=== PATIENT | female | born 1955 | race Caucasian/White ===

== ENCOUNTER 2016-09-05 11:33 | Inpatient (IN) | payer OTHER ==
[~2016-09-05] VITALS: Ht 162.6 cm; Wt 72.1 kg
[2016-09-05 11:35] VITALS: BP 140/98; PULSE 95; RESP 20; TEMP 98.2; O2SAT 97
--- NOTE | 2016-09-05 12:50 | PD ---
HPI Chief Complaint: Anxiety Time Seen by Provider: 12:40 Travel History International Travel<30 days: No Contact w/Intl Traveler<30days: No Traveled to known affect area: No History of Present Illness HPI 60-year-old female presents for evaluation. 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 She reports over the past few weeks she has noticed that the chemicals smell worse and she believes that coworkers were mixing Clorox with bleach. She reports that the chemicals would burn her nostrils and her throat when she breathed it in. She confronted her employer about it and she reports that last week she was let go from the company. Since then she has felt some anxiety and tremulousness and she was concerned that she may have chemicals or toxins in her body. She has also noticed for about a week that she occasionally has some dribbling of food and fluid from the left side of her mouth. She has noticed that the left side of her mouth seems droopy when she smiles. She denies any decreased sensation or decreased sense of taste. She denies any difficulty opening or closing her eyes. She denies any weakness in the extremities or slurred speech. She has no other complaints at this time. [facility] Past Medical History Cancer: Yes Hypertension: Yes Tetanus Vaccination: < 5 Years Influenza Vaccination: No ?: Not Past Surgical History Mastectomy: Yes (RIGHT) Social History Alcohol Use: Yes ("A COUPLE OF BEERS DAILY") Tobacco Use: No Substance Use: No Allergies-Medications (Allergen,Severity, Reaction): Coded Allergies: Adhesives (Verified Allergy, Severe, RASH, 09/05/16) Latex (Verified Allergy, Severe, RASH, 09/05/16) Reported Meds & Prescriptions Reported Meds & Active Scripts Active No Active Prescriptions or Reported Medications Review of Systems Except as stated in HPI: all other systems reviewed are Neg Physical Exam Narrative GENERAL: Well-developed well-nourished female who appears anxious on initial examination. SKIN: Warm and dry. HEAD: Atraumatic. Normocephalic. EYES: Pupils equal and round. No scleral icterus. No injection or drainage. ENT: No nasal bleeding or discharge. Mucous membranes pink and moist. NECK: Trachea midline. No JVD. CARDIOVASCULAR: Regular rate and rhythm. No murmur appreciated. RESPIRATORY: No accessory muscle use. Clear to auscultation. Breath sounds equal bilaterally. GASTROINTESTINAL: Abdomen soft, non-tender, nondistended. Hepatic and splenic margins not palpable. MUSCULOSKELETAL: No obvious deformities. No clubbing. No cyanosis. No edema. NEUROLOGICAL: Awake and alert. There is some flattening of the left nasal labial folds. Full range of motion in the upper and lower extremities with full muscle strength. Motor grossly within normal limits. Normal speech. PSYCHIATRIC: Anxious, tearful during initial examination. Data Data Last Documented VS Vital Signs Date Time Temp Pulse Resp B/P Pulse Ox O2 Delivery O2 Flow Rate FiO2 09/05/16 14:30 87 16 137/94 98 Room Air 09/05/16 11:35 98.2 Orders Electrocardiogram (09/05/16 12:54) Complete Blood Count With Diff (09/05/16 12:54) Basic Metabolic Panel (Bmp) (09/05/16 12:54) Iv Access Insert/Monitor (09/05/16 12:54) Lorazepam Inj (Ativan Inj) (09/05/16 14:15) Mri Brain W&W/O Contrast (09/05/16 ) Gadodiamide Pf Inj (Omniscan Pf Inj) (09/05/16 15:08) Dexamethasone Inj (Decadron Inj) (09/05/16 17:00) Admit Order (Ed Use Only) (09/05/16 17:16) Labs Laboratory Tests Test 09/05/16 13:20 White Blood Count 10.3 TH/MM3 Red Blood Count 4.93 MIL/MM3 Hemoglobin 15.2 GM/DL Hematocrit 44.8 % Mean Corpuscular Volume 90.8 FL Mean Corpuscular Hemoglobin 30.9 PG Mean Corpuscular Hemoglobin 34.0 % Concent Red Cell Distribution Width 12.4 % Platelet Count 246 TH/MM3 Mean Platelet Volume 8.4 FL Neutrophils (%) (Auto) 69.9 % Lymphocytes (%) (Auto) 23.4 % Monocytes (%) (Auto) 5.5 % Eosinophils (%) (Auto) 0.4 % Basophils (%) (Auto) 0.8 % Neutrophils # (Auto) 7.2 TH/MM3 Lymphocytes # (Auto) 2.4 TH/MM3 Monocytes # (Auto) 0.6 TH/MM3 Eosinophils # (Auto) 0.0 TH/MM3 Basophils # (Auto) 0.1 TH/MM3 CBC Comment DIFF FINAL Differential Comment Sodium Level 141 MEQ/L Potassium Level 3.9 MEQ/L Chloride Level 105 MEQ/L Carbon Dioxide Level 30.7 MEQ/L Anion Gap 5 MEQ/L Blood Urea Nitrogen 6 MG/DL Creatinine 0.77 MG/DL Estimat Glomerular Filtration 77 ML/MIN Rate Random Glucose 97 MG/DL Hemoglobin A1c 5.3 % Calcium Level 9.5 MG/DL Triglycerides Level 127 MG/DL Cholesterol Level 255 MG/DL LDL Cholesterol 134 MG/DL HDL Cholesterol 95.9 MG/DL Cholesterol/HDL Ratio 2.65 RATIO Free Thyroxine 0.75 NG/DL Thyroid Stimulating Hormone 11.500 uIU/ML 3rd Gen [facility] Medical Decision Making Medical Screen Exam Complete: Yes Emergency Medical Condition: Yes Medical Record Reviewed: Yes Differential Diagnosis Chemical inhalation irritation, anxiety, CVA, Worthington's palsy, electrolyte abnormality, organophosphate poisoning Narrative Course This is a 60-year-old female has been experiencing some irritation in her throat nostrils from breathing and cleaning chemicals, recently let go from her job and now feeling anxious and tremulous. During examination she also notes that she has been experiencing for about a week some dribbling of fluid and food from the left side of her mouth when she is eating and drinking. She does not know if this was related to the chemical inhalation. On examination she does appear to have some left-sided facial droop with some flattening of the nasolabial folds when she smiles. No other focal neurologic deficits are noted. Plan is for lab work and EKG and MRI of the brain to assess for CVA versus peripheral nerve palsy. MRI of the brain reveals multiple intracranial mass lesions with different signal characteristics considering the history of breast carcinoma likely reflect metastatic disease. The patient reports a remote history of breast cancer, treated at [facility] in 2006, lost to follow-up in 2013 secondary to lack of insurance. She does not currently have a primary care physician secondary to lack of insurance. Discussed with on-call neurosurgeon who recommends primary metastatic workup, likely no neurosurgery intervention is indicated at this time. We will admit the patient to the on-call hospitalist group. Procedures EKG Prior to Arrival: Yes Diagnosis Primary Impression: Intracranial mass Admitting Information Admitting Physician Requests: Admit Scripts No Active Prescriptions or Reported Meds Jose Guadalupe Lozoya Sep 05, 2016 12:50
[2016-09-05 13:38] LABS: AUTOMATED NEUTROPHIL # 7.2 TH/MM3 (1.8-7.7); BASOPHIL # 0.1 TH/MM3 (0-0.2); BASOPHIL % 0.8 % (0.0-2.0); EOSINOPHIL % 0.4 % (0.0-4.0); HEMATOCRIT 44.8 % (35.0-46.0); HEMO FLAGS DIFF FINAL; LYMPH % 23.4 % (9.0-44.0); LYMPHOCYTE # 2.4 TH/MM3 (1.0-4.8); MEAN CELL VOLUME 90.8 FL (80.0-100.0); MEAN CORPUSCULAR HEMOGLOBIN 30.9 PG (27.0-34.0); MONO % 5.5 % (0.0-8.0); NEUT % 69.9 % (16.0-70.0); PLATELET COUNT 246 TH/MM3 (150-450); RED BLOOD COUNT 4.93 MIL/MM3 (4.00-5.30); RED CELL DISTRIBUTION WIDTH 12.4 % (11.6-17.2); WHITE BLOOD COUNT 10.3 TH/MM3 (4.0-11.0)
[2016-09-05 13:56] LABS: BICARBONATE 30.7 MEQ/L (21.0-32.0); POTASSIUM 3.9 MEQ/L (3.5-5.1)
[2016-09-05] MEDS ORDERED: LORazepam 2 MG/ML VIAL IV PUSH ONE (14:15)
[2016-09-05 14:30] VITALS: BP 137/94; PULSE 87; RESP 16; O2SAT 98
[2016-09-05] MEDS ORDERED: GADODIAMIDE PF 287 MG/ML 5 ML VIAL (for RAD MRI) IV ONE (15:08)
--- NOTE | 2016-09-05 16:51 | RADRPT ---
EXAM DATE/TIME: 09/05/2016 14:35 [place] COMPARISON: No previous studies available for comparison. INDICATIONS : Altered mental status. Hx of breast ca. CONTRAST: 14 cc Omniscan (gadodiamide) IV MEDICAL HISTORY : Carcinoma, breast. SURGICAL HISTORY : Mastectomy, right. Appendectomy. ENCOUNTER: Initial ACUITY: 2 day PAIN SCORE: 0/10 LOCATION: head TECHNIQUE: Multiplanar, multisequence MRI of the brain was performed both prior to and following the administrat ion of paramagnetic contrast. FINDINGS: There is a 3.8 x 2.6 cm peripherally enhancing mass in the as well as blood products and fluid within the mass. There is cytotoxic edema present with mass effect on the body the right lateral ventricle but no significant midline shift. There is edema involving the left thalamus without a similar enhanc ement pattern. A third small lesion is present measuring 10 mm in diameter in the deep white matter a djacent to the atrium of the left lateral ventricle. No extra-axial fluid collections are identified. Posterior fossa structures are unremarkable. CONCLUSION: 1. Multiple intracranial mass lesions with different signal characteristics no considering the histor y of breast carcinoma likely all reflect metastatic disease. 2. The largest lesion in the right temporal lobe demonstrates central necrosis with 2 other nonenhanc ing lesions in the left thalamus as well as contreras radiata on the left Ronni Louie MD on September 05, 2016 at 16:35 Board Certified Radiologist. This report was verified electronically.
[2016-09-05] MEDS ORDERED: DEXAMETHASONE SOD PHOS 20 MG/5 ML VIAL IV PUSH ONE (17:00)
--- NOTE | 2016-09-05 17:14 | PD ---
Data Data Last Documented VS Vital Signs Date Time Temp Pulse Resp B/P Pulse Ox O2 Delivery O2 Flow Rate FiO2 09/05/16 14:30 87 16 137/94 98 Room Air 09/05/16 11:35 98.2 Orders Electrocardiogram (09/05/16 12:54) Complete Blood Count With Diff (09/05/16 12:54) Basic Metabolic Panel (Bmp) (09/05/16 12:54) Iv Access Insert/Monitor (09/05/16 12:54) Lorazepam Inj (Ativan Inj) (09/05/16 14:15) Mri Brain W&W/O Contrast (09/05/16 ) Gadodiamide Pf Inj (Omniscan Pf Inj) (09/05/16 15:08) Dexamethasone Inj (Decadron Inj) (09/05/16 17:00) Labs Laboratory Tests Test 09/05/16 13:20 White Blood Count 10.3 TH/MM3 Red Blood Count 4.93 MIL/MM3 Hemoglobin 15.2 GM/DL Hematocrit 44.8 % Mean Corpuscular Volume 90.8 FL Mean Corpuscular Hemoglobin 30.9 PG Mean Corpuscular Hemoglobin 34.0 % Concent Red Cell Distribution Width 12.4 % Platelet Count 246 TH/MM3 Mean Platelet Volume 8.4 FL Neutrophils (%) (Auto) 69.9 % Lymphocytes (%) (Auto) 23.4 % Monocytes (%) (Auto) 5.5 % Eosinophils (%) (Auto) 0.4 % Basophils (%) (Auto) 0.8 % Neutrophils # (Auto) 7.2 TH/MM3 Lymphocytes # (Auto) 2.4 TH/MM3 Monocytes # (Auto) 0.6 TH/MM3 Eosinophils # (Auto) 0.0 TH/MM3 Basophils # (Auto) 0.1 TH/MM3 CBC Comment DIFF FINAL Differential Comment Sodium Level 141 MEQ/L Potassium Level 3.9 MEQ/L Chloride Level 105 MEQ/L Carbon Dioxide Level 30.7 MEQ/L Anion Gap 5 MEQ/L Blood Urea Nitrogen 6 MG/DL Creatinine 0.77 MG/DL Estimat Glomerular Filtration 77 ML/MIN Rate Random Glucose 97 MG/DL Calcium Level 9.5 MG/DL MDM Supervised Visit with KATELYN: Yes Narrative Course I, Dr. Sweeney, have reviewed the advance practice practioner's documentation and am in agreement, met with the patient face to face, made the diagnosis, and the medical decision making was done by me. *My assessment and Findings: 60-year-old female here with complaint of anxiety since she inhaled Clorox and bleach mixed together while at work. Patient is anxious that she may have breathed N and then felt nervous and tingly as though she may have chemicals or toxins in her body. On review of systems she notes that she's been drooling food from the left side of the mouth for the last month. On exam she has slight nasal labial fold flattening on the left side. A remote history of breast cancer but hasn't lost to follow-up. Patient is otherwise neuro intact. Differential includes CVA, TIA, intracranial mass lesion, Worthington's palsy, anxiety. R workup unremarkable but unfortunately MRI of the brain shows multiple mass lesions characteristic of metastatic disease. Patient will be admitted to medicine for further management. We did speak with neurosurgery, , who did not feel that he needed to be involved, pending oncology workup. Diagnosis Primary Impression: Intracranial mass Scripts No Active Prescriptions or Reported Meds Toya Sweeney MD Sep 05, 2016 17:14
[2016-09-05] MEDS ORDERED: NALOXONE HCL 0.4 MG/ML AMP IV PRN (17:15)
[2016-09-05] MEDS ORDERED: METOCLOPRAMIDE HCL 10 MG/2 ML VIAL IV PUSH PRN (17:15)
[2016-09-05] MEDS ORDERED: BISACODYL 10 MG SUPP PR PRN (17:15)
[2016-09-05] MEDS ORDERED: SODIUM CHLORIDE 0.9% FLUSH 10 ML FLUSH IV FLUSH PRN (17:15)
[2016-09-05] MEDS ORDERED: ONDANSETRON HCL 4 MG/2 ML VIAL IVP PRN (17:15)
[2016-09-05] MEDS ORDERED: oxyCODONE/ACETAMINOPHEN 5 MG/325 MG TAB PO PRN (17:30)
--- NOTE | 2016-09-05 17:47 | HHI.HP ---
HPI Service [facility] Primary Care Physician No Primary Care Physician Admission Diagnosis multiple intracranial masses Diagnoses: Chief Complaint: Tremors Travel History International Travel<30 Days: No Contact w/Intl Traveler <30 Da: No Traveled to Known Affected Are: No History of Present Illness 60-year-old female with a past medical history of HTN, hypothyroidism, and treated breast cancer who presented with anxiety and tremors. The patient states that for the past few weeks to maybe 2 months ago she's been having tremors, numbness, and tingling in her right hand. For the past week she's been having difficulty with food falling out of the left side of her mouth when she tries to eat. She denies any weakness, gait unsteadiness, vision changes. She states occasionally she gets a headache behind her right eye, but states that isn't happening for years. 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 She states a few weeks ago the chemicals were causing her to have a sore and irritated throat, but that has improved. She has a history of right breast cancer with mastectomy, chemotherapy, and radiation back in 2006. She states that previously she was on medicine for high blood pressure and hypothyroidism whenever she had insurance. She states she previously weighed 220 pounds, and lost weight intentionally. Review of Systems Except as stated in HPI: all other systems reviewed are Neg Past Family Social History Past Medical History History of breast cancer status post chemotherapy and radiation History of hypertension History of hypothyroidism Past Surgical History Right breast mastectomy Appendectomy Teeth removed Reported Medications None Allergies: Coded Allergies: Adhesives (Verified Allergy, Severe, RASH, 09/05/16) Latex (Verified Allergy, Severe, RASH, 09/05/16) Active Ordered Medications Current Medications Medications (Trade) Dose Ordered Sig/Jason Route Start Time Stop Time Status Last Admin (NS 1000 ml Inj) 1,000 ml @ 100 mls/hr Q10H IV 09/05/16 17:14 (NS Flush) 2 ml UNSCH PRN IV FLUSH 09/05/16 17:15 UNV (NS Flush) 2 ml BID IV FLUSH 09/05/16 21:00 UNV (Tylenol) 650 mg Q4H PRN PO 09/05/16 17:15 (Zofran Inj) 4 mg Q6H PRN IVP 09/05/16 17:15 UNV (Reglan Inj) 5 mg Q6H PRN IV PUSH 09/05/16 17:15 UNV (Dulcolax Supp) 10 mg DAILY PRN WI 09/05/16 17:15 UNV (Heparin Inj) 5,000 units Q8H SQ 09/05/16 17:15 UNV (Narcan Inj) 0.4 mg UNSCH PRN IV 09/05/16 17:15 UNV (Percocet 5-325 Mg) 1 tab Q4H PRN PO 09/05/16 17:30 UNV Family History Father had some kind of cancer, unknown Social History The patient does drink 2-3 beers on most days, denies daily use The patient quit smoking more than 20 years ago Occasional marijuana use Physical Exam Vital Signs Vital Signs Date Time Temp Pulse Resp B/P Pulse Ox O2 Delivery O2 Flow Rate FiO2 09/05/16 14:30 87 16 137/94 98 Room Air 09/05/16 11:35 98.2 95 20 140/98 97 Physical Exam GENERAL: Well-developed well-nourished. In no acute distress. Tearful. SKIN: Warm and dry. No lesions noted. HEENT: Normocephalic. Pupils equal and round and reactive to light. Mucous membranes pink and moist. CARDIOVASCULAR: Regular rate and rhythm. No murmur appreciated. RESPIRATORY: No accessory muscle use. Clear to auscultation. Breath sounds equal bilaterally. GASTROINTESTINAL: Abdomen soft, non-tender, nondistended. Bowel sounds x4. MUSCULOSKELETAL: No obvious deformities. No clubbing or cyanosis. No edema. NEUROLOGICAL: Awake and alert. Left lower face drooping. No tongue deviation. Strength 5/5 in upper and lower extremities. Moves upper and lower extremities spontaneously. Slightly slurred speech. Right hand tremor. PSYCHIATRIC: Anxious mood and affect; insight and judgment normal. Laboratory Laboratory Tests Test 09/05/16 13:20 White Blood Count 10.3 Red Blood Count 4.93 Hemoglobin 15.2 Hematocrit 44.8 Mean Corpuscular Volume 90.8 Mean Corpuscular Hemoglobin 30.9 Mean Corpuscular Hemoglobin 34.0 Concent Red Cell Distribution Width 12.4 Platelet Count 246 Mean Platelet Volume 8.4 Neutrophils (%) (Auto) 69.9 Lymphocytes (%) (Auto) 23.4 Monocytes (%) (Auto) 5.5 Eosinophils (%) (Auto) 0.4 Basophils (%) (Auto) 0.8 Neutrophils # (Auto) 7.2 Lymphocytes # (Auto) 2.4 Monocytes # (Auto) 0.6 Eosinophils # (Auto) 0.0 Basophils # (Auto) 0.1 CBC Comment DIFF FINAL Differential Comment Sodium Level 141 Potassium Level 3.9 Chloride Level 105 Carbon Dioxide Level 30.7 Anion Gap 5 Blood Urea Nitrogen 6 Creatinine 0.77 Estimat Glomerular Filtration 77 Rate Random Glucose 97 Calcium Level 9.5 Result Diagram: 09/05/16 1320 09/05/16 1320 Imaging Last Impressions Brain MRI 09/05/16 0000 Signed Impressions: Service Date/Time: Monday, September 05, 2016 14:35 - CONCLUSION: 1. Multiple intracranial mass lesions with different signal characteristics no considering the history of breast carcinoma likely all reflect metastatic disease. 2. The largest lesion in the right temporal lobe demonstrates central necrosis with 2 other nonenhancing lesions in the left thalamus as well as contreras radiata on the left Ronni Louie MD Assessment and Plan Assessment and Plan 60-year-old female with a past medical history of HTN, hypothyroidism, and treated breast cancer who presented with anxiety and tremors Intracranial mass lesions with left facial droop and right upper extremity tremors and paresthesias: Brain MRI shows multiple intracranial mass lesions with different signal characteristics, suspicious for metastatic disease; the largest lesion in the right temporal area demonstrates central necrosis with 2 other nonenhancing lesions in the left thalamus as well as meghan ruled out on the left. -Neurosurgery contacted from the ED, recommended oncology workup -Neuro checks -Consult medical oncology. -Case management consult for assistance with follow-up care Hypothyroidism: By history, patient off medications. With anxiety and tremulousness, will check TSH and T4. History of hypertension: BP is reasonably controlled. Heart healthy diet. Clonidine as needed. DVT prophylaxis: Heparin Discussed Condition With Patient, ED RN, Dr. Ag Attending Statement Seen in her bedroom agree with management discussed with Sid Cooper Sep 05, 2016 17:47 Krish Llamas MD Sep 05, 2016 19:05
[2016-09-05 18:50] LABS: FREE T4 0.75 NG/DL (0.76-1.46); HDL CHOLESTEROL 95.9 MG/DL (40.0-60.0); LDL CHOLESTEROL 134 MG/DL (0-99)
--- NOTE | 2016-09-05 20:41 | MB ---
cc: YOLA [facility]U DATE OF CONSULTATION 09/05/2016 DATE OF 1955 REASON FOR CONSULTATION The patient with metastatic brain disease with a history of breast cancer. CHIEF COMPLAINT Numbness, tingling, chest discomfort, left facial weakness. HISTORY OF PRESENT ILLNESS Ms. Carmen is a 60-year-old female who has a past medical history of breast cancer. She presented to the emergency room with a 1-2 month history of feeling unwell. She has been experiencing some tingling and numbness in her hands. She also has weakness in her left face. She also endorses increased sense of smell over the past one month. 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 She had irritation in her chest, she thinks that she developed the chest irritation due to the fumes and was having a hard time breathing. In the emergency department she had an MRI of the brain and unfortunately this revealed a 3.8 x 2.6 cm peripherally enhancing mass with some vasogenic edema and hemorrhaging in the area. There is mass effect on the body in the right lateral ventricle but no significant midline shift. The edema involves the left thalamus without any enhancement pattern. A third small lesion is present measuring 10 mm in diameter in deep white matter adjacent to the atrium of the left lateral ventricle. This is highly suspicious for metastatic disease. Ms. Carmen was diagnosed with breast cancer in 2006. She was treated at [facility] in [place]. She states that this was a right-sided breast cancer. She has never had mammograms and she felt a palpable mass which prompted further workup. She had lymph node positive disease. She underwent right breast mastectomy, subsequently she had adjuvant radiation treatment and received chemotherapy. She tells me that she was not placed on hormonal blockade therapy. There is a likelihood that this was a triple negative breast cancer which is ER negative, [place] negative and HER2 negative. Generally patients who are estrogen receptor positive are placed on hormonal blockade. Additionally if there is HER2 positive disease, they are treated with one year of Herceptin anti HER2 treatment. she did not receive either of these treatments. These type of cancers are generally very aggressive. The patient states that she saw Dr. Cruz at [place]. She continued to follow with Dr. Cruz until 2013 when she lost her insurance. She has not had primary care followup either. She does not get yearly mammograms. She used to have a primary care physician in [place]. She had right breast reconstruction and she also had left breast reduction in 2008. PAST MEDICAL HISTORY She has no other past medical history. SOCIAL HISTORY She is an ex-smoker. She quit approximately 20 years ago. She endorses at least 20 years of smoking cigarettes in the past. She denies any illicit drug use. She occasionally drinks alcohol. She lives in [place]. Her sister was present during this conversation. She has good social support. She works for a [employer] company. REVIEW OF SYSTEMS A comprehensive 14-point review of systems was completed which is negative except as described in the HPI. PAST MEDICAL HISTORY 1. History of breast cancer in 2006. 2. Hypertension. PAST SURGICAL HISTORY Breast biopsy, lymph node biopsy, breast reconstruction surgery. MEDICATIONS She was not any medications now. Inpatient medications include: 1. Clonidine 0.1 mg p.o. q.6 h p.r.n. 2. Percocet 5/325 one tablet p.o. q.4 h p.r.n. 3. Tylenol 650 one tablet p.o. q.4 h p.r.n. 4. Zofran 4 mg IV q.6 h p.r.n. 5. Reglan 5 mg IV q.6 h p.r.n. 6. Dulcolax 10 mg one tablet p.o. p.r.n. daily. 7. She is currently on IV fluids. ALLERGIES SHE IS ALLERGIC TO ADHESIVES AND LATEX. PHYSICAL EXAMINATION VITAL SIGNS: Blood pressure is 137/98, pulse is in the 80s, temperature is 98.2, respiratory rate is 14, O2 sat 98% on room air. GENERAL: Well-developed, well-nourished female who is quite anxious. HEENT: Pupils are equal, round, reactive to light. EOMI. No oral thrush. No oral lesions. NECK: Supple. No JVD, no bruits. No lymphadenopathy. CHEST: Clear to auscultation bilaterally. CARDIOVASCULAR: S1-S2 regular rate rhythm. ABDOMEN: Soft, nontender, nondistended. Bowel sounds are present. EXTREMITIES: Without any edema, erythema or cyanosis. SKIN: Without any petechiae, lesion or bruises. NEUROLOGIC: There is slight left facial droop. No speech impediment. No other focal abnormalities. Strength is intact 5/5 in all extremities. PSYCHIATRIC: Mood and affect is appropriate. LABORATORY DATA WBC is 10.3, hemoglobin 15.2, platelet count 246. Serum chemistries show sodium of 141, potassium 3.9, chloride 105, CO2 30.7, BUN 6, creatinine 0.77, GFR 77. IMAGING STUDIES Brain MRI was reviewed in the EMR and discussed in the HPI. ASSESSMENT/PLAN This is 60-year-old female with a past medical history of breast cancer which was diagnosed in 2006. She underwent right-sided mastectomy followed by chemotherapy and radiation. She did not have adjuvant hormone blockade therapy. She presents to the hospital with numbness and tingling in her extremities as well as left facial weakness and dyspnea. 1. Multiple lesions in the brain. I have reviewed her MRI. This appears to be metastatic disease. She has had breast cancer in the past. Based on the history, I suspect that this was a triple negative breast cancer which are generally high-risk breast cancers. She was treated at [facility]. After her mastectomy, she had chemotherapy and radiation. She was not treated with hormone blockade therapy. She did not have any medical followup after 2013. At this point I will obtain a CT of the chest, abdomen and pelvis to see if there are other sites of disease, it will be much easier to biopsy one of the other sites if there is metastatic disease seen in the chest, abdomen and pelvis. We may also need a mammogram to identify any primary lesion. If she does not have any lesions seen on the imaging, then she will need a brain biopsy to establish a diagnosis. I discussed this with the patient. Neurosurgery has been consulted. I have ordered some tumor markers including CEA, CA-125 and CA 15-3. We will need to obtain records from [facility] regarding her previous diagnosis of breast cancer. Thank you for allowing me to participate in the care of this patient. I will continue to follow this patient along. MD DAVID Hester/TOYA /7:06 PM /8:10 PM BELEN
[2016-09-05] MEDS ORDERED: IOHEXOL 350 MG/ML 10 ML VIAL (for RAD DIAG) IV ONE (20:54)
[2016-09-05] MEDS: SODIUM CHLOR 0.9% 1000 ML INJ 1,000 ML IV SCH (21:02)
[2016-09-05] MEDS: HEPARIN SODIUM - SQ 10,000 UNITS/ML VIAL SQ SCH (21:03)
[2016-09-05] MEDS: SODIUM CHLORIDE 0.9% FLUSH 10 ML FLUSH IV FLUSH SCH (21:03)
--- NOTE | 2016-09-05 21:15 | RADRPT ---
EXAM DATE/TIME: 09/05/2016 20:30 [facility] COMPARISON: No previous studies available for comparison. INDICATIONS : Metastatic disease to the brain with history of breast cancer. IV CONTRAST: 96 cc Omnipaque 350 (iohexol) IV ; Cumulative dose for multiple exams. RADIATION DOSE: 5.22 CTDIvol (mGy) ; Combined studies - Thorax/Abdomen/Pelvis MEDICAL HISTORY : Hypertension. Carcinoma, breast. SURGICAL HISTORY : Mastectomy. ENCOUNTER: Initial ACUITY: 1 day PAIN SCALE: 0/10 LOCATION: chest TECHNIQUE: Volumetric scanning of the chest was performed. Using automated exposure control and adjustment of t he mA and/or kV according to patient size, radiation dose was kept as low as reasonably achievable to obtain optimal diagnostic quality images. FINDINGS: LUNGS: There is no consolidation or pneumothorax. No concerning pulmonary nodule is visualized. PLEURA: There is no pleural thickening or pleural effusion. MEDIASTINUM: The heart and great vessels demonstrate no acute abnormality. There is no mediastinal or hilar lymph adenopathy. AXILLAE: Within normal limits. No lymphadenopathy. SKELETAL: Within normal limits for patient age. MISCELLANEOUS: The visualized upper abdominal organs demonstrate no acute abnormality. CONCLUSION: No acute disease. Memo Houston MD on September 05, 2016 at 21:11 Board Certified Radiologist. This report was verified electronically.
--- NOTE | 2016-09-05 21:18 | RADRPT ---
EXAM DATE/TIME: 09/05/2016 20:30 [facility] COMPARISON: No previous studies available for comparison. INDICATIONS : Metastatic disease to the brain with history of breast cancer. IV CONTRAST: 96 cc Omnipaque 350 (iohexol) IV ; Cumulative dose for multiple exams. ORAL CONTRAST: Prescribed oral contrast ingested. RADIATION DOSE: 5.22 CTDIvol (mGy) ; Combined studies - Thorax/Abdomen/Pelvis MEDICAL HISTORY : Hypertension. Carcinoma, breast. SURGICAL HISTORY : Mastectomy ENCOUNTER: Initial ACUITY: 1 day PAIN SCALE: 0/10 LOCATION: Abdomen/pelvis TECHNIQUE: Volumetric scanning of the abdomen and pelvis was performed. Using automated exposure control and ad justment of the mA and/or kV according to patient size, radiation dose was kept as low as reasonably achievable to obtain optimal diagnostic quality images. FINDINGS: LOWER LUNGS: The visualized lower lungs are clear. LIVER: There is a tiny 6 mm low density lesion within the right lobe of the liver posteriorly which is too s mall for accurate density measurement. There is no dilation of the biliary tree. No calcified gallst ones. SPLEEN: Normal size without lesion. PANCREAS: Within normal limits. KIDNEYS: Normal in size and shape. There is no mass or hydronephrosis. There is a tiny 5 mm calcified nonobst ructing upper pole left renal calculus. ADRENAL GLANDS: Within normal limits. VASCULAR: There is no aortic aneurysm. BOWEL/MESENTERY: The stomach, small bowel, and colon demonstrate no acute abnormality. There is no free intraperitone al air or fluid. ABDOMINAL WALL: Within normal limits. RETROPERITONEUM: There is no lymphadenopathy. BLADDER: No wall thickening or mass. REPRODUCTIVE: Within normal limits. INGUINAL: There is no lymphadenopathy or hernia. MUSCULOSKELETAL: Within normal limits for patient age. CONCLUSION: Tiny 5 mm calcified nonobstructing upper pole left renal calculus. Tiny 6 mm low dens ity lesion within the right lobe of the liver posteriorly which is too small for accurate density theodore surement. Memo Houston MD on September 05, 2016 at 21:13 Board Certified Radiologist. This report was verified electronically.
[2016-09-05 22:10] VITALS: BP 126/72; TEMP 98.5
[2016-09-05 22:30] LABS: HEMOGLOBIN A1a 0.8 %; HEMOGLOBIN A1b 1.7 %; HEMOGLOBIN Ao 86.4 %; HEMOGLOBIN LA1C 1.9 %; HEMOGLOBIN P3 3.5 %
--- NOTE | 2016-09-05 22:34 | EKG ---
Date Performed: 09/05/2016 Time Performed: 13:36:13 PTAGE: 60 years EKG: Sinus rhythm WITH SINUS ARRHYTHMIA NORMAL ECG NO PREVIOUS TRACING DOCTOR: Uli Grigsby Interpretating Date/Time 09/05/2016 22:32:49
[2016-09-05 23:17] VITALS: BP 155/98; PULSE 85; RESP 16; TEMP 96.5; O2SAT 94
[2016-09-05 23:57] VITALS: BP 140/84; PULSE 64
[2016-09-06] MEDS ORDERED: DEXAMETHASONE SOD PHOS 4 MG/ML VIAL IV PUSH SCH (01:00)
[2016-09-06] MEDS: HEPARIN SODIUM - SQ 10,000 UNITS/ML VIAL SQ SCH ×3 (01:15→16:30)
[2016-09-06] MEDS: SODIUM CHLOR 0.9% 1000 ML INJ 1,000 ML IV SCH ×2 (01:20→13:14)
[2016-09-06 04:00] VITALS: BP 134/80; PULSE 70; RESP 16; TEMP 96.4; O2SAT 93
[2016-09-06 06:51] LABS: BICARBONATE 25.2 MEQ/L (21.0-32.0); POTASSIUM 3.7 MEQ/L (3.5-5.1)
[2016-09-06 06:52] LABS: PROTHROMBIN TIME - PATIENT 10.5 SEC (9.8-11.6)
[2016-09-06 06:53] LABS: INDIRECT BILIRUBIN 0.4 MG/DL (0.0-0.8); TOTAL BILIRUBIN ADULT 0.5 MG/DL (0.2-1.0)
[2016-09-06 07:03] LABS: AUTOMATED NEUTROPHIL # 8.5 TH/MM3 (1.8-7.7); BASOPHIL % 0.1 % (0.0-2.0); HEMATOCRIT 42.6 % (35.0-46.0); HEMO FLAGS DIFF FINAL; LYMPH % 11.3 % (9.0-44.0); LYMPHOCYTE # 1.1 TH/MM3 (1.0-4.8); MEAN CELL VOLUME 90.1 FL (80.0-100.0); MEAN CORPUSCULAR HEMOGLOBIN 31.7 PG (27.0-34.0); MEAN CORPUSCULAR HGB CONC 35.2 % (32.0-36.0); MONO % 1.1 % (0.0-8.0); NEUT % 87.5 % (16.0-70.0); PLATELET COUNT 252 TH/MM3 (150-450); RED BLOOD COUNT 4.73 MIL/MM3 (4.00-5.30); RED CELL DISTRIBUTION WIDTH 12.5 % (11.6-17.2); WHITE BLOOD COUNT 9.7 TH/MM3 (4.0-11.0)
[2016-09-06 08:00] VITALS: BP 167/91; PULSE 83; RESP 16; TEMP 97.1; O2SAT 98
--- NOTE | 2016-09-06 08:31 | HHI.PR ---
Subjective Remarks 60-year-old female with a past medical history of HTN, hypothyroidism, and treated breast cancer who presented with anxiety and tremors. The patient states that for the past few weeks to maybe 2 months ago she's been having tremors, numbness, and tingling in her right hand. For the past week she's been having difficulty with food falling out of the left side of her mouth when she tries to eat. She denies any weakness, gait unsteadiness, vision changes. She states occasionally she gets a headache behind her right eye, but states that isn't happening for years. 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 She states a few weeks ago the chemicals were causing her to have a sore and irritated throat, but that has improved. She has a history of right breast cancer with mastectomy, chemotherapy, and radiation back in 2006. She states that previously she was on medicine for high blood pressure and hypothyroidism whenever she had insurance. She states she previously weighed 220 pounds, and lost weight intentionally. seen in her bedroom in the presence of her Son, discussed about Hematology and Oncology recommendations, seen Imaging studies for Chest and abdomen performed and negative for Neoplasia. recommended Neurosurgical consult. Objective Vital Signs Date Time Temp Pulse Resp B/P Pulse Ox O2 Delivery O2 Flow Rate FiO2 09/06/16 04:00 96.4 70 16 134/80 93 09/05/16 23:57 64 140/84 09/05/16 23:17 96.5 85 16 155/98 94 09/05/16 22:10 98.5 80 16 126/72 99 09/05/16 14:30 87 16 137/94 98 Room Air 09/05/16 11:35 98.2 95 20 140/98 97 I/O 09/05/16 09/05/16 09/05/16 09/06/16 09/06/16 09/06/16 07:00 15:00 23:00 07:00 15:00 23:00 Intake Total 1155 ml Output Total 700 ml Balance 455 ml Intake Oral 240 ml IV Total 915 ml Output Urine Total 700 ml # Bowel Movements 0 Result Diagram: 09/06/16 0550 09/06/16 0550 Imaging Last Impressions Chest CT 09/05/16 0000 Signed Impressions: Service Date/Time: Monday, September 05, 2016 20:30 - CONCLUSION: No acute disease. Memo Houston MD Brain MRI 09/05/16 0000 Signed Impressions: Service Date/Time: Monday, September 05, 2016 14:35 - CONCLUSION: 1. Multiple intracranial mass lesions with different signal characteristics no considering the history of breast carcinoma likely all reflect metastatic disease. 2. The largest lesion in the right temporal lobe demonstrates central necrosis with 2 other nonenhancing lesions in the left thalamus as well as contreras radiata on the left Ronni Louie MD Abdomen/Pelvis CT 09/05/16 0000 Signed Impressions: Service Date/Time: Monday, September 05, 2016 20:30 - CONCLUSION: Tiny 5 mm calcified nonobstructing upper pole left renal calculus. Tiny 6 mm low density lesion within the right lobe of the liver posteriorly which is too small for accurate density measurement. Memo Houston MD Procedures No procedures performed to the patient Other Results Laboratory Tests Test 09/05/16 09/06/16 13:20 05:50 Hemoglobin A1c 5.3 % Triglycerides Level 127 MG/DL Cholesterol Level 255 MG/DL LDL Cholesterol 134 MG/DL HDL Cholesterol 95.9 MG/DL Cholesterol/HDL Ratio 2.65 RATIO Free Thyroxine 0.75 NG/DL Thyroid Stimulating Hormone 11.500 uIU/ML 3rd Gen White Blood Count 9.7 TH/MM3 Red Blood Count 4.73 MIL/MM3 Hemoglobin 15.0 GM/DL Hematocrit 42.6 % Mean Corpuscular Volume 90.1 FL Mean Corpuscular Hemoglobin 31.7 PG Mean Corpuscular Hemoglobin 35.2 % Concent Red Cell Distribution Width 12.5 % Platelet Count 252 TH/MM3 Mean Platelet Volume 8.6 FL Neutrophils (%) (Auto) 87.5 % Lymphocytes (%) (Auto) 11.3 % Monocytes (%) (Auto) 1.1 % Eosinophils (%) (Auto) 0.0 % Basophils (%) (Auto) 0.1 % Neutrophils # (Auto) 8.5 TH/MM3 Lymphocytes # (Auto) 1.1 TH/MM3 Monocytes # (Auto) 0.1 TH/MM3 Eosinophils # (Auto) 0.0 TH/MM3 Basophils # (Auto) 0.0 TH/MM3 CBC Comment DIFF FINAL Differential Comment Prothrombin Time 10.5 SEC Prothromb Time International 1.0 RATIO Ratio Sodium Level 139 MEQ/L Potassium Level 3.7 MEQ/L Chloride Level 106 MEQ/L Carbon Dioxide Level 25.2 MEQ/L Anion Gap 8 MEQ/L Blood Urea Nitrogen 9 MG/DL Creatinine 0.63 MG/DL Estimat Glomerular Filtration 97 ML/MIN Rate Random Glucose 131 MG/DL Calcium Level 9.7 MG/DL Total Bilirubin 0.5 MG/DL Direct Bilirubin 0.1 MG/DL Indirect Bilirubin 0.4 MG/DL Aspartate Amino Transf 12 U/L (AST/SGOT) Alanine Aminotransferase 19 U/L (ALT/SGPT) Alkaline Phosphatase 54 U/L Total Protein 6.8 GM/DL Albumin 3.7 GM/DL Lipase 125 U/L Objective Remarks GENERAL: Well-developed well-nourished. No acute distress. SKIN: Warm and dry. No lesions noted. HEENT: Normocephalic. Pupils equal and round and reactive to light. Mucous membranes pink and moist. CARDIOVASCULAR: Regular rate and rhythm. No murmur appreciated. RESPIRATORY: No accessory muscle use. Clear to auscultation. Breath sounds equal bilaterally. GASTROINTESTINAL: Abdomen soft, non-tender, nondistended. Bowel sounds x4. MUSCULOSKELETAL: No obvious deformities. No clubbing or cyanosis. No edema. NEUROLOGICAL: Awake and alert. Left lower face drooping. No tongue deviation. Strength 5/5 in upper and lower extremities. Moves upper and lower extremities spontaneously. Slightly slurred speech. Right hand tremor. PSYCHIATRIC: Anxious mood and affect; insight and judgment normal. Medications and IVs Current Medications Medications (Trade) Dose Ordered Sig/Jason Route Start Time Stop Time Status Last Admin (NS 1000 ml Inj) 1,000 ml @ 100 mls/hr Q10H IV 09/05/16 17:14 09/06/16 01:20 (NS Flush) 2 ml UNSCH PRN IV FLUSH 09/05/16 17:15 (NS Flush) 2 ml BID IV FLUSH 09/05/16 21:00 09/05/16 21:03 (Tylenol) 650 mg Q4H PRN PO 09/05/16 17:15 (Zofran Inj) 4 mg Q6H PRN IVP 09/05/16 17:15 (Reglan Inj) 5 mg Q6H PRN IV PUSH 09/05/16 17:15 (Dulcolax Supp) 10 mg DAILY PRN [place] 09/05/16 17:15 (Heparin Inj) 5,000 units Q8H SQ 09/05/16 18:00 09/06/16 01:15 (Narcan Inj) 0.4 mg UNSCH PRN IV 09/05/16 17:15 (Percocet 5-325 Mg) 1 tab Q4H PRN PO 09/05/16 17:30 (Catapres) 0.1 mg Q6H PRN PO 09/05/16 17:45 (Decadron Inj) 4 mg Q8H IV PUSH 09/06/16 09:00 A/P Assessment and Plan 1. Intracranial Mass lesions with left facial paresis and tingling sensation on extremities, seen by digital asset specialist looks Metastatic Disease, secondary to Breast Cancer diagnosed in 2006, has triple negative breast Cancer, treated at [facility] status post left mastectomy, not treated with Hormone blockade Therapy, not followed since 2013, she was treated with Radiation therapy and Chemotherapy, CT chest ordered and CT abdomen and pelvis negative for Neoplasia. may also need mammogram to evaluate primary lesion. Neurosurgery specialist consulted by Oncology. Brain MRI shows multiple intracranial mass lesions with different signal characteristics, suspicious for metastatic disease; the largest lesion in the right temporal area demonstrates central necrosis with 2 other nonenhancing lesions in the left thalamus as well as meghan ruled out on the left asked for CEA, CA-125 and CA 15-3 2. Hypothyroidism: By history, patient off medications. reviewed TSH and Free T4 needs Levothyroxine started at 25 mcg daily 3. Hypertension by history uncontrolled will start low dose of Amlodipine DVT prophylaxis: Heparin Discussed Condition With Patient and her Son in the room. Discharge Planning as per digital asset specialist recommendation Krish Llamas MD Sep 06, 2016 08:31
[2016-09-06] MEDS: DEXAMETHASONE SOD PHOS 4 MG/ML VIAL IV PUSH SCH ×2 (08:42→16:30)
[2016-09-06] MEDS: SODIUM CHLORIDE 0.9% FLUSH 10 ML FLUSH IV FLUSH SCH ×2 (08:42→20:45)
[2016-09-06] MEDS: ACETAMINOPHEN 325 MG TAB PO PRN (08:49)
--- NOTE | 2016-09-06 10:18 | PD.ONC.PN ---
Subjective Subjective Remarks Afebrile overnight. Pt resting in bed watching TV on approach. She states she continues to have a headache. The numbness and tingling in her hand is improved. No other complaints. Objective Data Date Time Temp Pulse Resp B/P Pulse Ox O2 Delivery O2 Flow Rate FiO2 09/06/16 04:00 96.4 70 16 134/80 93 09/05/16 23:57 64 140/84 09/05/16 23:17 96.5 85 16 155/98 94 09/05/16 22:10 98.5 80 16 126/72 99 09/05/16 14:30 87 16 137/94 98 Room Air 09/05/16 11:35 98.2 95 20 140/98 97 Result Diagram: 09/06/16 0550 09/06/16 0550 Laboratory Results Laboratory Tests Test 09/05/16 09/06/16 13:20 05:50 White Blood Count 10.3 TH/MM3 9.7 TH/MM3 Red Blood Count 4.93 MIL/MM3 4.73 MIL/MM3 Hemoglobin 15.2 GM/DL 15.0 GM/DL Hematocrit 44.8 % 42.6 % Mean Corpuscular Volume 90.8 FL 90.1 FL Mean Corpuscular Hemoglobin 30.9 PG 31.7 PG Mean Corpuscular Hemoglobin 34.0 % 35.2 % Concent Red Cell Distribution Width 12.4 % 12.5 % Platelet Count 246 TH/MM3 252 TH/MM3 Mean Platelet Volume 8.4 FL 8.6 FL Neutrophils (%) (Auto) 69.9 % 87.5 % Lymphocytes (%) (Auto) 23.4 % 11.3 % Monocytes (%) (Auto) 5.5 % 1.1 % Eosinophils (%) (Auto) 0.4 % 0.0 % Basophils (%) (Auto) 0.8 % 0.1 % Neutrophils # (Auto) 7.2 TH/MM3 8.5 TH/MM3 Lymphocytes # (Auto) 2.4 TH/MM3 1.1 TH/MM3 Monocytes # (Auto) 0.6 TH/MM3 0.1 TH/MM3 Eosinophils # (Auto) 0.0 TH/MM3 0.0 TH/MM3 Basophils # (Auto) 0.1 TH/MM3 0.0 TH/MM3 CBC Comment DIFF FINAL DIFF FINAL Differential Comment Sodium Level 141 MEQ/L 139 MEQ/L Potassium Level 3.9 MEQ/L 3.7 MEQ/L Chloride Level 105 MEQ/L 106 MEQ/L Carbon Dioxide Level 30.7 MEQ/L 25.2 MEQ/L Anion Gap 5 MEQ/L 8 MEQ/L Blood Urea Nitrogen 6 MG/DL 9 MG/DL Creatinine 0.77 MG/DL 0.63 MG/DL Estimat Glomerular Filtration 77 ML/MIN 97 ML/MIN Rate Random Glucose 97 MG/DL 131 MG/DL Hemoglobin A1c 5.3 % Calcium Level 9.5 MG/DL 9.7 MG/DL Triglycerides Level 127 MG/DL Cholesterol Level 255 MG/DL LDL Cholesterol 134 MG/DL HDL Cholesterol 95.9 MG/DL Cholesterol/HDL Ratio 2.65 RATIO Free Thyroxine 0.75 NG/DL Thyroid Stimulating Hormone 11.500 uIU/ML 3rd Gen Prothrombin Time 10.5 SEC Prothromb Time International 1.0 RATIO Ratio Total Bilirubin 0.5 MG/DL Direct Bilirubin 0.1 MG/DL Indirect Bilirubin 0.4 MG/DL Aspartate Amino Transf 12 U/L (AST/SGOT) Alanine Aminotransferase 19 U/L (ALT/SGPT) Alkaline Phosphatase 54 U/L Total Protein 6.8 GM/DL Albumin 3.7 GM/DL Lipase 125 U/L Imaging Studies Last Impressions Chest CT 09/05/16 0000 Signed Impressions: Service Date/Time: Monday, September 05, 2016 20:30 - CONCLUSION: No acute disease. Memo Houston MD Brain MRI 09/05/16 0000 Signed Impressions: Service Date/Time: Monday, September 05, 2016 14:35 - CONCLUSION: 1. Multiple intracranial mass lesions with different signal characteristics no considering the history of breast carcinoma likely all reflect metastatic disease. 2. The largest lesion in the right temporal lobe demonstrates central necrosis with 2 other nonenhancing lesions in the left thalamus as well as contreras radiata on the left Ronni Louie MD Abdomen/Pelvis CT 09/05/16 0000 Signed Impressions: Service Date/Time: Monday, September 05, 2016 20:30 - CONCLUSION: Tiny 5 mm calcified nonobstructing upper pole left renal calculus. Tiny 6 mm low density lesion within the right lobe of the liver posteriorly which is too small for accurate density measurement. Memo Houston MD Administered Medications Medications (Trade) Dose Ordered Sig/Jason Route PRN Reason Start Time Stop Time Status Last Admin Dose Admin Sodium Chloride (NS 1000 ml Inj) 1,000 ml @ 100 mls/hr Q10H IV 09/05/16 17:14 09/06/16 01:20 Sodium Chloride (NS Flush) 2 ml BID IV FLUSH 09/05/16 21:00 09/05/16 21:03 Acetaminophen (Tylenol) 650 mg Q4H PRN PO PAIN SCALE 1 TO 5 09/05/16 17:15 09/06/16 08:49 Heparin Sodium (Porcine) (Heparin Inj) 5,000 units Q8H SQ 09/05/16 18:00 09/06/16 08:42 Dexamethasone Sodium Phosphate (Decadron Inj) 4 mg Q8H IV PUSH 09/06/16 09:00 09/06/16 08:42 Objective Remarks GENERAL: Older female sitting up in bed watching TV in NAD. SKIN: Warm and dry. HEAD: Normocephalic. EYES: No scleral icterus. No injection or drainage. NECK: Supple, trachea midline. CARDIOVASCULAR: +S1/S2. No murmur appreciated. RESPIRATORY: Breath sounds equal bilaterally. No accessory muscle use. GASTROINTESTINAL: Abdomen soft, non-tender, nondistended. EXTREMITIES: No cyanosis, or edema. NEUROLOGICAL: A&Ox3. 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 Normal speech. Moving all extremities. Assessment/Plan Problem List: (1) Intracranial mass Status: Acute Plan: -- Likely mets from prior breast cancer -- Tumor markers CEA, CA 15-3, and CA125 all WNL. -- CT thorax negative for mets. -- CT abdomen/pelvis shows a small 6mm hypodense lesion. -- On Decadron IV -- Await Neurosurgery input. Hx/Workup: Pt was diagnosed and treated in 2006 at the [facility] for breast cancer. She was treated with chemotherapy and radiation for what was probably triple negative disease. She denies being on a hormonal agent or being treated with Herceptin for one year. She was followed up until 2013 when she lost her insurance. Assessment 60 y/o female admitted for intracranial masses with a history of breast cancer. Plan 1. Continue Decadron 4mg Q8h. 2. Await neurosurgery input 3. Diagnostic imaging of thorax, abdomen and pelvis negative for definitive mets. 4. Small 6mm hypodense lesion in the liver. 5. Supportive care. Jessica Plaza Sep 06, 2016 10:18
[2016-09-06 12:00] VITALS: BP 153/94; PULSE 84; RESP 16; TEMP 96.5; O2SAT 97
[2016-09-06] MEDS ORDERED: LEVOTHYROXINE SODIUM 25 MCG TAB PO ONE (15:15)
[2016-09-06 16:00] VITALS: BP 165/96; PULSE 77; RESP 16; TEMP 97; O2SAT 98
[2016-09-06] MEDS: amLODIPine BESYLATE 5 MG TAB PO SCH (16:31)
[2016-09-06 21:15] VITALS: BP 148/92; PULSE 72; RESP 18; TEMP 97.3; O2SAT 96
[2016-09-07] VITALS: BP 140/75; PULSE 68; RESP 16; TEMP 97.8; O2SAT 97
[2016-09-07] MEDS: DEXAMETHASONE SOD PHOS 4 MG/ML VIAL IV PUSH SCH ×3 (01:15→18:02)
[2016-09-07] MEDS: HEPARIN SODIUM - SQ 10,000 UNITS/ML VIAL SQ SCH ×3 (01:15→18:02)
[2016-09-07] MEDS: SODIUM CHLOR 0.9% 1000 ML INJ 1,000 ML IV SCH ×2 (01:21→08:57)
[2016-09-07 05:00] VITALS: BP 142/84; PULSE 66; RESP 16; TEMP 96.8; O2SAT 96
[2016-09-07] MEDS: LEVOTHYROXINE SODIUM 25 MCG TAB PO SCH (05:24)
[2016-09-07 08:00] VITALS: BP 151/76; PULSE 66; RESP 18; TEMP 97.3; O2SAT 97
--- NOTE | 2016-09-07 08:48 | PD.CONS ---
(Marlo Osorio MD) HPI Consult Requested By Primary Care Physician No Primary Care Physician (Marlo Osorio MD) Service Neurosurgery Consult Requested By Oncology Reason for Consult intracranial lesions; history of breast cancer. History of Present Illness Ms. Carmen is a 60-year-old female with a history of breast cancer in 2006 and previously treated at the [facility] in [place]. Ms. Carmen underwent right mastectomy with chemoradiation treatment. She presented to [place] with complaints 1-2 months of of left facial weakness and hand paresthesias. She also reports of mild headaches. She denies vision changes, seizure like activities, vomiting, gait instability, fevers or chills. She underwent an MRI brain which shows multiple intracranial mass lesions suspicious for metastasis. A neurosurgical evaluation was requested. (Iona Norton) Review of Systems Constitutional: DENIES: Fever, Chills Eyes: DENIES: Diplopia, Vision loss Ears, nose, mouth, throat: DENIES: Hearing loss Respiratory: DENIES: Apneas, Hemoptysis, Shortness of breath Cardiovascular: DENIES: Chest pain, Palpitations Gastrointestinal: DENIES: Abdominal pain, Bloody stools Genitourinary: DENIES: Urinary incontinence Musculoskeletal: DENIES: Muscle aches, Back pain, Neck pain Neurologic: COMPLAINS OF: Headache, Localized weakness, Paresthesias, DENIES: Abnormal gait, Seizures, Poor Balance Psychiatric: DENIES: Hallucinations (Iona Norton) Past Family Social History Allergies: Coded Allergies: Adhesives (Verified Allergy, Severe, RASH, 09/05/16) Latex (Verified Allergy, Severe, RASH, 09/05/16) Past Medical History Breast CA dx in 2006 with previous chemoradiation Past Surgical History Right mastectomy Reported Medications reviewed in EMR Active Ordered Medications Current Medications Medications (Trade) Dose Ordered Sig/Jason Route PRN Reason Start Time Stop Time Status Last Admin Dose Admin Sodium Chloride (NS Flush) 2 ml UNSCH PRN IV FLUSH FLUSH AFTER USING IV ACCESS 09/05/16 17:15 Sodium Chloride (NS Flush) 2 ml BID IV FLUSH 09/05/16 21:00 09/07/16 08:57 Acetaminophen (Tylenol) 650 mg Q4H PRN PO PAIN SCALE 1 TO 2 09/05/16 17:15 09/06/16 08:49 Ondansetron HCl (Zofran Inj) 4 mg Q6H PRN IVP NAUSEA OR VOMITING 09/05/16 17:15 Metoclopramide HCl (Reglan Inj) 5 mg Q6H PRN IV PUSH NAUSEA OR VOMITING 09/05/16 17:15 Bisacodyl (Dulcolax Supp) 10 mg DAILY PRN [place] CONSTIPATION 09/05/16 17:15 Heparin Sodium (Porcine) (Heparin Inj) 5,000 units Q8H SQ 09/05/16 18:00 09/07/16 08:54 Naloxone HCl (Narcan Inj) 0.4 mg UNSCH PRN IV SEE LABEL COMMENTS 09/05/16 17:15 Oxycodone/ Acetaminophen (Percocet 5-325 Mg) 1 tab Q4H PRN PO PAIN SCALE 3 TO 6 09/05/16 17:30 Clonidine (Catapres) 0.1 mg Q6H PRN PO SBP>160, DBP>90 09/05/16 17:45 Dexamethasone Sodium Phosphate (Decadron Inj) 4 mg Q8H IV PUSH 09/06/16 09:00 09/07/16 08:54 Levothyroxine Sodium (Synthroid) 25 mcg DAILY@0600 PO 09/07/16 06:00 09/07/16 05:24 Amlodipine Besylate (Norvasc) 2.5 mg DAILY PO 09/06/16 16:00 09/07/16 08:56 Alprazolam (Xanax) 0.5 mg Q8H PRN PO ANXIETY 09/07/16 11:15 09/07/16 12:31 Family History father has history of cancer Social History previous history of tobacco use, none currently. occasional etoh and marijuana use (Iona Norton) Physical Exam Vital Signs Vital Signs Date Time Temp Pulse Resp B/P Pulse Ox O2 Delivery O2 Flow Rate FiO2 09/07/16 08:00 97.3 66 18 151/76 97 09/07/16 05:00 96.8 66 16 142/84 96 09/07/16 00:00 97.8 68 16 140/75 97 09/06/16 21:15 97.3 72 18 148/92 96 09/06/16 16:00 97.0 77 16 165/96 98 09/06/16 12:00 96.5 84 16 153/94 97 Laboratory Laboratory Tests Test 09/06/16 09:18 Carcinoembryonic Antigen 0.7 CA 15-3 Antigen 13.1 CA 125 Antigen 8.8 (Marlo Osorio MD) Physical Exam (Iona Norton) Result Diagram: 09/06/16 0550 09/06/16 0550 Imaging Last Impressions Chest CT 09/05/16 0000 Signed Impressions: Service Date/Time: Monday, September 05, 2016 20:30 - CONCLUSION: No acute disease. Memo Houston MD Brain MRI 09/05/16 0000 Signed Impressions: Service Date/Time: Monday, September 05, 2016 14:35 - CONCLUSION: 1. Multiple intracranial mass lesions with different signal characteristics no considering the history of breast carcinoma likely all reflect metastatic disease. 2. The largest lesion in the right temporal lobe demonstrates central necrosis with 2 other nonenhancing lesions in the left thalamus as well as contreras radiata on the left Ronni Louie MD Abdomen/Pelvis CT 09/05/16 0000 Signed Impressions: Service Date/Time: Monday, September 05, 2016 20:30 - CONCLUSION: Tiny 5 mm calcified nonobstructing upper pole left renal calculus. Tiny 6 mm low density lesion within the right lobe of the liver posteriorly which is too small for accurate density measurement. Meom Houston MD (Iona Norton) Attending Statement I have reviewed her clinical and further studies. neuro checks in a serial fashion. I suspect metastatic breast cancer. Consult oncology. Recommend CT of the chest abdomen and pelvis for staging. I we'll consult radiation oncology. If tissue diagnosis is necessary I would be happy to obtain a biopsy Respiratory. pulmonary toilette, nasotracheal suction, and breathing treatments with nebulizers. PT and OT eval Nutrition. Oral diet Renal. monitor closely urine output, BUN and creatinine Endocrine. Monitor serial Acu checks and SSI for tight control ID monitor for signs of infection Protonix for stress ulcer prophylaxis Thiago hose and SCD's for DVT prophylaxis The exam, history, and the medical decision-making described in the above note were completed with the assistance of the mid-level provider. I reviewed and agree with the findings presented. I attest that I had a [id number] encounter with the patient on the same day, and personally performed and documented my assessment and findings in the medical record. (Marlo Osorio MD) Marlo Osorio MD Sep 07, 2016 08:48 Iona Norton Sep 07, 2016 16:04
[2016-09-07] MEDS: amLODIPine BESYLATE 5 MG TAB PO SCH (08:56)
[2016-09-07] MEDS: SODIUM CHLORIDE 0.9% FLUSH 10 ML FLUSH IV FLUSH SCH ×2 (08:57→22:01)
--- NOTE | 2016-09-07 10:28 | HHI.PR ---
Subjective Remarks 60-year-old female with a past medical history of HTN, hypothyroidism, and treated breast cancer who presented with anxiety and tremors. The patient states that for the past few weeks to maybe 2 months ago she's been having tremors, numbness, and tingling in her right hand. For the past week she's been having difficulty with food falling out of the left side of her mouth when she tries to eat. She denies any weakness, gait unsteadiness, vision changes. She states occasionally she gets a headache behind her right eye, but states that isn't happening for years. 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 She states a few weeks ago the chemicals were causing her to have a sore and irritated throat, but that has improved. She has a history of right breast cancer with mastectomy, chemotherapy, and radiation back in 2006. She states that previously she was on medicine for high blood pressure and hypothyroidism whenever she had insurance. She states she previously weighed 220 pounds, and lost weight intentionally. seen in her bedroom in the presence of her Son, discussed about Hematology and Oncology recommendations, seen Imaging studies for Chest and abdomen performed and negative for Neoplasia. recommended Neurosurgical consult. 09/07 Discussed early in the morning with Doctor Iván Lugo and his CORRESPONDENCE SPECIALIST Miss Jessica Plaza he wants the patient discharged from the Hospital to perform a PET scan and Mammogram and readmit the patient was discussed with Our Detective [place] Doctor Marie he did not authorized this management and will discuss with database management specialist, and let us know next step awaiting also for Neurosurgery specialist consult. Again discussed in the afternoon with Doctor Mcpherson and with Doctor Iván Lugo recommended to keep the patient in House, until database management specialist and Neurosurgery touch base again about the case with Doctor Lugo asked me to keep the patient Hospitalized until tomorrow, there is a difficulty with the discharge to re admit and is that she is self pay and may need strict follow up with chief specialist leed. No nausea, vomit or diarrhea. Objective Vital Signs Date Time Temp Pulse Resp B/P Pulse Ox O2 Delivery O2 Flow Rate FiO2 09/07/16 08:00 97.3 66 18 151/76 97 09/07/16 05:00 96.8 66 16 142/84 96 09/07/16 00:00 97.8 68 16 140/75 97 09/06/16 21:15 97.3 72 18 148/92 96 09/06/16 16:00 97.0 77 16 165/96 98 09/06/16 12:00 96.5 84 16 153/94 97 I/O 09/06/16 09/06/16 09/06/16 09/07/16 09/07/16 09/07/16 07:00 15:00 23:00 07:00 15:00 23:00 Intake Total 1155 ml 960 ml 480 ml 1800 ml Output Total 700 ml 900 ml 800 ml Balance 455 ml 60 ml -320 ml 1800 ml Intake Oral 240 ml 960 ml 480 ml IV Total 915 ml 1800 ml Output Urine Total 700 ml 900 ml 800 ml # Bowel Movements 0 Result Diagram: 09/06/16 0550 09/06/16 0550 Imaging Last Impressions Chest CT 09/05/16 0000 Signed Impressions: Service Date/Time: Monday, September 05, 2016 20:30 - CONCLUSION: No acute disease. Memo Houston MD Brain MRI 09/05/16 0000 Signed Impressions: Service Date/Time: Monday, September 05, 2016 14:35 - CONCLUSION: 1. Multiple intracranial mass lesions with different signal characteristics no considering the history of breast carcinoma likely all reflect metastatic disease. 2. The largest lesion in the right temporal lobe demonstrates central necrosis with 2 other nonenhancing lesions in the left thalamus as well as contreras radiata on the left Ronni Louie MD Abdomen/Pelvis CT 09/05/16 0000 Signed Impressions: Service Date/Time: Monday, September 05, 2016 20:30 - CONCLUSION: Tiny 5 mm calcified nonobstructing upper pole left renal calculus. Tiny 6 mm low density lesion within the right lobe of the liver posteriorly which is too small for accurate density measurement. Memo Houston MD Procedures No procedures performed to the patient Other Results Laboratory Tests Test 09/05/16 09/06/16 09/06/16 13:20 05:50 09:18 Hemoglobin A1c 5.3 % Triglycerides Level 127 MG/DL Cholesterol Level 255 MG/DL LDL Cholesterol 134 MG/DL HDL Cholesterol 95.9 MG/DL Cholesterol/HDL Ratio 2.65 RATIO Free Thyroxine 0.75 NG/DL Thyroid Stimulating Hormone 11.500 uIU/ML 3rd Gen White Blood Count 9.7 TH/MM3 Red Blood Count 4.73 MIL/MM3 Hemoglobin 15.0 GM/DL Hematocrit 42.6 % Mean Corpuscular Volume 90.1 FL Mean Corpuscular Hemoglobin 31.7 PG Mean Corpuscular Hemoglobin 35.2 % Concent Red Cell Distribution Width 12.5 % Platelet Count 252 TH/MM3 Mean Platelet Volume 8.6 FL Neutrophils (%) (Auto) 87.5 % Lymphocytes (%) (Auto) 11.3 % Monocytes (%) (Auto) 1.1 % Eosinophils (%) (Auto) 0.0 % Basophils (%) (Auto) 0.1 % Neutrophils # (Auto) 8.5 TH/MM3 Lymphocytes # (Auto) 1.1 TH/MM3 Monocytes # (Auto) 0.1 TH/MM3 Eosinophils # (Auto) 0.0 TH/MM3 Basophils # (Auto) 0.0 TH/MM3 CBC Comment DIFF FINAL Differential Comment Prothrombin Time 10.5 SEC Prothromb Time International 1.0 RATIO Ratio Sodium Level 139 MEQ/L Potassium Level 3.7 MEQ/L Chloride Level 106 MEQ/L Carbon Dioxide Level 25.2 MEQ/L Anion Gap 8 MEQ/L Blood Urea Nitrogen 9 MG/DL Creatinine 0.63 MG/DL Estimat Glomerular Filtration 97 ML/MIN Rate Random Glucose 131 MG/DL Calcium Level 9.7 MG/DL Total Bilirubin 0.5 MG/DL Direct Bilirubin 0.1 MG/DL Indirect Bilirubin 0.4 MG/DL Aspartate Amino Transf 12 U/L (AST/SGOT) Alanine Aminotransferase 19 U/L (ALT/SGPT) Alkaline Phosphatase 54 U/L Total Protein 6.8 GM/DL Albumin 3.7 GM/DL Lipase 125 U/L Carcinoembryonic Antigen 0.7 NG/ML CA 15-3 Antigen 13.1 U/ML CA 125 Antigen 8.8 U/ML Objective Remarks GENERAL: Well-developed well-nourished. No acute distress. SKIN: Warm and dry. No lesions noted. HEENT: Normocephalic. Pupils equal and round and reactive to light. Mucous membranes pink and moist. CARDIOVASCULAR: Regular rate and rhythm. No murmur appreciated. RESPIRATORY: No accessory muscle use. Clear to auscultation. Breath sounds equal bilaterally. GASTROINTESTINAL: Abdomen soft, non-tender, nondistended. Bowel sounds x4. MUSCULOSKELETAL: No obvious deformities. No clubbing or cyanosis. No edema. NEUROLOGICAL: Awake and alert. Oriented, no focal deficits. PSYCHIATRIC: Anxious mood and affect; insight and judgment normal. Medications and IVs Current Medications Medications (Trade) Dose Ordered Sig/Jason Route Start Time Stop Time Status Last Admin (NS 1000 ml Inj) 1,000 ml @ 100 mls/hr Q10H IV 09/05/16 17:14 09/07/16 08:57 (NS Flush) 2 ml UNSCH PRN IV FLUSH 09/05/16 17:15 (NS Flush) 2 ml BID IV FLUSH 09/05/16 21:00 09/07/16 08:57 (Tylenol) 650 mg Q4H PRN PO 09/05/16 17:15 09/06/16 08:49 (Zofran Inj) 4 mg Q6H PRN IVP 09/05/16 17:15 (Reglan Inj) 5 mg Q6H PRN IV PUSH 09/05/16 17:15 (Dulcolax Supp) 10 mg DAILY PRN MI 09/05/16 17:15 (Heparin Inj) 5,000 units Q8H SQ 09/05/16 18:00 09/07/16 08:54 (Narcan Inj) 0.4 mg UNSCH PRN IV 09/05/16 17:15 (Percocet 5-325 Mg) 1 tab Q4H PRN PO 09/05/16 17:30 (Catapres) 0.1 mg Q6H PRN PO 09/05/16 17:45 (Decadron Inj) 4 mg Q8H IV PUSH 09/06/16 09:00 09/07/16 08:54 (Synthroid) 25 mcg DAILY@0600 PO 09/07/16 06:00 09/07/16 05:24 (Norvasc) 2.5 mg DAILY PO 09/06/16 16:00 09/07/16 08:56 A/P Assessment and Plan 1. Intracranial Mass lesions with left facial paresis and tingling sensation on extremities, seen by chief specialist leed looks Metastatic Disease, secondary to Breast Cancer diagnosed in 2006, has triple negative breast Cancer, treated at [facility] status post left mastectomy, not treated with Hormone blockade Therapy, not followed since 2013, she was treated with Radiation therapy and Chemotherapy, CT chest ordered and CT abdomen and pelvis negative for Neoplasia. may also need mammogram to evaluate primary lesion. Neurosurgery specialist consulted by Oncology. Brain MRI shows multiple intracranial mass lesions with different signal characteristics, suspicious for metastatic disease; the largest lesion in the right temporal area demonstrates central necrosis with 2 other nonenhancing lesions in the left thalamus. CEA, CA-125 and CA 15-3 within normal limits. Discussed on two opportunities with doctor Iván Lugo, one time with chief specialist leed CORRESPONDENCE SPECIALIST Miss Jessica Plaza and on two opportunities with Doctor Cynthia, she may be discharge to go for PET scan and Mammogram but first Doctor Parish wants to get final recommendations by database management specialist here and talk with Neurosurgery before discharging the patient. 2. Hypothyroidism: By history, patient off medications. reviewed TSH and Free T4 needs Levothyroxine started at 25 mcg daily 3. Hypertension Uncontrolled increased Amlodipine to 5 mg daily continue titration. DVT prophylaxis: Heparin Discussed Condition With Patient and Nurse Miss Chawla. Discharge Planning as per chief specialist leed recommendation Krish Llamas MD Sep 07, 2016 10:28
[2016-09-07 12:06] VITALS: BP 151/78; PULSE 54; RESP 18; TEMP 96.6; O2SAT 97
--- NOTE | 2016-09-07 12:26 | PD.ONC.PN ---
Subjective Subjective Remarks Afebrile overnight. Pt resting in bed in no distress. No complaints. She is feeling anxious about future plans. Objective Data Date Time Temp Pulse Resp B/P Pulse Ox O2 Delivery O2 Flow Rate FiO2 09/07/16 12:06 96.6 54 18 151/78 97 09/07/16 08:00 97.3 66 18 151/76 97 09/07/16 05:00 96.8 66 16 142/84 96 09/07/16 00:00 97.8 68 16 140/75 97 09/06/16 21:15 97.3 72 18 148/92 96 09/06/16 16:00 97.0 77 16 165/96 98 09/07/16 09/07/16 09/07/16 07:00 15:00 23:00 Intake Total 1800 ml Balance 1800 ml Result Diagram: 09/06/16 0550 09/06/16 0550 Administered Medications Medications (Trade) Dose Ordered Sig/Jason Route PRN Reason Start Time Stop Time Status Last Admin Dose Admin Sodium Chloride (NS Flush) 2 ml BID IV FLUSH 09/05/16 21:00 09/07/16 08:57 Acetaminophen (Tylenol) 650 mg Q4H PRN PO PAIN SCALE 1 TO 2 09/05/16 17:15 09/06/16 08:49 Heparin Sodium (Porcine) (Heparin Inj) 5,000 units Q8H SQ 09/05/16 18:00 09/07/16 08:54 Dexamethasone Sodium Phosphate (Decadron Inj) 4 mg Q8H IV PUSH 09/06/16 09:00 09/07/16 08:54 Levothyroxine Sodium (Synthroid) 25 mcg DAILY@0600 PO 09/07/16 06:00 09/07/16 05:24 Amlodipine Besylate (Norvasc) 2.5 mg DAILY PO 09/06/16 16:00 09/07/16 08:56 Objective Remarks GENERAL: Pleasant female sitting up in bed watching TV in NAD. SKIN: Warm and dry. HEAD: Normocephalic. EYES: No scleral icterus. No injection or drainage. NECK: Supple, trachea midline. CARDIOVASCULAR: +S1/S2. No murmur appreciated. RESPIRATORY: Breath sounds equal bilaterally. No accessory muscle use. BREAST: L breast benign. Incision from reduction present. No masses. R breast s /p mastectomy with nipple sparing and reconstruction. Palpable non-tender immoble mass approx 1.5cm to the 2:00 region, 6 inches from nipple on R chest wall. AXILLA: R axilla with no lymyphadenopathy. L axilla with small pea sized palpable lymphadenopathy. GASTROINTESTINAL: Abdomen soft, non-tender, nondistended. EXTREMITIES: No cyanosis, or edema. NEUROLOGICAL: A&Ox3. Equal emr specialist strengths. Normal speech. Moving all extremities. Assessment/Plan Problem List: (1) Intracranial mass Status: Acute Plan: -- Need outpatient PETscan, mammogram to determine primary. -- Tumor markers CEA, CA 15-3, and CA125 all WNL. -- CT thorax negative for mets. -- CT abdomen/pelvis shows a small 6mm hypodense lesion. -- On Decadron. Hx/Workup: Pt was diagnosed and treated in [address] at [address] [facility] for breast cancer. She was treated with chemotherapy and radiation for what was probably triple negative disease. She denies being on a hormonal agent or being treated with Herceptin for one year. She was followed up until 2013 when she lost her insurance. Assessment 60 y/o female admitted for intracranial masses with a history of breast cancer. Plan 1. Small, palpable mass to R chest wall. U/S ordered. 2. Continue decadron. 3. Dr Osorio in to see pt. 4. Discussed with case mgmt, Dr Ag. Will plan to get outpatient PET, mammogram to determine primary. It is best to get biopsy from other location if possible before brain bx. Case mgmt working on getting financial assistance. 5. Face sheet faxed to [employer]. Attending Statement The exam, history, and the medical decision-making described in the above note were completed with the assistance of the mid-level provider. I reviewed and agree with the findings presented. I attest that I had a [id number] encounter with the patient on the same day, and personally performed and documented my assessment and findings in the medical record. Case extensively discussed with Dr. Shaw and Dr. Melendez. reviewed Dr. Osorio's note Peripherally enhancing mass will need resection regardless of the diagnosis. Will be difficult to treat with stereotactic XRT. Tried to discuss with patient. She is having hard time coping with the situation. She wanted some time to think. I will discuss with her again in AM. Best option would be to try to debulk this lesion and obtain biopsy. Further treatment will be based on the biopsy results. Hold discharge in AM Approximately 50 minutes spent in coordinating care. Jessica Plaza Sep 07, 2016 12:25 Iván Lugo MD Sep 07, 2016 23:14
[2016-09-07] MEDS: ALPRAZolam 0.5 MG TAB PO PRN ×2 (12:31→22:01)
[2016-09-07 15:50] VITALS: BP 157/95; PULSE 71; RESP 20; TEMP 96.3; O2SAT 97
[2016-09-07] MEDS ORDERED: amLODIPine BESYLATE 5 MG TAB PO ONE (16:00)
[2016-09-07] MEDS ORDERED: PILL SPLITTER OTHER PRN (16:15)
[2016-09-07 20:00] VITALS: BP 180/92; PULSE 68; RESP 17; TEMP 97.3; O2SAT 97
--- NOTE | 2016-09-07 20:03 | MB ---
cc: JOSE M ALCOCER M.D., AWAIS VINAS, FEDERICO C. M.D. DATE OF CONSULTATION: 09/07/2016 DATE OF : 1955 CHIEF COMPLAINT This lady is being seen in consultation regarding what appears to be metastatic breast cancer with intracranial disease. BRIEF HISTORY This is a 60-year-old female who I previously treated at [facility] in 2007. I do not have those records. She reports that she was found to have a right breast cancer for which she underwent a lumpectomy followed by systemic therapy delivered by Dr. Rodriguez at the [facility]. More recently she has had no followup as she has had no insurance. Some time over the past several weeks she has been feeling unwell. 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 Then she also began to notice some mental confusion and subsequently presented to the emergency room. An MRI was performed revealing a 3.8 x 2.6 cm peripheral enhancing mass with vasogenic edema. There is also a mass in the right lateral ventricle and a third small lesion measuring 10 mm in diameter in the deep white matter adjacent to the atrium of the left ventricle. All of these lesions are suspicious for metastatic disease. Since being in the hospital, she has had a CT scan chest, abdomen and pelvis none of which showed evidence of metastases. The patient tells me that there are plans for her to be discharged so she can have a PET scan performed on Sunday all to complete her staging and to find a site of biopsy. Presently, while in the hospital her mental status has improved. She has noticed a slight left facial droop. Her speech is still slow but she has had no other focal weakness and she denies any knowledge of seizures. PAST MEDICAL AND SURGICAL HISTORY Includes breast cancer as noted above. She has been treated for high blood pressure as well. INPATIENT MEDICATIONS 1. Clonidine. 2. Percocet 5/325. 3. Reglan. 4. Dulcolax. ALLERGIES ADHESIVES AND LASIX. SYSTEMS REVIEW Systems review is otherwise negative apart from that noted above. She has had no visual disturbance. She has had minor symptoms of headache. She has had no fever, sweats or weight loss. She denies difficulty hearing. No trouble with her vision. She denies cough, sputum or hemoptysis. She denies chest pains or palpitations. She has no neck masses. She denies lumps in either breast. She denies unusual bone or back pain. She denies nausea, vomiting, diarrhea, melena or bloody stool. She denies dysuria, hematuria or urgency. She has no skin complaints. She denies being a diabetic or hypothyroid. She is tearful with some signs of depression at present. She has neurologic complaints documented above. PHYSICAL EXAMINATION GENERAL: Today on exam this lady looks well. VITAL SIGNS: Her vital signs show that she is afebrile with a pulse of 71 and regular, respiratory rate of 20 and a blood pressure of 157/95, she has an O2 sat of 97%. HEENT/NECK: There was no jaundice. Her conjunctivae and eyelids are normal. She had full EOMs. She has a facial droop at the angle of her mouth on the left which is minor. Cranial nerve testing is otherwise normal. There is no evidence of adenopathy in the head and neck or supraclavicular regions. Her axilla are free of adenopathy. There is no infraclavicular adenopathy. LUNGS: Her lung mitchell were clear without effusion. HEART: Her heart sounds were normal without murmurs, rubs or bruits. ABDOMEN: There are no abdominal masses, tenderness or hepatosplenomegaly. EXTREMITIES: There was no ankle edema. NEUROLOGIC: Power and tone were normal. REVIEW OF DATA I have had the opportunity to review this lady's recent CT scan of the chest, abdomen and pelvis as well as the MRI of the brain. She has a nearly 4 cm lesion that is well documented and easily visualized in the right temporal location. The other two lesions I find difficult to see myself and I will need to review these with the radiologist. She has a past history of breast cancer and of course the greatest likelihood is this represents metastatic breast cancer, but since her breast cancer was close to 10 years ago I believe that tissue is imperative. Based on that, I believe it is reasonable to consider an intracranial biopsy and possible debulking of that large lesion if this can be done safely. It is my understanding that there are plans for her discharge for a PET study to be sure that there is nothing that would show up that did not show up on her CT scans. This was relayed to me by the patient and the nursing staff. We will wait for tissue to be obtained. After that we will proceed with radiation treatment. With respect to radiation treatment, the largest lesion is 4 cm which would be very difficult to treat with adequate doses stereotactically. Nevertheless, we may attempt to treat these with fractionated type of stereotactic radiation since she has a limited number of lesions. Thank you again for asking us to see this patient. I will continue to follow her. MD PIERRE Kendrick/BJAce /6:02 PM /7:24 PM
[2016-09-07] MEDS: cloNIDine HCL 0.1 MG TAB PO PRN (20:09)
[2016-09-08] VITALS: BP 111/62; PULSE 63; RESP 17; TEMP 96.7; O2SAT 96
[2016-09-08] MEDS: DEXAMETHASONE SOD PHOS 4 MG/ML VIAL IV PUSH SCH ×3 (00:58→17:22)
[2016-09-08] MEDS: HEPARIN SODIUM - SQ 10,000 UNITS/ML VIAL SQ SCH ×3 (00:59→17:22)
[2016-09-08 04:00] VITALS: BP 114/59; PULSE 52; RESP 17; TEMP 97.6; O2SAT 97
[2016-09-08] MEDS: LEVOTHYROXINE SODIUM 25 MCG TAB PO SCH (05:37)
[2016-09-08 08:00] VITALS: BP 145/71; PULSE 50; RESP 16; TEMP 97.7; O2SAT 98
[2016-09-08] MEDS: SODIUM CHLORIDE 0.9% FLUSH 10 ML FLUSH IV FLUSH SCH (08:30)
--- NOTE | 2016-09-08 08:47 | HHI.PR ---
Subjective Remarks 60-year-old female with a past medical history of HTN, hypothyroidism, and treated breast cancer who presented with anxiety and tremors. The patient states that for the past few weeks to maybe 2 months ago she's been having tremors, numbness, and tingling in her right hand. For the past week she's been having difficulty with food falling out of the left side of her mouth when she tries to eat. She denies any weakness, gait unsteadiness, vision changes. She states occasionally she gets a headache behind her right eye, but states that isn't happening for years. 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 She states a few weeks ago the chemicals were causing her to have a sore and irritated throat, but that has improved. She has a history of right breast cancer with mastectomy, chemotherapy, and radiation back in 2006. She states that previously she was on medicine for high blood pressure and hypothyroidism whenever she had insurance. She states she previously weighed 220 pounds, and lost weight intentionally. seen in her bedroom in the presence of her Son, discussed about Hematology and Oncology recommendations, seen Imaging studies for Chest and abdomen performed and negative for Neoplasia. recommended Neurosurgical consult. 09/07 Discussed early in the morning with Doctor Iván Lugo and his AIRLINE PILOT/FIRST OFFICER Miss Lopez Bola he wants the patient discharged from the Hospital to perform a PET scan and Mammogram and readmit the patient was discussed with Our Vending Route Driver Doctor Marie he did not authorized this management and will discuss with inventory specialist, and let us know next step awaiting also for Neurosurgery specialist consult. Again discussed in the afternoon with Doctor Mcpherson and with Doctor Iván Lugo recommended to keep the patient in House, until inventory specialist and Neurosurgery touch base again about the case with Doctor Lugo asked me to keep the patient Hospitalized until tomorrow, there is a difficulty with the discharge to re admit and is that she is self pay and may need strict follow up with industrial relations specialist. No nausea, vomit or diarrhea. 09/08 Seen in the room and discussed with nurse Miss Clark no nausea, vomit or diarrhea. awaiting final recommendations by industrial relations specialist. Objective Vital Signs Date Time Temp Pulse Resp B/P Pulse Ox O2 Delivery O2 Flow Rate FiO2 09/08/16 04:00 97.6 52 17 114/59 97 09/08/16 00:00 96.7 63 17 111/62 96 09/07/16 20:00 97.3 68 17 180/92 97 09/07/16 15:50 96.3 71 20 157/95 97 09/07/16 12:06 96.6 54 18 151/78 97 I/O 09/07/16 09/07/16 09/07/16 09/08/16 09/08/16 09/08/16 07:00 15:00 23:00 07:00 15:00 23:00 Intake Total 1800 ml 1200 ml 480 ml 240 ml Output Total 400 ml 400 ml Balance 1800 ml 1200 ml 80 ml -160 ml Intake Oral 1200 ml 480 ml 240 ml IV Total 1800 ml Output Urine Total 400 ml 400 ml # Voids 4 # Bowel Movements 0 0 0 Result Diagram: 09/06/16 0550 09/06/16 0550 Imaging Last Impressions Chest CT 09/05/16 0000 Signed Impressions: Service Date/Time: Monday, September 05, 2016 20:30 - CONCLUSION: No acute disease. Memo Houston MD Brain MRI 09/05/16 0000 Signed Impressions: Service Date/Time: Monday, September 05, 2016 14:35 - CONCLUSION: 1. Multiple intracranial mass lesions with different signal characteristics no considering the history of breast carcinoma likely all reflect metastatic disease. 2. The largest lesion in the right temporal lobe demonstrates central necrosis with 2 other nonenhancing lesions in the left thalamus as well as contreras radiata on the left Ronni Louie MD Abdomen/Pelvis CT 09/05/16 0000 Signed Impressions: Service Date/Time: Monday, September 05, 2016 20:30 - CONCLUSION: Tiny 5 mm calcified nonobstructing upper pole left renal calculus. Tiny 6 mm low density lesion within the right lobe of the liver posteriorly which is too small for accurate density measurement. Memo Houston MD Procedures No procedures performed to the patient Other Results Laboratory Tests Test 09/05/16 09/06/16 09/06/16 13:20 05:50 09:18 Hemoglobin A1c 5.3 % Triglycerides Level 127 MG/DL Cholesterol Level 255 MG/DL LDL Cholesterol 134 MG/DL HDL Cholesterol 95.9 MG/DL Cholesterol/HDL Ratio 2.65 RATIO Free Thyroxine 0.75 NG/DL Thyroid Stimulating Hormone 11.500 uIU/ML 3rd Gen White Blood Count 9.7 TH/MM3 Red Blood Count 4.73 MIL/MM3 Hemoglobin 15.0 GM/DL Hematocrit 42.6 % Mean Corpuscular Volume 90.1 FL Mean Corpuscular Hemoglobin 31.7 PG Mean Corpuscular Hemoglobin 35.2 % Concent Red Cell Distribution Width 12.5 % Platelet Count 252 TH/MM3 Mean Platelet Volume 8.6 FL Neutrophils (%) (Auto) 87.5 % Lymphocytes (%) (Auto) 11.3 % Monocytes (%) (Auto) 1.1 % Eosinophils (%) (Auto) 0.0 % Basophils (%) (Auto) 0.1 % Neutrophils # (Auto) 8.5 TH/MM3 Lymphocytes # (Auto) 1.1 TH/MM3 Monocytes # (Auto) 0.1 TH/MM3 Eosinophils # (Auto) 0.0 TH/MM3 Basophils # (Auto) 0.0 TH/MM3 CBC Comment DIFF FINAL Differential Comment Prothrombin Time 10.5 SEC Prothromb Time International 1.0 RATIO Ratio Sodium Level 139 MEQ/L Potassium Level 3.7 MEQ/L Chloride Level 106 MEQ/L Carbon Dioxide Level 25.2 MEQ/L Anion Gap 8 MEQ/L Blood Urea Nitrogen 9 MG/DL Creatinine 0.63 MG/DL Estimat Glomerular Filtration 97 ML/MIN Rate Random Glucose 131 MG/DL Calcium Level 9.7 MG/DL Total Bilirubin 0.5 MG/DL Direct Bilirubin 0.1 MG/DL Indirect Bilirubin 0.4 MG/DL Aspartate Amino Transf 12 U/L (AST/SGOT) Alanine Aminotransferase 19 U/L (ALT/SGPT) Alkaline Phosphatase 54 U/L Total Protein 6.8 GM/DL Albumin 3.7 GM/DL Lipase 125 U/L Carcinoembryonic Antigen 0.7 NG/ML CA 15-3 Antigen 13.1 U/ML CA 125 Antigen 8.8 U/ML Objective Remarks GENERAL: Well-developed well-nourished. No acute distress. SKIN: Warm and dry. No lesions noted. HEENT: Normocephalic. Pupils equal and round and reactive to light. Mucous membranes pink and moist. CARDIOVASCULAR: Regular rate and rhythm. No murmur appreciated. RESPIRATORY: No accessory muscle use. Clear to auscultation. Breath sounds equal bilaterally. GASTROINTESTINAL: Abdomen soft, non-tender, nondistended. Bowel sounds x4. MUSCULOSKELETAL: No obvious deformities. No clubbing or cyanosis. No edema. NEUROLOGICAL: Awake and alert. Oriented, no focal deficits. PSYCHIATRIC: Anxious mood and affect; insight and judgment normal. Medications and IVs Current Medications Medications (Trade) Dose Ordered Sig/Jason Route Start Time Stop Time Status Last Admin (NS Flush) 2 ml UNSCH PRN IV FLUSH 09/05/16 17:15 (NS Flush) 2 ml BID IV FLUSH 09/05/16 21:00 09/08/16 08:30 (Tylenol) 650 mg Q4H PRN PO 09/05/16 17:15 09/06/16 08:49 (Zofran Inj) 4 mg Q6H PRN IVP 09/05/16 17:15 (Reglan Inj) 5 mg Q6H PRN IV PUSH 09/05/16 17:15 (Dulcolax Supp) 10 mg DAILY PRN NC 09/05/16 17:15 (Heparin Inj) 5,000 units Q8H SQ 09/05/16 18:00 09/08/16 08:30 (Narcan Inj) 0.4 mg UNSCH PRN IV 09/05/16 17:15 (Percocet 5-325 Mg) 1 tab Q4H PRN PO 09/05/16 17:30 (Catapres) 0.1 mg Q6H PRN PO 09/05/16 17:45 09/07/16 20:09 (Decadron Inj) 4 mg Q8H IV PUSH 09/06/16 09:00 09/08/16 08:22 (Synthroid) 25 mcg DAILY@0600 PO 09/07/16 06:00 09/08/16 05:37 (Xanax) 0.5 mg Q8H PRN PO 09/07/16 11:15 09/07/16 22:01 (Norvasc) 5 mg DAILY PO 09/08/16 09:00 09/08/16 08:22 (Pill Splitter) 1 ea UNSCH PRN OTHER 09/07/16 16:15 A/P Assessment and Plan 1. Intracranial Mass lesions with left facial paresis and tingling sensation on extremities, seen by industrial relations specialist looks Metastatic Disease, secondary to Breast Cancer diagnosed in 2006, has triple negative breast Cancer, treated at [facility] status post left mastectomy, not treated with Hormone blockade Therapy, not followed since 2013, she was treated with Radiation therapy and Chemotherapy, CT chest ordered and CT abdomen and pelvis probable metastatic liver lesions. may also need mammogram to evaluate primary lesion. Neurosurgery specialist consulted by Oncology. Brain MRI shows multiple intracranial mass lesions with different signal characteristics, suspicious for metastatic disease; the largest lesion in the right temporal area demonstrates central necrosis with 2 other nonenhancing lesions in the left thalamus. CEA, CA-125 and CA 15-3 within normal limits. 2. Hypothyroidism: By history, patient off medications. reviewed TSH and Free T4 needs Levothyroxine started at 25 mcg daily 3. Hypertension better today she had Clonidine yesterday night, will continue Amlodipine increased to 10 mg daily. DVT prophylaxis: Heparin Discussed Condition With Patient and Nurse Miss Chawla. Discharge Planning Awaiting final recommendations by industrial relations specialist Krish Llamas MD Sep 08, 2016 08:47 As Discussed yesterday with DoctorJerome Lugo industrial relations specialist he will define the situation in am today and let me know to discharge, already authorized for Discharge by Doctor Cynthia yesterday if continue with the plan to Discharge for PET scan and Mammogram as outpatient. Krish Llamas MD Sep 08, 2016 08:47
[2016-09-08] MEDS ORDERED: amLODIPine BESYLATE 5 MG TAB PO SCH (09:00)
--- NOTE | 2016-09-08 11:24 | PD.ONC.PN ---
Subjective Subjective Remarks Afebrile overnight. Discussed with pt about staying in hospital to ensure she gets treatment. She is agreeable to this. She has financial concerns about leaving the hospital. Objective Data Date Time Temp Pulse Resp B/P Pulse Ox O2 Delivery O2 Flow Rate FiO2 09/08/16 08:00 97.7 50 16 145/71 98 09/08/16 04:00 97.6 52 17 114/59 97 09/08/16 00:00 96.7 63 17 111/62 96 09/07/16 20:00 97.3 68 17 180/92 97 09/07/16 15:50 96.3 71 20 157/95 97 09/07/16 12:06 96.6 54 18 151/78 97 Result Diagram: 09/06/16 0550 09/06/16 0550 Administered Medications Medications (Trade) Dose Ordered Sig/Jason Route PRN Reason Start Time Stop Time Status Last Admin Dose Admin Sodium Chloride (NS Flush) 2 ml BID IV FLUSH 09/05/16 21:00 09/08/16 08:30 Acetaminophen (Tylenol) 650 mg Q4H PRN PO PAIN SCALE 1 TO 2 09/05/16 17:15 09/06/16 08:49 Heparin Sodium (Porcine) (Heparin Inj) 5,000 units Q8H SQ 09/05/16 18:00 09/08/16 08:30 Clonidine (Catapres) 0.1 mg Q6H PRN PO SBP>160, DBP>90 09/05/16 17:45 09/07/16 20:09 Dexamethasone Sodium Phosphate (Decadron Inj) 4 mg Q8H IV PUSH 09/06/16 09:00 09/08/16 08:22 Levothyroxine Sodium (Synthroid) 25 mcg DAILY@0600 PO 09/07/16 06:00 09/08/16 05:37 Alprazolam (Xanax) 0.5 mg Q8H PRN PO ANXIETY 09/07/16 11:15 09/07/16 22:01 Amlodipine Besylate (Norvasc) 5 mg DAILY PO 09/08/16 09:00 09/08/16 08:22 Objective Remarks GENERAL: Pleasant female standing at mirror inserting her dentures. SKIN: Warm and dry. HEAD: Normocephalic. EYES: No scleral icterus. No injection or drainage. NECK: Supple, trachea midline. CARDIOVASCULAR: +S1/S2. No murmur appreciated. RESPIRATORY: Breath sounds equal bilaterally. No accessory muscle use. GASTROINTESTINAL: Abdomen soft, non-tender, nondistended. EXTREMITIES: No cyanosis, or edema. NEUROLOGICAL: A&Ox3. 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 Normal speech. Moving all extremities. Assessment/Plan Problem List: (1) Intracranial mass Status: Acute Plan: -- Need outpatient PETscan, mammogram after discharge. -- Tumor markers CEA, CA 15-3, and CA125 all WNL. -- CT thorax negative for mets. -- CT abdomen/pelvis shows a small 6mm hypodense lesion. -- On Decadron. Hx/Workup: Pt was diagnosed and treated in 2006 at the [facility] for breast cancer. She was treated with chemotherapy and radiation for what was probably triple negative disease. She denies being on a hormonal agent or being treated with Herceptin for one year. She was followed up until 2013 when she lost her insurance. Assessment 60 y/o female admitted for intracranial masses with a history of breast cancer. Plan 1. It is a concern that the pt may be lost to followup if she leaves the hospital. Originally we would have liked to try to obtain a primary lesion for biopsy, but it is best if the pt stays in hospital for treatment and diagnosis by brain biopsy. 2. Neurosurgery, radiation oncology on board. 3. Continue Decadron. 4. Supportive care. Attending Statement The exam, history, and the medical decision-making described in the above note were completed with the assistance of the mid-level provider. I reviewed and agree with the findings presented. I attest that I had a [id number] encounter with the patient on the same day, and personally performed and documented my assessment and findings in the medical record. Plan for debulking and brain biopsy per NS. supportive care through the weekend Jessica Plaza Sep 08, 2016 11:24 Iván Lugo MD Sep 11, 2016 08:15
[2016-09-08 12:00] VITALS: BP 146/88; PULSE 65; RESP 16; TEMP 96.1; O2SAT 98
--- NOTE | 2016-09-08 15:07 | HHI.NSPN ---
History Chief Complaint: multiple brain metastasis. Interval History Ms. Carmen is a 60-year-old female with a history of breast cancer in 2006 and previously treated at the [facility] in [place]. Ms. Carmen underwent right mastectomy with chemoradiation treatment. She presented to [place] with complaints 1-2 months of of left facial weakness and hand paresthesias. She also reports of mild headaches. She denies vision changes, seizure like activities, vomiting, gait instability, fevers or chills. She underwent an MRI brain which shows multiple intracranial mass lesions suspicious for metastasis. A neurosurgical evaluation was requested. 09/08/16: Pt awake and alert. Denies headache, nausea, vomiting, muscle weakness, or paresthesias. She states the left facial weakness has improved. Review of Systems General: Negative for: fever, chills, insomnia Respiratory: Negative for: shortness of breath, cough, sputum Cardiovascular: Negative for: chest pain Gastrointestinal: Negative for: nausea, vomitting, diarrhea, constipation Exam Results Vital Signs Date Time Temp Pulse Resp B/P Pulse Ox O2 Delivery O2 Flow Rate FiO2 09/08/16 12:00 96.1 65 16 146/88 98 09/05/16 14:30 Room Air Intake and Output 09/07/16 09/07/16 09/08/16 08:00 16:00 00:00 Intake Total 1800 ml 1200 ml 480 ml Output Total 400 ml Balance 1800 ml 1200 ml 80 ml Physical Examination Resp: CTA bilaterally Heart: NSR no murmurs Abd: Soft positive bs Skin: No cyanosis or erythema Muscle: Moves all 4 extremities well. Neuro: Pt awake and alert. Follows commands well. Speech clear and appropriate. Face appears symmetric. Pupils 3mm bilaterally reactive bilaterally. Lab, Micro, Other Results Last Impressions Chest CT 09/05/16 0000 Signed Impressions: Service Date/Time: Monday, September 05, 2016 20:30 - CONCLUSION: No acute disease. Memo Houston MD Brain MRI 09/05/16 0000 Signed Impressions: Service Date/Time: Monday, September 05, 2016 14:35 - CONCLUSION: 1. Multiple intracranial mass lesions with different signal characteristics no considering the history of breast carcinoma likely all reflect metastatic disease. 2. The largest lesion in the right temporal lobe demonstrates central necrosis with 2 other nonenhancing lesions in the left thalamus as well as contreras radiata on the left Ronni Louie MD Abdomen/Pelvis CT 09/05/16 0000 Signed Impressions: Service Date/Time: Monday, September 05, 2016 20:30 - CONCLUSION: Tiny 5 mm calcified nonobstructing upper pole left renal calculus. Tiny 6 mm low density lesion within the right lobe of the liver posteriorly which is too small for accurate density measurement. Memo Houston MD 09/07/16 09/07/16 09/08/16 15:00 23:00 07:00 Intake Total 1200 ml 480 ml 240 ml Output Total 400 ml 400 ml Balance 1200 ml 80 ml -160 ml Intake Oral 1200 ml 480 ml 240 ml Output Urine Total 400 ml 400 ml # Voids 4 # Bowel Movements 0 0 0 Medical Decision Making Impression and Plan A: 60 y/o FM with multiple brain metastasis largest in right temporal lobe measuring 3.8 x 2.6cm. P: Reviewed Radiation oncology notes that recommends tissue specimen. Dr. Osorio will return on Sunday and has said he will proceed with surgery if Radiation oncology recommends which they have. Continue with Decadron Continue to ambulate Continue to monitor Neuro exam. Manuel Donis Sep 08, 2016 15:07
[2016-09-08] MEDS: ALPRAZolam 0.5 MG TAB PO PRN (15:58)
[2016-09-08 16:00] VITALS: BP 131/75; PULSE 55; RESP 16; TEMP 97; O2SAT 95
[2016-09-08] MEDS ORDERED: amLODIPine BESYLATE 5 MG TAB PO ONE (17:00)
[2016-09-08 20:00] VITALS: BP 145/79; PULSE 56; RESP 15; TEMP 97.6; O2SAT 98
[2016-09-09] VITALS: BP 151/76; PULSE 51; RESP 15; TEMP 97.7; O2SAT 96
[2016-09-09] MEDS: DEXAMETHASONE SOD PHOS 4 MG/ML VIAL IV PUSH SCH ×3 (00:30→18:00)
[2016-09-09] MEDS: HEPARIN SODIUM - SQ 10,000 UNITS/ML VIAL SQ SCH ×3 (00:30→18:01)
[2016-09-09] MEDS: ALPRAZolam 0.5 MG TAB PO PRN ×3 (00:30→18:00)
[2016-09-09] MEDS: SODIUM CHLORIDE 0.9% FLUSH 10 ML FLUSH IV FLUSH SCH ×3 (00:30→20:23)
[2016-09-09 04:00] VITALS: BP 141/86; PULSE 51; RESP 15; TEMP 97.2; O2SAT 96
[2016-09-09] MEDS: LEVOTHYROXINE SODIUM 25 MCG TAB PO SCH (06:08)
[2016-09-09 08:00] VITALS: BP 147/97; PULSE 54; RESP 16; TEMP 96.2; O2SAT 98
--- NOTE | 2016-09-09 09:32 | HHI.PR ---
Subjective Remarks 60-year-old female with a past medical history of HTN, hypothyroidism, and treated breast cancer who presented with anxiety and tremors. The patient states that for the past few weeks to maybe 2 months ago she's been having tremors, numbness, and tingling in her right hand. For the past week she's been having difficulty with food falling out of the left side of her mouth when she tries to eat. She denies any weakness, gait unsteadiness, vision changes. She states occasionally she gets a headache behind her right eye, but states that isn't happening for years. 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 She states a few weeks ago the chemicals were causing her to have a sore and irritated throat, but that has improved. She has a history of right breast cancer with mastectomy, chemotherapy, and radiation back in 2006. She states that previously she was on medicine for high blood pressure and hypothyroidism whenever she had insurance. She states she previously weighed 220 pounds, and lost weight intentionally. seen in her bedroom in the presence of her Son, discussed about Hematology and Oncology recommendations, seen Imaging studies for Chest and abdomen performed and negative for Neoplasia. recommended Neurosurgical consult. 09/07 Discussed early in the morning with Doctor Iván Lugo and his CHILD SUPPORT OFFICER Miss Jessica Plaza he wants the patient discharged from the Hospital to perform a PET scan and Mammogram and readmit the patient was discussed with Our Glass Checker Doctor Marie he did not authorized this management and will discuss with forestry extension specialist, and let us know next step awaiting also for Neurosurgery specialist consult. Again discussed in the afternoon with Doctor Mcpherson and with Doctor Iván Lugo recommended to keep the patient in House, until forestry extension specialist and Neurosurgery touch base again about the case with Doctor Lugo asked me to keep the patient Hospitalized until tomorrow, there is a difficulty with the discharge to re admit and is that she is self pay and may need strict follow up with data support specialist. No nausea, vomit or diarrhea. 09/08 Seen in the room and discussed with nurse Miss Clark no nausea, vomit or diarrhea. awaiting final recommendations by data support specialist. 09/09 Seen in her bedroom and discussed with nurse Miss Urena, No nausea, vomit or diarrhea, explained her pathology to her and her Sister Mrs. Erin Ordonez who states she is the patient contact to talk and not the patient's Son who I already talked to, she gave me her phone number [phone]. all questions answered to the best of my abilities, yesterday I asked the Patient if she wanted to talk with our Spiritual computer support specialist instructor our Donor Recruitment Manager she said no, but today asked me to call him. consult placed. also asked the charge Nurse to call Oncology CHILD SUPPORT OFFICER to discuss with Patient's Nurse. Objective Vital Signs Date Time Temp Pulse Resp B/P Pulse Ox O2 Delivery O2 Flow Rate FiO2 09/09/16 08:00 96.2 54 16 147/97 98 09/09/16 04:00 97.2 51 15 141/86 96 09/09/16 00:00 97.7 51 15 151/76 96 09/08/16 20:00 97.6 56 15 145/79 98 09/08/16 16:00 97.0 55 16 131/75 95 09/08/16 12:00 96.1 65 16 146/88 98 I/O 09/08/16 09/08/16 09/08/16 09/09/16 09/09/16 09/09/16 07:00 15:00 23:00 07:00 15:00 23:00 Intake Total 240 ml 960 ml 240 ml 720 ml Output Total 400 ml 840 ml Balance -160 ml 120 ml 240 ml 720 ml Intake Oral 240 ml 960 ml 240 ml 720 ml Output Urine Total 400 ml 840 ml # Voids 2 # Bowel Movements 0 1 Result Diagram: 09/06/16 0550 09/06/16 0550 Imaging Last Impressions Chest CT 09/05/16 0000 Signed Impressions: Service Date/Time: Monday, September 05, 2016 20:30 - CONCLUSION: No acute disease. Memo Houston MD Brain MRI 09/05/16 0000 Signed Impressions: Service Date/Time: Monday, September 05, 2016 14:35 - CONCLUSION: 1. Multiple intracranial mass lesions with different signal characteristics no considering the history of breast carcinoma likely all reflect metastatic disease. 2. The largest lesion in the right temporal lobe demonstrates central necrosis with 2 other nonenhancing lesions in the left thalamus as well as contreras radiata on the left Ronni Louie MD Abdomen/Pelvis CT 09/05/16 0000 Signed Impressions: Service Date/Time: Monday, September 05, 2016 20:30 - CONCLUSION: Tiny 5 mm calcified nonobstructing upper pole left renal calculus. Tiny 6 mm low density lesion within the right lobe of the liver posteriorly which is too small for accurate density measurement. Memo Houston MD Procedures No procedures performed to the patient Other Results Laboratory Tests Test 09/05/16 09/06/16 09/06/16 13:20 05:50 09:18 Hemoglobin A1c 5.3 % Triglycerides Level 127 MG/DL Cholesterol Level 255 MG/DL LDL Cholesterol 134 MG/DL HDL Cholesterol 95.9 MG/DL Cholesterol/HDL Ratio 2.65 RATIO Free Thyroxine 0.75 NG/DL Thyroid Stimulating Hormone 11.500 uIU/ML 3rd Gen White Blood Count 9.7 TH/MM3 Red Blood Count 4.73 MIL/MM3 Hemoglobin 15.0 GM/DL Hematocrit 42.6 % Mean Corpuscular Volume 90.1 FL Mean Corpuscular Hemoglobin 31.7 PG Mean Corpuscular Hemoglobin 35.2 % Concent Red Cell Distribution Width 12.5 % Platelet Count 252 TH/MM3 Mean Platelet Volume 8.6 FL Neutrophils (%) (Auto) 87.5 % Lymphocytes (%) (Auto) 11.3 % Monocytes (%) (Auto) 1.1 % Eosinophils (%) (Auto) 0.0 % Basophils (%) (Auto) 0.1 % Neutrophils # (Auto) 8.5 TH/MM3 Lymphocytes # (Auto) 1.1 TH/MM3 Monocytes # (Auto) 0.1 TH/MM3 Eosinophils # (Auto) 0.0 TH/MM3 Basophils # (Auto) 0.0 TH/MM3 CBC Comment DIFF FINAL Differential Comment Prothrombin Time 10.5 SEC Prothromb Time International 1.0 RATIO Ratio Sodium Level 139 MEQ/L Potassium Level 3.7 MEQ/L Chloride Level 106 MEQ/L Carbon Dioxide Level 25.2 MEQ/L Anion Gap 8 MEQ/L Blood Urea Nitrogen 9 MG/DL Creatinine 0.63 MG/DL Estimat Glomerular Filtration 97 ML/MIN Rate Random Glucose 131 MG/DL Calcium Level 9.7 MG/DL Total Bilirubin 0.5 MG/DL Direct Bilirubin 0.1 MG/DL Indirect Bilirubin 0.4 MG/DL Aspartate Amino Transf 12 U/L (AST/SGOT) Alanine Aminotransferase 19 U/L (ALT/SGPT) Alkaline Phosphatase 54 U/L Total Protein 6.8 GM/DL Albumin 3.7 GM/DL Lipase 125 U/L Carcinoembryonic Antigen 0.7 NG/ML CA 15-3 Antigen 13.1 U/ML CA 125 Antigen 8.8 U/ML Objective Remarks GENERAL: Well-developed well-nourished. No acute distress. SKIN: Warm and dry. No lesions noted. HEENT: Normocephalic. Pupils equal and round and reactive to light. Mucous membranes pink and moist. CARDIOVASCULAR: Regular rate and rhythm. No murmur appreciated. RESPIRATORY: No accessory muscle use. Clear to auscultation. Breath sounds equal bilaterally. GASTROINTESTINAL: Abdomen soft, non-tender, nondistended. Bowel sounds x4. MUSCULOSKELETAL: No obvious deformities. No clubbing or cyanosis. No edema. NEUROLOGICAL: Awake and alert. Oriented, no focal deficits. PSYCHIATRIC: Anxious mood and affect; insight and judgment normal. Medications and IVs Current Medications Medications (Trade) Dose Ordered Sig/Jason Route Start Time Stop Time Status Last Admin (NS Flush) 2 ml UNSCH PRN IV FLUSH 09/05/16 17:15 (NS Flush) 2 ml BID IV FLUSH 09/05/16 21:00 09/09/16 08:41 (Tylenol) 650 mg Q4H PRN PO 09/05/16 17:15 09/06/16 08:49 (Zofran Inj) 4 mg Q6H PRN IVP 09/05/16 17:15 (Reglan Inj) 5 mg Q6H PRN IV PUSH 09/05/16 17:15 (Dulcolax Supp) 10 mg DAILY PRN AK 09/05/16 17:15 (Heparin Inj) 5,000 units Q8H SQ 09/05/16 18:00 09/09/16 08:37 (Narcan Inj) 0.4 mg UNSCH PRN IV 09/05/16 17:15 (Percocet 5-325 Mg) 1 tab Q4H PRN PO 09/05/16 17:30 (Catapres) 0.1 mg Q6H PRN PO 09/05/16 17:45 09/07/16 20:09 (Decadron Inj) 4 mg Q8H IV PUSH 09/06/16 09:00 09/09/16 08:37 (Synthroid) 25 mcg DAILY@0600 PO 09/07/16 06:00 09/09/16 06:08 (Xanax) 0.5 mg Q8H PRN PO 09/07/16 11:15 09/09/16 08:37 (Pill Splitter) 1 ea UNSCH PRN OTHER 09/07/16 16:15 (Norvasc) 10 mg DAILY PO 09/09/16 09:00 09/09/16 08:36 A/P Assessment and Plan 1. Intracranial Mass lesions with left facial paresis and tingling sensation on extremities, seen by data support specialist looks Metastatic Disease, secondary to Breast Cancer diagnosed in 2006, has triple negative breast Cancer, treated at [facility] status post left mastectomy, not treated with Hormone blockade Therapy, not followed since 2013, she was treated with Radiation therapy and Chemotherapy, CT chest ordered and CT abdomen and pelvis probable metastatic liver lesions. may also need mammogram to evaluate primary lesion. Neurosurgery specialist consulted by Oncology. Brain MRI shows multiple intracranial mass lesions with different signal characteristics, suspicious for metastatic disease; the largest lesion in the right temporal area demonstrates central necrosis with 2 other nonenhancing lesions in the left thalamus. CEA, CA-125 and CA 15-3 within normal limits. will have Brain Biopsy by Neurosurgery specialist in two to three days. 2. Hypothyroidism: By history, patient off medications. reviewed TSH and Free T4 needs Levothyroxine started at 25 mcg daily 3. Hypertension better control continue Amlodipine 10 mg daily and follow, Clonidine as needed for systolic blood pressure in 160 mm Hg or over. DVT prophylaxis: Heparin Discussed Condition With Patient and her Sister Mrs. Erin Ordonez all questions answered to the best of my abilities consult Pastoral Care. Discharge Planning No yet cleared by data support specialist. may need prolonged management in House. Krish Llamas MD Sep 09, 2016 09:32
--- NOTE | 2016-09-09 10:13 | PD.ONC.PN ---
Subjective Subjective Remarks Afebrile overnight. Patient resting comfortably. No complaints. Waiting to eat breakfast. Denies pain. Objective Data Date Time Temp Pulse Resp B/P Pulse Ox O2 Delivery O2 Flow Rate FiO2 09/09/16 08:00 96.2 54 16 147/97 98 09/09/16 04:00 97.2 51 15 141/86 96 09/09/16 00:00 97.7 51 15 151/76 96 09/08/16 20:00 97.6 56 15 145/79 98 09/08/16 16:00 97.0 55 16 131/75 95 09/08/16 12:00 96.1 65 16 146/88 98 09/09/16 09/09/16 09/09/16 07:00 15:00 23:00 Intake Total 720 ml Balance 720 ml Result Diagram: 09/06/16 0550 09/06/16 0550 Administered Medications Medications (Trade) Dose Ordered Sig/Jason Route PRN Reason Start Time Stop Time Status Last Admin Dose Admin Sodium Chloride (NS Flush) 2 ml BID IV FLUSH 09/05/16 21:00 09/09/16 08:41 Acetaminophen (Tylenol) 650 mg Q4H PRN PO PAIN SCALE 1 TO 2 09/05/16 17:15 09/06/16 08:49 Heparin Sodium (Porcine) (Heparin Inj) 5,000 units Q8H SQ 09/05/16 18:00 09/09/16 08:37 Clonidine (Catapres) 0.1 mg Q6H PRN PO SBP>160, DBP>90 09/05/16 17:45 09/07/16 20:09 Dexamethasone Sodium Phosphate (Decadron Inj) 4 mg Q8H IV PUSH 09/06/16 09:00 09/09/16 08:37 Levothyroxine Sodium (Synthroid) 25 mcg DAILY@0600 PO 09/07/16 06:00 09/09/16 06:08 Alprazolam (Xanax) 0.5 mg Q8H PRN PO ANXIETY 09/07/16 11:15 09/09/16 08:37 Amlodipine Besylate (Norvasc) 10 mg DAILY PO 09/09/16 09:00 09/09/16 08:36 Objective Remarks GENERAL: Pleasant female sitting up in chair next to bed in nad. SKIN: Warm and dry. HEAD: Normocephalic. EYES: No scleral icterus. No injection or drainage. NECK: Supple, trachea midline. CARDIOVASCULAR: +S1/S2. No murmur appreciated. RESPIRATORY: Breath sounds equal bilaterally. No accessory muscle use. GASTROINTESTINAL: Abdomen soft, non-tender, nondistended. EXTREMITIES: No cyanosis, or edema. NEUROLOGICAL: awake and alert. Normal speech. Moving all extremities. Assessment/Plan Problem List: (1) Intracranial mass Status: Acute Plan: -- Need outpatient PETscan, mammogram after discharge. -- Tumor markers CEA, CA 15-3, and CA125 all WNL. -- CT thorax negative for mets. -- CT abdomen/pelvis shows a small 6mm hypodense lesion. -- On Decadron. Hx/Workup: Pt was diagnosed and treated in 2006 at the [facility] for breast cancer. She was treated with chemotherapy and radiation for what was probably triple negative disease. She denies being on a hormonal agent or being treated with Herceptin for one year. She was followed up until 2013 when she lost her insurance. Assessment 60 y/o female admitted for intracranial masses with a history of breast cancer. Plan 1. Continue Decadron. 2. await biopsy with neurosurgery Sunday or Sunday of next week. Attending Statement The exam, history, and the medical decision-making described in the above note were completed with the assistance of the mid-level provider. I reviewed and agree with the findings presented. I attest that I had a [id number] encounter with the patient on the same day, and personally performed and documented my assessment and findings in the medical record. She denies any headache or visual changes. Still has slight left facial droop. Discussed with pt and her sister, they are very anxious. Reviewed MRI with them. Their questions answered. Await biopsy of brain mass per neurosurgery. Continue decadron. Kaci Lyles Sep 09, 2016 10:13 Raz Enriquez MD Sep 09, 2016 11:59
[2016-09-09 12:00] VITALS: BP 136/94; PULSE 73; RESP 16; TEMP 97.6; O2SAT 98
--- NOTE | 2016-09-09 12:53 | HHI.NSPN ---
History Chief Complaint: multiple brain metastasis. Interval History Ms. Carmen is a 60-year-old female with a history of breast cancer in 2006 and previously treated at the [facility] in [place]. Ms. Carmen underwent right mastectomy with chemoradiation treatment. She presented to [facility] with complaints 1-2 months of of left facial weakness and hand paresthesias. She also reports of mild headaches. She denies vision changes, seizure like activities, vomiting, gait instability, fevers or chills. She underwent an MRI brain which shows multiple intracranial mass lesions suspicious for metastasis. A neurosurgical evaluation was requested. 09/08/16: Pt awake and alert. Denies headache, nausea, vomiting, muscle weakness, or paresthesias. She states the left facial weakness has improved. 09/09/16: Pt awake and alert. Standing at sink taking care of her teeth. No headache, nausea or vomiting. ambulating independently. Review of Systems General: Negative for: fever, chills, insomnia Respiratory: Negative for: shortness of breath, cough, sputum Cardiovascular: Negative for: chest pain Gastrointestinal: Negative for: nausea, vomitting, diarrhea, constipation Exam Results Vital Signs Date Time Temp Pulse Resp B/P Pulse Ox O2 Delivery O2 Flow Rate FiO2 09/09/16 08:00 96.2 54 16 147/97 98 09/05/16 14:30 Room Air Intake and Output 09/08/16 09/08/16 09/09/16 08:00 16:00 00:00 Intake Total 240 ml 960 ml 240 ml Output Total 400 ml 840 ml Balance -160 ml 120 ml 240 ml Physical Examination Resp: CTA bilaterally Heart: NSR no murmurs Abd: Soft positive bs Skin: No cyanosis or erythema Muscle: Moves all 4 extremities well. Ambulating independently. Neuro: Pt awake and alert. Follows commands well. Speech clear and appropriate. Face appears symmetric. Pupils 3mm bilaterally reactive bilaterally. Lab, Micro, Other Results Last Impressions Chest CT 09/05/16 0000 Signed Impressions: Service Date/Time: Monday, September 05, 2016 20:30 - CONCLUSION: No acute disease. Memo Houston MD Brain MRI 09/05/16 0000 Signed Impressions: Service Date/Time: Monday, September 05, 2016 14:35 - CONCLUSION: 1. Multiple intracranial mass lesions with different signal characteristics no considering the history of breast carcinoma likely all reflect metastatic disease. 2. The largest lesion in the right temporal lobe demonstrates central necrosis with 2 other nonenhancing lesions in the left thalamus as well as contreras radiata on the left Ronni Louie MD Abdomen/Pelvis CT 09/05/16 0000 Signed Impressions: Service Date/Time: Monday, September 05, 2016 20:30 - CONCLUSION: Tiny 5 mm calcified nonobstructing upper pole left renal calculus. Tiny 6 mm low density lesion within the right lobe of the liver posteriorly which is too small for accurate density measurement. Memo Houston MD 09/08/16 09/08/16 09/09/16 15:00 23:00 07:00 Intake Total 960 ml 240 ml 720 ml Output Total 840 ml Balance 120 ml 240 ml 720 ml Intake Oral 960 ml 240 ml 720 ml Output Urine Total 840 ml # Voids 2 # Bowel Movements 1 Medical Decision Making Impression and Plan A: 60 y/o FM with multiple brain metastasis largest in right temporal lobe measuring 3.8 x 2.6cm. P: Reviewed Radiation oncology notes that recommends tissue specimen. Dr. Osorio will return on Sunday and has said he will proceed with surgery if Radiation oncology recommends which they have. Continue with Decadron Continue to ambulate Continue to monitor Neuro exam. Manuel Donis Sep 09, 2016 12:53
[2016-09-09 16:00] VITALS: BP 123/85; PULSE 61; RESP 16; TEMP 96.6; O2SAT 98
[2016-09-09] MEDS: ACETAMINOPHEN 325 MG TAB PO PRN (18:00)
[2016-09-09 20:00] VITALS: BP 165/95; PULSE 67; RESP 17; TEMP 97.2; O2SAT 97
[2016-09-09] MEDS: cloNIDine HCL 0.1 MG TAB PO PRN (20:22)
[2016-09-10] VITALS: BP 121/75; PULSE 51; RESP 15; TEMP 96.4; O2SAT 96
[2016-09-10] MEDS: HEPARIN SODIUM - SQ 10,000 UNITS/ML VIAL SQ SCH ×3 (02:26→18:19)
[2016-09-10] MEDS: ALPRAZolam 0.5 MG TAB PO PRN ×3 (02:27→18:19)
[2016-09-10] MEDS: DEXAMETHASONE SOD PHOS 4 MG/ML VIAL IV PUSH SCH ×3 (02:27→18:20)
[2016-09-10 04:00] VITALS: BP 115/75; PULSE 51; RESP 15; TEMP 96.9; O2SAT 96
[2016-09-10] MEDS: LEVOTHYROXINE SODIUM 25 MCG TAB PO SCH (05:16)
[2016-09-10 08:00] VITALS: BP 119/77; PULSE 54; RESP 16; TEMP 97.2; O2SAT 96
[2016-09-10] MEDS: SODIUM CHLORIDE 0.9% FLUSH 10 ML FLUSH IV FLUSH SCH ×2 (08:30→20:15)
--- NOTE | 2016-09-10 08:47 | HHI.PR ---
Subjective Remarks 60-year-old female with a past medical history of HTN, hypothyroidism, and treated breast cancer who presented with anxiety and tremors. The patient states that for the past few weeks to maybe 2 months ago she's been having tremors, numbness, and tingling in her right hand. For the past week she's been having difficulty with food falling out of the left side of her mouth when she tries to eat. She denies any weakness, gait unsteadiness, vision changes. She states occasionally she gets a headache behind her right eye, but states that isn't happening for years. 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 She states a few weeks ago the chemicals were causing her to have a sore and irritated throat, but that has improved. She has a history of right breast cancer with mastectomy, chemotherapy, and radiation back in 2006. She states that previously she was on medicine for high blood pressure and hypothyroidism whenever she had insurance. She states she previously weighed 220 pounds, and lost weight intentionally. seen in her bedroom in the presence of her Son, discussed about Hematology and Oncology recommendations, seen Imaging studies for Chest and abdomen performed and negative for Neoplasia. recommended Neurosurgical consult. 09/07 Discussed early in the morning with Doctor Iván Lugo and his ACID DIPPER Jessica Bola he wants the patient discharged from the Hospital to perform a PET scan and Mammogram and readmit the patient was discussed with Our Marketing Forecaster Doctor Marie he did not authorized this management and will discuss with medical information specialist, and let us know next step awaiting also for Neurosurgery specialist consult. Again discussed in the afternoon with Doctor Mcpherson and with Doctor Iván Lugo recommended to keep the patient in House, until medical information specialist and Neurosurgery touch base again about the case with Doctor Lugo asked me to keep the patient Hospitalized until tomorrow, there is a difficulty with the discharge to re admit and is that she is self pay and may need strict follow up with immigration specialist. No nausea, vomit or diarrhea. 09/08 Seen in the room and discussed with nurse Miss Clark no nausea, vomit or diarrhea. awaiting final recommendations by immigration specialist. 09/09 Seen in her Bedroom and Explained her pathology to her and her Sister Mrs. Erin Ordonez who states she is the patient contact to talk and not the patient's Son who I already talked to, she gave me her phone number [phone]. all questions answered to the best of my abilities yesterday I asked the patient if she wanted me to consult Spiritual college specialist, she said no but today asked me to call Our Assistant Basketball Coach consulted. 09/10 Discussed with patient in the room, also with Oncology ACID DIPPER Miss Kaci Lyles and states she may have a Brain Biopsy Tomorrow or day after. Neurosurgery will be here in am tomorrow. no nausea, vomit or diarrhea by patient awaiting procedure. Objective Vital Signs Date Time Temp Pulse Resp B/P Pulse Ox O2 Delivery O2 Flow Rate FiO2 09/10/16 04:00 96.9 51 15 115/75 96 09/10/16 00:00 96.4 51 15 121/75 96 09/09/16 20:00 97.2 67 17 165/95 97 09/09/16 16:00 96.6 61 16 123/85 98 09/09/16 12:00 97.6 73 16 136/94 98 I/O 09/09/16 09/09/16 09/09/16 09/10/16 09/10/16 09/10/16 07:00 15:00 23:00 07:00 15:00 23:00 Intake Total 720 ml 480 ml 480 ml 480 ml Output Total 2000 ml Balance 720 ml -1520 ml 480 ml 480 ml Intake Oral 720 ml 480 ml 480 ml 480 ml Output Urine Total 2000 ml # Voids 2 2 # Bowel Movements 1 Result Diagram: 09/06/16 0550 09/06/16 0550 Imaging Last Impressions Chest CT 09/05/16 0000 Signed Impressions: Service Date/Time: Monday, September 05, 2016 20:30 - CONCLUSION: No acute disease. Memo Houston MD Brain MRI 09/05/16 0000 Signed Impressions: Service Date/Time: Monday, September 05, 2016 14:35 - CONCLUSION: 1. Multiple intracranial mass lesions with different signal characteristics no considering the history of breast carcinoma likely all reflect metastatic disease. 2. The largest lesion in the right temporal lobe demonstrates central necrosis with 2 other nonenhancing lesions in the left thalamus as well as contreras radiata on the left Ronni Louie MD Abdomen/Pelvis CT 09/05/16 0000 Signed Impressions: Service Date/Time: Monday, September 05, 2016 20:30 - CONCLUSION: Tiny 5 mm calcified nonobstructing upper pole left renal calculus. Tiny 6 mm low density lesion within the right lobe of the liver posteriorly which is too small for accurate density measurement. Memo Houston MD Procedures No procedures performed to the patient Other Results Laboratory Tests Test 09/06/16 09/06/16 05:50 09:18 White Blood Count 9.7 TH/MM3 Red Blood Count 4.73 MIL/MM3 Hemoglobin 15.0 GM/DL Hematocrit 42.6 % Mean Corpuscular Volume 90.1 FL Mean Corpuscular Hemoglobin 31.7 PG Mean Corpuscular Hemoglobin 35.2 % Concent Red Cell Distribution Width 12.5 % Platelet Count 252 TH/MM3 Mean Platelet Volume 8.6 FL Neutrophils (%) (Auto) 87.5 % Lymphocytes (%) (Auto) 11.3 % Monocytes (%) (Auto) 1.1 % Eosinophils (%) (Auto) 0.0 % Basophils (%) (Auto) 0.1 % Neutrophils # (Auto) 8.5 TH/MM3 Lymphocytes # (Auto) 1.1 TH/MM3 Monocytes # (Auto) 0.1 TH/MM3 Eosinophils # (Auto) 0.0 TH/MM3 Basophils # (Auto) 0.0 TH/MM3 CBC Comment DIFF FINAL Differential Comment Prothrombin Time 10.5 SEC Prothromb Time International 1.0 RATIO Ratio Sodium Level 139 MEQ/L Potassium Level 3.7 MEQ/L Chloride Level 106 MEQ/L Carbon Dioxide Level 25.2 MEQ/L Anion Gap 8 MEQ/L Blood Urea Nitrogen 9 MG/DL Creatinine 0.63 MG/DL Estimat Glomerular Filtration 97 ML/MIN Rate Random Glucose 131 MG/DL Calcium Level 9.7 MG/DL Total Bilirubin 0.5 MG/DL Direct Bilirubin 0.1 MG/DL Indirect Bilirubin 0.4 MG/DL Aspartate Amino Transf 12 U/L (AST/SGOT) Alanine Aminotransferase 19 U/L (ALT/SGPT) Alkaline Phosphatase 54 U/L Total Protein 6.8 GM/DL Albumin 3.7 GM/DL Lipase 125 U/L Carcinoembryonic Antigen 0.7 NG/ML CA 15-3 Antigen 13.1 U/ML CA 125 Antigen 8.8 U/ML Objective Remarks GENERAL: Well-developed well-nourished. No acute distress. SKIN: Warm and dry. No lesions noted. HEENT: Normocephalic. Pupils equal and round and reactive to light. Mucous membranes pink and moist. CARDIOVASCULAR: Regular rate and rhythm. No murmur appreciated. RESPIRATORY: No accessory muscle use. Clear to auscultation. Breath sounds equal bilaterally. GASTROINTESTINAL: Abdomen soft, non-tender, nondistended. Bowel sounds x4. MUSCULOSKELETAL: No obvious deformities. No clubbing or cyanosis. No edema. NEUROLOGICAL: Awake and alert. Oriented, no focal deficits. PSYCHIATRIC: Anxious mood and affect; insight and judgment normal. Medications and IVs Current Medications Medications (Trade) Dose Ordered Sig/Jason Route Start Time Stop Time Status Last Admin (NS Flush) 2 ml UNSCH PRN IV FLUSH 09/05/16 17:15 (NS Flush) 2 ml BID IV FLUSH 09/05/16 21:00 09/10/16 08:30 (Tylenol) 650 mg Q4H PRN PO 09/05/16 17:15 09/09/16 18:00 (Zofran Inj) 4 mg Q6H PRN IVP 09/05/16 17:15 (Reglan Inj) 5 mg Q6H PRN IV PUSH 09/05/16 17:15 (Dulcolax Supp) 10 mg DAILY PRN [place] 09/05/16 17:15 (Heparin Inj) 5,000 units Q8H SQ 09/05/16 18:00 09/10/16 02:26 (Narcan Inj) 0.4 mg UNSCH PRN IV 09/05/16 17:15 (Percocet 5-325 Mg) 1 tab Q4H PRN PO 09/05/16 17:30 (Catapres) 0.1 mg Q6H PRN PO 09/05/16 17:45 09/09/16 20:22 (Decadron Inj) 4 mg Q8H IV PUSH 09/06/16 09:00 09/10/16 08:30 (Synthroid) 25 mcg DAILY@0600 PO 09/07/16 06:00 09/10/16 05:16 (Xanax) 0.5 mg Q8H PRN PO 09/07/16 11:15 09/10/16 02:27 (Pill Splitter) 1 ea UNSCH PRN OTHER 09/07/16 16:15 (Norvasc) 10 mg DAILY PO 09/09/16 09:00 09/10/16 08:30 A/P Assessment and Plan 1. Intracranial Mass lesions with left facial paresis and tingling sensation on extremities, seen by immigration specialist looks Metastatic Disease, secondary to Breast Cancer diagnosed in 2006, has triple negative breast Cancer, treated at [facility] status post left mastectomy, not treated with Hormone blockade Therapy, not followed since 2013, she was treated with Radiation therapy and Chemotherapy, CT chest ordered and CT abdomen and pelvis probable metastatic liver lesions. may also need mammogram to evaluate primary lesion. Neurosurgery specialist consulted by Oncology. Brain MRI shows multiple intracranial mass lesions with different signal characteristics, suspicious for metastatic disease; the largest lesion in the right temporal area demonstrates central necrosis with 2 other nonenhancing lesions in the left thalamus. CEA, CA-125 and CA 15-3 within normal limits. will have Brain Biopsy by Neurosurgery specialist tomorrow or day after. 2. Hypothyroidism: By history, patient off medications. reviewed TSH and Free T4 needs Levothyroxine started at 25 mcg daily 3. Hypertension Controlled. DVT prophylaxis: Heparin Discussed Condition With Patient all questions answered to the best of my abilities Assistant Basketball Coach was in yesterday and talked with patient improved her Mood. Discharge Planning No yet cleared by immigration specialist. may need prolonged management in House. Krish Llamas MD Sep 10, 2016 08:47 Krish Llamas MD Sep 10, 2016 08:47
--- NOTE | 2016-09-10 09:00 | HHI.NSPN ---
History Chief Complaint: multiple brain metastasis. Interval History Ms. Carmen is a 60-year-old female with a history of breast cancer in 2006 and previously treated at the [facility] in [place]. Ms. Carmen underwent right mastectomy with chemoradiation treatment. She presented to [facility] with complaints 1-2 months of of left facial weakness and hand paresthesias. She also reports of mild headaches. She denies vision changes, seizure like activities, vomiting, gait instability, fevers or chills. She underwent an MRI brain which shows multiple intracranial mass lesions suspicious for metastasis. A neurosurgical evaluation was requested. 09/08/16: Pt awake and alert. Denies headache, nausea, vomiting, muscle weakness, or paresthesias. She states the left facial weakness has improved. 09/09/16: Pt awake and alert. Standing at sink taking care of her teeth. No headache, nausea or vomiting. ambulating independently. 09/10/16: Pt awake and alert. Had a headache earlier resolved with Tylenol. Mild left facial droop drools when drinking. Review of Systems General: Negative for: fever, chills, insomnia Respiratory: Negative for: shortness of breath, cough, sputum Cardiovascular: Negative for: chest pain Gastrointestinal: Negative for: nausea, vomitting, diarrhea, constipation Exam Results Vital Signs Date Time Temp Pulse Resp B/P Pulse Ox O2 Delivery O2 Flow Rate FiO2 09/10/16 04:00 96.9 51 15 115/75 96 Intake and Output 09/09/16 09/09/16 09/10/16 08:00 16:00 00:00 Intake Total 720 ml 480 ml 480 ml Output Total 2000 ml Balance 720 ml -1520 ml 480 ml Physical Examination Resp: CTA bilaterally Heart: NSR no murmurs Abd: Soft positive bs Skin: No cyanosis or erythema Muscle: Moves all 4 extremities well. Ambulating independently. Neuro: Pt awake and alert. Follows commands well. Speech clear and appropriate. Face mild left facial droop. Pupils 3mm bilaterally reactive bilaterally. Lab, Micro, Other Results Last Impressions Chest CT 09/05/16 0000 Signed Impressions: Service Date/Time: Monday, September 05, 2016 20:30 - CONCLUSION: No acute disease. Memo Houston MD Brain MRI 09/05/16 0000 Signed Impressions: Service Date/Time: Monday, September 05, 2016 14:35 - CONCLUSION: 1. Multiple intracranial mass lesions with different signal characteristics no considering the history of breast carcinoma likely all reflect metastatic disease. 2. The largest lesion in the right temporal lobe demonstrates central necrosis with 2 other nonenhancing lesions in the left thalamus as well as contreras radiata on the left Ronni Louie MD Abdomen/Pelvis CT 09/05/16 0000 Signed Impressions: Service Date/Time: Monday, September 05, 2016 20:30 - CONCLUSION: Tiny 5 mm calcified nonobstructing upper pole left renal calculus. Tiny 6 mm low density lesion within the right lobe of the liver posteriorly which is too small for accurate density measurement. Memo Houston MD 09/09/16 09/09/16 09/10/16 15:00 23:00 07:00 Intake Total 480 ml 480 ml 480 ml Output Total 2000 ml Balance -1520 ml 480 ml 480 ml Intake Oral 480 ml 480 ml 480 ml Output Urine Total 2000 ml # Voids 2 Medical Decision Making Impression and Plan A: 60 y/o FM with multiple brain metastasis largest in right temporal lobe measuring 3.8 x 2.6cm. P: Reviewed Radiation oncology notes that recommends tissue specimen. Dr. Osorio will return on Sunday and has said he will proceed with surgery if Radiation oncology recommends which they have. Continue with Decadron Continue to ambulate Continue to monitor Neuro exam. Manuel Donis Sep 10, 2016 09:00
[2016-09-10 12:00] VITALS: BP 116/84; PULSE 64; RESP 18; TEMP 96.8; O2SAT 97
[2016-09-10 16:00] VITALS: BP 115/80; PULSE 60; RESP 18; TEMP 98; O2SAT 96
[2016-09-10 20:00] VITALS: BP 120/81; PULSE 63; RESP 17; TEMP 96.9; O2SAT 95
[2016-09-11] VITALS: BP 134/76; PULSE 65; RESP 18; TEMP 97.7; O2SAT 96
[2016-09-11] MEDS: ALPRAZolam 0.5 MG TAB PO PRN ×3 (02:21→17:41)
[2016-09-11] MEDS: HEPARIN SODIUM - SQ 10,000 UNITS/ML VIAL SQ SCH ×2 (02:21→10:20)
[2016-09-11] MEDS: DEXAMETHASONE SOD PHOS 4 MG/ML VIAL IV PUSH SCH ×3 (02:22→17:42)
[2016-09-11 04:00] VITALS: BP 115/75; PULSE 67; RESP 18; TEMP 97.2; O2SAT 96
[2016-09-11] MEDS: LEVOTHYROXINE SODIUM 25 MCG TAB PO SCH (05:25)
[2016-09-11 07:50] VITALS: BP 129/79; PULSE 60; RESP 20; TEMP 96.7; O2SAT 97
[2016-09-11] MEDS: SODIUM CHLORIDE 0.9% FLUSH 10 ML FLUSH IV FLUSH SCH ×2 (10:17→21:00)
--- NOTE | 2016-09-11 11:36 | HHI.PR ---
Subjective Remarks 60-year-old female with a past medical history of HTN, hypothyroidism, and treated breast cancer who presented with anxiety and tremors. The patient states that for the past few weeks to maybe 2 months ago she's been having tremors, numbness, and tingling in her right hand. For the past week she's been having difficulty with food falling out of the left side of her mouth when she tries to eat. She denies any weakness, gait unsteadiness, vision changes. She states occasionally she gets a headache behind her right eye, but states that isn't happening for years. 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 She states a few weeks ago the chemicals were causing her to have a sore and irritated throat, but that has improved. She has a history of right breast cancer with mastectomy, chemotherapy, and radiation back in 2006. She states that previously she was on medicine for high blood pressure and hypothyroidism whenever she had insurance. She states she previously weighed 220 pounds, and lost weight intentionally. seen in her bedroom in the presence of her Son, discussed about Hematology and Oncology recommendations, seen Imaging studies for Chest and abdomen performed and negative for Neoplasia. recommended Neurosurgical consult. 09/07 Discussed early in the morning with Doctor Iván Lugo and his FIELD RADIO OPERATOR Miss Jessica Plaza he wants the patient discharged from the Hospital to perform a PET scan and Mammogram and readmit the patient was discussed with Our Psychology Physician Doctor Marie he did not authorized this management and will discuss with helicopter specialist, and let us know next step awaiting also for Neurosurgery specialist consult. Again discussed in the afternoon with Doctor Mcpherson and with Doctor Iván Lugo recommended to keep the patient in House, until helicopter specialist and Neurosurgery touch base again about the case with Doctor Lugo asked me to keep the patient Hospitalized until tomorrow, there is a difficulty with the discharge to re admit and is that she is self pay and may need strict follow up with aircraft engine specialist. No nausea, vomit or diarrhea. 09/08 Awaiting final recommendations by aircraft engine specialist. 09/09 Seen in her Bedroom and Explained her pathology to her and her Sister Mrs. Erin Ordonez who states she is the patient contact to talk and not the patient's Son who I already talked to, she gave me her phone number [phone]. all questions answered to the best of my abilities yesterday I asked the patient if she wanted me to consult Spiritual billing specialist, she said no but today asked me to call Our Manager Integrated consulted. 09/10 Discussed with patient in the room, also with Oncology FIELD RADIO OPERATOR Miss Kaci Lyles and states she may have a Brain Biopsy Tomorrow or day after. Neurosurgery will be here in am tomorrow. 09/11 Seen in her bedroom no new issues,awaiting neurosurgery evaluation, was discussed at this time with Neurosurgery specialist Doctor Marlo Osorio he will proceed with brain Biopsy No Nausea, vomit or diarrhea. Objective Vital Signs Date Time Temp Pulse Resp B/P Pulse Ox O2 Delivery O2 Flow Rate FiO2 09/11/16 07:50 96.7 60 20 129/79 97 09/11/16 04:00 97.2 67 18 115/75 96 09/11/16 00:00 97.7 65 18 134/76 96 09/10/16 20:00 96.9 63 17 120/81 95 09/10/16 16:00 98.0 60 18 115/80 96 09/10/16 12:00 96.8 64 18 116/84 97 I/O 09/10/16 09/10/16 09/10/16 09/11/16 09/11/16 09/11/16 07:00 15:00 23:00 07:00 15:00 23:00 Intake Total 480 ml 1680 ml 240 ml Balance 480 ml 1680 ml 240 ml Intake Oral 480 ml 1680 ml 240 ml # Voids 2 1 5 1 # Bowel Movements 0 0 Imaging Last Impressions Chest CT 09/05/16 0000 Signed Impressions: Service Date/Time: Monday, September 05, 2016 20:30 - CONCLUSION: No acute disease. Memo Houston MD Brain MRI 09/05/16 0000 Signed Impressions: Service Date/Time: Monday, September 05, 2016 14:35 - CONCLUSION: 1. Multiple intracranial mass lesions with different signal characteristics no considering the history of breast carcinoma likely all reflect metastatic disease. 2. The largest lesion in the right temporal lobe demonstrates central necrosis with 2 other nonenhancing lesions in the left thalamus as well as contreras radiata on the left Ronni Louie MD Abdomen/Pelvis CT 09/05/16 0000 Signed Impressions: Service Date/Time: Monday, September 05, 2016 20:30 - CONCLUSION: Tiny 5 mm calcified nonobstructing upper pole left renal calculus. Tiny 6 mm low density lesion within the right lobe of the liver posteriorly which is too small for accurate density measurement. Memo Houston MD Procedures No procedures performed to the patient Other Results No new laboratory. Objective Remarks GENERAL: Well-developed well-nourished. No acute distress. SKIN: Warm and dry. No lesions noted. HEENT: Normocephalic. Pupils equal and round and reactive to light. Mucous membranes pink and moist. CARDIOVASCULAR: Regular rate and rhythm. No murmur appreciated. RESPIRATORY: No accessory muscle use. Clear to auscultation. Breath sounds equal bilaterally. GASTROINTESTINAL: Abdomen soft, non-tender, nondistended. Bowel sounds x4. MUSCULOSKELETAL: No obvious deformities. No clubbing or cyanosis. No edema. NEUROLOGICAL: Awake and alert. Oriented, no focal deficits. PSYCHIATRIC: Anxious mood and affect; insight and judgment normal. Medications and IVs Current Medications Medications (Trade) Dose Ordered Sig/Jason Route Start Time Stop Time Status Last Admin (NS Flush) 2 ml UNSCH PRN IV FLUSH 09/05/16 17:15 (NS Flush) 2 ml BID IV FLUSH 09/05/16 21:00 09/11/16 10:17 (Tylenol) 650 mg Q4H PRN PO 09/05/16 17:15 09/09/16 18:00 (Zofran Inj) 4 mg Q6H PRN IVP 09/05/16 17:15 (Reglan Inj) 5 mg Q6H PRN IV PUSH 09/05/16 17:15 (Dulcolax Supp) 10 mg DAILY PRN [place] 09/05/16 17:15 (Narcan Inj) 0.4 mg UNSCH PRN IV 09/05/16 17:15 (Percocet 5-325 Mg) 1 tab Q4H PRN PO 09/05/16 17:30 (Catapres) 0.1 mg Q6H PRN PO 09/05/16 17:45 09/09/16 20:22 (Decadron Inj) 4 mg Q8H IV PUSH 09/06/16 09:00 09/11/16 10:17 (Synthroid) 25 mcg DAILY@0600 PO 09/07/16 06:00 09/11/16 05:25 (Xanax) 0.5 mg Q8H PRN PO 09/07/16 11:15 09/11/16 10:17 (Pill Splitter) 1 ea UNSCH PRN OTHER 09/07/16 16:15 Amlodipine Besylate 10 mg 10 mg DAILY PO 09/09/16 09:00 09/11/16 10:17 (NS 1000 ml Inj) 1,000 ml @ 100 mls/hr Q10H IV 09/11/16 23:00 (Hibiclens 4% Top Soln) 1 applic HS TOP 09/11/16 21:00 09/12/16 21:01 A/P Assessment and Plan 1. Intracranial Mass lesions with left facial paresis and tingling sensation on extremities, seen by aircraft engine specialist looks Metastatic Disease, secondary to Breast Cancer diagnosed in 2006, has triple negative breast Cancer, treated at [facility] status post left mastectomy, not treated with Hormone blockade Therapy, not followed since 2013, she was treated with Radiation therapy and Chemotherapy, CT chest ordered and CT abdomen and pelvis probable metastatic liver lesions. may also need mammogram to evaluate primary lesion. Neurosurgery specialist consulted by Oncology. Brain MRI shows multiple intracranial mass lesions with different signal characteristics, suspicious for metastatic disease; the largest lesion in the right temporal area demonstrates central necrosis with 2 other nonenhancing lesions in the left thalamus. CEA, CA-125 and CA 15-3 within normal limits. Discussed with Neurosurgery specialist Doctor Jo awaiting for Brain Biopsy. 2. Hypothyroidism: By history, patient off medications. reviewed TSH and Free T4 needs Levothyroxine started at 25 mcg daily 3. Hypertension Controlled. DVT prophylaxis: Heparin Discussed Condition With Patient all questions answered to the best of my abilities As Always a pleasure to talk about cases with Neurosurgery specialist Doctor Marlo Osorio Appreciated specialist Assistance. Discharge Planning No yet cleared by aircraft engine specialist. may need prolonged management in House. Krish Llamas MD Sep 11, 2016 11:36
[2016-09-11 11:50] VITALS: BP 141/79; PULSE 70; RESP 20; TEMP 96.9; O2SAT 97
--- NOTE | 2016-09-11 12:56 | PD.ONC.PN ---
Subjective Subjective Remarks Afebrile overnight. Patient anxious and tearful. She denies headache. Ate breakfast this AM. Objective Data Date Time Temp Pulse Resp B/P Pulse Ox O2 Delivery O2 Flow Rate FiO2 09/11/16 07:50 96.7 60 20 129/79 97 09/11/16 04:00 97.2 67 18 115/75 96 09/11/16 00:00 97.7 65 18 134/76 96 09/10/16 20:00 96.9 63 17 120/81 95 09/10/16 16:00 98.0 60 18 115/80 96 Administered Medications Medications (Trade) Dose Ordered Sig/Jason Route PRN Reason Start Time Stop Time Status Last Admin Dose Admin Sodium Chloride (NS Flush) 2 ml BID IV FLUSH 09/05/16 21:00 09/11/16 10:17 Acetaminophen (Tylenol) 650 mg Q4H PRN PO PAIN SCALE 1 TO 2 09/05/16 17:15 09/09/16 18:00 Clonidine (Catapres) 0.1 mg Q6H PRN PO SBP>160, DBP>90 09/05/16 17:45 09/09/16 20:22 Dexamethasone Sodium Phosphate (Decadron Inj) 4 mg Q8H IV PUSH 09/06/16 09:00 09/11/16 10:17 Levothyroxine Sodium (Synthroid) 25 mcg DAILY@0600 PO 09/07/16 06:00 09/11/16 05:25 Alprazolam (Xanax) 0.5 mg Q8H PRN PO ANXIETY 09/07/16 11:15 09/11/16 10:17 Amlodipine Besylate (Norvasc) 10 mg DAILY PO 09/09/16 09:00 09/11/16 10:17 Objective Remarks GENERAL: Anxious female, sitting up in bed, tearful SKIN: Warm and dry. HEAD: Normocephalic. EYES: No injection or drainage. NECK: Supple, trachea midline. CARDIOVASCULAR: +S1/S2. RESPIRATORY: Breath sounds equal bilaterally. No accessory muscle use. GASTROINTESTINAL: Abdomen soft, non-tender, nondistended. EXTREMITIES: No cyanosis, or edema. NEUROLOGICAL: aox3. normal speech. able to move extremities. Assessment/Plan Problem List: (1) Intracranial mass Status: Acute Plan: --NS plans to do biopsy tomorrow, 4/4 -- Need outpatient PETscan, mammogram after discharge. -- Tumor markers CEA, CA 15-3, and CA125 all WNL. -- CT thorax negative for mets. -- CT abdomen/pelvis shows a small 6mm hypodense lesion. -- On Decadron. Hx/Workup: Pt was diagnosed and treated in 2006 at the [facility] for breast cancer. She was treated with chemotherapy and radiation for what was probably triple negative disease. She denies being on a hormonal agent or being treated with Herceptin for one year. She was followed up until 2013 when she lost her insurance. Assessment 60 y/o female admitted for intracranial masses with a history of breast cancer. Plan 1. Continue Decadron. 2. await pathology from biopsy tomorrow 3. once discharged, patient will need follow up in clinic. will obtain outpatient PET scan and mammogram. Attending Statement The exam, history, and the medical decision-making described in the above note were completed with the assistance of the mid-level provider. I reviewed and agree with the findings presented. I attest that I had a [id number] encounter with the patient on the same day, and personally performed and documented my assessment and findings in the medical record. Kaci Lyles Sep 11, 2016 12:56 Iván Lugo MD Sep 12, 2016 23:04
[2016-09-11] MEDS ORDERED: PANTOPRAZOLE SODIUM 40 MG VIAL IV PUSH SCH (14:00)
[2016-09-11 15:50] VITALS: BP 134/76; PULSE 64; RESP 20; TEMP 97.8; O2SAT 96
--- NOTE | 2016-09-11 16:31 | HHI.NSPN ---
(Iona Norton) Note Status Status: Progress Note (Iona Norton) Interval History Interval History Ms. Carmen is a 60-year-old female with a history of breast cancer in 2006 and previously treated at the [facility] in [place]. Ms. Carmen underwent right mastectomy with chemoradiation treatment. She presented to [facility] with complaints 1-2 months of of left facial weakness and hand paresthesias. She also reports of mild headaches. She denies vision changes, seizure like activities, vomiting, gait instability, fevers or chills. She underwent an MRI brain which shows multiple intracranial mass lesions suspicious for metastasis. A neurosurgical evaluation was requested. 09/08/16: Pt awake and alert. Denies headache, nausea, vomiting, muscle weakness, or paresthesias. She states the left facial weakness has improved. 09/09/16: Pt awake and alert. Standing at sink taking care of her teeth. No headache, nausea or vomiting. ambulating independently. 09/10/16: Pt awake and alert. Had a headache earlier resolved with Tylenol. Mild left facial droop drools when drinking. 09/11/16: no new neuro complaints, reviewed radiation notes recommending biopsy with poss debulking of brain mass. (Iona Norton) Labs, Micro, & Vital Signs Results Date Time Temp Pulse Resp B/P Pulse Ox O2 Delivery O2 Flow Rate FiO2 09/11/16 11:50 96.9 70 20 141/79 97 09/11/16 07:50 96.7 60 20 129/79 97 09/11/16 04:00 97.2 67 18 115/75 96 09/11/16 00:00 97.7 65 18 134/76 96 09/10/16 20:00 96.9 63 17 120/81 95 09/11/16 07:00 Intake Total 1920 ml Balance 1920 ml Constitutional Vital Signs Date Time Temp Pulse Resp B/P Pulse Ox O2 Delivery O2 Flow Rate FiO2 09/11/16 11:50 96.9 70 20 141/79 97 09/11/16 07:50 96.7 60 20 129/79 97 09/11/16 04:00 97.2 67 18 115/75 96 09/11/16 00:00 97.7 65 18 134/76 96 09/10/16 20:00 96.9 63 17 120/81 95 09/11/16 07:00 Intake Total 1920 ml Balance 1920 ml (Iona Norton) Review of Systems/Exam Exam Alert, and oriented x 3. Speech is appropriate. CN: pupils equal, eom's intact. very mild left facial weakness. Motor: moves all four extremities well, there is mild left pronator drift noted. Neck: soft, supple (Iona Norton) Medications Current Medications Current Medications Medications (Trade) Dose Ordered Sig/Jason Route PRN Reason Start Time Stop Time Status Last Admin Dose Admin Sodium Chloride (NS Flush) 2 ml UNSCH PRN IV FLUSH FLUSH AFTER USING IV ACCESS 09/05/16 17:15 Sodium Chloride (NS Flush) 2 ml BID IV FLUSH 09/05/16 21:00 09/11/16 10:17 Acetaminophen (Tylenol) 650 mg Q4H PRN PO PAIN SCALE 1 TO 2 09/05/16 17:15 09/09/16 18:00 Ondansetron HCl (Zofran Inj) 4 mg Q6H PRN IVP NAUSEA OR VOMITING 09/05/16 17:15 Metoclopramide HCl (Reglan Inj) 5 mg Q6H PRN IV PUSH NAUSEA OR VOMITING 09/05/16 17:15 Bisacodyl (Dulcolax Supp) 10 mg DAILY PRN FL CONSTIPATION 09/05/16 17:15 Naloxone HCl (Narcan Inj) 0.4 mg UNSCH PRN IV SEE LABEL COMMENTS 09/05/16 17:15 Oxycodone/ Acetaminophen (Percocet 5-325 Mg) 1 tab Q4H PRN PO PAIN SCALE 3 TO 6 09/05/16 17:30 Clonidine (Catapres) 0.1 mg Q6H PRN PO SBP>160, DBP>90 09/05/16 17:45 09/09/16 20:22 Dexamethasone Sodium Phosphate (Decadron Inj) 4 mg Q8H IV PUSH 09/06/16 09:00 09/11/16 10:17 Levothyroxine Sodium (Synthroid) 25 mcg DAILY@0600 PO 09/07/16 06:00 09/11/16 05:25 Alprazolam (Xanax) 0.5 mg Q8H PRN PO ANXIETY 09/07/16 11:15 09/11/16 10:17 Miscellaneous (Pill Splitter) 1 ea UNSCH PRN OTHER SEE LABEL COMMENTS 09/07/16 16:15 Amlodipine Besylate 10 mg 10 mg DAILY PO 09/09/16 09:00 09/11/16 10:17 Sodium Chloride (NS 1000 ml Inj) 1,000 ml @ 100 mls/hr Q10H IV 09/11/16 23:00 Chlorhexidine Gluconate (Hibiclens 4% Top Soln) 1 applic HS TOP 09/11/16 21:00 09/12/16 21:01 Pantoprazole Sodium (Protonix Inj) 40 mg Q24H IV PUSH 09/11/16 14:00 09/11/16 14:42 (Iona Norton) Medical Decision Making MDM Remarks 60 y/o female with multiple brain mass, suspected breast metastases. Radiation oncology recommending biopsy history of breast CA (Iona Norton) Plan Plan Remarks for brain biopsy with poss resection of brain mass tomorrow NPO tonight dw patient, all questions answered (Iona Norton) Attending Statement We have discussed the details including the [id number] details of the surgical procedure, its indications, alternatives, risks, and potential complications. Risks and potential complications include, but are not limited to, infection, blood loss, CSF leak, partial or complete loss of sight in one or both eyes, paresis, paralysis, permanent pain or difficulty swallowing, loss of bowel or bladder function, complications from anesthesia, blood clot, stroke , myocardial infarction, or even . The exam, history, and the medical decision-making described in the above note were completed with the assistance of the mid-level provider. I reviewed and agree with the findings presented. I attest that I had a [id number] encounter with the patient on the same day, and personally performed and documented my assessment and findings in the medical record. (Marlo Osorio MD) Iona Norton Sep 11, 2016 16:31 Marlo Osorio MD Sep 11, 2016 21:13
[2016-09-11 20:00] VITALS: BP 133/75; PULSE 65; RESP 16; TEMP 97.2; O2SAT 96
[2016-09-11] MEDS: SODIUM CHLOR 0.9% 1000 ML INJ 1,000 ML IV SCH (21:37)
[2016-09-11] MEDS: CHLORHEXIDINE GLUCONATE 4% SOLN 120 ML BTL TOP SCH (23:37)
[2016-09-12] VITALS: BP 122/67; PULSE 53; RESP 15; TEMP 96.6; O2SAT 96
[2016-09-12] MEDS: DEXAMETHASONE SOD PHOS 4 MG/ML VIAL IV PUSH SCH ×3 (02:07→17:00)
[2016-09-12 04:00] VITALS: BP 132/75; PULSE 64; RESP 16; TEMP 96.8; O2SAT 95
[2016-09-12] MEDS: LEVOTHYROXINE SODIUM 25 MCG TAB PO SCH (05:20)
[2016-09-12] MEDS ORDERED: ceFAZolin 2 GM PREMIX 50 ML IV SCH ×3 (06:00→16:45)
[2016-09-12] MEDS ORDERED: VANCOMYCIN INJ 1,000 MG in SODIUM CHLOR 0.9% 250 ML INJ 250 ML IV SCH (06:00)
[2016-09-12 08:00] VITALS: BP 153/74; PULSE 58; RESP 18; TEMP 97.9; O2SAT 96
--- NOTE | 2016-09-12 08:09 | HHI.PR ---
Subjective Remarks 60-year-old female with a past medical history of HTN, hypothyroidism, and treated breast cancer who presented with anxiety and tremors. The patient states that for the past few weeks to maybe 2 months ago she's been having tremors, numbness, and tingling in her right hand. For the past week she's been having difficulty with food falling out of the left side of her mouth when she tries to eat. She denies any weakness, gait unsteadiness, vision changes. She states occasionally she gets a headache behind her right eye, but states that isn't happening for years. 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 She states a few weeks ago the chemicals were causing her to have a sore and irritated throat, but that has improved. She has a history of right breast cancer with mastectomy, chemotherapy, and radiation back in 2006. She states that previously she was on medicine for high blood pressure and hypothyroidism whenever she had insurance. She states she previously weighed 220 pounds, and lost weight intentionally. seen in her bedroom in the presence of her Son, discussed about Hematology and Oncology recommendations, seen Imaging studies for Chest and abdomen performed and negative for Neoplasia. recommended Neurosurgical consult. 09/07 Discussed early in the morning with Doctor Iván Lugo and his REFRIGERATION REPAIR SUPERVISOR Miss Jessica Plaza he wants the patient discharged from the Hospital to perform a PET scan and Mammogram and readmit the patient was discussed with Our Plate Roller Doctor Marie he did not authorized this management and will discuss with multimedia specialist, and let us know next step awaiting also for Neurosurgery specialist consult. Again discussed in the afternoon with Doctor Mcpherson and with Doctor Iván Lugo recommended to keep the patient in House, until multimedia specialist and Neurosurgery touch base again about the case with Doctor Lugo asked me to keep the patient Hospitalized until tomorrow, there is a difficulty with the discharge to re admit and is that she is self pay and may need strict follow up with sterilization specialist. No nausea, vomit or diarrhea. 09/08 Awaiting final recommendations by sterilization specialist. 09/09 Seen in her Bedroom and Explained her pathology to her and her Sister Mrs. Erin Ordonez who states she is the patient contact to talk and not the patient's Son who I already talked to, she gave me her phone number [phone]. all questions answered to the best of my abilities yesterday I asked the patient if she wanted me to consult Spiritual clinical documentation improvement specialist, she said no but today asked me to call Our Delivery Associate consulted. 09/10 Discussed with patient in the room, also with Oncology REFRIGERATION REPAIR SUPERVISOR Miss Kaci Lyles and states she may have a Brain Biopsy Tomorrow or day after. Neurosurgery will be here in am tomorrow. 09/11 Seen in her bedroom no new issues,awaiting neurosurgery evaluation, was discussed at this time with Neurosurgery specialist Doctor Marlo Osorio he will proceed with brain Biopsy and mass resection by tomorrow 09/12 Seen in her bedroom leaving for OR for Neurosurgical procedure, no Nausea, vomit or diarrhea, discussed with patient and her Sister and son in the room. Objective Vital Signs Date Time Temp Pulse Resp B/P Pulse Ox O2 Delivery O2 Flow Rate FiO2 09/12/16 04:00 96.8 64 16 132/75 95 09/12/16 00:00 96.6 53 15 122/67 96 09/11/16 20:00 97.2 65 16 133/75 96 09/11/16 15:50 97.8 64 20 134/76 96 09/11/16 11:50 96.9 70 20 141/79 97 I/O 09/11/16 09/11/16 09/11/16 09/12/16 09/12/16 09/12/16 07:00 15:00 23:00 07:00 15:00 23:00 Intake Total 240 ml 300 ml 240 ml 957 ml Output Total 1200 ml 1200 ml Balance 240 ml -900 ml 240 ml -243 ml Intake Oral 240 ml 300 ml 240 ml IV Total 957 ml Output Urine Total 1200 ml 1200 ml # Voids 1 # Bowel Movements 0 1 Imaging Last Impressions Chest CT 09/05/16 0000 Signed Impressions: Service Date/Time: Monday, September 05, 2016 20:30 - CONCLUSION: No acute disease. Memo Houston MD Brain MRI 09/05/16 0000 Signed Impressions: Service Date/Time: Monday, September 05, 2016 14:35 - CONCLUSION: 1. Multiple intracranial mass lesions with different signal characteristics no considering the history of breast carcinoma likely all reflect metastatic disease. 2. The largest lesion in the right temporal lobe demonstrates central necrosis with 2 other nonenhancing lesions in the left thalamus as well as contreras radiata on the left Ronni Louie MD Abdomen/Pelvis CT 09/05/16 0000 Signed Impressions: Service Date/Time: Monday, September 05, 2016 20:30 - CONCLUSION: Tiny 5 mm calcified nonobstructing upper pole left renal calculus. Tiny 6 mm low density lesion within the right lobe of the liver posteriorly which is too small for accurate density measurement. Memo Houston MD Procedures No procedures performed to the patient Other Results No new laboratory Objective Remarks GENERAL: Well-developed well-nourished. No acute distress. SKIN: Warm and dry. No lesions noted. HEENT: Normocephalic. Pupils equal and round and reactive to light. Mucous membranes pink and moist. CARDIOVASCULAR: Regular rate and rhythm. No murmur appreciated. RESPIRATORY: No accessory muscle use. Clear to auscultation. Breath sounds equal bilaterally. GASTROINTESTINAL: Abdomen soft, non-tender, nondistended. Bowel sounds x4. MUSCULOSKELETAL: No obvious deformities. No clubbing or cyanosis. No edema. NEUROLOGICAL: Awake and alert. Oriented, no focal deficits. PSYCHIATRIC: Anxious mood and affect; insight and judgment normal. Medications and IVs Current Medications Medications (Trade) Dose Ordered Sig/Jason Route Start Time Stop Time Status Last Admin (NS Flush) 2 ml UNSCH PRN IV FLUSH 09/05/16 17:15 (NS Flush) 2 ml BID IV FLUSH 09/05/16 21:00 09/11/16 10:17 (Tylenol) 650 mg Q4H PRN PO 09/05/16 17:15 09/09/16 18:00 (Zofran Inj) 4 mg Q6H PRN IVP 09/05/16 17:15 (Reglan Inj) 5 mg Q6H PRN IV PUSH 09/05/16 17:15 (Dulcolax Supp) 10 mg DAILY PRN GA 09/05/16 17:15 (Narcan Inj) 0.4 mg UNSCH PRN IV 09/05/16 17:15 (Percocet 5-325 Mg) 1 tab Q4H PRN PO 09/05/16 17:30 (Catapres) 0.1 mg Q6H PRN PO 09/05/16 17:45 09/09/16 20:22 (Decadron Inj) 4 mg Q8H IV PUSH 09/06/16 09:00 09/12/16 02:07 (Synthroid) 25 mcg DAILY@0600 PO 09/07/16 06:00 09/12/16 05:20 (Xanax) 0.5 mg Q8H PRN PO 09/07/16 11:15 09/11/16 17:41 (Pill Splitter) 1 ea UNSCH PRN OTHER 09/07/16 16:15 Amlodipine Besylate 10 mg 10 mg DAILY PO 09/09/16 09:00 09/11/16 10:17 (NS 1000 ml Inj) 1,000 ml @ 100 mls/hr Q10H IV 09/11/16 23:00 09/11/16 21:37 (Hibiclens 4% Top Soln) 1 applic HS TOP 09/11/16 21:00 09/12/16 21:01 09/11/16 23:37 (Protonix Inj) 40 mg Q24H IV PUSH 09/11/16 14:00 09/11/16 14:42 A/P Assessment and Plan 1. Intracranial Mass lesions with left facial paresis and tingling sensation on extremities, seen by sterilization specialist looks Metastatic Disease, secondary to Breast Cancer diagnosed in 2006, has triple negative breast Cancer, treated at [facility] status post left mastectomy, not treated with Hormone blockade Therapy, not followed since 2013, she was treated with Radiation therapy and Chemotherapy, CT chest ordered and CT abdomen and pelvis probable metastatic liver lesions. may also need mammogram to evaluate primary lesion. Neurosurgery specialist consulted by Oncology. Brain MRI shows multiple intracranial mass lesions with different signal characteristics, suspicious for metastatic disease; the largest lesion in the right temporal area demonstrates central necrosis with 2 other nonenhancing lesions in the left thalamus. CEA, CA-125 and CA 15-3 within normal limits. leaving for Neurosurgical procedure. 2. Hypothyroidism: By history, patient off medications. reviewed TSH and Free T4 needs Levothyroxine started at 25 mcg daily 3. Hypertension Controlled. DVT prophylaxis: Heparin Discussed Condition With Patient, sister and Son in the room. all questions answered to the best of my abilities Discharge Planning No yet cleared by sterilization specialist. may need prolonged management in House. Krish Llamas MD Sep 12, 2016 08:09 Krish Llamas MD Sep 12, 2016 08:09
[2016-09-12] MEDS: SODIUM CHLORIDE 0.9% FLUSH 10 ML FLUSH IV FLUSH SCH (09:00)
[2016-09-12] MEDS: SODIUM CHLOR 0.9% 1000 ML INJ 1,000 ML IV SCH (09:00)
[2016-09-12] MEDS ORDERED: PROPOFOL 200 MG/20 ML AMP IV ONE (09:04)
[2016-09-12] MEDS ORDERED: NEOSTIGMINE 3 MG/3 ML SYR IV ONE (09:04)
[2016-09-12] MEDS ORDERED: LACTATED RINGER'S 1000 ML INJ 2,000 ML IV ONE (09:05)
[2016-09-12] MEDS ORDERED: ONDANSETRON HCL 4 MG/2 ML VIAL IV PUSH ONE (09:05)
[2016-09-12] MEDS ORDERED: SODIUM CHLORID 0.9% 500 ML INJ 500 ML IV ONE (09:05)
[2016-09-12 12:00] VITALS: BP 147/72; PULSE 64; RESP 18; TEMP 96.4; O2SAT 98
--- NOTE | 2016-09-12 12:09 | PD.ONC.PN ---
Subjective Subjective Remarks (patient seen at 8AM). Afebrile overnight. Patient resting comfortably. Waiting to go for brain biopsy today. Objective Data Date Time Temp Pulse Resp B/P Pulse Ox O2 Delivery O2 Flow Rate FiO2 09/12/16 08:00 97.9 58 18 153/74 96 09/12/16 04:00 96.8 64 16 132/75 95 09/12/16 00:00 96.6 53 15 122/67 96 09/11/16 20:00 97.2 65 16 133/75 96 09/11/16 15:50 97.8 64 20 134/76 96 09/12/16 09/12/16 09/12/16 07:00 15:00 23:00 Intake Total 957 ml Output Total 1200 ml Balance -243 ml Administered Medications Medications (Trade) Dose Ordered Sig/Jason Route PRN Reason Start Time Stop Time Status Last Admin Dose Admin Sodium Chloride (NS Flush) 2 ml BID IV FLUSH 09/05/16 21:00 09/11/16 10:17 Acetaminophen (Tylenol) 650 mg Q4H PRN PO PAIN SCALE 1 TO 2 09/05/16 17:15 09/09/16 18:00 Clonidine (Catapres) 0.1 mg Q6H PRN PO SBP>160, DBP>90 09/05/16 17:45 09/09/16 20:22 Dexamethasone Sodium Phosphate (Decadron Inj) 4 mg Q8H IV PUSH 09/06/16 09:00 09/12/16 09:13 Levothyroxine Sodium (Synthroid) 25 mcg DAILY@0600 PO 09/07/16 06:00 09/12/16 05:20 Alprazolam (Xanax) 0.5 mg Q8H PRN PO ANXIETY 09/07/16 11:15 09/11/16 17:41 Amlodipine Besylate 10 mg 10 mg DAILY PO 09/09/16 09:00 09/12/16 09:13 Sodium Chloride (NS 1000 ml Inj) 1,000 ml @ 100 mls/hr Q10H IV 09/11/16 23:00 09/12/16 09:00 Chlorhexidine Gluconate (Hibiclens 4% Top Soln) 1 applic HS TOP 09/11/16 21:00 09/12/16 21:01 09/11/16 23:37 Pantoprazole Sodium (Protonix Inj) 40 mg Q24H IV PUSH 09/11/16 14:00 09/11/16 14:42 Objective Remarks GENERAL: Middle aged female, supine in bed, resting. SKIN: Warm and dry. HEAD: Normocephalic. EYES: No injection or drainage. NECK: Supple, trachea midline. CARDIOVASCULAR: +S1/S2. RESPIRATORY: Breath sounds equal bilaterally. No accessory muscle use. GASTROINTESTINAL: Abdomen soft, non-tender, nondistended. EXTREMITIES: No cyanosis, or edema. NEUROLOGICAL: awake and alert, normal speech. able to move extremities. Assessment/Plan Problem List: (1) Intracranial mass Status: Acute Plan: --biopsy via NS today, 09/12 -- Need outpatient PETscan, mammogram after discharge. -- Tumor markers CEA, CA 15-3, and CA125 all WNL. -- CT thorax negative for mets. -- CT abdomen/pelvis shows a small 6mm hypodense lesion. -- On Decadron. Hx/Workup: Pt was diagnosed and treated in 2006 at the [facility] for breast cancer. She was treated with chemotherapy and radiation for what was probably triple negative disease. She denies being on a hormonal agent or being treated with Herceptin for one year. She was followed up until 2013 when she lost her insurance. Assessment 60 y/o female admitted for intracranial masses with a history of breast cancer. Plan 1. Continue Decadron. 2. await pathology from biopsy today Attending Statement The exam, history, and the medical decision-making described in the above note were completed with the assistance of the mid-level provider. I reviewed and agree with the findings presented. I attest that I had a [id number] encounter with the patient on the same day, and personally performed and documented my assessment and findings in the medical record. Seen post-operatively. s/p debulking and biopsy. further recs based on pathology. Kaci Lyles Sep 12, 2016 12:09 Iván Lugo MD Sep 12, 2016 23:07
[2016-09-12] MEDS ORDERED: FAMOTIDINE 20 MG/2 ML VIAL ONE (14:40)
[2016-09-12] MEDS ORDERED: VANCOMYCIN HCL 1000 MG VIAL ONE (15:05)
[2016-09-12] MEDS ORDERED: THROMBIN (TOPICAL) 5,000 UNIT VIAL ONE (15:05)
[2016-09-12] MEDS ORDERED: GELFOAM SIZE 100 ONE (15:06)
[2016-09-12] MEDS ORDERED: FUROSEMIDE 40 MG/4 ML VIAL ONE (15:06)
[2016-09-12] MEDS ORDERED: levETIRAcetam 500 MG/5 ML VIAL IV ONE (15:06)
[2016-09-12] MEDS ORDERED: BACITRACIN TOP OINT 15 GM TUBE ONE (15:06)
[2016-09-12] MEDS ORDERED: GENTAMICIN SULFATE 80 MG/2 ML VIAL ONE (15:06)
[2016-09-12] MEDS ORDERED: ACETAMINOPHEN 1000 MG/100 ML VIAL IV ONE (15:07)
[2016-09-12] MEDS ORDERED: LIDOCAINE 1%/EPINEPHrine 1:100,000 SOLN 20 ML VIAL ONE (15:07)
[2016-09-12] MEDS ORDERED: MIDAZOLAM HCL 2 MG/2 ML VIAL ONE (15:08)
[2016-09-12] MEDS ORDERED: fentaNYL CITRATE 250 MCG/5 ML AMP ONE ×2 (15:08)
[2016-09-12] MEDS ORDERED: diphenhydrAMINE HCL 50 MG/ML VIAL ONE (15:21)
[2016-09-12] MEDS: NS + KCL 20 MEQ INJ 1,000 ML IV SCH (15:59)
[2016-09-12] MEDS ORDERED: CALCIUM GLUCONATE 10% 1 GM/10 ML VIAL IV PRN (16:00)
[2016-09-12] MEDS ORDERED: POTASSIUM CHLOR 20 MEQ PREMIX 100 ML IV PRN (16:00)
[2016-09-12] MEDS ORDERED: ACETAMINOPHEN/HYDROcodone 325 MG/10 MG TAB PO PRN (16:00)
[2016-09-12] MEDS ORDERED: ONDANSETRON HCL 4 MG/2 ML VIAL IV PRN (16:00)
[2016-09-12] MEDS ORDERED: ACETAMINOPHEN 325 MG TAB PO PRN (16:00)
[2016-09-12] MEDS: levETIRAcetam INJ 500 MG in SODIUM CHLORIDE 0.9% INJ 100 ML IV SCH (16:00)
[2016-09-12] MEDS ORDERED: BISACODYL 10 MG SUPP RECTAL PRN (16:00)
[2016-09-12] MEDS ORDERED: SODIUM CHLORIDE 0.9% FLUSH 5 ML FLUSH IVF PRN (16:00)
[2016-09-12] MEDS ORDERED: MAGNESIUM SULFATE INJ 4 GM in SODIUM CHLORIDE 0.9% INJ 100 ML IV PRN (16:00)
[2016-09-12] MEDS ORDERED: MANNITOL 12.5 GM/50 ML VIAL IV ONE (16:00)
[2016-09-12] MEDS ORDERED: MORPHINE SULFATE 4 MG/ML INJ IV PUSH PRN ×2 (16:00)
[2016-09-12] MEDS ORDERED: hydrALAZINE HCL 20 MG/ML VIAL ONE (18:22)
--- NOTE | 2016-09-12 18:22 | PD.OP ---
Operative Report Date of Surgery: Sep 12, 2016 Preoperative Diagnosis: Right frontal ring enhancing lesion Postoperative Diagnosis: Right frontal ring enhancing lesion Procedure: Stereotactic image guided right frontal craniotomy with microsurgical resection brain tumor Anesthesia: general Surgeon: Marlo Osorio Stores Naval(s): Arabella Broderick Operation and Findings: INDICATIONS FOR THE PROCEDURE The patient is a 60-year-old female with history of breast carcinoma who presented with altered mental status, and enhancing brain lesions. She was found to have a largest right frontal ring enhancing mass with surrounding edema and mass effect. Surgical resection with debulking was requested by the radiation oncologist, Dr Santillan I have discussed with her the [id number] details of the procedure, its indications, alternatives, risks and potential complications with the patient including but not limited to the risk of infection, hemorrhage, paralysis, stroke, heart attack, even vegetative state or even the possibility of . The patient fully understands. All her questions were answered. No guarantees were given. She voiced requesting the procedure and provided informed consent. She has been offered the alternative of not having aggressive management. DETAILS OF THE SURGICAL PROCEDURE Prior to the surgery the patient underwent MRI of the brain according to the stereotactic protocol. The information was transferred to the workstation located in the operative suite. Preoperative registration was performed. The patient was then transferred to the operating room. After induction of general anesthesia, endotracheal intubation was done. A Michel catheter, bilateral DYLLAN hose, sequential compression devices were placed and kept throughout the procedure. The patient was positioned supine on a 30/80 table over gel mattress with her head in rigid fixation using the [place] brick burner head. All pressure points were carefully padded with egg crate mattress. The eyes were tapped shut after ointment was applied by the anesthesiologist to prevent corneal abrasion. A Darin hugger was placed over the exposed lower body to maintain control of the core body temperature. The electrophysiological team placed the needles and electrodes in their proper location and baseline SSEP's evoked potentials were registered. The rigid reference body was attached to the brick burner head and intraoperative registration was performed with a laser. The right frontotemporal parietal area was shaved, prepped and draped in the usual sterile fashion. A standard pterional incision was outlined on the scalp and infiltrated with 1% lidocaine with epinephrine. The skin incision was made with a #10 blade down to the level of the periosteum in the frontoparietal region and to the temporalis fascia in the temporal region. Low clips were applied to the scalp. Using a Bovie, the temporalis fascia and muscle were incised and a subperiosteal dissection was performed reflecting the scalp flap anteriorly. The scalp was covered with a moist sponge and held in position using fish hooks. The TPS drill was brought to the field and a bur hole was made in the frontal region using the craniotome attachment. Then, using the footplate attachment, a frontal craniotomy flap was elevated. The dura was bulging, with mass effect due to the underlying tumor. The tumor was identified with the brainlab, and the dura was opened with a 15 blade and metzembaun sissors and retracted with 4- 0 Neurolon sutures attached to the fascia. At this point of the procedure the operative microscope was draped in the usual sterile fashion and brought to the field. The rest of the surgical procedure was performed using microdissection technique with the exception of the closure. Under the operative microscope a small corticotomy was performed and the mass was resected using microsurgical dissection technique, with the micro-bipolar forceps, microscissors, micro-suction, and gentle irrigation. The specimen was sent to the lab for histological analysis. 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 Specimen was also sent for permanent hystopathological annalysis. A gross total resection of the mass was achieved. Appropriate hemostasis was then secured using the bipolar life claims examiner. Then the incision was irrigated with saline solution. The dural edges were tacked to the bone. The craniotomy flap was then repositioned and secured in place using Striker plates and screws. A 7 millimeter Osman-Haynes drain was then left in the subgaleal space and externalized through a separate stab incision. The incision was then closed in layers. 0 Vicryl in interrupted sutures were used to close the temporalis fascia. The galea was closed with interrupted 3- 0 Vicryl. Anish were applied to the skin. The drain was secured with a 3-0 nylon. At the end of the procedure, the sponge, needle and instrument counts were all correct. Estimated blood loss was less than 80 cc. No blood transfusion was given. No intraoperative complications occurred. The patient received prophylactic antibiotics. The patient was then transferred to the recovery room in stable condition. COMPLICATIONS None Marlo Osorio MD Sep 12, 2016 18:22
[2016-09-12] MEDS ORDERED: DO NOT ADM ANY ANTICOAGULANT DRUGS PRN (19:00)
[2016-09-12] MEDS ORDERED: niCARdipine 25 MG/NS 250 ML Vial2Bag or IV room IV SCH ×2 (19:00)
[2016-09-12] MEDS ORDERED: *morphine SULFATE 8 MG/ML PERIprocedure ONLY ONE (19:38)
[2016-09-12] MEDS: SODIUM CHLORIDE 0.9% FLUSH 5 ML FLUSH IVF SCH (21:00)
[2016-09-12] MEDS: CHLORHEXIDINE GLUCONATE 4% SOLN 120 ML BTL TOP SCH (21:00)
[2016-09-12] MEDS: DOCUSATE SODIUM 100 MG CAP PO SCH (21:00)
[2016-09-12] MEDS: ceFAZolin 2 GM PREMIX 50 ML IV SCH (22:00)
--- NOTE | 2016-09-12 23:06 | PD.CONS ---
HPI Service Critical Care Medicine Consult Requested By Primary Care Physician No Primary Care Physician History of Present Illness 60-year-old female with a past medical history of HTN, hypothyroidism, and treated breast cancer who presented with anxiety and tremors. She was found to have a large right frontal ring enhancing mass with surrounding edema and mass effect. Surgical resection with debulking was performed by Dr. Osorio on September. Critical care medicine was consulted for medical management of the patient while in the critical care unit Review of Systems ROS Unable to obtain patient is too lethargic Past Family Social History Allergies: Coded Allergies: Adhesives (Verified Allergy, Severe, RASH, 09/05/16) Latex (Verified Allergy, Severe, RASH, 09/05/16) Past Medical History ROS - General Review of Systems History of breast cancer status post chemotherapy and radiation History of hypertension History of hypothyroidism Past Surgical History Right breast mastectomy Appendectomy Teeth removed Reported Medications Reported Meds & Active Scripts Active No Active Prescriptions or Reported Medications Active Ordered Medications Current Medications Medications (Trade) Dose Ordered Sig/Jason Route PRN Reason Start Time Stop Time Status Last Admin Dose Admin Naloxone HCl (Narcan Inj) 0.4 mg UNSCH PRN IV SEE LABEL COMMENTS 09/05/16 17:15 Clonidine (Catapres) 0.1 mg Q6H PRN PO SBP>160, DBP>90 09/05/16 17:45 09/09/16 20:22 Dexamethasone Sodium Phosphate (Decadron Inj) 4 mg Q8H IV PUSH 09/06/16 09:00 09/13/16 00:52 Levothyroxine Sodium (Synthroid) 25 mcg DAILY@0600 PO 09/07/16 06:00 09/12/16 05:20 Alprazolam (Xanax) 0.5 mg Q8H PRN PO ANXIETY 09/07/16 11:15 09/11/16 17:41 Miscellaneous (Pill Splitter) 1 ea UNSCH PRN OTHER SEE LABEL COMMENTS 09/07/16 16:15 Amlodipine Besylate 10 mg 10 mg DAILY PO 09/09/16 09:00 09/12/16 09:13 Potassium Chloride/Sodium Chloride (NS + KCl 20 Meq Inj) 1,000 ml @ 100 mls/hr Q10H IV 09/12/16 15:59 09/12/16 15:59 IV Flush (NS Flush) 2 ml UNSCH PRN IVF FLUSH AFTER USING IV ACCESS 09/12/16 16:00 IV Flush 2 ml 2 ml BID IVF 09/12/16 21:00 09/12/16 21:00 Levetriacetam/ Sodium Chloride (Keppra Inj/NS Inj) 105 ml @ 400 mls/hr Q12H IV 09/12/16 16:00 Bisacodyl (Dulcolax Supp) 10 mg DAILY PRN RECTAL CONSTIPATION 09/12/16 16:00 Docusate Sodium (Colace) 100 mg BID PO 09/12/16 21:00 Pantoprazole Sodium (Protonix) 40 mg DAILY PO 09/13/16 09:00 Pantoprazole Sodium (Protonix Inj) 40 mg DAILY IVP 09/13/16 09:00 Ondansetron HCl (Zofran Inj) 4 mg Q6H PRN IV NAUSEA OR VOMITING 09/12/16 16:00 Calcium Gluconate 1 gm 1 gm UNSCH PRN IV SEE LABEL COMMENTS 09/12/16 16:00 Potassium Chloride 100 ml @ 50 mls/hr UNSCH PRN IV POTASSIUM LESS THAN 4 09/12/16 16:00 Magnesium Sulfate/ Sodium Chloride (Magnesium Sulfate Inj/NS Inj) 108 ml @ 108 mls/hr UNSCH PRN IV MAGNESIUM LESS THAN 2 09/12/16 16:00 Acetaminophen/ Hydrocodone Bitart ([place] 10-325 Mg) 1 tab Q4H PRN PO PAIN SCALE 1 TO 5 09/12/16 16:00 09/13/16 01:17 Acetaminophen/ Hydrocodone Bitart ([place] 10-325 Mg) 2 tab Q4H PRN PO PAIN SCALE 6 TO 10 09/12/16 16:00 Morphine Sulfate (Morphine Inj) 2 mg Q2H PRN IV PUSH PAIN SCALE 1 TO 6 09/12/16 16:00 Morphine Sulfate (Morphine Inj) 4 mg Q2H PRN IV PUSH PAIN SCALE 7 TO 10 09/12/16 16:00 09/12/16 22:00 Acetaminophen 650 mg 650 mg Q4H PRN PO TEMPERATURE > 101.5 F 09/12/16 16:00 Cefazolin Sodium/ Dextrose (Ancef 2 Gm Premix) 50 ml @ 100 mls/hr Q8H IV 09/12/16 22:00 09/13/16 14:29 09/12/16 22:00 Miscellaneous Information ALL NURSING DEPARTME... UNSCH PRN .XX SEE LABEL COMMENTS 09/12/16 19:00 09/13/16 18:59 Nicardipine HCl/ Sodium Chloride (Cardene Inj/NS 250 ml Inj) 260 ml @ 0 mls/hr TITRATE IV 09/12/16 19:00 Family History Noncontributory Social History Negative Physical Exam Vital Signs Vital Signs Date Time Temp Pulse Resp B/P Pulse Ox O2 Delivery O2 Flow Rate FiO2 09/12/16 22:00 60 15 134/69 99 Nasal Cannula 3 09/12/16 21:00 64 14 142/68 98 Nasal Cannula 3 09/12/16 20:00 59 14 138/60 99 Nasal Cannula 3 09/12/16 19:30 53 12 136/65 99 Nasal Cannula 3 09/12/16 19:00 63 12 139/60 98 Nasal Cannula 3 09/12/16 18:45 60 12 161/68 98 Nasal Cannula 3 09/12/16 18:30 57 12 168/76 95 Nasal Cannula 3 09/12/16 18:15 97.3 57 12 172/78 98 Nasal Cannula 3 09/12/16 12:00 96.4 64 18 147/72 98 09/12/16 08:00 97.9 58 18 153/74 96 09/12/16 04:00 96.8 64 16 132/75 95 09/12/16 00:00 96.6 53 15 122/67 96 Physical Exam GENERAL: Well-nourished, well-developed patient. Slightly lethargic SKIN: Warm and dry. HEAD: Normocephalic. Status post craniotomy EYES: No scleral icterus. No injection or drainage. NECK: Supple, trachea midline. No JVD or lymphadenopathy. CARDIOVASCULAR: Regular rate and rhythm without murmurs, gallops, or rubs. RESPIRATORY: Breath sounds equal bilaterally. No accessory muscle use. GASTROINTESTINAL: Abdomen soft, non-tender, nondistended. MUSCULOSKELETAL: No cyanosis, or edema. BACK: Nontender without obvious deformity. No CVA tenderness. EXTREMITIES: No clubbing cyanosis or edema Assessment and Plan Assessment and Plan Brain mass - Pathology pending - There is post resection and debulking - Decadron - Keppra for seizure prophylaxis - Further per neurological surgery Hypertension - Norvasc - Clonidine - Nicardipine drip to keep SBP less than 150 Hypothyroidism - Levothyroxine DVT GI prophylaxis - Teds SCDs - Protonix Critical Care: The total critical care time was 35 minutes. Time to perform other separately billable procedures was not included in the critical care time. Teddy Jeffries MD Sep 12, 2016 23:06
[2016-09-13] MEDS: DEXAMETHASONE SOD PHOS 4 MG/ML VIAL IV PUSH SCH ×4 (00:52→23:56)
[2016-09-13] MEDS: ACETAMINOPHEN/HYDROcodone 325 MG/10 MG TAB PO PRN ×4 (01:17→18:04)
[2016-09-13] MEDS: levETIRAcetam INJ 500 MG in SODIUM CHLORIDE 0.9% INJ 100 ML IV SCH ×2 (03:48→16:48)
[2016-09-13] MEDS: NS + KCL 20 MEQ INJ 1,000 ML IV SCH ×3 (05:30→23:56)
[2016-09-13 05:37] LABS: AUTOMATED NEUTROPHIL # 19.2 TH/MM3 (1.8-7.7); BASOPHIL % 0.1 % (0.0-2.0); HEMATOCRIT 41.1 % (35.0-46.0); HEMO FLAGS DIFF FINAL; LYMPH % 4.2 % (9.0-44.0); LYMPHOCYTE # 0.9 TH/MM3 (1.0-4.8); MEAN CORPUSCULAR HEMOGLOBIN 30.9 PG (27.0-34.0); MEAN CORPUSCULAR HGB CONC 34.3 % (32.0-36.0); NEUT % 88.7 % (16.0-70.0); PLATELET COUNT 248 TH/MM3 (150-450); RED BLOOD COUNT 4.57 MIL/MM3 (4.00-5.30); RED CELL DISTRIBUTION WIDTH 12.5 % (11.6-17.2); WHITE BLOOD COUNT 21.6 TH/MM3 (4.0-11.0)
[2016-09-13] MEDS: ceFAZolin 2 GM PREMIX 50 ML IV SCH ×2 (05:38→14:00)
[2016-09-13] MEDS: LEVOTHYROXINE SODIUM 25 MCG TAB PO SCH (05:38)
[2016-09-13 05:57] LABS: BICARBONATE 25.3 MEQ/L (21.0-32.0); MAGNESIUM 2.1 MG/DL (1.5-2.5); POTASSIUM 4.2 MEQ/L (3.5-5.1)
[2016-09-13] MEDS: PANTOPRAZOLE SODIUM 40 MG VIAL IVP SCH (09:00)
[2016-09-13] MEDS: DOCUSATE SODIUM 100 MG CAP PO SCH ×2 (09:00→20:25)
[2016-09-13] MEDS: PANTOPRAZOLE SOD 40 MG DELAYED RELEASE TAB PO SCH (09:00)
[2016-09-13] MEDS: SODIUM CHLORIDE 0.9% FLUSH 5 ML FLUSH IVF SCH ×2 (09:00→20:26)
--- NOTE | 2016-09-13 10:23 | RADRPT ---
EXAM DATE/TIME: 09/13/2016 09:55 [facility] COMPARISON: MRI BRAIN W & W/O CONTRAST, September 05, 2016, 14:35. CT THORAX W CONTRAST, September 05, 2016, 20:30. INDICATIONS : Post op craniotomy RADIATION DOSE: 38.65 CTDIvol (mGy) MEDICAL HISTORY : None SURGICAL HISTORY : Appendectomy. Mastectomy, right. ENCOUNTER: Initial ACUITY: 1 day PAIN SCALE: Non-responsive LOCATION: cranial TECHNIQUE: Multiple contiguous axial images were obtained of the head. Using automated exposure control and adj ustment of the mA and/or kV according to patient size, radiation dose was kept as low as reasonably a chievable to obtain optimal diagnostic quality images. FINDINGS: Postoperative examination demonstrates interval resection of the patient's large right parietal mass. There is some expected postoperative hemorrhage in the tumor bed. There is a TANI drain which was left in place within the tumor bed. This is in excellent position. The ventricles are normal in size and configuration. There is some slight right to left falcine shift . This is estimated about 2 mm. No significant extra-axial hemorrhage is seen. The appearance of the posterior fossa is unremarkable. The visualized portion of orbit and sinus are clear. There are postcraniotomy changes within the skul l. CONCLUSION: 1. The patient has undergone resection of a large cavitary mass from the right parietal cortex. There is a TANI drain which was left in place within the mass. It is in excellent position. There is minimal , expected postoperative hemorrhage around the drain and within the tumor bed. Jimbo Shaw MD on September 13, 2016 at 10:12 Board Certified Radiologist. This report was verified electronically.
--- NOTE | 2016-09-13 14:36 | PD.ONC.PN ---
Subjective Subjective Remarks Afebrile overnight. Patient still in PACU waiting on a bed. She couldn't sleep last night and wants to go to a patient room. Intermittent headache. Objective Data Date Time Temp Pulse Resp B/P Pulse Ox O2 Delivery O2 Flow Rate FiO2 09/13/16 11:15 16 09/13/16 10:00 63 16 123/59 96 Nasal Cannula 2 09/13/16 09:00 64 16 129/61 96 Nasal Cannula 2 09/13/16 08:40 97.9 61 16 132/65 95 Nasal Cannula 2 09/13/16 07:00 98.3 50 16 118/57 98 Nasal Cannula 3 09/13/16 06:00 62 16 125/64 98 Nasal Cannula 3 09/13/16 04:55 70 16 140/67 96 Nasal Cannula 3 09/13/16 03:44 98.0 51 14 123/59 99 Nasal Cannula 3 09/13/16 03:00 51 14 125/60 99 Nasal Cannula 3 09/13/16 02:00 59 14 139/67 98 Nasal Cannula 3 09/13/16 00:55 57 14 133/61 99 Nasal Cannula 3 09/13/16 00:00 97.9 53 16 135/61 99 Nasal Cannula 3 09/12/16 23:00 59 15 138/64 99 Nasal Cannula 3 09/12/16 22:00 60 15 134/69 99 Nasal Cannula 3 09/12/16 21:00 64 14 142/68 98 Nasal Cannula 3 09/12/16 20:00 59 14 138/60 99 Nasal Cannula 3 09/12/16 19:30 53 12 136/65 99 Nasal Cannula 3 09/12/16 19:00 63 12 139/60 98 Nasal Cannula 3 09/12/16 18:45 60 12 161/68 98 Nasal Cannula 3 09/12/16 18:30 57 12 168/76 95 Nasal Cannula 3 09/12/16 18:15 97.3 57 12 172/78 98 Nasal Cannula 3 09/13/16 09/13/16 09/13/16 07:00 15:00 23:00 Intake Total 1025 ml 540 ml Output Total 1780 ml 450 ml Balance -755 ml 90 ml Result Diagram: 09/13/16 0428 09/13/16 0428 Laboratory Results Laboratory Tests Test 09/13/16 04:28 White Blood Count 21.6 TH/MM3 Red Blood Count 4.57 MIL/MM3 Hemoglobin 14.1 GM/DL Hematocrit 41.1 % Mean Corpuscular Volume 90.0 FL Mean Corpuscular Hemoglobin 30.9 PG Mean Corpuscular Hemoglobin 34.3 % Concent Red Cell Distribution Width 12.5 % Platelet Count 248 TH/MM3 Mean Platelet Volume 9.4 FL Neutrophils (%) (Auto) 88.7 % Lymphocytes (%) (Auto) 4.2 % Monocytes (%) (Auto) 7.0 % Eosinophils (%) (Auto) 0.0 % Basophils (%) (Auto) 0.1 % Neutrophils # (Auto) 19.2 TH/MM3 Lymphocytes # (Auto) 0.9 TH/MM3 Monocytes # (Auto) 1.5 TH/MM3 Eosinophils # (Auto) 0.0 TH/MM3 Basophils # (Auto) 0.0 TH/MM3 CBC Comment DIFF FINAL Differential Comment Sodium Level 140 MEQ/L Potassium Level 4.2 MEQ/L Chloride Level 104 MEQ/L Carbon Dioxide Level 25.3 MEQ/L Anion Gap 11 MEQ/L Blood Urea Nitrogen 11 MG/DL Creatinine 0.61 MG/DL Estimat Glomerular Filtration 100 ML/MIN Rate Random Glucose 133 MG/DL Calcium Level 8.9 MG/DL Phosphorus Level 3.6 MG/DL Magnesium Level 2.1 MG/DL Imaging Studies Last [address] 09/13/16 0000 Signed Impressions: Service Date/Time: Tuesday, September 13, 2016 09:55 - CONCLUSION: 1. The patient has undergone resection of a large cavitary mass from the right parietal cortex. There is a TANI drain which was left in place within the mass. It is in excellent position. There is minimal, expected postoperative hemorrhage around the drain and within the tumor bed. Jimbo hSaw MD Administered Medications Medications (Trade) Dose Ordered Sig/Jason Route PRN Reason Start Time Stop Time Status Last Admin Dose Admin Clonidine (Catapres) 0.1 mg Q6H PRN PO SBP>160, DBP>90 09/05/16 17:45 09/09/16 20:22 Dexamethasone Sodium Phosphate (Decadron Inj) 4 mg Q8H IV PUSH 09/06/16 09:00 09/13/16 09:00 Levothyroxine Sodium (Synthroid) 25 mcg DAILY@0600 PO 09/07/16 06:00 09/13/16 05:38 Alprazolam (Xanax) 0.5 mg Q8H PRN PO ANXIETY 09/07/16 11:15 09/11/16 17:41 Amlodipine Besylate 10 mg 10 mg DAILY PO 09/09/16 09:00 09/13/16 09:00 Potassium Chloride/Sodium Chloride (NS + KCl 20 Meq Inj) 1,000 ml @ 100 mls/hr Q10H IV 09/12/16 15:59 09/13/16 14:00 IV Flush 2 ml 2 ml BID IVF 09/12/16 21:00 09/13/16 09:00 Levetriacetam/ Sodium Chloride (Keppra Inj/NS Inj) 105 ml @ 400 mls/hr Q12H IV 09/12/16 16:00 09/13/16 03:48 Docusate Sodium (Colace) 100 mg BID PO 09/12/16 21:00 09/13/16 09:00 Pantoprazole Sodium (Protonix Inj) 40 mg DAILY IVP 09/13/16 09:00 09/13/16 09:00 Acetaminophen/ Hydrocodone Bitart ([place] 10-325 Mg) 1 tab Q4H PRN PO PAIN SCALE 1 TO 5 09/12/16 16:00 09/13/16 10:15 Morphine Sulfate (Morphine Inj) 4 mg Q2H PRN IV PUSH PAIN SCALE 7 TO 10 09/12/16 16:00 09/12/16 22:00 Objective Remarks GENERAL: MIddle aged female, sitting upright in bed, in nad SKIN: Warm and dry. HEAD: Normocephalic. bandages over scalp, TANI drains in place with serosanguineous fluid EYES: No injection or drainage. NECK: Supple, trachea midline. CARDIOVASCULAR: Regular rate and rhythm RESPIRATORY: Breath sounds equal bilaterally. No accessory muscle use. GASTROINTESTINAL: Abdomen soft, non-tender, nondistended. EXTREMITIES: No cyanosis MUSCULOSKELETAL: Adequate muscle tone. NEUROLOGICAL: awake and alert, + facial droop. Assessment/Plan Problem List: (1) Intracranial mass Status: Acute Plan: --biopsy via NS 09/12 -- Need outpatient PETscan, mammogram after discharge. -- Tumor markers CEA, CA 15-3, and CA125 all WNL. -- CT thorax negative for mets. -- CT abdomen/pelvis shows a small 6mm hypodense lesion. -- On Decadron. Hx/Workup: Pt was diagnosed and treated in 2006 at the [facility] for breast cancer. She was treated with chemotherapy and radiation for what was probably triple negative disease. She denies being on a hormonal agent or being treated with Herceptin for one year. She was followed up until 2013 when she lost her insurance. Assessment 60 y/o female admitted for intracranial masses with a history of breast cancer. Plan 1. discussed waiting on pathology from biopsy. 2. PET scan and mammogram outpatient once cleared for d/c by NS. Attending Statement The exam, history, and the medical decision-making described in the above note were completed with the assistance of the mid-level provider. I reviewed and agree with the findings presented. I attest that I had a [id number] encounter with the patient on the same day, and personally performed and documented my assessment and findings in the medical record. Kaci Lyles Sep 13, 2016 14:36 Iván Lugo MD Sep 13, 2016 21:59
--- NOTE | 2016-09-13 15:26 | HHI.NSPN ---
(Iona Norton) Note Status Status: Progress Note (Iona Norton) Interval History Interval History Ms. Carmen is a 60-year-old female with a history of breast cancer in 2006 and previously treated at the [facility] in [place]. Ms. Carmen underwent right mastectomy with chemoradiation treatment. She presented to [place] with complaints 1-2 months of of left facial weakness and hand paresthesias. She also reports of mild headaches. She denies vision changes, seizure like activities, vomiting, gait instability, fevers or chills. She underwent an MRI brain which shows multiple intracranial mass lesions suspicious for metastasis. A neurosurgical evaluation was requested. 09/08/16: Pt awake and alert. Denies headache, nausea, vomiting, muscle weakness, or paresthesias. She states the left facial weakness has improved. 09/09/16: Pt awake and alert. Standing at sink taking care of her teeth. No headache, nausea or vomiting. ambulating independently. 09/10/16: Pt awake and alert. Had a headache earlier resolved with Tylenol. Mild left facial droop drools when drinking. 09/11/16: no new neuro complaints, reviewed radiation notes recommending biopsy with poss debulking of brain mass. 09/13: POD 1 s/p right frontal parietal craniotomy with resection of brain mass. doing well, f/u CT Brain shows stable postoperative changes (Iona Norton) Labs, Micro, & Vital Signs Results Date Time Temp Pulse Resp B/P Pulse Ox O2 Delivery O2 Flow Rate FiO2 09/13/16 11:15 16 09/13/16 10:00 63 16 123/59 96 Nasal Cannula 2 09/13/16 09:00 64 16 129/61 96 Nasal Cannula 2 09/13/16 08:40 97.9 61 16 132/65 95 Nasal Cannula 2 09/13/16 07:00 98.3 50 16 118/57 98 Nasal Cannula 3 09/13/16 06:00 62 16 125/64 98 Nasal Cannula 3 09/13/16 04:55 70 16 140/67 96 Nasal Cannula 3 09/13/16 03:44 98.0 51 14 123/59 99 Nasal Cannula 3 09/13/16 03:00 51 14 125/60 99 Nasal Cannula 3 09/13/16 02:00 59 14 139/67 98 Nasal Cannula 3 09/13/16 00:55 57 14 133/61 99 Nasal Cannula 3 09/13/16 00:00 97.9 53 16 135/61 99 Nasal Cannula 3 09/12/16 23:00 59 15 138/64 99 Nasal Cannula 3 09/12/16 22:00 60 15 134/69 99 Nasal Cannula 3 09/12/16 21:00 64 14 142/68 98 Nasal Cannula 3 09/12/16 20:00 59 14 138/60 99 Nasal Cannula 3 09/12/16 19:30 53 12 136/65 99 Nasal Cannula 3 09/12/16 19:00 63 12 139/60 98 Nasal Cannula 3 09/12/16 18:45 60 12 161/68 98 Nasal Cannula 3 09/12/16 18:30 57 12 168/76 95 Nasal Cannula 3 09/12/16 18:15 97.3 57 12 172/78 98 Nasal Cannula 3 09/13/16 07:00 Intake Total 3025 ml Output Total 4155 ml Balance -1130 ml Constitutional Vital Signs Date Time Temp Pulse Resp B/P Pulse Ox O2 Delivery O2 Flow Rate FiO2 09/13/16 11:15 16 09/13/16 10:00 63 16 123/59 96 Nasal Cannula 2 09/13/16 09:00 64 16 129/61 96 Nasal Cannula 2 09/13/16 08:40 97.9 61 16 132/65 95 Nasal Cannula 2 09/13/16 07:00 98.3 50 16 118/57 98 Nasal Cannula 3 09/13/16 06:00 62 16 125/64 98 Nasal Cannula 3 09/13/16 04:55 70 16 140/67 96 Nasal Cannula 3 09/13/16 03:44 98.0 51 14 123/59 99 Nasal Cannula 3 09/13/16 03:00 51 14 125/60 99 Nasal Cannula 3 09/13/16 02:00 59 14 139/67 98 Nasal Cannula 3 09/13/16 00:55 57 14 133/61 99 Nasal Cannula 3 09/13/16 00:00 97.9 53 16 135/61 99 Nasal Cannula 3 09/12/16 23:00 59 15 138/64 99 Nasal Cannula 3 09/12/16 22:00 60 15 134/69 99 Nasal Cannula 3 09/12/16 21:00 64 14 142/68 98 Nasal Cannula 3 09/12/16 20:00 59 14 138/60 99 Nasal Cannula 3 09/12/16 19:30 53 12 136/65 99 Nasal Cannula 3 09/12/16 19:00 63 12 139/60 98 Nasal Cannula 3 09/12/16 18:45 60 12 161/68 98 Nasal Cannula 3 09/12/16 18:30 57 12 168/76 95 Nasal Cannula 3 09/12/16 18:15 97.3 57 12 172/78 98 Nasal Cannula 3 09/13/16 07:00 Intake Total 3025 ml Output Total 4155 ml Balance -1130 ml (Iona Norton) Review of Systems/Exam Exam Awake, no apparent distress. Follows commands. Wound wrapped with clean, dry Kerlix dressing, TANI drain intact. CN: pupils equal, eom's intact. mild left facial weakness. Motor: moves all four extremities with gross left upper extremity weakness Neck: soft, supple (Iona Norton) Medications Current Medications Current Medications Medications (Trade) Dose Ordered Sig/Jason Route PRN Reason Start Time Stop Time Status Last Admin Dose Admin Naloxone HCl (Narcan Inj) 0.4 mg UNSCH PRN IV SEE LABEL COMMENTS 09/05/16 17:15 Clonidine (Catapres) 0.1 mg Q6H PRN PO SBP>160, DBP>90 09/05/16 17:45 09/09/16 20:22 Dexamethasone Sodium Phosphate (Decadron Inj) 4 mg Q8H IV PUSH 09/06/16 09:00 09/13/16 09:00 Levothyroxine Sodium (Synthroid) 25 mcg DAILY@0600 PO 09/07/16 06:00 09/13/16 05:38 Alprazolam (Xanax) 0.5 mg Q8H PRN PO ANXIETY 09/07/16 11:15 09/11/16 17:41 Miscellaneous (Pill Splitter) 1 ea UNSCH PRN OTHER SEE LABEL COMMENTS 09/07/16 16:15 Amlodipine Besylate 10 mg 10 mg DAILY PO 09/09/16 09:00 09/13/16 09:00 Potassium Chloride/Sodium Chloride (NS + KCl 20 Meq Inj) 1,000 ml @ 100 mls/hr Q10H IV 09/12/16 15:59 09/13/16 14:00 IV Flush (NS Flush) 2 ml UNSCH PRN IVF FLUSH AFTER USING IV ACCESS 09/12/16 16:00 IV Flush 2 ml 2 ml BID IVF 09/12/16 21:00 09/13/16 09:00 Levetriacetam/ Sodium Chloride (Keppra Inj/NS Inj) 105 ml @ 400 mls/hr Q12H IV 09/12/16 16:00 09/13/16 03:48 Bisacodyl (Dulcolax Supp) 10 mg DAILY PRN RECTAL CONSTIPATION 09/12/16 16:00 Docusate Sodium (Colace) 100 mg BID PO 09/12/16 21:00 09/13/16 09:00 Pantoprazole Sodium (Protonix) 40 mg DAILY PO 09/13/16 09:00 Pantoprazole Sodium (Protonix Inj) 40 mg DAILY IVP 09/13/16 09:00 09/13/16 09:00 Ondansetron HCl (Zofran Inj) 4 mg Q6H PRN IV NAUSEA OR VOMITING 09/12/16 16:00 Calcium Gluconate 1 gm 1 gm UNSCH PRN IV SEE LABEL COMMENTS 09/12/16 16:00 Potassium Chloride 100 ml @ 50 mls/hr UNSCH PRN IV POTASSIUM LESS THAN 4 09/12/16 16:00 Magnesium Sulfate/ Sodium Chloride (Magnesium Sulfate Inj/NS Inj) 108 ml @ 108 mls/hr UNSCH PRN IV MAGNESIUM LESS THAN 2 09/12/16 16:00 Acetaminophen/ Hydrocodone Bitart ([place] 10-325 Mg) 1 tab Q4H PRN PO PAIN SCALE 1 TO 5 09/12/16 16:00 09/13/16 10:15 Acetaminophen/ Hydrocodone Bitart ([place] 10-325 Mg) 2 tab Q4H PRN PO PAIN SCALE 6 TO 10 09/12/16 16:00 Morphine Sulfate (Morphine Inj) 2 mg Q2H PRN IV PUSH PAIN SCALE 1 TO 6 09/12/16 16:00 Morphine Sulfate (Morphine Inj) 4 mg Q2H PRN IV PUSH PAIN SCALE 7 TO 10 09/12/16 16:00 09/12/16 22:00 Acetaminophen (Tylenol) 650 mg Q4H PRN PO TEMPERATURE > 101.5 F 09/12/16 16:00 Miscellaneous Information ALL NURSING DEPARTME... UNSCH PRN .XX SEE LABEL COMMENTS 09/12/16 19:00 09/13/16 18:59 Nicardipine HCl/ Sodium Chloride (Cardene Inj/NS 250 ml Inj) 260 ml @ 0 mls/hr TITRATE IV 09/12/16 19:00 (Iona Norton) Medical Decision Making MDM Remarks 60 y/o female with multiple brain mass, suspected breast metastases, s/p right frontal parietal craniotomy for resection of brain mass 09/12/16 history of breast CA (Iona Norton) Plan Plan Remarks f/u pathology of brain mass, restart diet nonchemical dvt prophylaxis IS every hour pain control keppra for sz prophylaxis cont Decadron (Iona Norton) Attending Statement The exam, history, and the medical decision-making described in the above note were completed with the assistance of the mid-level provider. I reviewed and agree with the findings presented. I attest that I had a [id number] encounter with the patient on the same day, and personally performed and documented my assessment and findings in the medical record. (Marlo Osorio MD) Iona Norton Sep 13, 2016 15:26 Marlo Osorio MD Sep 14, 2016 11:35
[2016-09-13 16:00] VITALS: BP 125/65; PULSE 69; RESP 16; TEMP 99; O2SAT 95
[2016-09-13 16:22] VITALS: BP 125/65; PULSE 69; RESP 16; TEMP 99; O2SAT 95
--- NOTE | 2016-09-13 16:57 | HHI.CCPN ---
Subjective Remarks/Hospital Course 60-year-old female with a past medical history of HTN, hypothyroidism, and treated breast cancer who presented with anxiety and tremors. She was found to have a large right frontal ring enhancing mass with surrounding edema and mass effect. Surgical resection with debulking was performed by Dr. Osorio on September. Critical care medicine was consulted for medical management of the patient while in the critical care unit 09/13: Extubated after craniotomy. Breathing comfortably. Objective Vital Signs Date Time Temp Pulse Resp B/P Pulse Ox O2 Delivery O2 Flow Rate FiO2 09/13/16 15:10 70 16 95 Room Air 09/13/16 15:00 97.8 140/65 2 Intake and Output 09/12/16 09/12/16 09/13/16 08:00 16:00 00:00 Intake Total 957 ml 2575 ml Output Total 1200 ml 1150 ml 2175 ml Balance -243 ml -1150 ml 400 ml Result Diagram: 09/13/16 0428 09/13/16 0428 Objective Remarks GENERAL: Well-nourished, well-developed patient. SKIN: Warm and dry. HEAD: Normocephalic. Status post craniotomy EYES: No scleral icterus. No injection or drainage. NECK: Supple, trachea midline. Airway widely patent. CARDIOVASCULAR: Regular rate and rhythm without murmurs, gallops, or rubs. No JVD. RESPIRATORY: Breath sounds equal bilaterally.No wheezes or crackles. GASTROINTESTINAL: Abdomen soft, non-tender, nondistended. BS active. MUSCULOSKELETAL: No cyanosis, or edema. EXTREMITIES: No clubbing cyanosis or edema. Well perfused. NEURO: Moves 4 limbs to command. Protects airway. A/P Assessment and Plan Brain mass - Pathology pending - Decadron - Keppra for seizure prophylaxis - Further per neurological surgery Hypertension - Norvasc - Clonidine - Nicardipine drip to keep SBP less than 150 - Convert to PO meds. Hypothyroidism - Levothyroxine DVT GI prophylaxis - Teds SCDs - Protonix Overall impression: Normal respiratory and hemodynamic function s/p craniotomy. To floor is OK. Barry Kelly MD Sep 13, 2016 16:57
--- NOTE | 2016-09-13 17:50 | HHI.PR ---
Subjective Remarks 60-year-old female with a past medical history of HTN, hypothyroidism, and treated breast cancer who presented with anxiety and tremors. The patient states that for the past few weeks to maybe 2 months ago she's been having tremors, numbness, and tingling in her right hand. For the past week she's been having difficulty with food falling out of the left side of her mouth when she tries to eat. She denies any weakness, gait unsteadiness, vision changes. She states occasionally she gets a headache behind her right eye, but states that isn't happening for years. 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 She states a few weeks ago the chemicals were causing her to have a sore and irritated throat, but that has improved. She has a history of right breast cancer with mastectomy, chemotherapy, and radiation back in 2006. She states that previously she was on medicine for high blood pressure and hypothyroidism whenever she had insurance. She states she previously weighed 220 pounds, and lost weight intentionally. seen in her bedroom in the presence of her Son, discussed about Hematology and Oncology recommendations, seen Imaging studies for Chest and abdomen performed and negative for Neoplasia. recommended Neurosurgical consult. 09/07 Discussed early in the morning with Doctor Iván Lugo and his FINANCIAL INSTITUTION PRESIDENT Miss Jessica Plaza he wants the patient discharged from the Hospital to perform a PET scan and Mammogram and readmit the patient was discussed with Our Pension Consultant Doctor Marie he did not authorized this management and will discuss with performance improvement specialist, and let us know next step awaiting also for Neurosurgery specialist consult. Again discussed in the afternoon with Doctor Mcpherson and with Doctor Iván Lugo recommended to keep the patient in House, until performance improvement specialist and Neurosurgery touch base again about the case with Doctor Lugo asked me to keep the patient Hospitalized until tomorrow, there is a difficulty with the discharge to re admit and is that she is self pay and may need strict follow up with clinical informatics specialist. No nausea, vomit or diarrhea. 09/08 Awaiting final recommendations by clinical informatics specialist. 09/09 Seen in her Bedroom and Explained her pathology to her and her Sister Mrs. Erin Ordonez who states she is the patient contact to talk and not the patient's Son who I already talked to, she gave me her phone number [phone]. all questions answered to the best of my abilities yesterday I asked the patient if she wanted me to consult Spiritual engineering documentation specialist, she said no but today asked me to call Our Director Global Sales consulted. 09/10 Discussed with patient in the room, also with Oncology FINANCIAL INSTITUTION PRESIDENT Miss Kaci Lyles and states she may have a Brain Biopsy Tomorrow or day after. Neurosurgery will be here in am tomorrow. 09/11 Seen in her bedroom no new issues,awaiting neurosurgery evaluation, was discussed at this time with Neurosurgery specialist Doctor Marlo Osorio he will proceed with brain Biopsy and mass resection by tomorrow 09/12 Seen in her bedroom leaving for OR for Neurosurgical procedure, discussed with patient and her Sister and son in the room. 09/13 Patient stable, No complaint, No nausea, vomit or diarrhea, seen in the presence of nurse Miss Zazueta in the room, her Son present while I was in the room , also nurse Vital sings controlled, has mild Headache. Objective Vital Signs Date Time Temp Pulse Resp B/P Pulse Ox O2 Delivery O2 Flow Rate FiO2 09/13/16 15:10 70 16 95 Room Air 09/13/16 15:00 97.8 71 16 140/65 98 Nasal Cannula 2 09/13/16 14:00 69 16 137/62 98 Nasal Cannula 2 09/13/16 13:00 68 16 134/65 98 Nasal Cannula 2 09/13/16 12:00 67 16 132/63 97 Nasal Cannula 2 09/13/16 11:15 16 09/13/16 11:00 65 16 125/67 97 Nasal Cannula 2 09/13/16 10:00 63 16 123/59 96 Nasal Cannula 2 09/13/16 09:00 64 16 129/61 96 Nasal Cannula 2 09/13/16 08:40 97.9 61 16 132/65 95 Nasal Cannula 2 09/13/16 07:00 98.3 50 16 118/57 98 Nasal Cannula 3 09/13/16 06:00 62 16 125/64 98 Nasal Cannula 3 09/13/16 04:55 70 16 140/67 96 Nasal Cannula 3 09/13/16 03:44 98.0 51 14 123/59 99 Nasal Cannula 3 09/13/16 03:00 51 14 125/60 99 Nasal Cannula 3 09/13/16 02:00 59 14 139/67 98 Nasal Cannula 3 09/13/16 00:55 57 14 133/61 99 Nasal Cannula 3 09/13/16 00:00 97.9 53 16 135/61 99 Nasal Cannula 3 09/12/16 23:00 59 15 138/64 99 Nasal Cannula 3 09/12/16 22:00 60 15 134/69 99 Nasal Cannula 3 09/12/16 21:00 64 14 142/68 98 Nasal Cannula 3 09/12/16 20:00 59 14 138/60 99 Nasal Cannula 3 09/12/16 19:30 53 12 136/65 99 Nasal Cannula 3 09/12/16 19:00 63 12 139/60 98 Nasal Cannula 3 09/12/16 18:45 60 12 161/68 98 Nasal Cannula 3 09/12/16 18:30 57 12 168/76 95 Nasal Cannula 3 09/12/16 18:15 97.3 57 12 172/78 98 Nasal Cannula 3 I/O 09/12/16 09/12/16 09/12/16 09/13/16 09/13/16 09/13/16 07:00 15:00 23:00 07:00 15:00 23:00 Intake Total 957 ml 2000 ml 1025 ml 780 ml 600 ml Output Total 1200 ml 1150 ml 1225 ml 1780 ml 450 ml 530 ml Balance -243 ml -1150 ml 775 ml -755 ml 330 ml 70 ml Intake Oral 480 ml IV Total 957 ml 1025 ml 300 ml 600 ml Other 2000 ml Output Urine Total 1200 ml 1150 ml 1175 ml 1650 ml 450 ml 500 ml Drainage Total 50 ml 130 ml 30 ml Result Diagram: 09/13/16 0428 09/13/16 0428 Imaging Last Impressions Head CT 09/13/16 0000 Signed Impressions: Service Date/Time: Tuesday, September 13, 2016 09:55 - CONCLUSION: 1. The patient has undergone resection of a large cavitary mass from the right parietal cortex. There is a TANI drain which was left in place within the mass. It is in excellent position. There is minimal, expected postoperative hemorrhage around the drain and within the tumor bed. Jimbo Shaw MD Chest CT 09/05/16 0000 Signed Impressions: Service Date/Time: Monday, September 05, 2016 20:30 - CONCLUSION: No acute disease. Memo Houston MD Brain MRI 09/05/16 0000 Signed Impressions: Service Date/Time: Monday, September 05, 2016 14:35 - CONCLUSION: 1. Multiple intracranial mass lesions with different signal characteristics no considering the history of breast carcinoma likely all reflect metastatic disease. 2. The largest lesion in the right temporal lobe demonstrates central necrosis with 2 other nonenhancing lesions in the left thalamus as well as contreras radiata on the left Ronni Louie MD Abdomen/Pelvis CT 09/05/16 0000 Signed Impressions: Service Date/Time: Monday, September 05, 2016 20:30 - CONCLUSION: Tiny 5 mm calcified nonobstructing upper pole left renal calculus. Tiny 6 mm low density lesion within the right lobe of the liver posteriorly which is too small for accurate density measurement. Memo Housotn MD Procedures No procedures performed to the patient Other Results Laboratory Tests Test 09/13/16 04:28 White Blood Count 21.6 TH/MM3 Red Blood Count 4.57 MIL/MM3 Hemoglobin 14.1 GM/DL Hematocrit 41.1 % Mean Corpuscular Volume 90.0 FL Mean Corpuscular Hemoglobin 30.9 PG Mean Corpuscular Hemoglobin 34.3 % Concent Red Cell Distribution Width 12.5 % Platelet Count 248 TH/MM3 Mean Platelet Volume 9.4 FL Neutrophils (%) (Auto) 88.7 % Lymphocytes (%) (Auto) 4.2 % Monocytes (%) (Auto) 7.0 % Eosinophils (%) (Auto) 0.0 % Basophils (%) (Auto) 0.1 % Neutrophils # (Auto) 19.2 TH/MM3 Lymphocytes # (Auto) 0.9 TH/MM3 Monocytes # (Auto) 1.5 TH/MM3 Eosinophils # (Auto) 0.0 TH/MM3 Basophils # (Auto) 0.0 TH/MM3 CBC Comment DIFF FINAL Differential Comment Sodium Level 140 MEQ/L Potassium Level 4.2 MEQ/L Chloride Level 104 MEQ/L Carbon Dioxide Level 25.3 MEQ/L Anion Gap 11 MEQ/L Blood Urea Nitrogen 11 MG/DL Creatinine 0.61 MG/DL Estimat Glomerular Filtration 100 ML/MIN Rate Random Glucose 133 MG/DL Calcium Level 8.9 MG/DL Phosphorus Level 3.6 MG/DL Magnesium Level 2.1 MG/DL Objective Remarks GENERAL: Well-nourished. No acute distress. SKIN: Warm and dry. No lesions noted. HEENT: Normocephalic. Pupils equal and round and reactive to light. Mucous membranes pink and moist. CARDIOVASCULAR: Regular rate and rhythm. No murmur appreciated. RESPIRATORY: No accessory muscle use. Clear to auscultation. Breath sounds equal bilaterally. GASTROINTESTINAL: Abdomen soft, non-tender, nondistended. Bowel sounds x4. MUSCULOSKELETAL: No obvious deformities. No clubbing or cyanosis. No edema. NEUROLOGICAL: Awake and alert. Oriented, no focal deficits. dressed surgical wound, has two drainage on her frontal area. PSYCHIATRIC: Anxious mood and affect; insight and judgment normal. Medications and IVs Current Medications Medications (Trade) Dose Ordered Sig/Jason Route Start Time Stop Time Status Last Admin (Narcan Inj) 0.4 mg UNSCH PRN IV 09/05/16 17:15 (Catapres) 0.1 mg Q6H PRN PO 09/05/16 17:45 09/09/16 20:22 (Decadron Inj) 4 mg Q8H IV PUSH 09/06/16 09:00 09/13/16 16:49 (Synthroid) 25 mcg DAILY@0600 PO 09/07/16 06:00 09/13/16 05:38 (Xanax) 0.5 mg Q8H PRN PO 09/07/16 11:15 09/11/16 17:41 (Pill Splitter) 1 ea UNSCH PRN OTHER 09/07/16 16:15 Amlodipine Besylate 10 mg 10 mg DAILY PO 09/09/16 09:00 09/13/16 09:00 (NS + KCl 20 Meq Inj) 1,000 ml @ 100 mls/hr Q10H IV 09/12/16 15:59 09/13/16 14:00 (NS Flush) 2 ml UNSCH PRN IVF 09/12/16 16:00 IV Flush 2 ml 2 ml BID IVF 09/12/16 21:00 09/13/16 09:00 (Keppra Inj/NS Inj) 105 ml @ 400 mls/hr Q12H IV 09/12/16 16:00 09/13/16 16:48 (Dulcolax Supp) 10 mg DAILY PRN RECTAL 09/12/16 16:00 (Colace) 100 mg BID PO 09/12/16 21:00 09/13/16 09:00 (Protonix) 40 mg DAILY PO 09/13/16 09:00 (Protonix Inj) 40 mg DAILY IVP 09/13/16 09:00 09/13/16 09:00 (Zofran Inj) 4 mg Q6H PRN IV 09/12/16 16:00 Calcium Gluconate 1 gm 1 gm UNSCH PRN IV 09/12/16 16:00 Potassium Chloride 100 ml @ 50 mls/hr UNSCH PRN IV 09/12/16 16:00 (Magnesium Sulfate Inj/NS Inj) 108 ml @ 108 mls/hr UNSCH PRN IV 09/12/16 16:00 ([place] 10-325 Mg) 1 tab Q4H PRN PO 09/12/16 16:00 09/13/16 10:15 ([place] 10-325 Mg) 2 tab Q4H PRN PO 09/12/16 16:00 (Morphine Inj) 2 mg Q2H PRN IV PUSH 09/12/16 16:00 (Morphine Inj) 4 mg Q2H PRN IV PUSH 09/12/16 16:00 09/12/16 22:00 (Tylenol) 650 mg Q4H PRN PO 09/12/16 16:00 Miscellaneous Information ALL NURSING DEPARTME... UNSCH PRN .XX 09/12/16 19:00 09/13/16 18:59 (Cardene Inj/NS 250 ml Inj) 260 ml @ 0 mls/hr TITRATE IV 09/12/16 19:00 A/P Assessment and Plan 1. Intracranial Mass lesions with left facial paresis and tingling sensation on extremities, seen by clinical informatics specialist looks Metastatic Disease, secondary to Breast Cancer diagnosed in 2006, has triple negative breast Cancer, treated at [facility] status post left mastectomy, not treated with Hormone blockade Therapy, not followed since 2013, she was treated with Radiation therapy and Chemotherapy, Brain MRI shows multiple intracranial mass lesions with different signal characteristics, suspicious for metastatic disease; the largest lesion in the right temporal area demonstrates central necrosis with 2 other nonenhancing lesions in the left thalamus. CEA, CA-125 and CA 15-3 within normal limits. with Diagnosis of right frontal ring enhancing lesion status post Stereotactic image guided frontal craniotomy with Microsurgical resection brain tumor. 2. Hypothyroidism: By history, patient off medications. reviewed TSH and Free T4 needs Levothyroxine started at 25 mcg daily 3. Hypertension Controlled. DVT prophylaxis: Heparin Discussed Condition With with patient and her son in the room, also nurse Miss Zazueta present at all times while I was in the room. Discharge Planning No yet cleared by clinical informatics specialist. may need prolonged management in House. Krish Llamas MD Sep 13, 2016 17:50
[2016-09-13 20:00] VITALS: BP 129/72; PULSE 73; RESP 18; TEMP 98; O2SAT 95
[2016-09-14] VITALS (7 sets, daily range): BP systolic 115–155; BP diastolic 66–76; PULSE 54–72; RESP 16–20; TEMP 97–98.4; O2SAT 93–99
[2016-09-14] MEDS: levETIRAcetam INJ 500 MG in SODIUM CHLORIDE 0.9% INJ 100 ML IV SCH ×2 (04:27→15:19)
[2016-09-14] MEDS: ACETAMINOPHEN/HYDROcodone 325 MG/10 MG TAB PO PRN ×2 (04:27→23:41)
[2016-09-14] MEDS: LEVOTHYROXINE SODIUM 25 MCG TAB PO SCH (04:27)
[2016-09-14] MEDS: PANTOPRAZOLE SODIUM 40 MG VIAL IVP SCH (07:37)
[2016-09-14 07:48] LABS: BICARBONATE 25.6 MEQ/L (21.0-32.0); POTASSIUM 4.3 MEQ/L (3.5-5.1)
[2016-09-14] MEDS: PANTOPRAZOLE SOD 40 MG DELAYED RELEASE TAB PO SCH (09:36)
[2016-09-14] MEDS: DEXAMETHASONE SOD PHOS 4 MG/ML VIAL IV PUSH SCH ×3 (09:36→23:41)
[2016-09-14] MEDS: DOCUSATE SODIUM 100 MG CAP PO SCH ×2 (09:36→23:41)
--- NOTE | 2016-09-14 11:48 | PD.ONC.PN ---
Subjective Subjective Remarks Afebrile overnight. Patient rested well last night. She is glad to have her own room. Per nurse, no overnight events. Objective Data Date Time Temp Pulse Resp B/P Pulse Ox O2 Delivery O2 Flow Rate FiO2 09/14/16 09:45 95 21 09/14/16 08:00 97.6 64 16 135/75 95 09/14/16 04:00 97.0 62 20 131/76 93 09/14/16 00:00 97.7 60 19 115/66 95 09/13/16 20:00 98.0 73 18 129/72 95 09/13/16 16:22 99.0 69 16 125/65 95 09/13/16 16:00 99.0 69 16 125/65 95 09/13/16 15:10 70 16 95 Room Air 09/13/16 15:00 97.8 71 16 140/65 98 Nasal Cannula 2 09/13/16 14:00 69 16 137/62 98 Nasal Cannula 2 09/13/16 13:00 68 16 134/65 98 Nasal Cannula 2 09/13/16 12:00 67 16 132/63 97 Nasal Cannula 2 09/14/16 09/14/16 09/14/16 07:00 15:00 23:00 Intake Total 800 ml Output Total 415 ml 1525 ml Balance 385 ml -1525 ml Result Diagram: 09/13/16 0428 09/14/16 0628 Laboratory Results Laboratory Tests Test 09/14/16 06:28 Sodium Level 139 MEQ/L Potassium Level 4.3 MEQ/L Chloride Level 106 MEQ/L Carbon Dioxide Level 25.6 MEQ/L Anion Gap 7 MEQ/L Blood Urea Nitrogen 14 MG/DL Creatinine 0.60 MG/DL Estimat Glomerular Filtration 102 ML/MIN Rate Random Glucose 126 MG/DL Calcium Level 8.6 MG/DL Administered Medications Medications (Trade) Dose Ordered Sig/Ajson Route PRN Reason Start Time Stop Time Status Last Admin Dose Admin Clonidine (Catapres) 0.1 mg Q6H PRN PO SBP>160, DBP>90 09/05/16 17:45 09/09/16 20:22 Dexamethasone Sodium Phosphate (Decadron Inj) 4 mg Q8H IV PUSH 09/06/16 09:00 09/14/16 09:36 Levothyroxine Sodium (Synthroid) 25 mcg DAILY@0600 PO 09/07/16 06:00 09/14/16 04:27 Alprazolam (Xanax) 0.5 mg Q8H PRN PO ANXIETY 09/07/16 11:15 09/11/16 17:41 Amlodipine Besylate 10 mg 10 mg DAILY PO 09/09/16 09:00 09/14/16 09:37 Potassium Chloride/Sodium Chloride (NS + KCl 20 Meq Inj) 1,000 ml @ 100 mls/hr Q10H IV 09/12/16 15:59 09/13/16 23:56 IV Flush 2 ml 2 ml BID IVF 09/12/16 21:00 09/13/16 20:26 Levetriacetam/ Sodium Chloride (Keppra Inj/NS Inj) 105 ml @ 400 mls/hr Q12H IV 09/12/16 16:00 09/14/16 04:27 Docusate Sodium (Colace) 100 mg BID PO 09/12/16 21:00 09/14/16 09:36 Pantoprazole Sodium (Protonix) 40 mg DAILY PO 09/13/16 09:00 09/14/16 09:36 Pantoprazole Sodium (Protonix Inj) 40 mg DAILY IVP 09/13/16 09:00 09/13/16 09:00 Acetaminophen/ Hydrocodone Bitart ([place] 10-325 Mg) 1 tab Q4H PRN PO PAIN SCALE 1 TO 5 09/12/16 16:00 09/14/16 04:27 Morphine Sulfate (Morphine Inj) 4 mg Q2H PRN IV PUSH PAIN SCALE 7 TO 10 09/12/16 16:00 09/12/16 22:00 Objective Remarks GENERAL: Pleasant female, sitting up in bed in [facility]. SKIN: Warm and dry. HEAD: Normocephalic. clean bandages along scalp. incision site clean with victor m in place, TANI drains with serosanguineous drainage EYES: No injection or drainage. NECK: Supple, trachea midline. CARDIOVASCULAR: Regular rate and rhythm RESPIRATORY: Breath sounds equal bilaterally. No accessory muscle use. GASTROINTESTINAL: Abdomen soft, non-tender, nondistended. EXTREMITIES: No cyanosis MUSCULOSKELETAL: Adequate muscle tone. NEUROLOGICAL: awake and alert, left sided facial droop. left sided weakness Assessment/Plan Problem List: (1) Intracranial mass Status: Acute Plan: --biopsy via NS 09/12, pathology is pending -- Tumor markers CEA, CA 15-3, and CA125 all WNL. -- CT thorax negative for mets. -- CT abdomen/pelvis shows a small 6mm hypodense lesion. -- On Decadron. Hx/Workup: Pt was diagnosed and treated in 2006 at the [facility] for breast cancer. She was treated with chemotherapy and radiation for what was probably triple negative disease. She denies being on a hormonal agent or being treated with Herceptin for one year. She was followed up until 2013 when she lost her insurance. Assessment 60 y/o female admitted for intracranial masses with a history of breast cancer. Plan 1. await pathology from biopsy 2. monitor CBC 3. supportive care Attending Statement The exam, history, and the medical decision-making described in the above note were completed with the assistance of the mid-level provider. I reviewed and agree with the findings presented. I attest that I had a [id number] encounter with the patient on the same day, and personally performed and documented my assessment and findings in the medical record. Biopsy confirms primary brain tumor--Glioblastoma Will need to be treated with concurrent Temodar and Radiation. Will discuss with Dr. Nicki russell/noel Lyles,Kaci PATEL Sep 14, 2016 11:48 Iván Lugo MD Sep 14, 2016 22:50
[2016-09-14] MEDS: NS + KCL 20 MEQ INJ 1,000 ML IV SCH (13:20)
[2016-09-14 13:37] LABS: BASOPHIL % 0.1 % (0.0-2.0); EOSINOPHIL % 0.1 % (0.0-4.0); HEMO FLAGS DIFF FINAL; LYMPH % 5.3 % (9.0-44.0); MEAN CELL VOLUME 90.7 FL (80.0-100.0); MEAN CORPUSCULAR HEMOGLOBIN 31.3 PG (27.0-34.0); MEAN CORPUSCULAR HGB CONC 34.5 % (32.0-36.0); MONO % 5.9 % (0.0-8.0); NEUT % 88.6 % (16.0-70.0); PLATELET COUNT 224 TH/MM3 (150-450); RED BLOOD COUNT 4.52 MIL/MM3 (4.00-5.30); RED CELL DISTRIBUTION WIDTH 12.8 % (11.6-17.2)
--- NOTE | 2016-09-14 15:17 | HHI.PR ---
Subjective Remarks F/U for intracranial mass. Patient stated that pain is controlled. She denies any headache. She denies any nausea or vomiting or visual changes. Patient has no complaints. Objective Vitals Vital Signs Date Time Temp Pulse Resp B/P Pulse Ox O2 Delivery O2 Flow Rate FiO2 09/14/16 12:00 97.6 68 16 139/69 95 09/14/16 09:45 95 21 09/14/16 08:00 97.6 64 16 135/75 95 09/14/16 04:00 97.0 62 20 131/76 93 09/14/16 00:00 97.7 60 19 115/66 95 09/13/16 20:00 98.0 73 18 129/72 95 09/13/16 16:22 99.0 69 16 125/65 95 09/13/16 16:00 99.0 69 16 125/65 95 I/O 09/13/16 09/13/16 09/13/16 09/14/16 09/14/16 09/14/16 07:00 15:00 23:00 07:00 15:00 23:00 Intake Total 1025 ml 780 ml 1450 ml 800 ml Output Total 1780 ml 450 ml 1930 ml 415 ml 1525 ml Balance -755 ml 330 ml -480 ml 385 ml -1525 ml Intake Oral 480 ml 850 ml IV Total 1025 ml 300 ml 600 ml 800 ml Output Urine Total 1650 ml 450 ml 1900 ml 400 ml 1525 ml Drainage Total 130 ml 30 ml 15 ml # Bowel Movements 0 0 Result Diagram: 09/14/16 1255 09/14/16 0628 Objective Remarks GENERAL: Pleasant female, sitting up in bed in [facility]. HEAD: Normocephalic. bandages in place along scalp. incision site clean with victor m in place, TANI drains with serosanguineous drainage RESPIRATORY: Breath sounds equal bilaterally. No accessory muscle use. GASTROINTESTINAL: Abdomen soft, non-tender, nondistended. NEUROLOGICAL: awake and alert. Medications and IVs Current Medications Lorazepam (Ativan Inj) 1 mg ONCE ONCE IV PUSH Last administered on 09/05/16t 14:26; Start 09/05/16 at 14:15; Stop 09/05/16 at 14:16; Status DC Gadodiamide (Omniscan Pf Inj) 14 ml STK-MED ONCE IV Last administered on 15:08; Start 09/05/16 at 15:08; Stop 09/05/16 at 15:09; Status DC Dexamethasone Sodium Phosphate 10 mg 10 mg ONCE ONCE IV PUSH Last administered on 09/05/16 17:00; Start 09/05/16 at 17:00; Stop 09/05/16 at 17:01 ; Status DC Sodium Chloride (NS 1000 ml Inj) 1,000 ml @ 100 mls/hr Q10H IV Last administered on 09/07/16 08:57; Start 09/05/16 at 17:14; Stop 09/07/16 at 11:13 ; Status DC Sodium Chloride (NS Flush) 2 ml UNSCH PRN IV FLUSH FLUSH AFTER USING IV ACCESS ; Start 09/05/16 at 17:15; Stop 09/12/16 at 16:31; Status DC Sodium Chloride (NS Flush) 2 ml BID IV FLUSH Last administered on 09/11/16 10: 17; Start 09/05/16 at 21:00; Stop 09/12/16 at 16:31; Status DC Acetaminophen (Tylenol) 650 mg Q4H PRN PO PAIN SCALE 1 TO 2 Last administered on 09/09/16 18:00; Start 09/05/16 at 17:15; Stop 09/12/16 at 16:43; Status DC Ondansetron HCl (Zofran Inj) 4 mg Q6H PRN IVP NAUSEA OR VOMITING; Start at 17:15; Stop 09/12/16 at 16:30; Status DC Metoclopramide HCl (Reglan Inj) 5 mg Q6H PRN IV PUSH NAUSEA OR VOMITING; Start 09/05/16 at 17:15; Stop 09/12/16 at 16:40; Status DC Bisacodyl (Dulcolax Supp) 10 mg DAILY PRN NM CONSTIPATION; Start 09/05/16 at 17 :15; Stop 09/12/16 at 16:42; Status DC Heparin Sodium (Porcine) (Heparin Inj) 5,000 units Q8H SQ Last administered on 09/11/16 10:20; Start 09/05/16 at 18:00; Stop 09/11/16 at 11:08; Status DC Naloxone HCl (Narcan Inj) 0.4 mg UNSCH PRN IV SEE LABEL COMMENTS; Start at 17:15 Oxycodone/ Acetaminophen (Percocet 5-325 Mg) 1 tab Q4H PRN PO PAIN SCALE 3 TO 6; Start 09/05/16 at 17:30; Stop 09/12/16 at 16:41; Status DC Clonidine (Catapres) 0.1 mg Q6H PRN PO SBP>160, DBP>90 Last administered on 09/09 20:22; Start 09/05/16 at 17:45 Dexamethasone Sodium Phosphate (Decadron Inj) 4 mg Q8HR IV PUSH Last administered on 09/06/16 01:15; Start 09/06/16 at 01:00; Stop 09/06/16 at 04:35 ; Status DC Iohexol (Omnipaque 350 Inj) 96 ml STK-MED ONCE IV Last administered on 20:54; Start 09/05/16 at 20:54; Stop 09/05/16 at 20:55; Status DC Dexamethasone Sodium Phosphate (Decadron Inj) 4 mg Q8H IV PUSH Last administered on 09/14/16 09:36; Start 09/06/16 at 09:00 Levothyroxine Sodium (Synthroid) 25 mcg DAILY@0600 PO Last administered on 04:27; Start 09/07/16 at 06:00 Levothyroxine Sodium (Synthroid) 25 mcg ONCE ONCE PO Last administered on 09/06 16:29; Start 09/06/16 at 15:15; Stop 09/06/16 at 15:16; Status DC Amlodipine Besylate (Norvasc) 2.5 mg DAILY PO Last administered on 09/07/16 08 :56; Start 09/06/16 at 16:00; Stop 09/07/16 at 16:00; Status DC Alprazolam (Xanax) 0.5 mg Q8H PRN PO ANXIETY Last administered on 09/11/16 17: 41; Start 09/07/16 at 11:15 Amlodipine Besylate (Norvasc) 5 mg DAILY PO Last administered on 09/08/16 08: 22; Start 09/08/16 at 09:00; Stop 09/08/16 at 16:56; Status DC Amlodipine Besylate (Norvasc) 2.5 mg ONCE ONCE PO Last administered on 18:02; Start 09/07/16 at 16:00; Stop 09/07/16 at 16:01; Status DC Miscellaneous (Pill Splitter) 1 ea UNSCH PRN OTHER SEE LABEL COMMENTS; Start at 16:15 Amlodipine Besylate (Norvasc) 10 mg DAILY PO Last administered on 09/14/16 09: 37; Start 09/09/16 at 09:00 Amlodipine Besylate 2.5 mg 2.5 mg ONCE ONCE PO Last administered on 09/08/16 17:22; Start 09/08/16 at 17:00; Stop 09/08/16 at 17:01; Status DC Sodium Chloride 1,000 ml @ 100 mls/hr Q10H IV Last administered on 09/12/16 09 :00; Start 09/11/16 at 23:00; Stop 09/12/16 at 16:28; Status DC Cefazolin Sodium/ Dextrose 50 ml @ 150 mls/hr SPIRAL RUNNER IV Last administered on 09/12/16 14:25; Start 09/12/16 at 06:00; Stop 09/12/16 at 23:59; Status DC Vancomycin HCl/ Sodium Chloride (Vancomycin Inj/ NS 250 ml Inj) 250 ml @ 250 mls/hr SPIRAL RUNNER IV Last administered on 09/12/16 14:23; Start 09/12/16 at 06:00 ; Stop 09/12/16 at 23:59; Status DC Chlorhexidine Gluconate (Hibiclens 4% Top Soln) 1 applic HS TOP Last administered on 09/11/16 23:37; Start 09/11/16 at 21:00; Stop 09/12/16 at 21:01; Status DC Pantoprazole Sodium (Protonix Inj) 40 mg Q24H IV PUSH Last administered on 14:42; Start 09/11/16 at 14:00; Stop 09/12/16 at 16:27; Status DC Famotidine (Pepcid Inj) 20 mg STK-MED ONCE .ROUTE ; Start 09/12/16 at 14:40; Stop 09/12/16 at 14:41; Status DC Vancomycin HCl (Vancomycin Inj) 1,000 mg STK-MED ONCE .ROUTE ; Start 09/12/16 at 15:05; Stop 09/12/16 at 15:06; Status DC Thrombin (Thrombin Top Soln) 10,000 units STK-MED ONCE .ROUTE Last administered on 09/12/16 16:38; Start 09/12/16 at 15:05; Stop 09/12/16 at 15:06; Status DC Nicardipine HCl (Cardene Inj) 25 mg STK-MED ONCE .ROUTE ; Start 09/12/16 at 15:06 ; Stop 09/12/16 at 15:07; Status DC Gelatin (Gelfoam 100 Top) 1 foam STK-MED ONCE .ROUTE Last administered on 16:38; Start 09/12/16 at 15:06; Stop 09/12/16 at 15:07; Status DC Furosemide (Lasix Inj) 40 mg STK-MED ONCE .ROUTE ; Start 09/12/16 at 15:06; Stop 09/12/16 at 15:07; Status DC Levetriacetam (Keppra Inj) 500 mg STK-MED ONCE IV ; Start 09/12/16 at 15:06; Stop 09/12/16 at 15:07; Status DC Bacitracin (Baciguent Oint) 15 applic STK-MED ONCE .ROUTE Last administered on 09/12/16 16:38; Start 09/12/16 at 15:06; Stop 09/12/16 at 15:07; Status DC Gentamicin Sulfate (Gentamicin Inj) 240 mg STK-MED ONCE .ROUTE Last administered on 09/12/16 16:38; Start 09/12/16 at 15:06; Stop 09/12/16 at 15:07; Status DC Lidocaine/ Epinephrine (Xylocaine-Epi 1%-1:100,000 Inj) 20 ml STK-MED ONCE .ROUTE Last administered on 09/12/16 16:38; Start 09/12/16 at 15:07; Stop at 15:08; Status DC Acetaminophen (Ofirmev Inj) 1,000 mg STK-MED ONCE IV ; Start 09/12/16 at 15:07; Stop 09/12/16 at 15:08; Status DC Midazolam HCl (Versed Inj) 2 mg STK-MED ONCE .ROUTE ; Start 09/12/16 at 15:08; Stop 09/12/16 at 15:09; Status DC Fentanyl Citrate (fentaNYL INJ) 250 mcg STK-MED ONCE .ROUTE ; Start 09/12/16 at 15:08; Stop 09/12/16 at 15:09; Status DC Fentanyl Citrate (fentaNYL INJ) 250 mcg STK-MED ONCE .ROUTE ; Start 09/12/16 at 15:08; Stop 09/12/16 at 15:09; Status DC Diphenhydramine HCl 50 mg 50 mg STK-MED ONCE .ROUTE ; Start 09/12/16 at 15:21; Stop 09/12/16 at 15:22; Status DC Potassium Chloride/Sodium Chloride (NS + KCl 20 Meq Inj) 1,000 ml @ 100 mls/hr Q10H IV Last administered on 09/14/16 13:20; Start 09/12/16 at 15:59 IV Flush (NS Flush) 2 ml UNSCH PRN IVF FLUSH AFTER USING IV ACCESS; Start at 16:00 IV Flush 2 ml 2 ml BID IVF Last administered on 09/13/16 20:26; Start 09/12/16 at 21:00 Cefazolin Sodium/ Dextrose 50 ml @ 100 mls/hr Q8H IV ; Start 09/12/16 at 16:00; Stop 09/12/16 at 16:35; Status DC Levetriacetam/ Sodium Chloride (Keppra Inj/NS Inj) 105 ml @ 400 mls/hr Q12H IV Last administered on 09/14/16 04:27; Start 09/12/16 at 16:00 Bisacodyl (Dulcolax Supp) 10 mg DAILY PRN RECTAL CONSTIPATION; Start 09/12/16 at 16:00 Docusate Sodium (Colace) 100 mg BID PO Last administered on 09/14/16 09:36; Start 09/12/16 at 21:00 Pantoprazole Sodium (Protonix) 40 mg DAILY PO Last administered on 09/14/16 09: 36; Start 09/13/16 at 09:00 Pantoprazole Sodium (Protonix Inj) 40 mg DAILY IVP Last administered on 09:00; Start 09/13/16 at 09:00 Ondansetron HCl (Zofran Inj) 4 mg Q6H PRN IV NAUSEA OR VOMITING; Start 09/12/16 at 16:00 Calcium Gluconate 1 gm 1 gm UNSCH PRN IV SEE LABEL COMMENTS; Start 09/12/16 at 16:00 Potassium Chloride 100 ml @ 50 mls/hr UNSCH PRN IV POTASSIUM LESS THAN 4; Start 09/12/16 at 16:00 Magnesium Sulfate/ Sodium Chloride (Magnesium Sulfate Inj/NS Inj) 108 ml @ 108 mls/hr UNSCH PRN IV MAGNESIUM LESS THAN 2; Start 09/12/16 at 16:00 Acetaminophen/ Hydrocodone Bitart ([place] 10-325 Mg) 1 tab Q4H PRN PO PAIN SCALE 1 TO 5 Last administered on 09/14/16 04:27; Start 09/12/16 at 16:00 Acetaminophen/ Hydrocodone Bitart ([place] 10-325 Mg) 2 tab Q4H PRN PO PAIN SCALE 6 TO 10; Start 09/12/16 at 16:00 Morphine Sulfate (Morphine Inj) 2 mg Q2H PRN IV PUSH PAIN SCALE 1 TO 6; Start 09/12/16 at 16:00 Morphine Sulfate (Morphine Inj) 4 mg Q2H PRN IV PUSH PAIN SCALE 7 TO 10 Last administered on 09/12/16 22:00; Start 09/12/16 at 16:00 Acetaminophen 650 mg 650 mg Q4H PRN PO TEMPERATURE > 101.5 F; Start 09/12/16 at 16:00 Cefazolin Sodium/ Dextrose 50 ml @ 100 mls/hr Q8H IV ; Start 09/12/16 at 16:45; Stop 09/12/16 at 16:45; Status DC Cefazolin Sodium/ Dextrose (Ancef 2 Gm Premix) 50 ml @ 100 mls/hr Q8H IV Last administered on 09/13/16 14:00; Start 09/12/16 at 22:00; Stop 09/13/16 at 14:29; Status DC Mannitol (Mannitol Inj) 25 gm STK-MED ONCE IV Last administered on 09/12/16 16: 00; Start 09/12/16 at 16:00; Stop 09/12/16 at 17:36; Status DC Hydralazine HCl (Apresoline Inj) 20 mg STK-MED ONCE .ROUTE Last administered on 09/12/16 18:22; Start 09/12/16 at 18:22; Stop 09/12/16 at 18:23; Status DC Miscellaneous Information ALL NURSING DEPARTME... UNSCH PRN .XX SEE LABEL COMMENTS; Start 09/12/16 at 19:00; Stop 09/13/16 at 18:59; Status DC Nicardipine HCl/ Sodium Chloride (Cardene Inj/NS 250 ml Inj) 260 ml @ 0 mls/hr TITRATE IV ; Start 09/12/16 at 19:00 Morphine Sulfate (*morphine INJ PERIprocedure ONLY) 8 mg STK-MED ONCE .ROUTE Last administered on 09/12/16t 19:38; Start 09/12/16 at 19:38; Stop 09/12/16 at 19: 39; Status DC A/P Assessment and Plan Intracranial Mass lesions with left facial paresis and tingling sensation on extremities -Most likely secondary to metastatic disease. - Brain MRI shows multiple intracranial mass lesions with different signal characteristics, suspicious for metastatic disease; the largest lesion in the right temporal area demonstrates central necrosis with 2 other nonenhancing lesions in the left thalamus. -hx of Breast Cancer diagnosed in 2006, has triple negative breast Cancer, treated at [facility] status post left mastectomy, not treated with Hormone blockade Therapy. -CEA, CA-125 and CA 15-3 within normal limits. -status post Stereotactic image guided frontal craniotomy with Microsurgical resection brain tumor. -Patient on IV Decadron. -Pending brain biopsy. Hypothyroidism -By history, patient off medications. -Patient was started on levothyroxine 25 mg by mouth daily. Will need is rechecked in 6 weeks. Hypertension - Controlled. DVT prophylaxis: Heparin Discharge Planning Pending biopsy report. Ester Strange MD Sep 14, 2016 15:17
--- NOTE | 2016-09-14 15:24 | HHI.NSPN ---
(Iona Norton) Note Status Status: Progress Note (Iona Norton) Interval History Interval History Ms. Carmen is a 60-year-old female with a history of breast cancer in 2006 and previously treated at the [facility] in [place]. Ms. Carmen underwent right mastectomy with chemoradiation treatment. She presented to [place] with complaints 1-2 months of of left facial weakness and hand paresthesias. She also reports of mild headaches. She denies vision changes, seizure like activities, vomiting, gait instability, fevers or chills. She underwent an MRI brain which shows multiple intracranial mass lesions suspicious for metastasis. A neurosurgical evaluation was requested. 09/08/16: Pt awake and alert. Denies headache, nausea, vomiting, muscle weakness, or paresthesias. She states the left facial weakness has improved. 09/09/16: Pt awake and alert. Standing at sink taking care of her teeth. No headache, nausea or vomiting. ambulating independently. 09/10/16: Pt awake and alert. Had a headache earlier resolved with Tylenol. Mild left facial droop drools when drinking. 09/11/16: no new neuro complaints, reviewed radiation notes recommending biopsy with poss debulking of brain mass. 09/13: POD 1 s/p right frontal parietal craniotomy with resection of brain mass. doing well, f/u CT Brain shows stable postoperative changes 09/14: POD 2, tolerating diet, mild surgical pain. brain pathology pending (Iona Norton) Labs, Micro, & Vital Signs Results Date Time Temp Pulse Resp B/P Pulse Ox O2 Delivery O2 Flow Rate FiO2 09/14/16 12:00 97.6 68 16 139/69 95 09/14/16 09:45 95 21 09/14/16 08:00 97.6 64 16 135/75 95 09/14/16 04:00 97.0 62 20 131/76 93 09/14/16 00:00 97.7 60 19 115/66 95 09/13/16 20:00 98.0 73 18 129/72 95 09/13/16 16:22 99.0 69 16 125/65 95 09/13/16 16:00 99.0 69 16 125/65 95 09/14/16 07:00 Intake Total 3030 ml Output Total 2795 ml Balance 235 ml Constitutional Vital Signs Date Time Temp Pulse Resp B/P Pulse Ox O2 Delivery O2 Flow Rate FiO2 09/14/16 12:00 97.6 68 16 139/69 95 09/14/16 09:45 95 21 09/14/16 08:00 97.6 64 16 135/75 95 09/14/16 04:00 97.0 62 20 131/76 93 09/14/16 00:00 97.7 60 19 115/66 95 09/13/16 20:00 98.0 73 18 129/72 95 09/13/16 16:22 99.0 69 16 125/65 95 09/13/16 16:00 99.0 69 16 125/65 95 09/14/16 07:00 Intake Total 3030 ml Output Total 2795 ml Balance 235 ml (Iona Norton) Review of Systems/Exam Exam Alert and oriented to name and place, appears comfortable in bed. Speech is appropriate. Wound is clean and dry, TANI drain intact with minimal drainage. CN: pupils 3 mm equal, eom's intact. mild left facial weakness causing slight dysarthria. Motor: moves all four extremities with 4/5 left upper extremity weakness Neck: soft, supple (Iona Norton) Medications Current Medications Current Medications Medications (Trade) Dose Ordered Sig/Jason Route PRN Reason Start Time Stop Time Status Last Admin Dose Admin Naloxone HCl (Narcan Inj) 0.4 mg UNSCH PRN IV SEE LABEL COMMENTS 09/05/16 17:15 Clonidine (Catapres) 0.1 mg Q6H PRN PO SBP>160, DBP>90 09/05/16 17:45 09/09/16 20:22 Dexamethasone Sodium Phosphate (Decadron Inj) 4 mg Q8H IV PUSH 09/06/16 09:00 09/14/16 09:36 Levothyroxine Sodium (Synthroid) 25 mcg DAILY@0600 PO 09/07/16 06:00 09/14/16 04:27 Alprazolam (Xanax) 0.5 mg Q8H PRN PO ANXIETY 09/07/16 11:15 09/11/16 17:41 Miscellaneous (Pill Splitter) 1 ea UNSCH PRN OTHER SEE LABEL COMMENTS 09/07/16 16:15 Amlodipine Besylate 10 mg 10 mg DAILY PO 09/09/16 09:00 09/14/16 09:37 Potassium Chloride/Sodium Chloride (NS + KCl 20 Meq Inj) 1,000 ml @ 100 mls/hr Q10H IV 09/12/16 15:59 09/14/16 13:20 IV Flush (NS Flush) 2 ml UNSCH PRN IVF FLUSH AFTER USING IV ACCESS 09/12/16 16:00 IV Flush 2 ml 2 ml BID IVF 09/12/16 21:00 09/13/16 20:26 Levetriacetam/ Sodium Chloride (Keppra Inj/NS Inj) 105 ml @ 400 mls/hr Q12H IV 09/12/16 16:00 09/14/16 04:27 Bisacodyl (Dulcolax Supp) 10 mg DAILY PRN RECTAL CONSTIPATION 09/12/16 16:00 Docusate Sodium (Colace) 100 mg BID PO 09/12/16 21:00 09/14/16 09:36 Pantoprazole Sodium (Protonix) 40 mg DAILY PO 09/13/16 09:00 09/14/16 09:36 Pantoprazole Sodium (Protonix Inj) 40 mg DAILY IVP 09/13/16 09:00 09/13/16 09:00 Ondansetron HCl (Zofran Inj) 4 mg Q6H PRN IV NAUSEA OR VOMITING 09/12/16 16:00 Calcium Gluconate 1 gm 1 gm UNSCH PRN IV SEE LABEL COMMENTS 09/12/16 16:00 Potassium Chloride 100 ml @ 50 mls/hr UNSCH PRN IV POTASSIUM LESS THAN 4 09/12/16 16:00 Magnesium Sulfate/ Sodium Chloride (Magnesium Sulfate Inj/NS Inj) 108 ml @ 108 mls/hr UNSCH PRN IV MAGNESIUM LESS THAN 2 09/12/16 16:00 Acetaminophen/ Hydrocodone Bitart ([place] 10-325 Mg) 1 tab Q4H PRN PO PAIN SCALE 1 TO 5 09/12/16 16:00 09/14/16 04:27 Acetaminophen/ Hydrocodone Bitart ([place] 10-325 Mg) 2 tab Q4H PRN PO PAIN SCALE 6 TO 10 09/12/16 16:00 Morphine Sulfate (Morphine Inj) 2 mg Q2H PRN IV PUSH PAIN SCALE 1 TO 6 09/12/16 16:00 Morphine Sulfate (Morphine Inj) 4 mg Q2H PRN IV PUSH PAIN SCALE 7 TO 10 09/12/16 16:00 09/12/16 22:00 Acetaminophen 650 mg 650 mg Q4H PRN PO TEMPERATURE > 101.5 F 09/12/16 16:00 Nicardipine HCl/ Sodium Chloride (Cardene Inj/NS 250 ml Inj) 260 ml @ 0 mls/hr TITRATE IV 09/12/16 19:00 (Iona Norton) Medical Decision Making MDM Remarks 60 y/o female with multiple brain mass, suspected breast metastases, s/p right frontal parietal craniotomy for resection of brain mass 09/12/16 history of breast CA (Iona Norton) Plan Plan Remarks f/u pathology of brain mass, restart PT, OT, clear OOB nonchemical dvt prophylaxis IS every hour cont pain control prn cont keppra for sz prophylaxis cont Decadron cont TANI draining today, will dc tomorrow (Iona Norton) Attending Statement The exam, history, and the medical decision-making described in the above note were completed with the assistance of the mid-level provider. I reviewed and agree with the findings presented. I attest that I had a [id number] encounter with the patient on the same day, and personally performed and documented my assessment and findings in the medical record. (Marlo Osorio MD) Iona Norton Sep 14, 2016 15:24 Marlo Osorio MD Sep 17, 2016 09:06
[2016-09-14] MEDS: SODIUM CHLORIDE 0.9% FLUSH 5 ML FLUSH IVF SCH (23:42)
[2016-09-15] VITALS: BP 138/63; PULSE 61; RESP 18; TEMP 95.9; O2SAT 96
[2016-09-15] MEDS: levETIRAcetam INJ 500 MG in SODIUM CHLORIDE 0.9% INJ 100 ML IV SCH ×2 (03:51→17:32)
[2016-09-15] MEDS: NS + KCL 20 MEQ INJ 1,000 ML IV SCH ×3 (03:51→23:55)
[2016-09-15 04:00] VITALS: BP 148/79; PULSE 60; RESP 20; TEMP 97.5; O2SAT 95
[2016-09-15 07:00] LABS: AUTOMATED NEUTROPHIL # 13.5 TH/MM3 (1.8-7.7); BASOPHIL % 0.1 % (0.0-2.0); HEMATOCRIT 42.5 % (35.0-46.0); HEMO FLAGS DIFF FINAL; LYMPH % 6.9 % (9.0-44.0); LYMPHOCYTE # 1.1 TH/MM3 (1.0-4.8); MEAN CELL VOLUME 91.5 FL (80.0-100.0); MEAN CORPUSCULAR HEMOGLOBIN 30.6 PG (27.0-34.0); MEAN CORPUSCULAR HGB CONC 33.5 % (32.0-36.0); MONO % 5.6 % (0.0-8.0); NEUT % 87.4 % (16.0-70.0); PLATELET COUNT 227 TH/MM3 (150-450); RED BLOOD COUNT 4.64 MIL/MM3 (4.00-5.30); RED CELL DISTRIBUTION WIDTH 12.6 % (11.6-17.2); WHITE BLOOD COUNT 15.5 TH/MM3 (4.0-11.0)
[2016-09-15] MEDS: LEVOTHYROXINE SODIUM 25 MCG TAB PO SCH (07:08)
[2016-09-15 07:55] VITALS: BP 151/78; PULSE 60; RESP 18; TEMP 96.7; O2SAT 96
[2016-09-15] MEDS: SODIUM CHLORIDE 0.9% FLUSH 5 ML FLUSH IVF SCH ×2 (09:00→20:49)
[2016-09-15] MEDS: PANTOPRAZOLE SODIUM 40 MG VIAL IVP SCH (09:00)
[2016-09-15] MEDS: DOCUSATE SODIUM 100 MG CAP PO SCH ×2 (10:37→20:47)
[2016-09-15] MEDS: PANTOPRAZOLE SOD 40 MG DELAYED RELEASE TAB PO SCH (10:37)
[2016-09-15] MEDS: DEXAMETHASONE SOD PHOS 4 MG/ML VIAL IV PUSH SCH ×3 (10:37→23:56)
--- NOTE | 2016-09-15 10:42 | PD.ONC.PN ---
Subjective Subjective Remarks Afebrile overnight. patient resting comfortably. She complains the light hurts her eyes, but is otherwise without pain. Objective Data Date Time Temp Pulse Resp B/P Pulse Ox O2 Delivery O2 Flow Rate FiO2 09/15/16 07:55 96.7 60 18 151/78 96 09/15/16 04:00 97.5 60 20 148/79 95 09/15/16 00:00 95.9 61 18 138/63 96 09/14/16 20:00 97.2 72 20 155/74 95 09/14/16 16:00 98.4 54 16 134/70 99 09/14/16 12:00 97.6 68 16 139/69 95 09/15/16 09/15/16 09/15/16 07:00 15:00 23:00 Intake Total 500 ml Output Total 2450 ml 15 ml Balance -1950 ml -15 ml Result Diagram: 09/15/16 0544 09/14/16 0628 Laboratory Results Laboratory Tests Test 09/14/16 09/15/16 12:55 05:44 White Blood Count 18.0 TH/MM3 15.5 TH/MM3 Red Blood Count 4.52 MIL/MM3 4.64 MIL/MM3 Hemoglobin 14.2 GM/DL 14.2 GM/DL Hematocrit 41.0 % 42.5 % Mean Corpuscular Volume 90.7 FL 91.5 FL Mean Corpuscular Hemoglobin 31.3 PG 30.6 PG Mean Corpuscular Hemoglobin 34.5 % 33.5 % Concent Red Cell Distribution Width 12.8 % 12.6 % Platelet Count 224 TH/MM3 227 TH/MM3 Mean Platelet Volume 9.1 FL 9.2 FL Neutrophils (%) (Auto) 88.6 % 87.4 % Lymphocytes (%) (Auto) 5.3 % 6.9 % Monocytes (%) (Auto) 5.9 % 5.6 % Eosinophils (%) (Auto) 0.1 % 0.0 % Basophils (%) (Auto) 0.1 % 0.1 % Neutrophils # (Auto) 16.0 TH/MM3 13.5 TH/MM3 Lymphocytes # (Auto) 1.0 TH/MM3 1.1 TH/MM3 Monocytes # (Auto) 1.1 TH/MM3 0.9 TH/MM3 Eosinophils # (Auto) 0.0 TH/MM3 0.0 TH/MM3 Basophils # (Auto) 0.0 TH/MM3 0.0 TH/MM3 CBC Comment DIFF FINAL DIFF FINAL Differential Comment Administered Medications Medications (Trade) Dose Ordered Sig/Jason Route PRN Reason Start Time Stop Time Status Last Admin Dose Admin Clonidine (Catapres) 0.1 mg Q6H PRN PO SBP>160, DBP>90 09/05/16 17:45 09/09/16 20:22 Dexamethasone Sodium Phosphate (Decadron Inj) 4 mg Q8H IV PUSH 09/06/16 09:00 09/15/16 10:37 Levothyroxine Sodium (Synthroid) 25 mcg DAILY@0600 PO 09/07/16 06:00 09/15/16 07:08 Alprazolam (Xanax) 0.5 mg Q8H PRN PO ANXIETY 09/07/16 11:15 09/11/16 17:41 Amlodipine Besylate 10 mg 10 mg DAILY PO 09/09/16 09:00 09/15/16 10:37 Potassium Chloride/Sodium Chloride (NS + KCl 20 Meq Inj) 1,000 ml @ 100 mls/hr Q10H IV 09/12/16 15:59 09/15/16 03:51 IV Flush 2 ml 2 ml BID IVF 09/12/16 21:00 09/15/16 09:00 Levetriacetam/ Sodium Chloride (Keppra Inj/NS Inj) 105 ml @ 400 mls/hr Q12H IV 09/12/16 16:00 09/15/16 03:51 Docusate Sodium (Colace) 100 mg BID PO 09/12/16 21:00 09/15/16 10:37 Pantoprazole Sodium (Protonix) 40 mg DAILY PO 09/13/16 09:00 09/15/16 10:37 Pantoprazole Sodium (Protonix Inj) 40 mg DAILY IVP 09/13/16 09:00 09/13/16 09:00 Acetaminophen/ Hydrocodone Bitart ([place] 10-325 Mg) 1 tab Q4H PRN PO PAIN SCALE 1 TO 5 09/12/16 16:00 09/14/16 23:41 Morphine Sulfate (Morphine Inj) 4 mg Q2H PRN IV PUSH PAIN SCALE 7 TO 10 09/12/16 16:00 09/12/16 22:00 Objective Remarks GENERAL: fatigued female, upright in bed SKIN: Warm and dry. HEAD: Normocephalic. bandages along scalp EYES: No injection or drainage. NECK: Supple, trachea midline. CARDIOVASCULAR: Regular rate and rhythm RESPIRATORY: Breath sounds equal bilaterally. No accessory muscle use. GASTROINTESTINAL: Abdomen soft, non-tender, nondistended. EXTREMITIES: No cyanosis MUSCULOSKELETAL: Adequate muscle tone. NEUROLOGICAL: awake and alert, left sided facial droop, mild left upper and lower extremity weakness Assessment/Plan Problem List: (1) Intracranial mass Status: Acute Plan: --biopsy via NS 09/12, pathology shows Glioblastoma Multiforme -- Tumor markers CEA, CA 15-3, and CA125 all WNL. -- CT thorax negative for mets. -- CT abdomen/pelvis shows a small 6mm hypodense lesion. -- On Decadron. Hx/Workup: Pt was diagnosed and treated in 2006 at the [facility] for breast cancer. She was treated with chemotherapy and radiation for what was probably triple negative disease. She denies being on a hormonal agent or being treated with Herceptin for one year. She was followed up until 2013 when she lost her insurance. Assessment 60 y/o female admitted for intracranial masses with a history of breast cancer. Plan 1. pathology shows GBM---discussed with patient and sister. multiple questions answered. emotional support provided. 2. patient will need Temodar + Radiation 3. consult case management for assistance with applying for [facility] medicaid Attending Statement The exam, history, and the medical decision-making described in the above note were completed with the assistance of the mid-level provider. I reviewed and agree with the findings presented. I attest that I had a [id number] encounter with the patient on the same day, and personally performed and documented my assessment and findings in the medical record. discussed diagnosis, prognosis. treatment options extensive discussion consult case management for assistance with insurance will discuss with Dr. Caceres timing of brain XRT d/w rn Time spent with patient: 30 minutes Kaci Lyles Sep 15, 2016 10:42 Iván Lugo MD Sep 15, 2016 22:25
[2016-09-15 11:00] VITALS: BP 139/79; PULSE 66; RESP 18; TEMP 96.4; O2SAT 96
--- NOTE | 2016-09-15 11:16 | HHI.PR ---
Subjective . Patient with recent resection of brain lesion felt to be a GBM. MRI showed two other lesions non enhancing. Discussed with Dr Beltre to help resolve possible confusion on this he suggested MRI spectroscopy of left thalamus region. I have ordered this. Jose Manuel Caceres MD Sep 15, 2016 11:16
--- NOTE | 2016-09-15 13:35 | HHI.NSPN ---
(Iona Norton) Note Status Status: Progress Note (Iona Norton) Interval History Interval History Ms. Carmen is a 60-year-old female with a history of breast cancer in 2006 and previously treated at the [facility] in [place]. Ms. Carmen underwent right mastectomy with chemoradiation treatment. She presented to [place] with complaints 1-2 months of of left facial weakness and hand paresthesias. She also reports of mild headaches. She denies vision changes, seizure like activities, vomiting, gait instability, fevers or chills. She underwent an MRI brain which shows multiple intracranial mass lesions suspicious for metastasis. A neurosurgical evaluation was requested. 09/08/16: Pt awake and alert. Denies headache, nausea, vomiting, muscle weakness, or paresthesias. She states the left facial weakness has improved. 09/09/16: Pt awake and alert. Standing at sink taking care of her teeth. No headache, nausea or vomiting. ambulating independently. 09/10/16: Pt awake and alert. Had a headache earlier resolved with Tylenol. Mild left facial droop drools when drinking. 09/11/16: no new neuro complaints, reviewed radiation notes recommending biopsy with poss debulking of brain mass. 09/13: POD 1 s/p right frontal parietal craniotomy with resection of brain mass. doing well, f/u CT Brain shows stable postoperative changes 09/14: POD 2, tolerating diet, mild surgical pain. brain pathology pending 09/15: POD 3, minimal right side head pain, denies new neuro complaints, denies nausea, vomiting. Ambulated yesterday. 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 ( Iona Norton) Labs, Micro, & Vital Signs Results Date Time Temp Pulse Resp B/P Pulse Ox O2 Delivery O2 Flow Rate FiO2 09/15/16 11:00 96.4 66 18 139/79 96 09/15/16 07:55 96.7 60 18 151/78 96 09/15/16 04:00 97.5 60 20 148/79 95 09/15/16 00:00 95.9 61 18 138/63 96 09/14/16 20:00 97.2 72 20 155/74 95 09/14/16 16:00 98.4 54 16 134/70 99 09/15/16 07:00 Intake Total 2718 ml Output Total 6375 ml Balance -3657 ml Constitutional Vital Signs Date Time Temp Pulse Resp B/P Pulse Ox O2 Delivery O2 Flow Rate FiO2 09/15/16 11:00 96.4 66 18 139/79 96 09/15/16 07:55 96.7 60 18 151/78 96 09/15/16 04:00 97.5 60 20 148/79 95 09/15/16 00:00 95.9 61 18 138/63 96 09/14/16 20:00 97.2 72 20 155/74 95 09/14/16 16:00 98.4 54 16 134/70 99 09/15/16 07:00 Intake Total 2718 ml Output Total 6375 ml Balance -3657 ml (Iona Norton) Review of Systems/Exam Exam Awake, no apparent distress. Follows commands. Wound wrapped with clean, dry Kerlix dressing, TANI drain intact. CN: pupils equal, eom's intact. mild left facial weakness. Motor: moves all four extremities with gross left upper extremity weakness Neck: soft, supple (Iona Norton) Medications Current Medications Current Medications Medications (Trade) Dose Ordered Sig/Jason Route PRN Reason Start Time Stop Time Status Last Admin Dose Admin Naloxone HCl (Narcan Inj) 0.4 mg UNSCH PRN IV SEE LABEL COMMENTS 09/05/16 17:15 Clonidine (Catapres) 0.1 mg Q6H PRN PO SBP>160, DBP>90 09/05/16 17:45 09/09/16 20:22 Dexamethasone Sodium Phosphate (Decadron Inj) 4 mg Q8H IV PUSH 09/06/16 09:00 09/15/16 10:37 Levothyroxine Sodium (Synthroid) 25 mcg DAILY@0600 PO 09/07/16 06:00 09/15/16 07:08 Alprazolam (Xanax) 0.5 mg Q8H PRN PO ANXIETY 09/07/16 11:15 09/11/16 17:41 Miscellaneous (Pill Splitter) 1 ea UNSCH PRN OTHER SEE LABEL COMMENTS 09/07/16 16:15 Amlodipine Besylate 10 mg 10 mg DAILY PO 09/09/16 09:00 09/15/16 10:37 Potassium Chloride/Sodium Chloride (NS + KCl 20 Meq Inj) 1,000 ml @ 100 mls/hr Q10H IV 09/12/16 15:59 09/15/16 03:51 IV Flush (NS Flush) 2 ml UNSCH PRN IVF FLUSH AFTER USING IV ACCESS 09/12/16 16:00 IV Flush 2 ml 2 ml BID IVF 09/12/16 21:00 09/15/16 09:00 Levetriacetam/ Sodium Chloride (Keppra Inj/NS Inj) 105 ml @ 400 mls/hr Q12H IV 09/12/16 16:00 09/15/16 03:51 Bisacodyl (Dulcolax Supp) 10 mg DAILY PRN RECTAL CONSTIPATION 09/12/16 16:00 Docusate Sodium (Colace) 100 mg BID PO 09/12/16 21:00 09/15/16 10:37 Pantoprazole Sodium (Protonix) 40 mg DAILY PO 09/13/16 09:00 09/15/16 10:37 Pantoprazole Sodium (Protonix Inj) 40 mg DAILY IVP 09/13/16 09:00 09/13/16 09:00 Ondansetron HCl (Zofran Inj) 4 mg Q6H PRN IV NAUSEA OR VOMITING 09/12/16 16:00 Calcium Gluconate 1 gm 1 gm UNSCH PRN IV SEE LABEL COMMENTS 09/12/16 16:00 Potassium Chloride 100 ml @ 50 mls/hr UNSCH PRN IV POTASSIUM LESS THAN 4 09/12/16 16:00 Magnesium Sulfate/ Sodium Chloride (Magnesium Sulfate Inj/NS Inj) 108 ml @ 108 mls/hr UNSCH PRN IV MAGNESIUM LESS THAN 2 09/12/16 16:00 Acetaminophen/ Hydrocodone Bitart ([place] 10-325 Mg) 1 tab Q4H PRN PO PAIN SCALE 1 TO 5 09/12/16 16:00 09/14/16 23:41 Acetaminophen/ Hydrocodone Bitart ([place] 10-325 Mg) 2 tab Q4H PRN PO PAIN SCALE 6 TO 10 09/12/16 16:00 Morphine Sulfate (Morphine Inj) 2 mg Q2H PRN IV PUSH PAIN SCALE 1 TO 6 09/12/16 16:00 Morphine Sulfate (Morphine Inj) 4 mg Q2H PRN IV PUSH PAIN SCALE 7 TO 10 09/12/16 16:00 09/12/16 22:00 Acetaminophen 650 mg 650 mg Q4H PRN PO TEMPERATURE > 101.5 F 09/12/16 16:00 Nicardipine HCl/ Sodium Chloride (Cardene Inj/NS 250 ml Inj) 260 ml @ 0 mls/hr TITRATE IV 09/12/16 19:00 (Iona Norton) Medical Decision Making MDM Remarks 60 y/o female with multiple brain mass, suspected breast metastases, s/p right frontal parietal craniotomy for resection of brain mass 09/12/16, final pathology reports GBM history of breast CA (Iona Norton) Plan Plan Remarks dc TANI drains x 2, cont current care clear for dc from NRS standpoint, f/u radiation-oncology and medical oncology f/u office 09/26 for staple removal (Iona Norton) Attending Statement The exam, history, and the medical decision-making described in the above note were completed with the assistance of the mid-level provider. I reviewed and agree with the findings presented. I attest that I had a [id number] encounter with the patient on the same day, and personally performed and documented my assessment and findings in the medical record. (Marlo Osorio MD) Iona Norton Sep 15, 2016 13:35 Marlo Osorio MD Sep 17, 2016 09:22
[2016-09-15 15:55] VITALS: BP 129/73; PULSE 68; RESP 18; TEMP 99.1; O2SAT 96
--- NOTE | 2016-09-15 16:24 | HHI.PR ---
Subjective Remarks Follow-up for brain mass. Patient has no complaints. She denies any pain. Denied any nausea or vomiting or headache. She also denies any visual changes. No acute events overnight. Patient stated that left-sided weakness has improved. Objective Vitals Vital Signs Date Time Temp Pulse Resp B/P Pulse Ox O2 Delivery O2 Flow Rate FiO2 09/15/16 11:00 96.4 66 18 139/79 96 09/15/16 07:55 96.7 60 18 151/78 96 09/15/16 04:00 97.5 60 20 148/79 95 09/15/16 00:00 95.9 61 18 138/63 96 09/14/16 20:00 97.2 72 20 155/74 95 I/O 09/14/16 09/14/16 09/14/16 09/15/16 09/15/16 09/15/16 07:00 15:00 23:00 07:00 15:00 23:00 Intake Total 800 ml 720 ml 1498 ml 500 ml Output Total 415 ml 2825 ml 1100 ml 2450 ml 15 ml Balance 385 ml -2105 ml 398 ml -1950 ml -15 ml Intake Oral 720 ml 240 ml 500 ml IV Total 800 ml 1258 ml Output Urine Total 400 ml 2825 ml 1100 ml 2450 ml Drainage Total 15 ml 15 ml # Bowel Movements 0 0 Result Diagram: 09/15/16 0544 09/14/16627 Objective Remarks GENERAL: Pleasant female, sitting up in bed in nad. HEAD: Normocephalic. bandages in place along scalp. incision site clean with victor m in place, TANI drains with serosanguineous drainage RESPIRATORY: Breath sounds equal bilaterally. No accessory muscle use. GASTROINTESTINAL: Abdomen soft, non-tender, nondistended. NEUROLOGICAL: awake and alert. 5 out of 5 bilateral upper and lower extremity strength. Sensation is intact. Medications and IVs Current Medications Lorazepam (Ativan Inj) 1 mg ONCE ONCE IV PUSH Last administered on 09/05/16 14:26; Start 09/05/16 at 14:15; Stop 09/05/16 at 14:16; Status DC Gadodiamide (Omniscan Pf Inj) 14 ml STK-MED ONCE IV Last administered on 15:08; Start 09/05/16 at 15:08; Stop 09/05/16 at 15:09; Status DC Dexamethasone Sodium Phosphate 10 mg 10 mg ONCE ONCE IV PUSH Last administered on 09/05/16 17:00; Start 09/05/16 at 17:00; Stop 09/05/16 at 17:01 ; Status DC Sodium Chloride (NS 1000 ml Inj) 1,000 ml @ 100 mls/hr Q10H IV Last administered on 09/07/16 08:57; Start 09/05/16 at 17:14; Stop 09/07/16 at 11:13 ; Status DC Sodium Chloride (NS Flush) 2 ml UNSCH PRN IV FLUSH FLUSH AFTER USING IV ACCESS ; Start 09/05/16 at 17:15; Stop 09/12/16 at 16:31; Status DC Sodium Chloride (NS Flush) 2 ml BID IV FLUSH Last administered on 09/11/16 10: 17; Start 09/05/16 at 21:00; Stop 09/12/16 at 16:31; Status DC Acetaminophen (Tylenol) 650 mg Q4H PRN PO PAIN SCALE 1 TO 2 Last administered on 09/09/16 18:00; Start 09/05/16 at 17:15; Stop 09/12/16 at 16:43; Status DC Ondansetron HCl (Zofran Inj) 4 mg Q6H PRN IVP NAUSEA OR VOMITING; Start at 17:15; Stop 09/12/16 at 16:30; Status DC Metoclopramide HCl (Reglan Inj) 5 mg Q6H PRN IV PUSH NAUSEA OR VOMITING; Start 09/05/16 at 17:15; Stop 09/12/16 at 16:40; Status DC Bisacodyl (Dulcolax Supp) 10 mg DAILY PRN ME CONSTIPATION; Start 09/05/16 at 17 :15; Stop 09/12/16 at 16:42; Status DC Heparin Sodium (Porcine) (Heparin Inj) 5,000 units Q8H SQ Last administered on 09/11/16 10:20; Start 09/05/16 at 18:00; Stop 09/11/16 at 11:08; Status DC Naloxone HCl (Narcan Inj) 0.4 mg UNSCH PRN IV SEE LABEL COMMENTS; Start at 17:15 Oxycodone/ Acetaminophen (Percocet 5-325 Mg) 1 tab Q4H PRN PO PAIN SCALE 3 TO 6; Start 09/05/16 at 17:30; Stop 09/12/16 at 16:41; Status DC Clonidine (Catapres) 0.1 mg Q6H PRN PO SBP>160, DBP>90 Last administered on 09/09 20:22; Start 09/05/16 at 17:45 Dexamethasone Sodium Phosphate (Decadron Inj) 4 mg Q8HR IV PUSH Last administered on 09/06/16 01:15; Start 09/06/16 at 01:00; Stop 09/06/16 at 04:35 ; Status DC Iohexol (Omnipaque 350 Inj) 96 ml STK-MED ONCE IV Last administered on 20:54; Start 09/05/16 at 20:54; Stop 09/05/16 at 20:55; Status DC Dexamethasone Sodium Phosphate (Decadron Inj) 4 mg Q8H IV PUSH Last administered on 09/15/16 10:37; Start 09/06/16 at 09:00 Levothyroxine Sodium (Synthroid) 25 mcg DAILY@0600 PO Last administered on 07:08; Start 09/07/16 at 06:00 Levothyroxine Sodium (Synthroid) 25 mcg ONCE ONCE PO Last administered on 09/06 16:29; Start 09/06/16 at 15:15; Stop 09/06/16 at 15:16; Status DC Amlodipine Besylate (Norvasc) 2.5 mg DAILY PO Last administered on 09/07/16 08 :56; Start 09/06/16 at 16:00; Stop 09/07/16 at 16:00; Status DC Alprazolam (Xanax) 0.5 mg Q8H PRN PO ANXIETY Last administered on 09/11/16 17: 41; Start 09/07/16 at 11:15 Amlodipine Besylate (Norvasc) 5 mg DAILY PO Last administered on 09/08/16 08: 22; Start 09/08/16 at 09:00; Stop 09/08/16 at 16:56; Status DC Amlodipine Besylate (Norvasc) 2.5 mg ONCE ONCE PO Last administered on 18:02; Start 09/07/16 at 16:00; Stop 09/07/16 at 16:01; Status DC Miscellaneous (Pill Splitter) 1 ea UNSCH PRN OTHER SEE LABEL COMMENTS; Start at 16:15 Amlodipine Besylate (Norvasc) 10 mg DAILY PO Last administered on 09/15/16 10: 37; Start 09/09/16 at 09:00 Amlodipine Besylate 2.5 mg 2.5 mg ONCE ONCE PO Last administered on 09/08/16 17:22; Start 09/08/16 at 17:00; Stop 09/08/16 at 17:01; Status DC Sodium Chloride 1,000 ml @ 100 mls/hr Q10H IV Last administered on 09/12/16 09 :00; Start 09/11/16 at 23:00; Stop 09/12/16 at 16:28; Status DC Cefazolin Sodium/ Dextrose 50 ml @ 150 mls/hr CARPENTER MATE IV Last administered on 09/12/16 14:25; Start 09/12/16 at 06:00; Stop 09/12/16 at 23:59; Status DC Vancomycin HCl/ Sodium Chloride (Vancomycin Inj/ NS 250 ml Inj) 250 ml @ 250 mls/hr CARPENTER MATE IV Last administered on 09/12/16 14:23; Start 09/12/16 at 06:00 ; Stop 09/12/16 at 23:59; Status DC Chlorhexidine Gluconate (Hibiclens 4% Top Soln) 1 applic HS TOP Last administered on 09/11/16 23:37; Start 09/11/16 at 21:00; Stop 09/12/16 at 21:01; Status DC Pantoprazole Sodium (Protonix Inj) 40 mg Q24H IV PUSH Last administered on 14:42; Start 09/11/16 at 14:00; Stop 09/12/16 at 16:27; Status DC Famotidine (Pepcid Inj) 20 mg STK-MED ONCE .ROUTE ; Start 09/12/16 at 14:40; Stop 09/12/16 at 14:41; Status DC Vancomycin HCl (Vancomycin Inj) 1,000 mg STK-MED ONCE .ROUTE ; Start 09/12/16 at 15:05; Stop 09/12/16 at 15:06; Status DC Thrombin (Thrombin Top Soln) 10,000 units STK-MED ONCE .ROUTE Last administered on 09/12/16 16:38; Start 09/12/16 at 15:05; Stop 09/12/16 at 15:06; Status DC Nicardipine HCl (Cardene Inj) 25 mg STK-MED ONCE .ROUTE ; Start 09/12/16 at 15:06 ; Stop 09/12/16 at 15:07; Status DC Gelatin (Gelfoam 100 Top) 1 foam STK-MED ONCE .ROUTE Last administered on 16:38; Start 09/12/16 at 15:06; Stop 09/12/16 at 15:07; Status DC Furosemide (Lasix Inj) 40 mg STK-MED ONCE .ROUTE ; Start 09/12/16 at 15:06; Stop 09/12/16 at 15:07; Status DC Levetriacetam (Keppra Inj) 500 mg STK-MED ONCE IV ; Start 09/12/16 at 15:06; Stop 09/12/16 at 15:07; Status DC Bacitracin (Baciguent Oint) 15 applic STK-MED ONCE .ROUTE Last administered on 09/12/16 16:38; Start 09/12/16 at 15:06; Stop 09/12/16 at 15:07; Status DC Gentamicin Sulfate (Gentamicin Inj) 240 mg STK-MED ONCE .ROUTE Last administered on 09/12/16 16:38; Start 09/12/16 at 15:06; Stop 09/12/16 at 15:07; Status DC Lidocaine/ Epinephrine (Xylocaine-Epi 1%-1:100,000 Inj) 20 ml STK-MED ONCE .ROUTE Last administered on 09/12/16 16:38; Start 09/12/16 at 15:07; Stop at 15:08; Status DC Acetaminophen (Ofirmev Inj) 1,000 mg STK-MED ONCE IV ; Start 09/12/16 at 15:07; Stop 09/12/16 at 15:08; Status DC Midazolam HCl (Versed Inj) 2 mg STK-MED ONCE .ROUTE ; Start 09/12/16 at 15:08; Stop 09/12/16 at 15:09; Status DC Fentanyl Citrate (fentaNYL INJ) 250 mcg STK-MED ONCE .ROUTE ; Start 09/12/16 at 15:08; Stop 09/12/16 at 15:09; Status DC Fentanyl Citrate (fentaNYL INJ) 250 mcg STK-MED ONCE .ROUTE ; Start 09/12/16 at 15:08; Stop 09/12/16 at 15:09; Status DC Diphenhydramine HCl 50 mg 50 mg STK-MED ONCE .ROUTE ; Start 09/12/16 at 15:21; Stop 09/12/16 at 15:22; Status DC Potassium Chloride/Sodium Chloride (NS + KCl 20 Meq Inj) 1,000 ml @ 100 mls/hr Q10H IV Last administered on 09/15/16 14:26; Start 09/12/16 at 15:59 IV Flush (NS Flush) 2 ml UNSCH PRN IVF FLUSH AFTER USING IV ACCESS; Start at 16:00 IV Flush 2 ml 2 ml BID IVF Last administered on 09/15/16 09:00; Start 09/12/16 at 21:00 Cefazolin Sodium/ Dextrose 50 ml @ 100 mls/hr Q8H IV ; Start 09/12/16 at 16:00; Stop 09/12/16 at 16:35; Status DC Levetriacetam/ Sodium Chloride (Keppra Inj/NS Inj) 105 ml @ 400 mls/hr Q12H IV Last administered on 09/15/16 03:51; Start 09/12/16 at 16:00 Bisacodyl (Dulcolax Supp) 10 mg DAILY PRN RECTAL CONSTIPATION; Start 09/12/16 at 16:00 Docusate Sodium (Colace) 100 mg BID PO Last administered on 09/15/16 10:37; Start 09/12/16 at 21:00 Pantoprazole Sodium (Protonix) 40 mg DAILY PO Last administered on 09/15/16 10: 37; Start 09/13/16 at 09:00 Pantoprazole Sodium (Protonix Inj) 40 mg DAILY IVP Last administered on 09:00; Start 09/13/16 at 09:00 Ondansetron HCl (Zofran Inj) 4 mg Q6H PRN IV NAUSEA OR VOMITING; Start 09/12/16 at 16:00 Calcium Gluconate 1 gm 1 gm UNSCH PRN IV SEE LABEL COMMENTS; Start 09/12/16 at 16:00 Potassium Chloride 100 ml @ 50 mls/hr UNSCH PRN IV POTASSIUM LESS THAN 4; Start 09/12/16 at 16:00 Magnesium Sulfate/ Sodium Chloride (Magnesium Sulfate Inj/NS Inj) 108 ml @ 108 mls/hr UNSCH PRN IV MAGNESIUM LESS THAN 2; Start 09/12/16 at 16:00 Acetaminophen/ Hydrocodone Bitart ([place] 10-325 Mg) 1 tab Q4H PRN PO PAIN SCALE 1 TO 5 Last administered on 09/14/16 23:41; Start 09/12/16 at 16:00 Acetaminophen/ Hydrocodone Bitart ([place] 10-325 Mg) 2 tab Q4H PRN PO PAIN SCALE 6 TO 10; Start 09/12/16 at 16:00 Morphine Sulfate (Morphine Inj) 2 mg Q2H PRN IV PUSH PAIN SCALE 1 TO 6; Start 09/12/16 at 16:00 Morphine Sulfate (Morphine Inj) 4 mg Q2H PRN IV PUSH PAIN SCALE 7 TO 10 Last administered on 09/12/16 22:00; Start 09/12/16 at 16:00 Acetaminophen 650 mg 650 mg Q4H PRN PO TEMPERATURE > 101.5 F; Start 09/12/16 at 16:00 Cefazolin Sodium/ Dextrose 50 ml @ 100 mls/hr Q8H IV ; Start 09/12/16 at 16:45; Stop 09/12/16 at 16:45; Status DC Cefazolin Sodium/ Dextrose (Ancef 2 Gm Premix) 50 ml @ 100 mls/hr Q8H IV Last administered on 09/13/16 14:00; Start 09/12/16 at 22:00; Stop 09/13/16 at 14:29; Status DC Mannitol (Mannitol Inj) 25 gm STK-MED ONCE IV Last administered on 09/12/16 16: 00; Start 09/12/16 at 16:00; Stop 09/12/16 at 17:36; Status DC Hydralazine HCl (Apresoline Inj) 20 mg STK-MED ONCE .ROUTE Last administered on 09/12/16 18:22; Start 09/12/16 at 18:22; Stop 09/12/16 at 18:23; Status DC Miscellaneous Information ALL NURSING DEPARTME... UNSCH PRN .XX SEE LABEL COMMENTS; Start 09/12/16 at 19:00; Stop 09/13/16 at 18:59; Status DC Nicardipine HCl/ Sodium Chloride (Cardene Inj/NS 250 ml Inj) 260 ml @ 0 mls/hr TITRATE IV ; Start 09/12/16 at 19:00 Morphine Sulfate (*morphine INJ PERIprocedure ONLY) 8 mg STK-MED ONCE .ROUTE Last administered on 09/12/16t 19:38; Start 09/12/16 at 19:38; Stop 09/12/16 at 19: 39; Status DC A/P Assessment and Plan Intracranial Mass lesions with left facial paresis and tingling sensation on extremities -Most likely secondary to metastatic disease. - Brain MRI shows multiple intracranial mass lesions with different signal characteristics, suspicious for metastatic disease; the largest lesion in the right temporal area demonstrates central necrosis with 2 other nonenhancing lesions in the left thalamus. -hx of Breast Cancer diagnosed in 2006, has triple negative breast Cancer, treated at [facility] status post left mastectomy, not treated with Hormone blockade Therapy. -CEA, CA-125 and CA 15-3 within normal limits. -status post Stereotactic image guided frontal craniotomy with Microsurgical resection brain tumor. -Patient on IV Decadron. -Biopsy shows a glioblastoma grade 4 -Her oncologist patient will need Temodar and radiation. -Patient wants to wait for her sister to go over the results. Hypothyroidism -By history, patient off medications. -Patient was started on levothyroxine 25 mg by mouth daily. Will need is rechecked in 6 weeks. Hypertension - Controlled. DVT prophylaxis: Heparin Ester Strange MD Sep 15, 2016 16:24
[2016-09-15 20:00] VITALS: BP 134/74; PULSE 68; RESP 16; TEMP 98.2; O2SAT 96
[2016-09-15] MEDS: ACETAMINOPHEN/HYDROcodone 325 MG/10 MG TAB PO PRN (20:48)
[2016-09-16 00:22] VITALS: BP 137/69; PULSE 68; RESP 17; TEMP 97.2; O2SAT 96
[2016-09-16 05:01] VITALS: BP 142/72; PULSE 57; RESP 17; TEMP 97.6; O2SAT 96
[2016-09-16] MEDS: LEVOTHYROXINE SODIUM 25 MCG TAB PO SCH (05:18)
[2016-09-16] MEDS: levETIRAcetam INJ 500 MG in SODIUM CHLORIDE 0.9% INJ 100 ML IV SCH ×2 (05:18→14:53)
[2016-09-16] MEDS: PANTOPRAZOLE SODIUM 40 MG VIAL IVP SCH (07:19)
[2016-09-16 07:31] LABS: AUTOMATED NEUTROPHIL # 16.1 TH/MM3 (1.8-7.7); BASOPHIL % 0.1 % (0.0-2.0); HEMATOCRIT 42.1 % (35.0-46.0); HEMO FLAGS DIFF FINAL; LYMPH % 6.6 % (9.0-44.0); LYMPHOCYTE # 1.2 TH/MM3 (1.0-4.8); MEAN CELL VOLUME 90.6 FL (80.0-100.0); MEAN CORPUSCULAR HEMOGLOBIN 31.6 PG (27.0-34.0); MEAN CORPUSCULAR HGB CONC 34.9 % (32.0-36.0); MONO % 4.6 % (0.0-8.0); NEUT % 88.7 % (16.0-70.0); PLATELET COUNT 265 TH/MM3 (150-450); RED BLOOD COUNT 4.65 MIL/MM3 (4.00-5.30); RED CELL DISTRIBUTION WIDTH 12.8 % (11.6-17.2); WHITE BLOOD COUNT 18.1 TH/MM3 (4.0-11.0)
[2016-09-16 08:00] VITALS: BP 138/76; PULSE 76; RESP 17; TEMP 97.8; O2SAT 98
[2016-09-16] MEDS: SODIUM CHLORIDE 0.9% FLUSH 5 ML FLUSH IVF SCH ×2 (09:00→20:25)
[2016-09-16] MEDS: PANTOPRAZOLE SOD 40 MG DELAYED RELEASE TAB PO SCH (09:19)
[2016-09-16] MEDS: DEXAMETHASONE SOD PHOS 4 MG/ML VIAL IV PUSH SCH ×2 (09:19→17:56)
[2016-09-16] MEDS: DOCUSATE SODIUM 100 MG CAP PO SCH ×2 (09:20→20:29)
[2016-09-16] MEDS: NS + KCL 20 MEQ INJ 1,000 ML IV SCH (09:25)
[2016-09-16 12:00] VITALS: BP 144/79; PULSE 71; RESP 18; TEMP 97.1; O2SAT 96
[2016-09-16 16:00] VITALS: BP 121/71; PULSE 76; RESP 18; TEMP 96.1; O2SAT 96
--- NOTE | 2016-09-16 16:00 | HHI.PR ---
Subjective Remarks f/u for brain mass. patient has no complaints. denied any pain or focal neurological deficits. Objective Vitals Vital Signs Date Time Temp Pulse Resp B/P Pulse Ox O2 Delivery O2 Flow Rate FiO2 09/16/16 12:00 97.1 71 18 144/79 96 09/16/16 08:00 97.8 76 17 138/76 98 09/16/16 05:01 97.6 57 17 142/72 96 09/16/16 00:22 97.2 68 17 137/69 96 09/15/16 20:00 98.2 68 16 134/74 96 I/O 09/15/16 09/15/16 09/15/16 09/16/16 09/16/16 09/16/16 07:00 15:00 23:00 07:00 15:00 23:00 Intake Total 500 ml 2417 ml 1586 ml 426 ml Output Total 2450 ml 15 ml 3100 ml 900 ml 1275 ml Balance -1950 ml -15 ml -683 ml 686 ml -849 ml Intake Oral 500 ml 1080 ml 600 ml IV Total 1337 ml 986 ml 426 ml Output Urine Total 2450 ml 3100 ml 900 ml 1275 ml Drainage Total 15 ml # Bowel Movements 0 1 Result Diagram: 09/16/1661809/14/16627 Objective Remarks GENERAL: Pleasant female, sitting up in bed in nad. HEAD: Normocephalic. bandages in place along scalp. incision site clean with victor m in place, TANI drains with serosanguineous drainage RESPIRATORY: Breath sounds equal bilaterally. No accessory muscle use. GASTROINTESTINAL: Abdomen soft, non-tender, nondistended. NEUROLOGICAL: awake and alert. 5 out of 5 bilateral upper and lower extremity strength. Sensation is intact. Medications and IVs Current Medications Lorazepam (Ativan Inj) 1 mg ONCE ONCE IV PUSH Last administered on 09/05/16 14:26; Start 09/05/16 at 14:15; Stop 09/05/16 at 14:16; Status DC Gadodiamide (Omniscan Pf Inj) 14 ml STK-MED ONCE IV Last administered on 15:08; Start 09/05/16 at 15:08; Stop 09/05/16 at 15:09; Status DC Dexamethasone Sodium Phosphate 10 mg 10 mg ONCE ONCE IV PUSH Last administered on 09/05/16 17:00; Start 09/05/16 at 17:00; Stop 09/05/16 at 17:01 ; Status DC Sodium Chloride (NS 1000 ml Inj) 1,000 ml @ 100 mls/hr Q10H IV Last administered on 09/07/16 08:57; Start 09/05/16 at 17:14; Stop 09/07/16 at 11:13 ; Status DC Sodium Chloride (NS Flush) 2 ml UNSCH PRN IV FLUSH FLUSH AFTER USING IV ACCESS ; Start 09/05/16 at 17:15; Stop 09/12/16 at 16:31; Status DC Sodium Chloride (NS Flush) 2 ml BID IV FLUSH Last administered on 09/11/16 10: 17; Start 09/05/16 at 21:00; Stop 09/12/16 at 16:31; Status DC Acetaminophen (Tylenol) 650 mg Q4H PRN PO PAIN SCALE 1 TO 2 Last administered on 09/09/16 18:00; Start 09/05/16 at 17:15; Stop 09/12/16 at 16:43; Status DC Ondansetron HCl (Zofran Inj) 4 mg Q6H PRN IVP NAUSEA OR VOMITING; Start at 17:15; Stop 09/12/16 at 16:30; Status DC Metoclopramide HCl (Reglan Inj) 5 mg Q6H PRN IV PUSH NAUSEA OR VOMITING; Start 09/05/16 at 17:15; Stop 09/12/16 at 16:40; Status DC Bisacodyl (Dulcolax Supp) 10 mg DAILY PRN [place] CONSTIPATION; Start 09/05/16 at 17 :15; Stop 09/12/16 at 16:42; Status DC Heparin Sodium (Porcine) (Heparin Inj) 5,000 units Q8H SQ Last administered on 09/11/16 10:20; Start 09/05/16 at 18:00; Stop 09/11/16 at 11:08; Status DC Naloxone HCl (Narcan Inj) 0.4 mg UNSCH PRN IV SEE LABEL COMMENTS; Start at 17:15 Oxycodone/ Acetaminophen (Percocet 5-325 Mg) 1 tab Q4H PRN PO PAIN SCALE 3 TO 6; Start 09/05/16 at 17:30; Stop 09/12/16 at 16:41; Status DC Clonidine (Catapres) 0.1 mg Q6H PRN PO SBP>160, DBP>90 Last administered on 09/09 20:22; Start 09/05/16 at 17:45 Dexamethasone Sodium Phosphate (Decadron Inj) 4 mg Q8HR IV PUSH Last administered on 09/06/16 01:15; Start 09/06/16 at 01:00; Stop 09/06/16 at 04:35 ; Status DC Iohexol (Omnipaque 350 Inj) 96 ml STK-MED ONCE IV Last administered on 20:54; Start 09/05/16 at 20:54; Stop 09/05/16 at 20:55; Status DC Dexamethasone Sodium Phosphate (Decadron Inj) 4 mg Q8H IV PUSH Last administered on 09/16/16 09:19; Start 09/06/16 at 09:00 Levothyroxine Sodium (Synthroid) 25 mcg DAILY@0600 PO Last administered on 05:18; Start 09/07/16 at 06:00 Levothyroxine Sodium (Synthroid) 25 mcg ONCE ONCE PO Last administered on 09/06 16:29; Start 09/06/16 at 15:15; Stop 09/06/16 at 15:16; Status DC Amlodipine Besylate (Norvasc) 2.5 mg DAILY PO Last administered on 09/07/16 08 :56; Start 09/06/16 at 16:00; Stop 09/07/16 at 16:00; Status DC Alprazolam (Xanax) 0.5 mg Q8H PRN PO ANXIETY Last administered on 09/11/16 17: 41; Start 09/07/16 at 11:15 Amlodipine Besylate (Norvasc) 5 mg DAILY PO Last administered on 09/08/16 08: 22; Start 09/08/16 at 09:00; Stop 09/08/16 at 16:56; Status DC Amlodipine Besylate (Norvasc) 2.5 mg ONCE ONCE PO Last administered on 18:02; Start 09/07/16 at 16:00; Stop 09/07/16 at 16:01; Status DC Miscellaneous (Pill Splitter) 1 ea UNSCH PRN OTHER SEE LABEL COMMENTS; Start at 16:15 Amlodipine Besylate (Norvasc) 10 mg DAILY PO Last administered on 09/16/16 09: 20; Start 09/09/16 at 09:00 Amlodipine Besylate 2.5 mg 2.5 mg ONCE ONCE PO Last administered on 09/08/16 17:22; Start 09/08/16 at 17:00; Stop 09/08/16 at 17:01; Status DC Sodium Chloride 1,000 ml @ 100 mls/hr Q10H IV Last administered on 09/12/16 09 :00; Start 09/11/16 at 23:00; Stop 09/12/16 at 16:28; Status DC Cefazolin Sodium/ Dextrose 50 ml @ 150 mls/hr [employer] IV Last administered on 09/12/16 14:25; Start 09/12/16 at 06:00; Stop 09/12/16 at 23:59; Status DC Vancomycin HCl/ Sodium Chloride (Vancomycin Inj/ NS 250 ml Inj) 250 ml @ 250 mls/hr [employer] IV Last administered on 09/12/16 14:23; Start 09/12/16 at 06:00 ; Stop 09/12/16 at 23:59; Status DC Chlorhexidine Gluconate (Hibiclens 4% Top Soln) 1 applic HS TOP Last administered on 09/11/16 23:37; Start 09/11/16 at 21:00; Stop 09/12/16 at 21:01; Status DC Pantoprazole Sodium (Protonix Inj) 40 mg Q24H IV PUSH Last administered on 14:42; Start 09/11/16 at 14:00; Stop 09/12/16 at 16:27; Status DC Famotidine (Pepcid Inj) 20 mg STK-MED ONCE .ROUTE ; Start 09/12/16 at 14:40; Stop 09/12/16 at 14:41; Status DC Vancomycin HCl (Vancomycin Inj) 1,000 mg STK-MED ONCE .ROUTE ; Start 09/12/16 at 15:05; Stop 09/12/16 at 15:06; Status DC Thrombin (Thrombin Top Soln) 10,000 units STK-MED ONCE .ROUTE Last administered on 09/12/16 16:38; Start 09/12/16 at 15:05; Stop 09/12/16 at 15:06; Status DC Nicardipine HCl (Cardene Inj) 25 mg STK-MED ONCE .ROUTE ; Start 09/12/16 at 15:06 ; Stop 09/12/16 at 15:07; Status DC Gelatin (Gelfoam 100 Top) 1 foam STK-MED ONCE .ROUTE Last administered on 16:38; Start 09/12/16 at 15:06; Stop 09/12/16 at 15:07; Status DC Furosemide (Lasix Inj) 40 mg STK-MED ONCE .ROUTE ; Start 09/12/16 at 15:06; Stop 09/12/16 at 15:07; Status DC Levetriacetam (Keppra Inj) 500 mg STK-MED ONCE IV ; Start 09/12/16 at 15:06; Stop 09/12/16 at 15:07; Status DC Bacitracin (Baciguent Oint) 15 applic STK-MED ONCE .ROUTE Last administered on 09/12/16 16:38; Start 09/12/16 at 15:06; Stop 09/12/16 at 15:07; Status DC Gentamicin Sulfate (Gentamicin Inj) 240 mg STK-MED ONCE .ROUTE Last administered on 09/12/16 16:38; Start 09/12/16 at 15:06; Stop 09/12/16 at 15:07; Status DC Lidocaine/ Epinephrine (Xylocaine-Epi 1%-1:100,000 Inj) 20 ml STK-MED ONCE .ROUTE Last administered on 09/12/16 16:38; Start 09/12/16 at 15:07; Stop at 15:08; Status DC Acetaminophen (Ofirmev Inj) 1,000 mg STK-MED ONCE IV ; Start 09/12/16 at 15:07; Stop 09/12/16 at 15:08; Status DC Midazolam HCl (Versed Inj) 2 mg STK-MED ONCE .ROUTE ; Start 09/12/16 at 15:08; Stop 09/12/16 at 15:09; Status DC Fentanyl Citrate (fentaNYL INJ) 250 mcg STK-MED ONCE .ROUTE ; Start 09/12/16 at 15:08; Stop 09/12/16 at 15:09; Status DC Fentanyl Citrate (fentaNYL INJ) 250 mcg STK-MED ONCE .ROUTE ; Start 09/12/16 at 15:08; Stop 09/12/16 at 15:09; Status DC Diphenhydramine HCl 50 mg 50 mg STK-MED ONCE .ROUTE ; Start 09/12/16 at 15:21; Stop 09/12/16 at 15:22; Status DC Potassium Chloride/Sodium Chloride (NS + KCl 20 Meq Inj) 1,000 ml @ 100 mls/hr Q10H IV Last administered on 09/16/16 09:25; Start 09/12/16 at 15:59 IV Flush (NS Flush) 2 ml UNSCH PRN IVF FLUSH AFTER USING IV ACCESS; Start at 16:00 IV Flush 2 ml 2 ml BID IVF Last administered on 09/15/16 09:00; Start 09/12/16 at 21:00 Cefazolin Sodium/ Dextrose 50 ml @ 100 mls/hr Q8H IV ; Start 09/12/16 at 16:00; Stop 09/12/16 at 16:35; Status DC Levetriacetam/ Sodium Chloride (Keppra Inj/NS Inj) 105 ml @ 400 mls/hr Q12H IV Last administered on 09/16/16 14:53; Start 09/12/16 at 16:00 Bisacodyl (Dulcolax Supp) 10 mg DAILY PRN RECTAL CONSTIPATION; Start 09/12/16 at 16:00 Docusate Sodium (Colace) 100 mg BID PO Last administered on 09/16/16 09:20; Start 09/12/16 at 21:00 Pantoprazole Sodium (Protonix) 40 mg DAILY PO Last administered on 09/16/16 09: 19; Start 09/13/16 at 09:00 Pantoprazole Sodium (Protonix Inj) 40 mg DAILY IVP Last administered on 09:00; Start 09/13/16 at 09:00 Ondansetron HCl (Zofran Inj) 4 mg Q6H PRN IV NAUSEA OR VOMITING; Start 09/12/16 at 16:00 Calcium Gluconate 1 gm 1 gm UNSCH PRN IV SEE LABEL COMMENTS; Start 09/12/16 at 16:00 Potassium Chloride 100 ml @ 50 mls/hr UNSCH PRN IV POTASSIUM LESS THAN 4; Start 09/12/16 at 16:00 Magnesium Sulfate/ Sodium Chloride (Magnesium Sulfate Inj/NS Inj) 108 ml @ 108 mls/hr UNSCH PRN IV MAGNESIUM LESS THAN 2; Start 09/12/16 at 16:00 Acetaminophen/ Hydrocodone Bitart ([place] 10-325 Mg) 1 tab Q4H PRN PO PAIN SCALE 1 TO 5 Last administered on 09/15/16 20:48; Start 09/12/16 at 16:00 Acetaminophen/ Hydrocodone Bitart ([place] 10-325 Mg) 2 tab Q4H PRN PO PAIN SCALE 6 TO 10; Start 09/12/16 at 16:00 Morphine Sulfate (Morphine Inj) 2 mg Q2H PRN IV PUSH PAIN SCALE 1 TO 6; Start 09/12/16 at 16:00 Morphine Sulfate (Morphine Inj) 4 mg Q2H PRN IV PUSH PAIN SCALE 7 TO 10 Last administered on 09/12/16 22:00; Start 09/12/16 at 16:00 Acetaminophen 650 mg 650 mg Q4H PRN PO TEMPERATURE > 101.5 F; Start 09/12/16 at 16:00 Cefazolin Sodium/ Dextrose 50 ml @ 100 mls/hr Q8H IV ; Start 09/12/16 at 16:45; Stop 09/12/16 at 16:45; Status DC Cefazolin Sodium/ Dextrose (Ancef 2 Gm Premix) 50 ml @ 100 mls/hr Q8H IV Last administered on 09/13/16 14:00; Start 09/12/16 at 22:00; Stop 09/13/16 at 14:29; Status DC Mannitol (Mannitol Inj) 25 gm STK-MED ONCE IV Last administered on 09/12/16 16: 00; Start 09/12/16 at 16:00; Stop 09/12/16 at 17:36; Status DC Hydralazine HCl (Apresoline Inj) 20 mg STK-MED ONCE .ROUTE Last administered on 09/12/16 18:22; Start 09/12/16 at 18:22; Stop 09/12/16 at 18:23; Status DC Miscellaneous Information ALL NURSING DEPARTME... UNSCH PRN .XX SEE LABEL COMMENTS; Start 09/12/16 at 19:00; Stop 09/13/16 at 18:59; Status DC Nicardipine HCl/ Sodium Chloride (Cardene Inj/NS 250 ml Inj) 260 ml @ 0 mls/hr TITRATE IV ; Start 09/12/16 at 19:00 Morphine Sulfate (*morphine INJ PERIprocedure ONLY) 8 mg STK-MED ONCE .ROUTE Last administered on 09/12/16t 19:38; Start 09/12/16 at 19:38; Stop 09/12/16 at 19: 39; Status DC A/P Assessment and Plan Intracranial Mass lesions with left facial paresis and tingling sensation on extremities -Most likely secondary to metastatic disease. - Brain MRI shows multiple intracranial mass lesions with different signal characteristics, suspicious for metastatic disease; the largest lesion in the right temporal area demonstrates central necrosis with 2 other nonenhancing lesions in the left thalamus. -hx of Breast Cancer diagnosed in 2006, has triple negative breast Cancer, treated at [facility] status post left mastectomy, not treated with Hormone blockade Therapy. -CEA, CA-125 and CA 15-3 within normal limits. -status post Stereotactic image guided frontal craniotomy with Microsurgical resection brain tumor. -Patient on IV Decadron. -Biopsy shows a glioblastoma grade 4 -Per oncologist patient will need Temodar and radiation. Hypothyroidism -By history, patient off medications. -Patient was started on levothyroxine 25 mg by mouth daily. Will need is rechecked in 6 weeks. Hypertension - Controlled. DVT prophylaxis: Heparin Discharge Planning pending [facility] Ester Strange MD Sep 16, 2016 16:00
[2016-09-16 21:00] VITALS: BP 136/70; PULSE 67; RESP 18; TEMP 97.8; O2SAT 96
[2016-09-17 00:15] VITALS: BP 130/67; PULSE 66; RESP 19; TEMP 98.3; O2SAT 97
[2016-09-17] MEDS: DEXAMETHASONE SOD PHOS 4 MG/ML VIAL IV PUSH SCH ×3 (00:57→18:06)
[2016-09-17] MEDS: NS + KCL 20 MEQ INJ 1,000 ML IV SCH ×2 (00:58→18:10)
[2016-09-17] MEDS: levETIRAcetam INJ 500 MG in SODIUM CHLORIDE 0.9% INJ 100 ML IV SCH ×2 (04:00→18:08)
[2016-09-17 05:00] VITALS: BP 142/85; PULSE 63; RESP 17; TEMP 97.1; O2SAT 97
[2016-09-17] MEDS: LEVOTHYROXINE SODIUM 25 MCG TAB PO SCH (07:04)
[2016-09-17 07:58] VITALS: BP 154/77; PULSE 67; RESP 18; TEMP 96.5; O2SAT 96
[2016-09-17 08:24] LABS: AUTOMATED NEUTROPHIL # 17.9 TH/MM3 (1.8-7.7); BASOPHIL % 0.1 % (0.0-2.0); HEMATOCRIT 41.5 % (35.0-46.0); HEMO FLAGS DIFF FINAL; LYMPH % 7.3 % (9.0-44.0); LYMPHOCYTE # 1.5 TH/MM3 (1.0-4.8); MEAN CELL VOLUME 90.9 FL (80.0-100.0); MEAN CORPUSCULAR HEMOGLOBIN 31.1 PG (27.0-34.0); MEAN CORPUSCULAR HGB CONC 34.2 % (32.0-36.0); MONO % 3.9 % (0.0-8.0); NEUT % 88.7 % (16.0-70.0); PLATELET COUNT 244 TH/MM3 (150-450); RED BLOOD COUNT 4.57 MIL/MM3 (4.00-5.30); RED CELL DISTRIBUTION WIDTH 12.6 % (11.6-17.2); WHITE BLOOD COUNT 20.1 TH/MM3 (4.0-11.0)
[2016-09-17] MEDS: PANTOPRAZOLE SOD 40 MG DELAYED RELEASE TAB PO SCH (08:35)
[2016-09-17] MEDS: DOCUSATE SODIUM 100 MG CAP PO SCH ×2 (08:35→20:44)
[2016-09-17] MEDS: PANTOPRAZOLE SODIUM 40 MG VIAL IVP SCH (08:36)
[2016-09-17] MEDS: SODIUM CHLORIDE 0.9% FLUSH 5 ML FLUSH IVF SCH ×2 (08:40→20:44)
--- NOTE | 2016-09-17 10:03 | HHI.PR ---
Subjective Remarks Follow-up for glioblastoma Patient has no complaints. Patient stated that she has been ambulating to the restroom. She remains afebrile. Denies any pain. Objective Vitals Vital Signs Date Time Temp Pulse Resp B/P Pulse Ox O2 Delivery O2 Flow Rate FiO2 09/17/16 07:58 96.5 67 18 154/77 96 09/17/16 05:00 97.1 63 17 142/85 97 09/17/16 00:15 98.3 66 19 130/67 97 09/16/16 21:00 97.8 67 18 136/70 96 09/16/16 16:00 96.1 76 18 121/71 96 09/16/16 12:00 97.1 71 18 144/79 96 I/O 09/16/16 09/16/16 09/16/16 09/17/16 09/17/16 09/17/16 07:00 15:00 23:00 07:00 15:00 23:00 Intake Total 1586 ml 426 ml 1757 ml 900 ml Output Total 900 ml 1275 ml 1000 ml 1000 ml Balance 686 ml -849 ml 757 ml -100 ml Intake Oral 600 ml 1305 ml 900 ml IV Total 986 ml 426 ml 452 ml Output Urine Total 900 ml 1275 ml 1000 ml 1000 ml # Bowel Movements 1 0 0 Result Diagram: 09/17/1635 09/14/16627 Objective Remarks GENERAL: Pleasant female, sitting up in bed in nad. HEAD: Normocephalic. bandages in place along scalp. incision site clean with victor m in place. RESPIRATORY: Breath sounds equal bilaterally. No accessory muscle use. GASTROINTESTINAL: Abdomen soft, non-tender, nondistended. NEUROLOGICAL: awake and alert. 5 out of 5 bilateral upper and lower extremity strength. Sensation is intact. Medications and IVs Current Medications Lorazepam (Ativan Inj) 1 mg ONCE ONCE IV PUSH Last administered on 09/05/16 14:26; Start 09/05/16 at 14:15; Stop 09/05/16 at 14:16; Status DC Gadodiamide (Omniscan Pf Inj) 14 ml STK-MED ONCE IV Last administered on 15:08; Start 09/05/16 at 15:08; Stop 09/05/16 at 15:09; Status DC Dexamethasone Sodium Phosphate 10 mg 10 mg ONCE ONCE IV PUSH Last administered on 09/05/16 17:00; Start 09/05/16 at 17:00; Stop 09/05/16 at 17:01 ; Status DC Sodium Chloride (NS 1000 ml Inj) 1,000 ml @ 100 mls/hr Q10H IV Last administered on 09/07/16 08:57; Start 09/05/16 at 17:14; Stop 09/07/16 at 11:13 ; Status DC Sodium Chloride (NS Flush) 2 ml UNSCH PRN IV FLUSH FLUSH AFTER USING IV ACCESS ; Start 09/05/16 at 17:15; Stop 09/12/16 at 16:31; Status DC Sodium Chloride (NS Flush) 2 ml BID IV FLUSH Last administered on 09/11/16 10: 17; Start 09/05/16 at 21:00; Stop 09/12/16 at 16:31; Status DC Acetaminophen (Tylenol) 650 mg Q4H PRN PO PAIN SCALE 1 TO 2 Last administered on 09/09/16 18:00; Start 09/05/16 at 17:15; Stop 09/12/16 at 16:43; Status DC Ondansetron HCl (Zofran Inj) 4 mg Q6H PRN IVP NAUSEA OR VOMITING; Start at 17:15; Stop 09/12/16 at 16:30; Status DC Metoclopramide HCl (Reglan Inj) 5 mg Q6H PRN IV PUSH NAUSEA OR VOMITING; Start 09/05/16 at 17:15; Stop 09/12/16 at 16:40; Status DC Bisacodyl (Dulcolax Supp) 10 mg DAILY PRN [place] CONSTIPATION; Start 09/05/16 at 17 :15; Stop 09/12/16 at 16:42; Status DC Heparin Sodium (Porcine) (Heparin Inj) 5,000 units Q8H SQ Last administered on 09/11/16 10:20; Start 09/05/16 at 18:00; Stop 09/11/16 at 11:08; Status DC Naloxone HCl (Narcan Inj) 0.4 mg UNSCH PRN IV SEE LABEL COMMENTS; Start at 17:15 Oxycodone/ Acetaminophen (Percocet 5-325 Mg) 1 tab Q4H PRN PO PAIN SCALE 3 TO 6; Start 09/05/16 at 17:30; Stop 09/12/16 at 16:41; Status DC Clonidine (Catapres) 0.1 mg Q6H PRN PO SBP>160, DBP>90 Last administered on 09/09 20:22; Start 09/05/16 at 17:45 Dexamethasone Sodium Phosphate (Decadron Inj) 4 mg Q8HR IV PUSH Last administered on 09/06/16 01:15; Start 09/06/16 at 01:00; Stop 09/06/16 at 04:35 ; Status DC Iohexol (Omnipaque 350 Inj) 96 ml STK-MED ONCE IV Last administered on 20:54; Start 09/05/16 at 20:54; Stop 09/05/16 at 20:55; Status DC Dexamethasone Sodium Phosphate (Decadron Inj) 4 mg Q8H IV PUSH Last administered on 09/17/16 08:37; Start 09/06/16 at 09:00 Levothyroxine Sodium (Synthroid) 25 mcg DAILY@0600 PO Last administered on 07:04; Start 09/07/16 at 06:00 Levothyroxine Sodium (Synthroid) 25 mcg ONCE ONCE PO Last administered on 09/06 16:29; Start 09/06/16 at 15:15; Stop 09/06/16 at 15:16; Status DC Amlodipine Besylate (Norvasc) 2.5 mg DAILY PO Last administered on 09/07/16 08 :56; Start 09/06/16 at 16:00; Stop 09/07/16 at 16:00; Status DC Alprazolam (Xanax) 0.5 mg Q8H PRN PO ANXIETY Last administered on 09/11/16 17: 41; Start 09/07/16 at 11:15 Amlodipine Besylate (Norvasc) 5 mg DAILY PO Last administered on 09/08/16 08: 22; Start 09/08/16 at 09:00; Stop 09/08/16 at 16:56; Status DC Amlodipine Besylate (Norvasc) 2.5 mg ONCE ONCE PO Last administered on 18:02; Start 09/07/16 at 16:00; Stop 09/07/16 at 16:01; Status DC Miscellaneous (Pill Splitter) 1 ea UNSCH PRN OTHER SEE LABEL COMMENTS; Start at 16:15 Amlodipine Besylate (Norvasc) 10 mg DAILY PO Last administered on 09/17/16 08: 35; Start 09/09/16 at 09:00 Amlodipine Besylate 2.5 mg 2.5 mg ONCE ONCE PO Last administered on 09/08/16 17:22; Start 09/08/16 at 17:00; Stop 09/08/16 at 17:01; Status DC Sodium Chloride 1,000 ml @ 100 mls/hr Q10H IV Last administered on 09/12/16 09 :00; Start 09/11/16 at 23:00; Stop 09/12/16 at 16:28; Status DC Cefazolin Sodium/ Dextrose 50 ml @ 150 mls/hr [employer] IV Last administered on 09/12/16 14:25; Start 09/12/16 at 06:00; Stop 09/12/16 at 23:59; Status DC Vancomycin HCl/ Sodium Chloride (Vancomycin Inj/ NS 250 ml Inj) 250 ml @ 250 mls/hr INHALATION [employer] IV Last administered on 09/12/16 14:23; Start 09/12/16 at 06:00 ; Stop 09/12/16 at 23:59; Status DC Chlorhexidine Gluconate (Hibiclens 4% Top Soln) 1 applic HS TOP Last administered on 09/11/16 23:37; Start 09/11/16 at 21:00; Stop 09/12/16 at 21:01; Status DC Pantoprazole Sodium (Protonix Inj) 40 mg Q24H IV PUSH Last administered on 14:42; Start 09/11/16 at 14:00; Stop 09/12/16 at 16:27; Status DC Famotidine (Pepcid Inj) 20 mg STK-MED ONCE .ROUTE ; Start 09/12/16 at 14:40; Stop 09/12/16 at 14:41; Status DC Vancomycin HCl (Vancomycin Inj) 1,000 mg STK-MED ONCE .ROUTE ; Start 09/12/16 at 15:05; Stop 09/12/16 at 15:06; Status DC Thrombin (Thrombin Top Soln) 10,000 units STK-MED ONCE .ROUTE Last administered on 09/12/16 16:38; Start 09/12/16 at 15:05; Stop 09/12/16 at 15:06; Status DC Nicardipine HCl (Cardene Inj) 25 mg STK-MED ONCE .ROUTE ; Start 09/12/16 at 15:06 ; Stop 09/12/16 at 15:07; Status DC Gelatin (Gelfoam 100 Top) 1 foam STK-MED ONCE .ROUTE Last administered on 16:38; Start 09/12/16 at 15:06; Stop 09/12/16 at 15:07; Status DC Furosemide (Lasix Inj) 40 mg STK-MED ONCE .ROUTE ; Start 09/12/16 at 15:06; Stop 09/12/16 at 15:07; Status DC Levetriacetam (Keppra Inj) 500 mg STK-MED ONCE IV ; Start 09/12/16 at 15:06; Stop 09/12/16 at 15:07; Status DC Bacitracin (Baciguent Oint) 15 applic STK-MED ONCE .ROUTE Last administered on 09/12/16 16:38; Start 09/12/16 at 15:06; Stop 09/12/16 at 15:07; Status DC Gentamicin Sulfate (Gentamicin Inj) 240 mg STK-MED ONCE .ROUTE Last administered on 09/12/16 16:38; Start 09/12/16 at 15:06; Stop 09/12/16 at 15:07; Status DC Lidocaine/ Epinephrine (Xylocaine-Epi 1%-1:100,000 Inj) 20 ml STK-MED ONCE .ROUTE Last administered on 09/12/16 16:38; Start 09/12/16 at 15:07; Stop at 15:08; Status DC Acetaminophen (Ofirmev Inj) 1,000 mg STK-MED ONCE IV ; Start 09/12/16 at 15:07; Stop 09/12/16 at 15:08; Status DC Midazolam HCl (Versed Inj) 2 mg STK-MED ONCE .ROUTE ; Start 09/12/16 at 15:08; Stop 09/12/16 at 15:09; Status DC Fentanyl Citrate (fentaNYL INJ) 250 mcg STK-MED ONCE .ROUTE ; Start 09/12/16 at 15:08; Stop 09/12/16 at 15:09; Status DC Fentanyl Citrate (fentaNYL INJ) 250 mcg STK-MED ONCE .ROUTE ; Start 09/12/16 at 15:08; Stop 09/12/16 at 15:09; Status DC Diphenhydramine HCl 50 mg 50 mg STK-MED ONCE .ROUTE ; Start 09/12/16 at 15:21; Stop 09/12/16 at 15:22; Status DC Potassium Chloride/Sodium Chloride (NS + KCl 20 Meq Inj) 1,000 ml @ 100 mls/hr Q10H IV Last administered on 09/17/16 00:58; Start 09/12/16 at 15:59 IV Flush (NS Flush) 2 ml UNSCH PRN IVF FLUSH AFTER USING IV ACCESS; Start at 16:00 IV Flush 2 ml 2 ml BID IVF Last administered on 09/15/16 09:00; Start 09/12/16 at 21:00 Cefazolin Sodium/ Dextrose 50 ml @ 100 mls/hr Q8H IV ; Start 09/12/16 at 16:00; Stop 09/12/16 at 16:35; Status DC Levetriacetam/ Sodium Chloride (Keppra Inj/NS Inj) 105 ml @ 400 mls/hr Q12H IV Last administered on 09/16/16 14:53; Start 09/12/16 at 16:00 Bisacodyl (Dulcolax Supp) 10 mg DAILY PRN RECTAL CONSTIPATION; Start 09/12/16 at 16:00 Docusate Sodium (Colace) 100 mg BID PO Last administered on 09/17/16 08:35; Start 09/12/16 at 21:00 Pantoprazole Sodium (Protonix) 40 mg DAILY PO Last administered on 09/17/16 08: 35; Start 09/13/16 at 09:00 Pantoprazole Sodium (Protonix Inj) 40 mg DAILY IVP Last administered on 08:36; Start 09/13/16 at 09:00 Ondansetron HCl (Zofran Inj) 4 mg Q6H PRN IV NAUSEA OR VOMITING; Start 09/12/16 at 16:00 Calcium Gluconate 1 gm 1 gm UNSCH PRN IV SEE LABEL COMMENTS; Start 09/12/16 at 16:00 Potassium Chloride 100 ml @ 50 mls/hr UNSCH PRN IV POTASSIUM LESS THAN 4; Start 09/12/16 at 16:00 Magnesium Sulfate/ Sodium Chloride (Magnesium Sulfate Inj/NS Inj) 108 ml @ 108 mls/hr UNSCH PRN IV MAGNESIUM LESS THAN 2; Start 09/12/16 at 16:00 Acetaminophen/ Hydrocodone Bitart ([place] 10-325 Mg) 1 tab Q4H PRN PO PAIN SCALE 1 TO 5 Last administered on 09/15/16 20:48; Start 09/12/16 at 16:00 Acetaminophen/ Hydrocodone Bitart ([place] 10-325 Mg) 2 tab Q4H PRN PO PAIN SCALE 6 TO 10; Start 09/12/16 at 16:00 Morphine Sulfate (Morphine Inj) 2 mg Q2H PRN IV PUSH PAIN SCALE 1 TO 6; Start 09/12/16 at 16:00 Morphine Sulfate (Morphine Inj) 4 mg Q2H PRN IV PUSH PAIN SCALE 7 TO 10 Last administered on 09/12/16 22:00; Start 09/12/16 at 16:00 Acetaminophen 650 mg 650 mg Q4H PRN PO TEMPERATURE > 101.5 F; Start 09/12/16 at 16:00 Cefazolin Sodium/ Dextrose 50 ml @ 100 mls/hr Q8H IV ; Start 09/12/16 at 16:45; Stop 09/12/16 at 16:45; Status DC Cefazolin Sodium/ Dextrose (Ancef 2 Gm Premix) 50 ml @ 100 mls/hr Q8H IV Last administered on 09/13/16 14:00; Start 09/12/16 at 22:00; Stop 09/13/16 at 14:29; Status DC Mannitol (Mannitol Inj) 25 gm STK-MED ONCE IV Last administered on 09/12/16 16: 00; Start 09/12/16 at 16:00; Stop 09/12/16 at 17:36; Status DC Hydralazine HCl (Apresoline Inj) 20 mg STK-MED ONCE .ROUTE Last administered on 09/12/16 18:22; Start 09/12/16 at 18:22; Stop 09/12/16 at 18:23; Status DC Miscellaneous Information ALL NURSING DEPARTME... UNSCH PRN .XX SEE LABEL COMMENTS; Start 09/12/16 at 19:00; Stop 09/13/16 at 18:59; Status DC Nicardipine HCl/ Sodium Chloride (Cardene Inj/NS 250 ml Inj) 260 ml @ 0 mls/hr TITRATE IV ; Start 09/12/16 at 19:00 Morphine Sulfate (*morphine INJ PERIprocedure ONLY) 8 mg STK-MED ONCE .ROUTE Last administered on 09/12/16t 19:38; Start 09/12/16 at 19:38; Stop 09/12/16 at 19: 39; Status DC A/P Assessment and Plan Intracranial Mass lesions with left facial paresis and tingling sensation on extremities -Most likely secondary to metastatic disease. - Brain MRI shows multiple intracranial mass lesions with different signal characteristics, suspicious for metastatic disease; the largest lesion in the right temporal area demonstrates central necrosis with 2 other nonenhancing lesions in the left thalamus. -hx of Breast Cancer diagnosed in 2006, has triple negative breast Cancer, treated at [facility] status post left mastectomy, not treated with Hormone blockade Therapy. -CEA, CA-125 and CA 15-3 within normal limits. -status post Stereotactic image guided frontal craniotomy with Microsurgical resection brain tumor. -Patient on IV Decadron. -Biopsy shows a glioblastoma grade 4 -Per oncologist patient will need Temodar and radiation. -Patient to follow-up with neurosurgeon outpatient for victor m removal on 09/26 Hypothyroidism -By history, patient off medications. -Patient was started on levothyroxine 25 mg by mouth daily. Will need is rechecked in 6 weeks. Hypertension - Controlled. DVT prophylaxis: Heparin d/w patient's nurse. Discharge Planning pending SSI. Patient is ambulating there is no indication for Michel will remove Michel. Ester Strange MD Sep 17, 2016 10:03
[2016-09-17 15:45] VITALS: BP 138/86; PULSE 96; RESP 18; TEMP 98.6; O2SAT 96
[2016-09-17 21:30] VITALS: BP 160/82; PULSE 74; RESP 18; TEMP 97.5; O2SAT 97
[2016-09-18 00:45] VITALS: BP 146/80; PULSE 70; RESP 17; TEMP 98.1; O2SAT 98
[2016-09-18] MEDS: DEXAMETHASONE SOD PHOS 4 MG/ML VIAL IV PUSH SCH ×3 (01:29→17:46)
[2016-09-18] MEDS: NS + KCL 20 MEQ INJ 1,000 ML IV SCH ×3 (01:31→20:04)
[2016-09-18] MEDS: levETIRAcetam INJ 500 MG in SODIUM CHLORIDE 0.9% INJ 100 ML IV SCH ×2 (05:09→17:40)
[2016-09-18] MEDS: LEVOTHYROXINE SODIUM 25 MCG TAB PO SCH (05:09)
[2016-09-18 05:30] VITALS: BP 165/75; PULSE 67; RESP 17; TEMP 98; O2SAT 95
[2016-09-18 07:55] VITALS: BP 156/83; PULSE 61; RESP 18; TEMP 97.6; O2SAT 96
[2016-09-18] MEDS: PANTOPRAZOLE SOD 40 MG DELAYED RELEASE TAB PO SCH (08:40)
[2016-09-18] MEDS: DOCUSATE SODIUM 100 MG CAP PO SCH ×2 (08:40→21:12)
[2016-09-18] MEDS: PANTOPRAZOLE SODIUM 40 MG VIAL IVP SCH (08:41)
[2016-09-18] MEDS: SODIUM CHLORIDE 0.9% FLUSH 5 ML FLUSH IVF SCH ×2 (08:46→21:00)
--- NOTE | 2016-09-18 10:21 | RADRPT ---
EXAM DATE/TIME: 09/16/2016 08:09 [facility] COMPARISON: MRI BRAIN W & W/O CONTRAST, September 05, 2016, 14:35. INDICATIONS : Metastatic disease. MEDICAL HISTORY : Carcinoma, breast. Metastatic, brain. SURGICAL HISTORY : Mastectomy, right. Craniotomy. ENCOUNTER: Subsequent ACUITY: 2 weeks PAIN SCORE: 3/10 LOCATION: Right cranial TECHNIQUE: Single voxel and CSI spectroscopy using press and steam techniques were performed. FINDINGS: Sampling was performed of a left thalamic lesion and compared to the opposite films. The spectra demo nstrates mild depression of [place] with mild elevation of choline reaching a one to one ratio. Significa nt elevation in creatine is identified. There are no necrotic markers. CONCLUSION: Nonspecific MR spectroscopy of the left thymic lesion which can be identified in low grade astrocytom as however other MR sequences are fairly bland for neoplasm. Consideration should be given to the pre sence of a paraneoplastic syndrome such as encephalitis. Short-term followup for evolving changes zak uld be performed. Micky Beltre MD on September 18, 2016 at 9:29 Board Certified Radiologist. This report was verified electronically.
--- NOTE | 2016-09-18 11:54 | PD.ONC.PN ---
Subjective Subjective Remarks Afebrile overnight. Patient having a hard time sleeping at night in the hospital. She is anxious about getting everything set up so that she can start treatment. Objective Data Date Time Temp Pulse Resp B/P Pulse Ox O2 Delivery O2 Flow Rate FiO2 09/18/16 07:55 97.6 61 18 156/83 96 09/18/16 05:30 98.0 67 17 165/75 95 09/18/16 00:45 98.1 70 17 146/80 98 09/17/16 21:30 97.5 74 18 160/82 97 09/17/16 15:45 98.6 96 18 138/86 96 09/18/16 09/18/16 09/18/16 07:00 15:00 23:00 Intake Total 700 ml Output Total 850 ml Balance -150 ml Result Diagram: 09/17/1635 09/14/16 0628 Administered Medications Medications (Trade) Dose Ordered Sig/Jason Route PRN Reason Start Time Stop Time Status Last Admin Dose Admin Clonidine (Catapres) 0.1 mg Q6H PRN PO SBP>160, DBP>90 09/05/16 17:45 09/09/16 20:22 Dexamethasone Sodium Phosphate (Decadron Inj) 4 mg Q8H IV PUSH 09/06/16 09:00 09/18/16 08:41 Levothyroxine Sodium (Synthroid) 25 mcg DAILY@0600 PO 09/07/16 06:00 09/18/16 05:09 Alprazolam (Xanax) 0.5 mg Q8H PRN PO ANXIETY 09/07/16 11:15 09/11/16 17:41 Amlodipine Besylate 10 mg 10 mg DAILY PO 09/09/16 09:00 09/18/16 08:40 Potassium Chloride/Sodium Chloride (NS + KCl 20 Meq Inj) 1,000 ml @ 100 mls/hr Q10H IV 09/12/16 15:59 09/17/16 18:10 IV Flush 2 ml 2 ml BID IVF 09/12/16 21:00 09/15/16 09:00 Levetriacetam/ Sodium Chloride (Keppra Inj/NS Inj) 105 ml @ 400 mls/hr Q12H IV 09/12/16 16:00 09/18/16 05:09 Docusate Sodium (Colace) 100 mg BID PO 09/12/16 21:00 09/18/16 08:40 Pantoprazole Sodium (Protonix) 40 mg DAILY PO 09/13/16 09:00 09/18/16 08:40 Pantoprazole Sodium (Protonix Inj) 40 mg DAILY IVP 09/13/16 09:00 09/18/16 08:41 Acetaminophen/ Hydrocodone Bitart ([place] 10-325 Mg) 1 tab Q4H PRN PO PAIN SCALE 1 TO 5 09/12/16 16:00 09/15/16 20:48 Morphine Sulfate (Morphine Inj) 4 mg Q2H PRN IV PUSH PAIN SCALE 7 TO 10 09/12/16 16:00 09/12/16 22:00 Objective Remarks GENERAL: Middle aged female, sitting up in bed in nad SKIN: Warm and dry. HEAD: Normocephalic. scalp wound healing, no bleeding EYES: No injection or drainage. NECK: Supple, trachea midline. CARDIOVASCULAR: Regular rate and rhythm RESPIRATORY: Breath sounds equal bilaterally. No accessory muscle use. GASTROINTESTINAL: Abdomen soft, non-tender, nondistended. EXTREMITIES: No cyanosis MUSCULOSKELETAL: Adequate muscle tone. NEUROLOGICAL: awake and alert, normal speech. left sided weakness Assessment/Plan Problem List: (1) Intracranial mass Status: Acute Plan: --biopsy via NS 09/12, pathology shows Glioblastoma Multiforme -- Tumor markers CEA, CA 15-3, and CA125 all WNL. -- CT thorax negative for mets. -- CT abdomen/pelvis shows a small 6mm hypodense lesion. -- On Decadron. Hx/Workup: Pt was diagnosed and treated in 2006 at the [facility] for breast cancer. She was treated with chemotherapy and radiation for what was probably triple negative disease. She denies being on a hormonal agent or being treated with Herceptin for one year. She was followed up until 2013 when she lost her insurance. Assessment 60 y/o female admitted for intracranial masses with a history of breast cancer. Plan 1. will need to start Temodar and XRT 2. case management to assist with [employer] medicaid application 3. supportive care Attending Statement The exam, history, and the medical decision-making described in the above note were completed with the assistance of the mid-level provider. I reviewed and agree with the findings presented. I attest that I had a [id number] encounter with the patient on the same day, and personally performed and documented my assessment and findings in the medical record. Outpatient XRT and Temodar case management assisting with insurance Kaci Lyles Sep 18, 2016 11:53 Iván Lugo MD Sep 18, 2016 23:49
[2016-09-18 11:55] VITALS: BP 151/79; PULSE 69; RESP 19; TEMP 97.1; O2SAT 96
--- NOTE | 2016-09-18 15:43 | RADRPT ---
EXAM DATE/TIME: 09/18/2016 14:58 [facility] COMPARISON: MRI SPECTROSCOPY W/O CONTRAST, September 16, 2016, 8:09. MRI BRAIN W & W/O CONTRAST, September 05, 2016, 14 :35. INDICATIONS : Metastatic disease. CONTRAST: 15 cc Omniscan (gadodiamide) IV MEDICAL HISTORY : Carcinoma, breast. SURGICAL HISTORY : Appendectomy. Mastectomy, right. ENCOUNTER: Subsequent ACUITY: 4-6 days PAIN SCORE: 4/10 LOCATION: Head TECHNIQUE: Multiplanar, multisequence MRI of the brain was performed both prior to and following the administrat ion of paramagnetic contrast. FINDINGS: Diffusion weighted images demonstrate no evidence for acute infarction. The patient is status post bi opsy of a right frontal mass with right frontal craniotomy defect identified. There is a hyperintense tract extending to the mass which is centrally necrotic. There are areas of T1 hyperintensity consis tent with methemoglobin within the mass and there is mild surrounding vasogenic edema. There is some high signal fluid within the adjacent cortical sulci likely representing a small amount of subarachno id hemorrhage. There is mild mass effect on the body of the right lateral ventricle as before. Circum scribed T2 hyperintense lesion in the left thalamus which appears expanded is again noted and unchang ed. There is also a T2 hyperintense lesion adjacent to the posterior horn of left lateral ventricle. There is colonic and left posterior periventricular lesion however heterogeneous predominantly periph eral enhancement is seen within the right frontal mass measuring on axial image 118 of series 14 4.3 x 3 cm in transverse and AP dimension. There is mild overlying dural enhancement. CONCLUSION: 1. Post surgical changes are noted from recent biopsy of right frontal mass. 2. Stable left thalamic and left posterior frontal paraventricular lesions. Aneudy Ortega MD on September 18, 2016 at 15:35 Board Certified Radiologist. This report was verified electronically.
[2016-09-18] MEDS ORDERED: GADODIAMIDE PF 287 MG/ML 5 ML VIAL (for RAD MRI) IV ONE (15:46)
[2016-09-18 15:50] VITALS: BP 149/83; PULSE 67; RESP 19; TEMP 96.1; O2SAT 96
--- NOTE | 2016-09-18 16:09 | HHI.PR ---
Subjective Remarks Follow-up for brain mass. 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 Otherwise she stated that she is ambulating to the restroom without any difficulty. She is also having good urine output. Deny any headache, nausea vomiting or any concerns. Objective Vitals Vital Signs Date Time Temp Pulse Resp B/P Pulse Ox O2 Delivery O2 Flow Rate FiO2 09/18/16 11:55 97.1 69 19 151/79 96 09/18/16 07:55 97.6 61 18 156/83 96 09/18/16 05:30 98.0 67 17 165/75 95 09/18/16 00:45 98.1 70 17 146/80 98 09/17/16 21:30 97.5 74 18 160/82 97 I/O 09/17/16 09/17/16 09/17/16 09/18/16 09/18/16 09/18/16 07:00 15:00 23:00 07:00 15:00 23:00 Intake Total 900 ml 1140 ml 700 ml Output Total 1000 ml 1600 ml 850 ml Balance -100 ml -460 ml -150 ml Intake Oral 900 ml 1140 ml 700 ml Output Urine Total 1000 ml 1600 ml 850 ml # Voids 1 # Bowel Movements 0 0 0 Result Diagram: 09/17/16 0635 09/14/16 0628 Objective Remarks GENERAL: Pleasant female, sitting up in bed in nad. HEAD: Normocephalic. bandages in place along scalp. incision site clean with victor m in place. RESPIRATORY: Breath sounds equal bilaterally. No accessory muscle use. GASTROINTESTINAL: Abdomen soft, non-tender, nondistended. NEUROLOGICAL: awake and alert. 5 out of 5 bilateral upper and lower extremity strength. Sensation is intact. Medications and IVs Current Medications Lorazepam (Ativan Inj) 1 mg ONCE ONCE IV PUSH Last administered on 09/05/16 14:26; Start 09/05/16 at 14:15; Stop 09/05/16 at 14:16; Status DC Gadodiamide (Omniscan Pf Inj) 14 ml STK-MED ONCE IV Last administered on 15:08; Start 09/05/16 at 15:08; Stop 09/05/16 at 15:09; Status DC Dexamethasone Sodium Phosphate 10 mg 10 mg ONCE ONCE IV PUSH Last administered on 09/05/16 17:00; Start 09/05/16 at 17:00; Stop 09/05/16 at 17:01 ; Status DC Sodium Chloride (NS 1000 ml Inj) 1,000 ml @ 100 mls/hr Q10H IV Last administered on 09/07/16 08:57; Start 09/05/16 at 17:14; Stop 09/07/16 at 11:13 ; Status DC Sodium Chloride (NS Flush) 2 ml UNSCH PRN IV FLUSH FLUSH AFTER USING IV ACCESS ; Start 09/05/16 at 17:15; Stop 09/12/16 at 16:31; Status DC Sodium Chloride (NS Flush) 2 ml BID IV FLUSH Last administered on 09/11/16 10: 17; Start 09/05/16 at 21:00; Stop 09/12/16 at 16:31; Status DC Acetaminophen (Tylenol) 650 mg Q4H PRN PO PAIN SCALE 1 TO 2 Last administered on 09/09/16 18:00; Start 09/05/16 at 17:15; Stop 09/12/16 at 16:43; Status DC Ondansetron HCl (Zofran Inj) 4 mg Q6H PRN IVP NAUSEA OR VOMITING; Start at 17:15; Stop 09/12/16 at 16:30; Status DC Metoclopramide HCl (Reglan Inj) 5 mg Q6H PRN IV PUSH NAUSEA OR VOMITING; Start 09/05/16 at 17:15; Stop 09/12/16 at 16:40; Status DC Bisacodyl (Dulcolax Supp) 10 mg DAILY PRN [place] CONSTIPATION; Start 09/05/16 at 17 :15; Stop 09/12/16 at 16:42; Status DC Heparin Sodium (Porcine) (Heparin Inj) 5,000 units Q8H SQ Last administered on 09/11/16 10:20; Start 09/05/16 at 18:00; Stop 09/11/16 at 11:08; Status DC Naloxone HCl (Narcan Inj) 0.4 mg UNSCH PRN IV SEE LABEL COMMENTS; Start at 17:15 Oxycodone/ Acetaminophen (Percocet 5-325 Mg) 1 tab Q4H PRN PO PAIN SCALE 3 TO 6; Start 09/05/16 at 17:30; Stop 09/12/16 at 16:41; Status DC Clonidine (Catapres) 0.1 mg Q6H PRN PO SBP>160, DBP>90 Last administered on 09/09 20:22; Start 09/05/16 at 17:45 Dexamethasone Sodium Phosphate (Decadron Inj) 4 mg Q8HR IV PUSH Last administered on 09/06/16 01:15; Start 09/06/16 at 01:00; Stop 09/06/16 at 04:35 ; Status DC Iohexol (Omnipaque 350 Inj) 96 ml StreamezzoK-MED ONCE IV Last administered on 20:54; Start 09/05/16 at 20:54; Stop 09/05/16 at 20:55; Status DC Dexamethasone Sodium Phosphate (Decadron Inj) 4 mg Q8H IV PUSH Last administered on 09/18/16 08:41; Start 09/06/16 at 09:00 Levothyroxine Sodium (Synthroid) 25 mcg DAILY@0600 PO Last administered on 09/18 05:09; Start 09/07/16 at 06:00 Levothyroxine Sodium (Synthroid) 25 mcg ONCE ONCE PO Last administered on 09/06 16:29; Start 09/06/16 at 15:15; Stop 09/06/16 at 15:16; Status DC Amlodipine Besylate (Norvasc) 2.5 mg DAILY PO Last administered on 09/07/16 08 :56; Start 09/06/16 at 16:00; Stop 09/07/16 at 16:00; Status DC Alprazolam (Xanax) 0.5 mg Q8H PRN PO ANXIETY Last administered on 09/11/16 17: 41; Start 09/07/16 at 11:15 Amlodipine Besylate (Norvasc) 5 mg DAILY PO Last administered on 09/08/16 08: 22; Start 09/08/16 at 09:00; Stop 09/08/16 at 16:56; Status DC Amlodipine Besylate (Norvasc) 2.5 mg ONCE ONCE PO Last administered on 18:02; Start 09/07/16 at 16:00; Stop 09/07/16 at 16:01; Status DC Miscellaneous (Pill Splitter) 1 ea UNSCH PRN OTHER SEE LABEL COMMENTS; Start at 16:15 Amlodipine Besylate (Norvasc) 10 mg DAILY PO Last administered on 09/18/16 08: 40; Start 09/09/16 at 09:00 Amlodipine Besylate 2.5 mg 2.5 mg ONCE ONCE PO Last administered on 09/08/16 17:22; Start 09/08/16 at 17:00; Stop 09/08/16 at 17:01; Status DC Sodium Chloride 1,000 ml @ 100 mls/hr Q10H IV Last administered on 09/12/16 09 :00; Start 09/11/16 at 23:00; Stop 09/12/16 at 16:28; Status DC Cefazolin Sodium/ Dextrose 50 ml @ 150 mls/hr [employer] IV Last administered on 09/12/16 14:25; Start 09/12/16 at 06:00; Stop 09/12/16 at 23:59; Status DC Vancomycin HCl/ Sodium Chloride (Vancomycin Inj/ NS 250 ml Inj) 250 ml @ 250 mls/hr [employer] IV Last administered on 09/12/16 14:23; Start 09/12/16 at 06:00 ; Stop 09/12/16 at 23:59; Status DC Chlorhexidine Gluconate (Hibiclens 4% Top Soln) 1 applic HS TOP Last administered on 09/11/16 23:37; Start 09/11/16 at 21:00; Stop 09/12/16 at 21:01; Status DC Pantoprazole Sodium (Protonix Inj) 40 mg Q24H IV PUSH Last administered on 14:42; Start 09/11/16 at 14:00; Stop 09/12/16 at 16:27; Status DC Famotidine (Pepcid Inj) 20 mg STK-MED ONCE .ROUTE ; Start 09/12/16 at 14:40; Stop 09/12/16 at 14:41; Status DC Vancomycin HCl (Vancomycin Inj) 1,000 mg STK-MED ONCE .ROUTE ; Start 09/12/16 at 15:05; Stop 09/12/16 at 15:06; Status DC Thrombin (Thrombin Top Soln) 10,000 units STK-MED ONCE .ROUTE Last administered on 09/12/16 16:38; Start 09/12/16 at 15:05; Stop 09/12/16 at 15:06; Status DC Nicardipine HCl (Cardene Inj) 25 mg STK-MED ONCE .ROUTE ; Start 09/12/16 at 15:06 ; Stop 09/12/16 at 15:07; Status DC Gelatin (Gelfoam 100 Top) 1 foam STK-MED ONCE .ROUTE Last administered on 16:38; Start 09/12/16 at 15:06; Stop 09/12/16 at 15:07; Status DC Furosemide (Lasix Inj) 40 mg STK-MED ONCE .ROUTE ; Start 09/12/16 at 15:06; Stop 09/12/16 at 15:07; Status DC Levetriacetam (Keppra Inj) 500 mg STK-MED ONCE IV ; Start 09/12/16 at 15:06; Stop 09/12/16 at 15:07; Status DC Bacitracin (Baciguent Oint) 15 applic STK-MED ONCE .ROUTE Last administered on 09/12/16 16:38; Start 09/12/16 at 15:06; Stop 09/12/16 at 15:07; Status DC Gentamicin Sulfate (Gentamicin Inj) 240 mg STK-MED ONCE .ROUTE Last administered on 09/12/16 16:38; Start 09/12/16 at 15:06; Stop 09/12/16 at 15:07; Status DC Lidocaine/ Epinephrine (Xylocaine-Epi 1%-1:100,000 Inj) 20 ml STK-MED ONCE .ROUTE Last administered on 09/12/16 16:38; Start 09/12/16 at 15:07; Stop at 15:08; Status DC Acetaminophen (Ofirmev Inj) 1,000 mg STK-MED ONCE IV ; Start 09/12/16 at 15:07; Stop 09/12/16 at 15:08; Status DC Midazolam HCl (Versed Inj) 2 mg STK-MED ONCE .ROUTE ; Start 09/12/16 at 15:08; Stop 09/12/16 at 15:09; Status DC Fentanyl Citrate (fentaNYL INJ) 250 mcg STK-MED ONCE .ROUTE ; Start 09/12/16 at 15:08; Stop 09/12/16 at 15:09; Status DC Fentanyl Citrate (fentaNYL INJ) 250 mcg STK-MED ONCE .ROUTE ; Start 09/12/16 at 15:08; Stop 09/12/16 at 15:09; Status DC Diphenhydramine HCl 50 mg 50 mg STK-MED ONCE .ROUTE ; Start 09/12/16 at 15:21; Stop 09/12/16 at 15:22; Status DC Potassium Chloride/Sodium Chloride (NS + KCl 20 Meq Inj) 1,000 ml @ 100 mls/hr Q10H IV Last administered on 09/17/16 18:10; Start 09/12/16 at 15:59 IV Flush (NS Flush) 2 ml UNSCH PRN IVF FLUSH AFTER USING IV ACCESS; Start at 16:00 IV Flush 2 ml 2 ml BID IVF Last administered on 09/15/16 09:00; Start 09/12/16 at 21:00 Cefazolin Sodium/ Dextrose 50 ml @ 100 mls/hr Q8H IV ; Start 09/12/16 at 16:00; Stop 09/12/16 at 16:35; Status DC Levetriacetam/ Sodium Chloride (Keppra Inj/NS Inj) 105 ml @ 400 mls/hr Q12H IV Last administered on 09/18/16 05:09; Start 09/12/16 at 16:00 Bisacodyl (Dulcolax Supp) 10 mg DAILY PRN RECTAL CONSTIPATION; Start 09/12/16 at 16:00 Docusate Sodium (Colace) 100 mg BID PO Last administered on 09/18/16 08:40; Start 09/12/16 at 21:00 Pantoprazole Sodium (Protonix) 40 mg DAILY PO Last administered on 09/18/16 08 :40; Start 09/13/16 at 09:00 Pantoprazole Sodium (Protonix Inj) 40 mg DAILY IVP Last administered on 08:41; Start 09/13/16 at 09:00 Ondansetron HCl (Zofran Inj) 4 mg Q6H PRN IV NAUSEA OR VOMITING; Start 09/12/16 at 16:00 Calcium Gluconate 1 gm 1 gm UNSCH PRN IV SEE LABEL COMMENTS; Start 09/12/16 at 16:00 Potassium Chloride 100 ml @ 50 mls/hr UNSCH PRN IV POTASSIUM LESS THAN 4; Start 09/12/16 at 16:00 Magnesium Sulfate/ Sodium Chloride (Magnesium Sulfate Inj/NS Inj) 108 ml @ 108 mls/hr UNSCH PRN IV MAGNESIUM LESS THAN 2; Start 09/12/16 at 16:00 Acetaminophen/ Hydrocodone Bitart ([place] 10-325 Mg) 1 tab Q4H PRN PO PAIN SCALE 1 TO 5 Last administered on 09/15/16 20:48; Start 09/12/16 at 16:00 Acetaminophen/ Hydrocodone Bitart ([place] 10-325 Mg) 2 tab Q4H PRN PO PAIN SCALE 6 TO 10; Start 09/12/16 at 16:00 Morphine Sulfate (Morphine Inj) 2 mg Q2H PRN IV PUSH PAIN SCALE 1 TO 6; Start 09/12/16 at 16:00 Morphine Sulfate (Morphine Inj) 4 mg Q2H PRN IV PUSH PAIN SCALE 7 TO 10 Last administered on 09/12/16 22:00; Start 09/12/16 at 16:00 Acetaminophen 650 mg 650 mg Q4H PRN PO TEMPERATURE > 101.5 F; Start 09/12/16 at 16:00 Cefazolin Sodium/ Dextrose 50 ml @ 100 mls/hr Q8H IV ; Start 09/12/16 at 16:45; Stop 09/12/16 at 16:45; Status DC Cefazolin Sodium/ Dextrose (Ancef 2 Gm Premix) 50 ml @ 100 mls/hr Q8H IV Last administered on 09/13/16 14:00; Start 09/12/16 at 22:00; Stop 09/13/16 at 14:29; Status DC Mannitol (Mannitol Inj) 25 gm STK-MED ONCE IV Last administered on 09/12/16 16: 00; Start 09/12/16 at 16:00; Stop 09/12/16 at 17:36; Status DC Hydralazine HCl (Apresoline Inj) 20 mg STK-MED ONCE .ROUTE Last administered on 09/12/16 18:22; Start 09/12/16 at 18:22; Stop 09/12/16 at 18:23; Status DC Miscellaneous Information ALL NURSING DEPARTME... UNSCH PRN .XX SEE LABEL COMMENTS; Start 4/4/17 at 19:00; Stop 09/13/16 at 18:59; Status DC Nicardipine HCl/ Sodium Chloride (Cardene Inj/NS 250 ml Inj) 260 ml @ 0 mls/hr TITRATE IV ; Start 09/12/16 at 19:00 Morphine Sulfate (*morphine INJ PERIprocedure ONLY) 8 mg STK-MED ONCE .ROUTE Last administered on 09/12/16 19:38; Start 09/12/16 at 19:38; Stop 09/12/16 at 19: 39; Status DC Gadodiamide (Omniscan Pf Inj) 15 ml STK-MED ONCE IV Last administered on 15:46; Start 09/18/16 at 15:46; Stop 09/18/16 at 15:47; Status DC A/P Assessment and Plan Intracranial Mass lesions with left facial paresis and tingling sensation on extremities -Most likely secondary to metastatic disease. - Brain MRI shows multiple intracranial mass lesions with different signal characteristics, suspicious for metastatic disease; the largest lesion in the right temporal area demonstrates central necrosis with 2 other nonenhancing lesions in the left thalamus. -hx of Breast Cancer diagnosed in 2006, has triple negative breast Cancer, treated at [facility] status post left mastectomy, not treated with Hormone blockade Therapy. -CEA, CA-125 and CA 15-3 within normal limits. -status post Stereotactic image guided frontal craniotomy with Microsurgical resection brain tumor. -Patient on IV Decadron. -Biopsy shows a glioblastoma grade 4 -Per oncologist patient will need Temodar and radiation. -Patient to follow-up with neurosurgeon outpatient for victor m removal on 09/26 Hypothyroidism -By history, patient off medications. -Patient was started on levothyroxine 25 mg by mouth daily. Will need is rechecked in 6 weeks. Hypertension - Controlled. DVT prophylaxis: Heparin d/w patient's nurse. Discharge Planning pending SSI. Dealt with case management regards to this. Ester Strange MD Sep 18, 2016 16:09
[2016-09-18 20:00] VITALS: BP 133/76; PULSE 71; RESP 18; TEMP 97.3; O2SAT 95
[2016-09-19 00:14] VITALS: BP 128/75; PULSE 67; RESP 18; TEMP 97.8; O2SAT 97
[2016-09-19] MEDS: DEXAMETHASONE SOD PHOS 4 MG/ML VIAL IV PUSH SCH ×2 (00:58→09:03)
[2016-09-19 04:00] VITALS: BP 157/72; PULSE 66; RESP 20; TEMP 96.8; O2SAT 95
[2016-09-19] MEDS: levETIRAcetam INJ 500 MG in SODIUM CHLORIDE 0.9% INJ 100 ML IV SCH (04:04)
[2016-09-19] MEDS: LEVOTHYROXINE SODIUM 25 MCG TAB PO SCH (06:39)
[2016-09-19 08:00] VITALS: BP 138/76; PULSE 65; RESP 20; TEMP 98.1; O2SAT 98
[2016-09-19] MEDS: SODIUM CHLORIDE 0.9% FLUSH 5 ML FLUSH IVF SCH (09:00)
[2016-09-19] MEDS: NS + KCL 20 MEQ INJ 1,000 ML IV SCH (09:02)
[2016-09-19] MEDS: PANTOPRAZOLE SODIUM 40 MG VIAL IVP SCH (09:03)
[2016-09-19] MEDS: PANTOPRAZOLE SOD 40 MG DELAYED RELEASE TAB PO SCH (09:04)
[2016-09-19] MEDS: DOCUSATE SODIUM 100 MG CAP PO SCH (09:04)
--- NOTE | 2016-09-19 10:59 | HHI.PR ---
Objective Vitals Vital Signs Date Time Temp Pulse Resp B/P Pulse Ox O2 Delivery O2 Flow Rate FiO2 09/19/16 08:00 98.1 65 20 138/76 98 09/19/16 04:00 96.8 66 20 157/72 95 09/19/16 00:14 97.8 67 18 128/75 97 09/18/16 20:00 97.3 71 18 133/76 95 09/18/16 15:50 96.1 67 19 149/83 96 09/18/16 11:55 97.1 69 19 151/79 96 I/O 09/18/16 09/18/16 09/18/16 09/19/16 09/19/16 09/19/16 07:00 15:00 23:00 07:00 15:00 23:00 Intake Total 700 ml 480 ml Output Total 850 ml Balance -150 ml 480 ml Intake Oral 700 ml 480 ml Output Urine Total 850 ml # Voids 1 5 2 # Bowel Movements 0 1 0 Result Diagram: 09/17/16 0635 Objective Remarks GENERAL: Pleasant female, sitting up in bed in nad. HEAD: Normocephalic. bandages in place along scalp. incision site clean with victor m in place. RESPIRATORY: Breath sounds equal bilaterally. No accessory muscle use. GASTROINTESTINAL: Abdomen soft, non-tender, nondistended. NEUROLOGICAL: awake and alert. 5 out of 5 bilateral upper and lower extremity strength. Sensation is intact. A/P Assessment and Plan Intracranial Mass lesions with left facial paresis and tingling sensation on extremities -Most likely secondary to metastatic disease. - Brain MRI shows multiple intracranial mass lesions with different signal characteristics, suspicious for metastatic disease; the largest lesion in the right temporal area demonstrates central necrosis with 2 other nonenhancing lesions in the left thalamus. -hx of Breast Cancer diagnosed in 2006, has triple negative breast Cancer, treated at [facility] status post left mastectomy, not treated with Hormone blockade Therapy. -CEA, CA-125 and CA 15-3 within normal limits. -status post Stereotactic image guided frontal craniotomy with Microsurgical resection brain tumor. -Patient on IV Decadron. -Biopsy shows a glioblastoma grade 4 -Per oncologist patient will need Temodar and radiation. -Patient to follow-up with neurosurgeon outpatient for victor m removal on 09/26 Hypothyroidism -By history, patient off medications. -Patient was started on levothyroxine 25 mg by mouth daily. Will need is rechecked in 6 weeks. Hypertension - Controlled. DVT prophylaxis: Heparin d/w patient's nurse. Discharge Planning pending SSI. Dealt with case management regards to this. Ester Strange MD Sep 19, 2016 10:59
[2016-09-19] MEDS ORDERED: ALPR.5 PO (11:13)
[2016-09-19] MEDS ORDERED: LEVO25TA4 PO (11:13)
[2016-09-19] MEDS ORDERED: HYDR-3583 PO (11:13)
[2016-09-19] MEDS ORDERED: AMLO10 PO (11:13)
[2016-09-19] MEDS ORDERED: LEVE500 PO (11:17)
[2016-09-19 12:00] VITALS: BP 156/86; PULSE 78; RESP 20; TEMP 96.9; O2SAT 95
[2016-09-19] MEDS ORDERED: levETIRAcetam 500 MG TAB PO SCH (12:00)
--- NOTE | 2016-09-19 12:13 | PD.ONC.PN ---
Subjective Subjective Remarks Afebrile overnight. patient feeling anxious. she has occasional headache which is improved with medication. Objective Data Date Time Temp Pulse Resp B/P Pulse Ox O2 Delivery O2 Flow Rate FiO2 09/19/16 08:00 98.1 65 20 138/76 98 09/19/16 04:00 96.8 66 20 157/72 95 09/19/16 00:14 97.8 67 18 128/75 97 09/18/16 20:00 97.3 71 18 133/76 95 09/18/16 15:50 96.1 67 19 149/83 96 Result Diagram: 09/17/16 0635 Administered Medications Medications (Trade) Dose Ordered Sig/Jason Route PRN Reason Start Time Stop Time Status Last Admin Dose Admin Clonidine (Catapres) 0.1 mg Q6H PRN PO SBP>160, DBP>90 09/05/16 17:45 09/09/16 20:22 Dexamethasone Sodium Phosphate (Decadron Inj) 4 mg Q8H IV PUSH 09/06/16 09:00 09/19/16 09:03 Levothyroxine Sodium (Synthroid) 25 mcg DAILY@0600 PO 09/07/16 06:00 09/19/16 06:39 Alprazolam (Xanax) 0.5 mg Q8H PRN PO ANXIETY 09/07/16 11:15 09/11/16 17:41 Amlodipine Besylate 10 mg 10 mg DAILY PO 09/09/16 09:00 09/19/16 09:04 Potassium Chloride/Sodium Chloride (NS + KCl 20 Meq Inj) 1,000 ml @ 100 mls/hr Q10H IV 09/12/16 15:59 09/19/16 09:02 IV Flush (NS Flush) 2 ml BID IVF 09/12/16 21:00 09/18/16 21:00 Docusate Sodium (Colace) 100 mg BID PO 09/12/16 21:00 09/19/16 09:04 Pantoprazole Sodium (Protonix) 40 mg DAILY PO 09/13/16 09:00 09/19/16 09:04 Pantoprazole Sodium (Protonix Inj) 40 mg DAILY IVP 09/13/16 09:00 09/19/16 09:03 Acetaminophen/ Hydrocodone Bitart ([place] 10-325 Mg) 1 tab Q4H PRN PO PAIN SCALE 1 TO 5 09/12/16 16:00 09/15/16 20:48 Morphine Sulfate (Morphine Inj) 4 mg Q2H PRN IV PUSH PAIN SCALE 7 TO 10 09/12/16 16:00 09/12/16 22:00 Acetaminophen (Tylenol) 650 mg Q4H PRN PO TEMPERATURE > 101.5 F 09/12/16 16:00 09/19/16 02:01 Objective Remarks GENERAL: Pleasant female, sitting up in bed in nad. SKIN: Warm and dry. HEAD: Normocephalic. healing scalp incision site EYES: No injection or drainage. NECK: Supple, trachea midline. CARDIOVASCULAR: Regular rate and rhythm RESPIRATORY: Breath sounds equal bilaterally. No accessory muscle use. GASTROINTESTINAL: Abdomen soft, non-tender, nondistended. EXTREMITIES: No cyanosis NEUROLOGICAL: awake and alert, normal speech. left sided weakness Assessment/Plan Problem List: (1) Intracranial mass Status: Acute Plan: --biopsy via NS 09/12, pathology shows Glioblastoma Multiforme -- Tumor markers CEA, CA 15-3, and CA125 all WNL. -- CT thorax negative for mets. -- CT abdomen/pelvis shows a small 6mm hypodense lesion. -- On Decadron. Hx/Workup: Pt was diagnosed and treated in 2006 at the [facility] for breast cancer. She was treated with chemotherapy and radiation for what was probably triple negative disease. She denies being on a hormonal agent or being treated with Herceptin for one year. She was followed up until 2013 when she lost her insurance. Assessment 60 y/o female admitted for intracranial masses with a history of breast cancer. Plan 1. fs faxed to new patient referrals for follow up once discharged 2. Temodar + XRT outpatient Attending Statement The exam, history, and the medical decision-making described in the above note were completed with the assistance of the mid-level provider. I reviewed and agree with the findings presented. I attest that I had a [id number] encounter with the patient on the same day, and personally performed and documented my assessment and findings in the medical record. outpatient follow-up ok to d/c from med onc perspective when ready Kaci Lyles Sep 19, 2016 12:13 Iván Lguo MD Sep 19, 2016 22:35
[2016-09-19] MEDS ORDERED: DEXA4TAB PO (13:18)
--- NOTE | 2016-09-19 13:20 | HHI.DCPOC ---
Discharge Care Plan Diagnosis: (1) Glioblastoma Goals to Promote Your Health * To prevent worsening of your condition and complications * To maintain your health at the optimal level Directions to Meet Your Goals Take your medications as prescribed Follow your dietary instruction Follow activity as directed Keep your appointments as scheduled Take your immunizations and boosters as scheduled If your symptoms worsen call your PCP, if no PCP go to Urgent Care Center or Emergency Room Smoking is Dangerous to Your Health. Avoid second hand smoke Call the 24-hour hour crisis hotline for domestic abuse at Ester Strange MD Sep 19, 2016 13:20
--- NOTE | 2016-09-19 13:22 | HHI.DS ---
Discharge Summary Admission Date Sep 05, 2016 at 17:17 Discharge Date: Sep 19, 2016 Admitting Diagnosis multiple intracranial masses (1) Glioblastoma ICD Code: C71.9 Diagnosis: Principal Procedures see hospital course Brief History - From Admission 60-year-old female with a past medical history of HTN, hypothyroidism, and treated breast cancer who presented with anxiety and tremors. The patient states that for the past few weeks to maybe 2 months ago she's been having tremors, numbness, and tingling in her right hand. For the past week she's been having difficulty with food falling out of the left side of her mouth when she tries to eat. She denies any weakness, gait unsteadiness, vision changes. She states occasionally she gets a headache behind her right eye, but states that isn't happening for years. 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 She states a few weeks ago the chemicals were causing her to have a sore and irritated throat, but that has improved. She has a history of right breast cancer with mastectomy, chemotherapy, and radiation back in 2006. She states that previously she was on medicine for high blood pressure and hypothyroidism whenever she had insurance. She states she previously weighed 220 pounds, and lost weight intentionally. CBC/BMP: 09/17/16 0635 Significant Findings Laboratory Tests Test 09/17/16 06:35 White Blood Count 20.1 TH/MM3 (4.0-11.0) Neutrophils (%) (Auto) 88.7 % (16.0-70.0) Lymphocytes (%) (Auto) 7.3 % (9.0-44.0) Neutrophils # (Auto) 17.9 TH/MM3 (1.8-7.7) Imaging Last Impressions Brain MRI 09/18/16 0000 Signed Impressions: Service Date/Time: Sunday, September 18, 2016 14:58 - CONCLUSION: 1. Post surgical changes are noted from recent biopsy of right frontal mass. 2. Stable left thalamic and left posterior frontal paraventricular lesions. Aneudy Ortega MD Spectroscopy MRI 09/16/16 0000 Signed Impressions: Service Date/Time: Friday, September 16, 2016 08:09 - CONCLUSION: Nonspecific MR spectroscopy of the left thymic lesion which can be identified in low grade astrocytomas however other MR sequences are fairly bland for neoplasm. Consideration should be given to the presence of a paraneoplastic syndrome such as encephalitis. Short-term followup for evolving changes should be performed. Micky Beltre MD Head CT 09/13/16 0000 Signed Impressions: Service Date/Time: Tuesday, September 13, 2016 09:55 - CONCLUSION: 1. The patient has undergone resection of a large cavitary mass from the right parietal cortex. There is a TANI drain which was left in place within the mass. It is in excellent position. There is minimal, expected postoperative hemorrhage around the drain and within the tumor bed. Jimbo Shaw MD Chest CT 09/05/16 0000 Signed Impressions: Service Date/Time: Monday, September 05, 2016 20:30 - CONCLUSION: No acute disease. Memo Houston MD Abdomen/Pelvis CT 09/05/16 0000 Signed Impressions: Service Date/Time: Monday, September 05, 2016 20:30 - CONCLUSION: Tiny 5 mm calcified nonobstructing upper pole left renal calculus. Tiny 6 mm low density lesion within the right lobe of the liver posteriorly which is too small for accurate density measurement. Memo Houston MD PE at Discharge GENERAL: Pleasant female, sitting up in bed in nad. HEAD: Normocephalic. bandages in place along scalp. incision site clean with victor m in place. RESPIRATORY: Breath sounds equal bilaterally. No accessory muscle use. GASTROINTESTINAL: Abdomen soft, non-tender, nondistended. NEUROLOGICAL: awake and alert. 5 out of 5 bilateral upper and lower extremity strength. Sensation is intact. Pt update on day of discharge f/u for intracranial mass. patient seen walking in hallway with PT with no difficulty. she had no complaints and ready to do home. denied any CHOWDHURY, N/V. tolerating PO intake. Patient stated sister coming at 1 pm for fill out forms. Hospital Course ntracranial Mass lesions with left facial paresis and tingling sensation on extremities -Most likely secondary to metastatic disease. - Brain MRI shows multiple intracranial mass lesions with different signal characteristics, suspicious for metastatic disease; the largest lesion in the right temporal area demonstrates central necrosis with 2 other nonenhancing lesions in the left thalamus. -hx of Breast Cancer diagnosed in 2006, has triple negative breast Cancer, treated at [facility] status post left mastectomy, not treated with Hormone blockade Therapy. -CEA, CA-125 and CA 15-3 within normal limits. -status post Stereotactic image guided frontal craniotomy with Microsurgical resection brain tumor. -Patient on IV Decadron transition to PO per Neurosurgeon. Taper given at discharge. -Biopsy shows a glioblastoma grade 4 -Per oncologist patient will need Temodar and radiation. -Patient to follow-up with neurosurgeon outpatient for victor m removal on 09/26 Hypothyroidism -By history, patient off medications. -Patient was started on levothyroxine 25 mg by mouth daily. Will need is rechecked in 6 weeks. Hypertension - Controlled. Pt Condition on Discharge: Stable Discharge Disposition: Discharge Home Discharge Time: > 30 minutes Discharge Instructions DIET: Follow Instructions for: Heart Healthy Diet Activities you can perform: Regular-No Restrictions Follow up Referrals: Neurosurgery - 09/26/16 Oncology - 1 Week with SHERRON New Medications: Dexamethasone (Dexamethasone) 4 Mg Tab 4 MG PO DIRECTED take 4mg tablet every 12 hours for 3 days then take 2 mg tablets (1/2 tablet) every 8 hours for 3 days then take 2 mg tablets every 12 hours for 3 days then take 2 mg tablets every hour for 3 days brain mass #15 Ref 0 TAB Levetiracetam (Keppra) 500 Mg Tab 500 MG PO BID Control Seizures #60 Ref 0 TAB Alprazolam (Xanax) 0.5 Mg Tab 0.5 MG PO Q8H PRN ANXIETY #15 Ref 0 TAB Amlodipine (Norvasc) 10 Mg Tab 10 MG PO DAILY hypertension #30 Ref 0 TAB Hydrocodone-Acetaminophen (Hydrocodone-Acetaminophen) 10-325 mg Tab 1 TAB PO Q4H PRN pain #30 Ref 0 TAB Levothyroxine (Levothyroxine) 25 Mcg Tab 25 MCG PO DAILY@0600 hypothyrodism #30 Ref 0 TAB Ester Strange MD Sep 19, 2016 13:22
[2016-09-26] MEDS ORDERED: GUAI200T PO (15:22)
[2016-10-06] MEDS ORDERED: AMLO10 PO (11:26)
[2016-10-06] MEDS ORDERED: LEVE500 PO (11:26)
[2016-10-06] MEDS ORDERED: LEVO25TA4 PO (11:26)
[2016-10-06] MEDS ORDERED: HYDR12.56 PO (11:29)
[2016-10-11] MEDS ORDERED: ALPR.5 PO (09:38)
== END 2016-09-19 14:31 | disposition home or self-care (01) | DRG 25 ==
LOC: NEPB 11:33 → NEDA 17:17 → HOCB 22:23 → N03B 09-12 23:02 → N05B 09-13 15:25
PROVIDERS: ADMIT Family Medicine; ATTEND Family Medicine
PROC: 00B00ZX Excision of Brain, Open Approach, Diagnostic (ICD-10-PCS; principal; 2016-09-12 15:23)
DX: C71.9 Malignant neoplasm of brain, unspecified (principal); G93.6 Cerebral edema; E03.9 Hypothyroidism, unspecified; I10 Essential (primary) hypertension; Z85.3 Personal history of malignant neoplasm of breast; Z92.21 Personal history of antineoplastic chemotherapy; Z92.3 Personal history of irradiation; Z87.891 Personal history of nicotine dependence
CPT/HCPCS: 70450; 70553; 71260; 74177; 76390; 80048; 80061; 80076; 82378; 82948; 83036; 83690; 83735; 84100; 84439; 84443; 85025; 85610; 86300; 86304; 88307; 88331; 88333; 93005; 94150; 96374; 96375; 99222; A9579; C1713; C9113; J0131; J0360; J0690; J1100; J1200; J1580; J1644; J1940; J1953; J2060; J2150; J2250; J2270; J2405; J2710; J3010; J3370; J3480; J7030; J7040; J7050; J7120; Q9967

== ENCOUNTER 2017-01-30 16:53 | Inpatient (IN) | payer MEDICAID ==
[~2017-01-30] VITALS: Ht 162.6 cm; Wt 63.7 kg
[~2017-01-30 16:53] MED LIST: ACYC400T PO; ALPR.5 PO; AMLO10 PO; CHLORELLA PO; DEXA0.5T PO; HYDR12.56 PO; LEVE500 PO; LEVE500T8 PO; LEVO50TA4 PO; PNEU0.5I2 IM; PROC10TA PO; SULF1TAB58 PO; TEMO1CAP8 PO
[2017-01-30 16:54] VITALS: BP 125/101; PULSE 121; RESP 20; TEMP 98.5; O2SAT 92
[2017-01-30] MEDS ORDERED: SODIUM CHLOR 0.9% 1000 ML INJ 1,000 ML IV SCH (19:39)
[2017-01-30] MEDS ORDERED: ONDANSETRON HCL 4 MG/2 ML VIAL IVP ONE (19:45)
[2017-01-30] MEDS ORDERED: SODIUM CHLORIDE 0.9% FLUSH 10 ML FLUSH IV FLUSH PRN ×2 (19:45→22:00)
[2017-01-30 20:27] LABS: AUTOMATED NEUTROPHIL # 5.6 TH/MM3 (1.8-7.7); BASOPHIL # 0.1 TH/MM3 (0-0.2); BASOPHIL % 0.9 % (0.0-2.0); EOSINOPHIL # 0.1 TH/MM3 (0-0.4); EOSINOPHIL % 0.9 % (0.0-4.0); HEMATOCRIT 44.6 % (35.0-46.0); HEMO FLAGS DIFF FINAL; LYMPH % 22.6 % (9.0-44.0); LYMPHOCYTE # 1.9 TH/MM3 (1.0-4.8); MEAN CELL VOLUME 91.2 FL (80.0-100.0); MEAN CORPUSCULAR HEMOGLOBIN 32.2 PG (27.0-34.0); MEAN CORPUSCULAR HGB CONC 35.3 % (32.0-36.0); MONO % 9.3 % (0.0-8.0); NEUT % 66.3 % (16.0-70.0); PLATELET COUNT 296 TH/MM3 (150-450); RED BLOOD COUNT 4.88 MIL/MM3 (4.00-5.30); RED CELL DISTRIBUTION WIDTH 12.9 % (11.6-17.2); WHITE BLOOD COUNT 8.5 TH/MM3 (4.0-11.0)
[2017-01-30 20:45] LABS: APTT (PATIENT) 26.4 SEC (24.3-30.1); PROTHROMBIN TIME - PATIENT 10.7 SEC (9.8-11.6)
[2017-01-30 20:49] LABS: POTASSIUM 3.2 MEQ/L (3.5-5.1)
--- NOTE | 2017-01-30 21:12 | PD ---
HPI Chief Complaint: Fall Time Seen by Provider: 19:26 Travel History International Travel<30 days: No Contact w/Intl Traveler<30days: No Traveled to known affect area: No History of Present Illness HPI Patient is a 61-year-old female with history of brain cancer, was sent to emergency room by her oncologist, Dr. Lugo with complaints of multiple falls. As per patient, she is currently on her second round of chemotherapy. Reports that over the past week, she has fallen at least 9 times. Reports that no one is home with her during the day time as everyone works and she falls going to and from the bathroom. Reports that she has baseline weakness to her left upper and lower extremities at baseline - reports that her weakness is just getting worse. Patient denies any trauma to her head or neck, reports that she feels weak. Patient does live at home with her sister who is her caregiver. Patient' s sister reports that she did talk to social work, they were working on getting patient home care but reports "they can't wait any longer" as she feels that patient is unsafe being home alone. Reports that over the course of the weeks, she has progressively gotten worse and cannot perform her own ADL's. Denies fever/chills. Denies chest pain/sob. No fever/chills. Dr. Lugo: oncologist Dr. Osorio: neurosurgeon [facility] Past Medical History Arthritis: Yes Anxiety: Yes (in past) Cancer: Yes High Cholesterol: Yes Chemotherapy: Yes Diabetes: No Diminished Hearing: No Genitourinary: No Hypertension: Yes Immune Disorder: No Neurologic: Yes (Chronic headaches) Psychiatric: No Reproductive: No Respiratory: Yes (History pneumonia and bronchitis) Radiation Therapy: Yes Thyroid Disease: Yes Tetanus Vaccination: Unknown Influenza Vaccination: No Past Surgical History Abdominal Surgery: Yes (appendectomy at age 13) Gynecologic Surgery: Yes (Right mastectomy 2006, reconstruction 2007) Mastectomy: Yes (RIGHT) Social History Alcohol Use: Yes ("A COUPLE OF BEERS DAILY") Tobacco Use: No Substance Use: Yes (State "tiny bit" of Marijuanna) Allergies-Medications (Allergen,Severity, Reaction): Coded Allergies: adhesive (Unverified Allergy, Severe, RASH, 01/23/17) latex (Unverified Allergy, Severe, RASH, 01/23/17) Reported Meds & Prescriptions Reported Meds & Active Scripts Active Levothyroxine (Levothyroxine Sodium) 50 Mcg Tab 50 Mcg PO DAILY Xanax (Alprazolam) 0.5 Mg Tab 0.5 Mg PO Q8H PRN Keppra (Levetiracetam) 500 Mg Tab 500 Mg PO BID Norvasc (Amlodipine Besylate) 10 Mg Tab 10 Mg PO DAILY Reported Temozolomide 140 Mg Cap 130 Mg PO DAILY Dexamethasone 0.5 Mg Tab 0.5 Mg PO DAILY Prochlorperazine Maleate 10 Mg Tab 10 Mg PO Q6H PRN [Chlorella FX] Mg PO DAILY Sulfamethoxazole-Tmp Ss Tablet (Sulfamethoxazole/Trimethoprim) 400 Mg-80 Mg Tablet PO DAILY Acyclovir 400 Mg Tab 400 Mg PO DAILY Review of Systems General / Constitutional: No: Fever Eyes: No: Visual changes HENT: No: Headaches Cardiovascular: No: Chest Pain or Discomfort Respiratory: No: Shortness of Breath Gastrointestinal: No: Abdominal Pain Genitourinary: No: Dysuria Musculoskeletal: No: Pain Skin: No Rash Neurologic: Positive: Weakness Psychiatric: No: Depression Endocrine: No: Polydipsia Hematologic/Lymphatic: No: Easy Bruising Physical Exam Narrative GENERAL: mild distress SKIN: Focused skin assessment warm/dry. HEAD: Atraumatic. Normocephalic. EYES: Pupils equal and round. No scleral icterus. No injection or drainage. ENT: No nasal bleeding or discharge. Mucous membranes pink and moist. NECK: Trachea midline. No JVD. CARDIOVASCULAR: Regular rate and rhythm. No murmur appreciated. RESPIRATORY: No accessory muscle use. Clear to auscultation. Breath sounds equal bilaterally. GASTROINTESTINAL: Abdomen soft, non-tender, nondistended. Hepatic and splenic margins not palpable. MUSCULOSKELETAL: No obvious deformities. No clubbing. No cyanosis. No edema. Weakness to lue and lle NEUROLOGICAL: Awake and alert. No obvious cranial nerve deficits. Motor grossly within normal limits. Normal speech. PSYCHIATRIC: Appropriate mood and affect; insight and judgment normal. Data Data Last Documented VS Vital Signs Date Time Temp Pulse Resp B/P (MAP) Pulse Ox O2 Delivery O2 Flow Rate FiO2 01/30/17 19:24 16 01/30/17 16:54 98.5 121 125/101 (109) 92 Room Air Orders Orders Basic Metabolic Panel (Bmp) (01/30/17 19:39) Complete Blood Count With Diff (01/30/17 19:39) Prothrombin Time / Inr (Pt) (01/30/17 19:39) Act Partial Throm Time (Ptt) (01/30/17 19:39) Urinalysis - C+S If Indicated (01/30/17 19:39) Iv Access Insert/Monitor (01/30/17 19:39) Ecg Monitoring (01/30/17 19:39) Oximetry (01/30/17 19:39) Ondansetron Inj (Zofran Inj) (01/30/17 19:45) Sodium Chlor 0.9% 1000 Ml Inj (Ns 1000 M (01/30/17 19:39) Sodium Chloride 0.9% Flush (Ns Flush) (01/30/17 19:45) Diet Regular Basic (01/31/17 Dinner) Diet Regular Basic (01/30/17 Dinner) Labs Laboratory Tests Test 01/30/17 20:10 White Blood Count 8.5 TH/MM3 Red Blood Count 4.88 MIL/MM3 Hemoglobin 15.7 GM/DL Hematocrit 44.6 % Mean Corpuscular Volume 91.2 FL Mean Corpuscular Hemoglobin 32.2 PG Mean Corpuscular Hemoglobin Concent 35.3 % Red Cell Distribution Width 12.9 % Platelet Count 296 TH/MM3 Mean Platelet Volume 6.8 FL Neutrophils (%) (Auto) 66.3 % Lymphocytes (%) (Auto) 22.6 % Monocytes (%) (Auto) 9.3 % Eosinophils (%) (Auto) 0.9 % Basophils (%) (Auto) 0.9 % Neutrophils # (Auto) 5.6 TH/MM3 Lymphocytes # (Auto) 1.9 TH/MM3 Monocytes # (Auto) 0.8 TH/MM3 Eosinophils # (Auto) 0.1 TH/MM3 Basophils # (Auto) 0.1 TH/MM3 CBC Comment DIFF FINAL Differential Comment Prothrombin Time 10.7 SEC Prothromb Time International Ratio 1.0 RATIO Activated Partial Thromboplast Time 26.4 SEC Blood Urea Nitrogen 10 MG/DL Creatinine 0.74 MG/DL Random Glucose 107 MG/DL Calcium Level 9.8 MG/DL Sodium Level 134 MEQ/L Potassium Level 3.2 MEQ/L Chloride Level 99 MEQ/L Carbon Dioxide Level 25.0 MEQ/L Anion Gap 10 MEQ/L Estimat Glomerular Filtration Rate 80 ML/MIN MDM Medical Decision Making Medical Screen Exam Complete: Yes Emergency Medical Condition: Yes Medical Record Reviewed: Yes Interpretation(s) Vital Signs Date Time Temp Pulse Resp B/P (MAP) Pulse Ox O2 Delivery O2 Flow Rate FiO2 01/30/17 19:24 16 01/30/17 16:54 98.5 121 20 125/101 (109) 92 Room Air CBC & BMP Diagram 01/30/17 20:10 Calcium Level 9.8 Differential Diagnosis Differential includes failure to thrive, electrolyte abnormality Narrative Course Patient is a 61-year-old female who was sent to the emergency room by her oncologist for evaluation and admission for falls. Patient suffers from brain cancer, she is currently undergoing chemotherapy treatment. She is living at home with her sister right now, reports concerns that she is unable to care for herself and feels unsafe at home as she is getting progressively weak. She was sent to ER by Dr. Lugo for possible admission Patient is an unsafe discharge as there is no one to care of patient during the daytime. Case reviewed with case management. Plan to obs for frequent falls and generalized weakness. CBC & BMP Diagram 01/30/17 20:10 Calcium Level 9.[address] espinoza's TELEVISION DIRECTOR who accepts pt to service Diagnosis Primary Impression: Generalized weakness Additional Impression: Frequent falls Admitting Information Admitting Physician Requests: Observation Sheila Norris DO Jan 30, 2017 21:12
[2017-01-30] MEDS ORDERED: POTASSIUM CHLORIDE 10 MEQ CONTROLLED RELEASE TAB PO ONE (21:45)
[2017-01-30] MEDS ORDERED: ONDANSETRON HCL 4 MG/2 ML VIAL IVP PRN (22:00)
[2017-01-30] MEDS ORDERED: ACETAMINOPHEN 325 MG TAB PO PRN (22:00)
[2017-01-30] MEDS ORDERED: MAGNESIUM HYDROXIDE SUSP 30 ML CUP PO PRN (22:00)
[2017-01-30] MEDS ORDERED: NALOXONE HCL 0.4 MG/ML AMP IV PRN (22:00)
[2017-01-30] MEDS: SODIUM CHLORIDE 0.9% FLUSH 10 ML FLUSH IV FLUSH SCH (23:17)
[2017-01-31] VITALS (8 sets, daily range): BP systolic 114–144; BP diastolic 65–95; PULSE 71–94; RESP 16–20; TEMP 97.4–98.7; O2SAT 96–97
[2017-01-31] MEDS ORDERED: PROCHLORPERAZINE MALEATE 10 MG TAB PO PRN (07:30)
[2017-01-31] MEDS ORDERED: ALPRAZolam 0.5 MG TAB PO PRN (07:30)
[2017-01-31] MEDS ORDERED: DEXAMETHASONE 0.5 MG TAB PO SCH (09:00)
[2017-01-31] MEDS: LEVOTHYROXINE SODIUM 50 MCG TAB PO SCH (09:18)
[2017-01-31] MEDS: levETIRAcetam 500 MG TAB PO SCH ×2 (09:19→20:22)
[2017-01-31 10:39] LABS: AUTOMATED NEUTROPHIL # 4.5 TH/MM3 (1.8-7.7); BASOPHIL % 0.8 % (0.0-2.0); EOSINOPHIL # 0.1 TH/MM3 (0-0.4); EOSINOPHIL % 1.3 % (0.0-4.0); HEMO FLAGS DIFF FINAL; LYMPH % 17.9 % (9.0-44.0); LYMPHOCYTE # 1.1 TH/MM3 (1.0-4.8); MEAN CELL VOLUME 91.7 FL (80.0-100.0); MEAN CORPUSCULAR HEMOGLOBIN 32.2 PG (27.0-34.0); MEAN CORPUSCULAR HGB CONC 35.1 % (32.0-36.0); MONO % 9.1 % (0.0-8.0); NEUT % 70.9 % (16.0-70.0); PLATELET COUNT 270 TH/MM3 (150-450); RED BLOOD COUNT 4.47 MIL/MM3 (4.00-5.30); WHITE BLOOD COUNT 6.4 TH/MM3 (4.0-11.0)
[2017-01-31 10:53] LABS: BICARBONATE 25.8 MEQ/L (21.0-32.0)
[2017-01-31 10:58] LABS: POTASSIUM 2.9 MEQ/L (3.5-5.1)
[2017-01-31] MEDS ORDERED: POTASSIUM CHLOR 20 MEQ PREMIX 100 ML IV ONE (11:00)
[2017-01-31] MEDS ORDERED: POTASSIUM CHLORIDE 10 MEQ CONTROLLED RELEASE TAB PO ONE (11:00)
[2017-01-31 11:15] LABS: BLOOD, URINE NEG (NEG); COMMENT (UR) CULT NOT INDICATED; CULTURE IF INDICATED CULT NOT INDICATED; GLUCOSE,URINE NEG (NEG); KETONE, URINE 10 mg/dL (NEG); MUCUS URINE FEW /lpf (OCC); NITRITE,URINE NEG (NEG); SQUAMOUS EPITHELIAL CELL URINE <1 /hpf (0-5); URINE COLOR YELLOW (YELLW/STRAW)
--- NOTE | 2017-01-31 11:57 | HHI.HP ---
[facility] Cherrie Collado MD Admission Diagnosis Gait instablity, frequent falls Diagnoses: Chief Complaint: Frequent falls at home. Travel History International Travel<30 Days: No Contact w/Intl Traveler <30 Da: No Traveled to Known Affected Are: No History of Present Illness Ms. Carmen is a pleasant 61-year-old female with history of glioblastoma multiforme (diagnosed in August 2016) and remote history of right breast cancer ( 2006) who presents to the emergency department due to frequent falls. For about 2 weeks patient reports falling frequently as she walks from room to room in her house. She reports no dizziness or lightheadedness. She reports no chest pain, shortness of breath or diaphoresis. She just looses her balance and falls. She feels that her symptoms are getting worse. Patient's sister is her caregiver but cannot take care of her at home all the time due to sister's work. Due to frequent falls it was felt that she is not safe at home and was subsequently advised to come to the emergency department. Patient denies any cough, fever or chills. Denies any dysuria or hematuria. She reports some constipation. She is normally able to eat and drink reasonably well. Review of Systems Except as stated in HPI: all other systems reviewed are Neg Past Family Social History Past Medical History Glioblastoma multiforme diagnosed in August 2016 Breast cancer status post mastectomy and breast reconstruction 2006 Hyperlipidemia, hypertension, thyroid disease. Past Surgical History Right mastectomy and reconstruction Appendectomy Reported Medications Levothyroxine (Levothyroxine Sodium) 50 Mcg Tab 50 Mcg PO DAILY Xanax (Alprazolam) 0.5 Mg Tab 0.5 Mg PO Q8H PRN Keppra (Levetiracetam) 500 Mg Tab 500 Mg PO BID Norvasc (Amlodipine Besylate) 10 Mg Tab 10 Mg PO DAILY Reported Temozolomide 140 Mg Cap 130 Mg PO DAILY Dexamethasone 0.5 Mg Tab 0.5 Mg PO DAILY Prochlorperazine Maleate 10 Mg Tab 10 Mg PO Q6H PRN [Chlorella FX] Mg PO DAILY Sulfamethoxazole-Tmp Ss Tablet (Sulfamethoxazole/Trimethoprim) 400 Mg-80 Mg Tablet PO DAILY Acyclovir 400 Mg Tab 400 Mg PO DAILY Allergies: Coded Allergies: adhesive (Unverified Allergy, Severe, RASH, 01/23/17) latex (Unverified Allergy, Severe, RASH, 01/23/17) Family History Father had cancer, mother with Parkinson's. Social History Currently patient does not use tobacco, alcohol or illicit drugs. Physical Exam Vital Signs Vital Signs Date Time Temp Pulse Resp B/P (MAP) Pulse Ox O2 Delivery O2 Flow Rate FiO2 01/31/17 08:38 98.7 71 16 132/76 (94) 97 01/31/17 03:23 98.4 79 17 144/77 (99) 96 01/31/17 02:44 01/31/17 02:24 144/65 (91) 01/30/17 19:24 16 01/30/17 16:54 98.5 121 20 125/101 (109) 92 Room Air Physical Exam GENERAL: This is a well-nourished, well-developed patient, in no apparent distress. SKIN: No rashes, ecchymoses or lesions. Warm and dry. HEAD: Atraumatic. Normocephalic. No temporal or scalp tenderness. EYES: Pupils equal round and reactive. No injection or drainage. ENT: Nose without bleeding, purulent drainage or septal hematoma. Airway patent. NECK: Trachea midline. No lymphadenopathy. Supple, nontender, no meningeal signs. CARDIOVASCULAR: Regular rate and rhythm without murmurs, gallops, or rubs. No JVD. RESPIRATORY: Clear to auscultation. Breath sounds equal bilaterally. No wheezes , rales, or rhonchi. GASTROINTESTINAL: Abdomen soft, non-tender, nondistended. No guarding. MUSCULOSKELETAL: Extremities without clubbing, cyanosis, or edema. NEUROLOGICAL: Awake and alert. Cranial nerves II through XII intact. No focal neurological deficits. Normal speech. Laboratory Laboratory Tests Test 01/30/17 20:10 01/31/17 08:59 01/31/17 10:38 White Blood Count 8.5 6.4 Red Blood Count 4.88 4.47 Hemoglobin 15.7 14.4 Hematocrit 44.6 41.0 Mean Corpuscular Volume 91.2 91.7 Mean Corpuscular Hemoglobin 32.2 32.2 Mean Corpuscular Hemoglobin Concent 35.3 35.1 Red Cell Distribution Width 12.9 13.0 Platelet Count 296 270 Mean Platelet Volume 6.8 7.0 Neutrophils (%) (Auto) 66.3 70.9 Lymphocytes (%) (Auto) 22.6 17.9 Monocytes (%) (Auto) 9.3 9.1 Eosinophils (%) (Auto) 0.9 1.3 Basophils (%) (Auto) 0.9 0.8 Neutrophils # (Auto) 5.6 4.5 Lymphocytes # (Auto) 1.9 1.1 Monocytes # (Auto) 0.8 0.6 Eosinophils # (Auto) 0.1 0.1 Basophils # (Auto) 0.1 0.0 CBC Comment DIFF FINAL DIFF FINAL Differential Comment Prothrombin Time 10.7 Prothromb Time International Ratio 1.0 Activated Partial Thromboplast Time 26.4 Blood Urea Nitrogen 10 9 Creatinine 0.74 0.65 Random Glucose 107 105 Calcium Level 9.8 9.2 Sodium Level 134 139 Potassium Level 3.2 2.9 Chloride Level 99 104 Carbon Dioxide Level 25.0 25.8 Anion Gap 10 9 Estimat Glomerular Filtration Rate 80 93 Urine Color YELLOW Urine Turbidity CLEAR Urine pH 6.0 Urine Specific [place] 1.019 Urine Protein NEG Urine Glucose (UA) NEG Urine Ketones 10 Urine Occult Blood NEG Urine Nitrite NEG Urine Bilirubin NEG Urine Urobilinogen LESS THAN 2.0 Urine Leukocyte Esterase SMALL Urine RBC 1 Urine WBC 1 Urine Squamous Epithelial Cells <1 Urine Mucus FEW Microscopic Urinalysis Comment CULT NOT INDICATED Result Diagram: 01/31/17 0859 01/31/1759 Caprini VTE Risk Assessment Caprini VTE Risk Assessment: Mod/High Risk (score >= 2) VTE Pharm Contraindication: Intracranial lesions Caprini Risk Assessment Model Point Value = 1 Point Value = 2 Point Value = 3 Point Value = 5 Age 41-60 Minor surgery BMI > 25 kg/m2 Swollen legs Varicose veins or History of unexplained or recurrent spontaneous Oral contraceptives or hormone replacement Sepsis (< 1 month) Serious lung disease, including pneumonia (< 1 month) Abnormal pulmonary function Acute myocardial infarction Congestive heart failure (< 1 month) History of inflammatory bowel disease Medical patient at bed rest Age 61-74 Arthroscopic surgery Major open surgery (> 45 min) Laparoscopic surgery (> 45 min) Malignancy Confined to bed (> 72 hours) Immobilizing plaster cast Central venous access Age >= 75 History of VTE Family history of VTE Factor V Leiden Prothrombin [id number] Lupus anticoagulant Anticardiolipin antibodies Elevated serum homocysteine Heparin-induced thrombocytopenia Other congenital or acquired thrombophilia Stroke (< 1 month) Elective arthroplasty Hip, pelvis, or leg fracture Acute spinal cord injury (< 1 month) Prophylaxis Regimen Total Risk Factor Score Risk Level Prophylaxis Regimen 0-1 Low Early ambulation 2 Moderate Order ONE of the following: *Sequential Compression Device (SCD) *Heparin 5000 units SQ BID 3-4 Higher Order ONE of the following medications: *Heparin 5000 units SQ TID *Enoxaparin/Lovenox 40 mg SQ daily (WT < 150 kg, CrCl > 30 mL/min) *Enoxaparin/Lovenox 30 mg SQ daily (WT < 150 kg, CrCl > 10-29 mL/min) *Enoxaparin/Lovenox 30 mg SQ BID (WT < 150 kg, CrCl > 30 mL/min) AND/OR *Sequential Compression Device (SCD) 5 or more Highest Order ONE of the following medications: *Heparin 5000 units SQ TID (Preferred with Epidurals) *Enoxaparin/Lovenox 40 mg SQ daily (WT < 150 kg, CrCl > 30 mL/min) *Enoxaparin/Lovenox 30 mg SQ daily (WT < 150 kg, CrCl > 10-29 mL/min) *Enoxaparin/Lovenox 30 mg SQ BID (WT < 150 kg, CrCl > 30 mL/min) AND *Sequential Compression Device (SCD) Assessment and Plan Problem List: (1) Frequent falls ICD Code: R29.6 - Repeated falls Status: Acute (2) GBM (glioblastoma multiforme) ICD Code: C71.9 - Malignant neoplasm of brain, unspecified (3) History of right breast cancer ICD Code: Z85.3 - Personal history of malignant neoplasm of breast (4) Hypokalemia ICD Code: E87.6 - Hypokalemia (5) Hypothyroidism ICD Code: E03.9 - Hypothyroidism, unspecified (6) Hypertension ICD Code: I10 - Essential (primary) hypertension Assessment and Plan Ms. Carmen is a 61-year-old female with a history of right-sided breast cancer, recent diagnosis of glioblastoma multiforme who presented to the emergency department today due to frequent falls. - Frequent falls - Possibly due to glioblastoma multiforme, overall deconditioning, electrolyte imbalance. - Provide fall precautions - Patient may need SNF or some other management where she is cared for 24 hours a day. - NS + KCL @100cc/hour. - Glioblastoma multiforme - We'll consult Dr. Lugo of medical oncology to provide further recommendations. - We'll also consult palliative care. - Further imaging studies, treatment per oncology. - Discussed with Dr. Lugo (Oncology). I reviewed MRI report (report was scanned, no images available). Per MRI report (01/30/2017), there is an enlarging necrotic area as well as vasogenic edema with mass effect. - Will start patient on Decadron 4mg IV now and Q8hrs. - Will consult Dr. Osorio (Neurosurgery) as well. - Hypokalemia - potassium 2.9. Patient received by mouth and IV potassium replacement. Magnesium 2.1. - We'll repeat BMP in the morning. - Hypertension continue Norvasc 10 mg daily. - Hypothyroidism - continue levothyroxine 50 g daily. Full code. Discussed with Dr. Lugo regarding VTE prophylaxis. He will evaluate patient and then recommend prophylaxis. Discussed Condition With ER physician, Palliative care physician, Medical oncologist. Jacob Hall DO Jan 31, 2017 11:56
[2017-01-31] MEDS: NS + KCL 20 MEQ INJ 1,000 ML IV SCH (15:57)
--- NOTE | 2017-01-31 16:51 | PD.CONS ---
Consult Service Palliative Care Consult Requested By Dr. Hall . Primary Care Physician Cherrie Collado MD . Reason for Consultation a. To assist with evaluation and management of symptoms including: Pain, falls b. To assist medical decision maker(s) with: better understanding of current medical conditions; weighing benefits/burdens of medical treatment options; making medical treatment decisions. . HPI History of Present Illness This 61-year-old female, with a past history of breast cancer 2006, hypertension , hypothyroidism, and anxiety, presented to the emergency department on 09/05/16 because of one or 2 months of neurologic symptoms involving her left arm and leg. She had tingling and perhaps a little weakness in the left sided extremities. An MRI revealed multiple lesions consistent with metastatic disease, the largest being about 4 cm in the right parietal area. Tumor markers including CEA, CA15-3, and Ca 125 were negative, and CT scans of chest, abdomen, and pelvis were negative for primary tumor. The patient then underwent a craniotomy with microsurgical resection of brain tumor, and pathology revealed a grade 4 IV glioblastoma multiforme. The patient then completed a course of radiation therapy, and she has been on Temodar since then. She is currently back on the 5 day cycle of the drug. She has lost about 60 pounds over the past couple years. Over the past 2 weeks, the patient has had increasing difficulty with her left arm and leg. The leg seemed weaker, and in the past few days has progressed to "just dragging it" and she has had multiple falls (without obvious injury). In addition, neurologic symptoms involving the left arm and hand have progressed and she has been unable to use that hand for normal activities, and she has dropped things from the hand many times. The patient's neurosurgeon had ordered repeat scans for yesterday morning, and the patient's sister called her oncologist Dr. Lugo's office who told the patient to come to the emergency department. She arrived here last evening. In the emergency department, findings included: * Weakness of the left arm and leg, alert * Temp 98.5, pulse 121, respirations 16, blood pressure 125/101, oxygen saturation 92% on room air * White count 8.5, hemoglobin 15.7 * Sodium 134, creatinine 0.74, potassium 2.9 * Urinalysis unremarkable Verbal reports from yesterday's MRI indicate progression of her tumor/disease. Palliative Care was consulted to assist with symptom management, and to enter into discussions with the patient and family regarding her current illness and recent imaging reports, the prognosis, and the benefits and burdens of the various choices for her now. . Function/Cognitive Trajectory The patient was functioning independently until the past couple weeks. Because of the left-sided arm and leg weakness, she is no longer able to complete her ADLs and she needs assistance. . Review of Systems Constitutional: COMPLAINS OF: Weight loss (60 pounds over the past couple years ) Endocrine: DENIES: Polyuria Eyes: DENIES: Eye inflammation Ears, nose, mouth, throat: DENIES: Epistaxis Respiratory: DENIES: Cough, Shortness of breath Cardiovascular: DENIES: Chest pain, Lower Extremity Edema Gastrointestinal: DENIES: Bloody stools, Constipation, Diarrhea, Vomiting, Vomiting blood Genitourinary: DENIES: Hematuria Musculoskeletal: DENIES: Joint Swelling, Back pain Integumentary: DENIES: Rash Hematologic/Lymphatics: DENIES: Bruising, Lymphadenopathy Immunologic/Allergic: DENIES: Urticaria Neurologic: COMPLAINS OF: Headache (seems worse in recent weeks), Localized weakness (left arm and leg), Paresthesias (left arm and leg), DENIES: Seizures Psychiatric: COMPLAINS OF: Depression, DENIES: Hallucinations, Agitation, Suicidal Ideation Past Family Social History Coded Allergies: adhesive (Unverified Allergy, Severe, RASH, 01/23/17) latex (Unverified Allergy, Severe, RASH, 01/23/17) Past Medical History * Glioblastoma multiforme diagnosed in August 2016, now with progressive disease on scans in spite of treatment * Breast cancer, S/P surgery, chemotherapy, radiation, with no obvious recurrent or persistent disease * Hypertension * Abnormalities on recent scans involving the rectosigmoid area of the colon and the right lung * Hypothyroidism * Anxiety . Past Surgical History Right mastectomy 2006 and reconstruction 2009 Appendectomy age 13 Oral surgery Hysterectomy 09/12/16: Craniotomy with microsurgical resection of brain tumor . Reported Medications Reported Meds & Active Scripts Active Levothyroxine (Levothyroxine Sodium) 50 Mcg Tab 50 Mcg PO DAILY Xanax (Alprazolam) 0.5 Mg Tab 0.5 Mg PO Q8H PRN Keppra (Levetiracetam) 500 Mg Tab 500 Mg PO BID Norvasc (Amlodipine Besylate) 10 Mg Tab 10 Mg PO DAILY Reported Temozolomide 140 Mg Cap 130 Mg PO DAILY Dexamethasone 0.5 Mg Tab 0.5 Mg PO DAILY Prochlorperazine Maleate 10 Mg Tab 10 Mg PO Q6H PRN [Chlorella FX] Mg PO DAILY Sulfamethoxazole-Tmp Ss Tablet (Sulfamethoxazole/Trimethoprim) 400 Mg-80 Mg Tablet PO DAILY Acyclovir 400 Mg Tab 400 Mg PO DAILY . Current Medications Medications (Trade) Dose Ordered Sig/Jason Route Start Time Stop Time Status Last Admin (NS Flush) 2 ml UNSCH PRN IV FLUSH 01/30/17 22:00 01/31/17 09:20 (NS Flush) 2 ml BID IV FLUSH 01/31/17 09:00 01/30/17 23:17 (Tylenol) 650 mg Q4H PRN PO 01/30/17 22:00 01/31/17 13:08 (Zofran Inj) 4 mg Q6H PRN IVP 01/30/17 22:00 (Narcan Inj) 0.4 mg UNSCH PRN IV 01/30/17 22:00 (Milk Of Magnjonathan Liq) 30 ml Q12H PRN PO 01/30/17 22:00 (Xanax) 0.5 mg Q8H PRN PO 01/31/17 07:30 (Norvasc) 10 mg DAILY PO 01/31/17 09:00 01/31/17 09:19 (Decadron) 0.5 mg DAILY PO 01/31/17 09:00 01/31/17 09:19 (Keppra) 500 mg BID PO 01/31/17 09:00 01/31/17 09:19 (Synthroid) 50 mcg DAILY@0600 PO 01/31/17 09:00 01/31/17 09:18 (Compazine) 10 mg Q6H PRN PO 01/31/17 07:30 Potassium Chloride/Sodium Chloride 1,000 ml @ 100 mls/hr Q10H IV 01/31/17 15:30 01/31/17 15:57 (Decadron Inj) 4 mg Q8HR IV PUSH 01/31/17 22:00 UNV (Decadron Inj) 4 mg ONCE ONCE IV PUSH 01/31/17 16:15 01/31/17 16:16 UNV Family History Father had cancer and alcoholism and at the age of 47, mother is living with Parkinson's. The patient's uncle of lung cancer, and the patient's sister is currently living with lung cancer. . Substance Use Tobacco: Smoked for quite a few years but quit about 20 years ago. Alcohol: One or 2 beers per day Prescription med abuse: None Illicits: Has used marijuana occasionally . Psychosocial History The patient was born in [place] but moved to [place] in 1981. She currently lives with her sister Erin. The patient was employed with a [employer], but has not been able to work recently. The patient has one son age of approximately 40 living in [place]. She has 2 living sisters and 2 brothers. . Spiritual/Cultural Factors The patient reports that she is spiritual and her own way, but has not been affiliated with any particular congregation, denomination, or clergy. She is open to project control manager visits here at the hospital. . Health Care Surrogate: Completed, but not made available Health Care Surrogate(s): The patient's sister Erin Ordonez . Today's verbally stated goals: The patient understands that her condition is terminal, but she wants to wait until speaking with her oncologist prior to making any final decision for hospice services. The patient and her sister (who works at [employer] in the therapy department) realizes that the patient cannot stay at home alone while her sister works, and that the patient will need placement in a nursing facility. . Family/friends goals: The patient's sister/HCS supports the patient's wishes, and also is awaiting a discussion with the oncologist. . Ethical and Legal Issues There are no ethical issues that would impact her care or decision-making at this time. The patient has capacity for decision-making at this time; she has designated her sister Erin as healthcare surrogate. . Physical Exam Vital Signs Date Time Temp Pulse Resp B/P (MAP) Pulse Ox O2 Delivery O2 Flow Rate FiO2 01/31/17 16:10 97.4 81 16 139/83 (101) 97 01/31/17 10:36 84 01/31/17 08:38 98.7 71 16 132/76 (94) 97 01/31/17 03:23 98.4 79 17 144/77 (99) 96 01/31/17 02:44 01/31/17 02:24 144/65 (91) 01/30/17 19:24 16 01/30/17 16:54 98.5 121 20 125/101 (109) 92 Room Air 01/31/17 02/01/17 19:00 07:00 Intake Total 100 ml Balance 100 ml Intake IV Total 100 ml Exam CONSTITUTIONAL/GENERAL: This is an adequately nourished patient, in no apparent distress. TUBES/LINES/DRAINS: Peripheral IV SKIN: No jaundice, rashes, or lesions. No wounds seen anteriorly. Skin temperature appropriate. Not diaphoretic. HEAD: Atraumatic. Normocephalic. EYES: Pupils equal and round and reactive. Extraocular motions intact. No scleral icterus. No injection or drainage. Fundi not examined. ENT: Hearing grossly normal. Nose without bleeding or purulent drainage. Throat without visible erythema, exudates, masses, or lesions. NECK: Trachea midline. Supple, nontender. No palpable thyroid enlargement or nodularity. CARDIOVASCULAR: Regular rate and rhythm without murmurs, gallops, or rubs. No JVD. Peripheral pulses symmetric. RESPIRATORY/CHEST: Symmetric, unlabored respirations. Clear to auscultation. Breath sounds equal bilaterally. No wheezes, rales, or rhonchi. GASTROINTESTINAL: Abdomen soft, non-tender, nondistended. No hepato-splenomegaly , or palpable masses. No guarding. Bowel sounds present. GENITOURINARY: Without palpable bladder distension. MUSCULOSKELETAL: Extremities without clubbing, cyanosis, or edema. No joint tenderness or effusion noted. No calf tenderness. No mottling or clubbing. LYMPHATICS: No palpable cervical or supraclavicular adenopathy. NEUROLOGICAL: Awake and alert. Weakness of the left leg and left arm/hand Follows commands. Cognitively sharp. PSYCHIATRIC: No obvious anxiety/depression. no apparent hallucinations or other psychotic thought process. . Diagnostic Tests Laboratory Laboratory Tests Test 01/30/17 20:10 01/31/17 08:59 01/31/17 10:38 White Blood Count 8.5 TH/MM3 (4.0-11.0) 6.4 TH/MM3 (4.0-11.0) Red Blood Count 4.88 MIL/MM3 (4.00-5.30) 4.47 MIL/MM3 (4.00-5.30) Hemoglobin 15.7 GM/DL (11.6-15.3) 14.4 GM/DL (11.6-15.3) Hematocrit 44.6 % (35.0-46.0) 41.0 % (35.0-46.0) Mean Corpuscular Volume 91.2 FL (80.0-100.0) 91.7 FL (80.0-100.0) Mean Corpuscular Hemoglobin 32.2 PG (27.0-34.0) 32.2 PG (27.0-34.0) Mean Corpuscular Hemoglobin Concent 35.3 % (32.0-36.0) 35.1 % (32.0-36.0) Red Cell Distribution Width 12.9 % (11.6-17.2) 13.0 % (11.6-17.2) Platelet Count 296 TH/MM3 (150-450) 270 TH/MM3 (150-450) Mean Platelet Volume 6.8 FL (7.0-11.0) 7.0 FL (7.0-11.0) Neutrophils (%) (Auto) 66.3 % (16.0-70.0) 70.9 % (16.0-70.0) Lymphocytes (%) (Auto) 22.6 % (9.0-44.0) 17.9 % (9.0-44.0) Monocytes (%) (Auto) 9.3 % (0.0-8.0) 9.1 % (0.0-8.0) Eosinophils (%) (Auto) 0.9 % (0.0-4.0) 1.3 % (0.0-4.0) Basophils (%) (Auto) 0.9 % (0.0-2.0) 0.8 % (0.0-2.0) Neutrophils # (Auto) 5.6 TH/MM3 (1.8-7.7) 4.5 TH/MM3 (1.8-7.7) Lymphocytes # (Auto) 1.9 TH/MM3 (1.0-4.8) 1.1 TH/MM3 (1.0-4.8) Monocytes # (Auto) 0.8 TH/MM3 (0-0.9) 0.6 TH/MM3 (0-0.9) Eosinophils # (Auto) 0.1 TH/MM3 (0-0.4) 0.1 TH/MM3 (0-0.4) Basophils # (Auto) 0.1 TH/MM3 (0-0.2) 0.0 TH/MM3 (0-0.2) CBC Comment DIFF FINAL DIFF FINAL Differential Comment Prothrombin Time 10.7 SEC (9.8-11.6) Prothromb Time International Ratio 1.0 RATIO Activated Partial Thromboplast Time 26.4 SEC (24.3-30.1) Blood Urea Nitrogen 10 MG/DL (7-18) 9 MG/DL (7-18) Creatinine 0.74 MG/DL (0.50-1.00) 0.65 MG/DL (0.50-1.00) Random Glucose 107 MG/DL (74-106) 105 MG/DL (74-106) Calcium Level 9.8 MG/DL (8.5-10.1) 9.2 MG/DL (8.5-10.1) Sodium Level 134 MEQ/L (136-145) 139 MEQ/L (136-145) Potassium Level 3.2 MEQ/L (3.5-5.1) 2.9 MEQ/L (3.5-5.1) Chloride Level 99 MEQ/L (98-107) 104 MEQ/L (98-107) Carbon Dioxide Level 25.0 MEQ/L (21.0-32.0) 25.8 MEQ/L (21.0-32.0) Anion Gap 10 MEQ/L (5-15) 9 MEQ/L (5-15) Estimat Glomerular Filtration Rate 80 ML/MIN (>89) 93 ML/MIN (>89) Magnesium Level 2.1 MG/DL (1.5-2.5) Urine Color YELLOW (YELLW/STRAW) Urine Turbidity CLEAR (CLEAR) Urine pH 6.0 (5.0-8.5) Urine Specific [place] 1.019 (1.002-1.035) Urine Protein NEG mg/dL (NEG-TRACE) Urine Glucose (UA) NEG mg/dL (NEG) Urine Ketones 10 mg/dL (NEG) Urine Occult Blood NEG (NEG) Urine Nitrite NEG (NEG) Urine Bilirubin NEG (NEG) Urine Urobilinogen LESS THAN 2.0 MG/DL (LESS Urine Leukocyte Esterase SMALL (NEG) Urine RBC 1 /hpf (0-3) Urine WBC 1 /hpf (0-5) Urine Squamous Epithelial Cells <1 /hpf (0-5) Urine Mucus FEW /lpf (OCC) Microscopic Urinalysis Comment CULT NOT INDICATED Result Diagram: 01/31/17 0859 01/31/17 0859 Imaging . Verbal reports of MRI completed 01/30/17 at an outside facility indicate progression of disease. . Patient/Family Conference Present at Family Conference: Patient's sister Erin Ordonez . Family Conference Time (mins): 49 Family Conference Location: Bedside Issues Discussed: * Palliative care role, purpose, approach * Hospice care role, purpose, approach * Additional medical, psychosocial, and spiritual history * Patients general health, functional status, and cognitive changes in the months leading up to the current hospitalization * Patient/family understanding of the current medical problems * Patient/family understanding of prognosis * Patients goals of care as best understood from advance directives and/or conversations and/or values * Current medical treatment options and benefits/burdens of those options * Likely scenarios comparing ongoing aggressive care with a transition to comfort measures only * Questions answered to the best of my ability * Palliative care contact information provided The patient understands that her condition is terminal, but she wants to wait until speaking with her oncologist prior to making any final decision for hospice services. The patient and her sister (who works at [employer] in the therapy department) realizes that the patient cannot stay at home alone while her sister works, and that the patient will need placement in a nursing facility. . 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 Spiritual: The patient reports that she is spiritual and her own way, but has not been affiliated with any particular congregation, denomination, or clergy. She is open to project control manager visits here at the hospital. Legal: The patient has opacity for decision-making, and she has designated her sister Erin as healthcare surrogate. Ethical issues impacting care: None . Important Contacts Sister: Erin Ordonez [phone] -- TEXT first; she is HCS TEXT FIRST Son: Gopal Carmen [phone], . Prognosis The patient is terminal. She has progressive glioblastoma on scan and has worsening neurologic symptoms. She is appropriate for hospice services. . Code Status: Full Code Plan * FULL CODE for now, pending her discussion with Dr. Lugo regarding prognosis * DECISION-MAKING: The patient has opacity for decision-making, and she has designated her sister Erin as healthcare surrogate. * GOALS: The patient understands that her condition is terminal, but she wants to wait until speaking with her oncologist Dr. Lugo prior to making any final decision for hospice services. The patient and her sister (who works at [employer] in the therapy department) realizes that the patient cannot stay at home alone while her sister works, and that the patient will need placement in a nursing facility. * SYMPTOMS: The patient's anxiety has been managed by Xanax at home, and her head pain thus far has not been severe. No new medication recommendations at this time. * I spoke with Dr. Lugo, and he will be seeing the patient this evening to discuss the recent scan findings and prognosis. The patient is aware of the option for hospice. * Palliative Care will continue to follow the patient during this hospitalization. . Time Spent Total Floor Time (mins): 79 Face to Face Time (mins): 55 >50% Counseling/Coord of Care: Yes (d/w Dr. Lugo and Dr. Hall and with RN) Thank you for the opportunity to participate in the care of Ms. Carmen. Attestation To help prompt me to consider important information that might be impacting today's encounter and assessment, information from prior notes written by myself or my colleagues may have been "brought forward" into today's note. My signature on this note, however, is an attestation that I personally performed the exam, history, and/or decision-making noted today, and, unless otherwise indicated, the interactions with patient, family, and staff as well as the review of records all occurred today. I also attest that the listed assessment and stated plan reflect my best clinical judgment today based on the combination of historical information, prior notes, and today's exam/ interactions. When time spent is documented, it refers only to time spent today by the signer, or if indicated, combined time spent today by collaborating physician/nurse practitioner. Vi Vázquez MD Jan 31, 2017 16:51
[2017-01-31] MEDS ORDERED: DEXAMETHASONE SOD PHOS 4 MG/ML VIAL IV PUSH ONE (17:00)
[2017-01-31] MEDS: SODIUM CHLORIDE 0.9% FLUSH 10 ML FLUSH IV FLUSH SCH (20:21)
[2017-01-31] MEDS: DEXAMETHASONE SOD PHOS 4 MG/ML VIAL IV PUSH SCH (21:30)
[2017-02-01] VITALS (9 sets, daily range): BP systolic 108–133; BP diastolic 67–82; PULSE 49–90; RESP 16–18; TEMP 97.8–98.5; O2SAT 96–98
[2017-02-01] MEDS: NS + KCL 20 MEQ INJ 1,000 ML IV SCH ×3 (01:42→21:20)
[2017-02-01] MEDS: LEVOTHYROXINE SODIUM 50 MCG TAB PO SCH (05:23)
[2017-02-01] MEDS: DEXAMETHASONE SOD PHOS 4 MG/ML VIAL IV PUSH SCH ×3 (05:23→21:20)
[2017-02-01 07:19] LABS: BICARBONATE 25.5 MEQ/L (21.0-32.0); POTASSIUM 4.5 MEQ/L (3.5-5.1)
--- NOTE | 2017-02-01 08:19 | HHI.PR ---
Subjective Remarks came here for unsteadiness, falling frequent for the past 2 weeks, baseline ambulates with a walker states good po appetite states right sided headache- "where my cancer is" no nausea or vomiting Objective Vitals Vital Signs Date Time Temp Pulse Resp B/P (MAP) Pulse Ox O2 Delivery O2 Flow Rate FiO2 02/01/17 07:40 53 02/01/17 04:00 98.0 55 16 110/70 (83) 97 02/01/17 04:00 49 02/01/17 00:00 53 02/01/17 00:00 98.5 66 18 108/74 (85) 97 01/31/17 22:02 98.3 81 18 139/95 (110) 96 01/31/17 22:00 77 01/31/17 20:43 98.1 94 20 114/78 (90) 96 01/31/17 16:10 97.4 81 16 139/83 (101) 97 01/31/17 10:36 84 01/31/17 08:38 98.7 71 16 132/76 (94) 97 I/O 01/31/17 01/31/17 01/31/17 02/01/17 02/01/17 02/01/17 07:00 15:00 23:00 07:00 15:00 23:00 Intake Total 220 ml 480 ml Balance 220 ml 480 ml Intake Oral 120 ml 480 ml IV Total 100 ml # Voids 4 Result Diagram: 01/31/17 0859 02/01/17 0603 Objective Remarks awake and alert, NAD anicteric, pupils equally, ROM full, grossly no sensory deficits no nuchal rigidity lungs no rales or wheezes regular rhythm abdomen soft, nontender extremities - 5/5 individually gait- needs assistance when ambulated patient A/P Problem List: (1) Frequent falls ICD Code: R29.6 - Repeated falls Status: Acute (2) GBM (glioblastoma multiforme) ICD Code: C71.9 - Malignant neoplasm of brain, unspecified (3) History of right breast cancer ICD Code: Z85.3 - Personal history of malignant neoplasm of breast (4) Hypokalemia ICD Code: E87.6 - Hypokalemia (5) Hypothyroidism ICD Code: E03.9 - Hypothyroidism, unspecified (6) Hypertension ICD Code: I10 - Essential (primary) hypertension Assessment and Plan Ms. Carmen is a 61-year-old female with a history of right-sided breast cancer, recent diagnosis of glioblastoma multiforme who presented to the emergency department today due to frequent falls. - Frequent falls - history of GBM on OP MRI with enlarging necrotic area with vasogenic edema with mass effect - with overall deconditioning, electrolyte imbalance. - Provide fall precautions - Patient may need SNF or some other management where she is cared for 24 hours a day. - NS + KCL @100cc/hour. - we will get PT consult- baseline states uses a walker- next few days after neurosurgical eval - Dr. Lugo of medical oncology to provide further recommendations. - appreciate Palliative care ff seeing patient - Further imaging studies, treatment per oncology. - OP MRI report (report was scanned, no images available). Per MRI report (), there is an enlarging necrotic area as well as vasogenic edema with mass effect. - on Decadron 4mg IV now and Q8hrs. DC home po Dexamethasone - Dr. Osorio (Neurosurgery) consulted - Hypokalemia - potassium 2.9. - improved. K level 4.5 Patient received by mouth and IV potassium replacement. Magnesium 2.1. - ff BMP - Hypertension continue Norvasc 10 mg daily. - Hypothyroidism - continue levothyroxine 50 g daily. TEDs. start Lovenox if no plans for procedure and if cleared with Oncology PPI for GI prophylaxis Full code. Discussed with Dr. Lugo regarding VTE prophylaxis. PT consult in next few days after Neurosurgical evaluation Roberto Leigh MD Feb 01, 2017 08:19
[2017-02-01] MEDS: SODIUM CHLORIDE 0.9% FLUSH 10 ML FLUSH IV FLUSH SCH ×2 (09:00→20:09)
[2017-02-01] MEDS: PANTOPRAZOLE SOD 40 MG DELAYED RELEASE TAB PO SCH (09:15)
[2017-02-01] MEDS: levETIRAcetam 500 MG TAB PO SCH ×2 (09:15→20:10)
--- NOTE | 2017-02-01 10:46 | MB ---
cc: YOLA SIU DATE OF CONSULTATION: 01/31/2017 DATE OF : 1955 REASON FOR CONSULTATION Patient with recurrent/progressive glioblastoma multiforme. CHIEF COMPLAINT Loss of balance/gait problems, weakness. HISTORY OF PRESENT ILLNESS Ms. Camren is a 61-year-old female who has a diagnosis of high-grade primary brain tumor. She has undergone craniotomy and debulking surgery followed by chemoradiation. She received Temodar. She completed a total of 42 days of radiation treatments. She had originally presented with 1-2-month history of feeling unwell with neurological symptoms involving weakness in her left face, tingling and numbness in her hands. In early 2016, MRI of the brain revealed a 3.8 x 2.6 cm mass peripherally enhancing with vasogenic edema and hemorrhage in the area. She underwent debulking surgery as stated above. The patient is currently on maintenance Temodar. The patient recently developed unsteady gait and had right leg weakness. A MRI of the brain with contrast was obtained outpatient. She was found to have vasogenic edema and mass effect with midline shift of 7-8 mm. There was an enhancing mass that had spread significantly more anteriorly in aggregate measuring 5 cm x 3.3 cm. There was also area of necrosis extending around the mass. There was no evidence of herniation. The patient was brought to the emergency room and she is being admitted to the hospital. Oncology has been consulted to make further recommendations. REVIEW OF SYSTEMS A comprehensive 14-point review of systems was completed which is negative except as described in the HPI. PAST MEDICAL HISTORY 1. Glioblastoma multiforme diagnosed in August of 2016. 2. History of breast cancer status post mastectomy and breast reconstruction in 2006. 3. Hyperlipidemia. 4. Hypertension. 5. Thyroid disease. PAST SURGICAL HISTORY 1. Craniotomy and debulking of the brain tumor. 2. Right mastectomy and reconstruction. 3. Appendectomy. MEDICATIONS 1. Levothyroxine 50 mcg p.o. daily. 2. Xanax 0.5 mg one tablet p.o. q.8 hours p.r.n. 3. Keppra 500 mg p.o. b.i.d. 4. Norvasc 10 mg p.o. daily. 5. Temodar monthly maintenance treatment. 6. Compazine 10 mg p.o. q.6 hours p.r.n. 7. Bactrim double-strength p.o. daily. 8. Acyclovir 400 mg p.o. daily. ALLERGIES ADHESIVES AND LATEX. FAMILY HISTORY History of Parkinson's disease in the family. SOCIAL HISTORY She does not smoke cigarettes. No alcohol or drug abuse. PHYSICAL EXAMINATION VITAL SIGNS: Blood pressure is 139/95, pulse is in the 80s, temperature is 98.3, O2 sats are 96% on room air. GENERAL: Chronically ill female, in no apparent distress. HEENT: Pupils are equal, round, reactive to light. EOMI. No oral thrush. No oral lesions. NECK: Neck is supple. No JVD, no bruits. No lymphadenopathy. CHEST: Clear to auscultation bilaterally. CARDIAC: S1-S2, regular rate and rhythm. ABDOMEN: Abdomen is soft, nontender, nondistended. Bowel sounds are present. EXTREMITIES: Without any edema, erythema or cyanosis. SKIN: Without any petechiae, lesion or bruises. NEURO: Weakness in the left lower extremity. Strength is 3/5. Speech is intact. No vision problems. No cognitive deficits. Alert and oriented x3. LABORATORY DATA WBC 6.4, hemoglobin 14.4, platelet count 270. Serum chemistries show sodium of 139, potassium 2.9, chloride 104, CO2 25.8, anion gap 9, BUN 9, creatinine 0.65, GFR is 93, magnesium is 2.1. Coags PT is 10.7, INR is 1.0, PTT 26.4. IMAGING STUDIES MRI of the brain with contrast was reviewed. ASSESSMENT/PLAN This is a 61-year-old unfortunate female who has a diagnosis of glioblastoma multiforme which was diagnosed in August 2016. She underwent craniotomy with debulking of the disease. Subsequently she was treated with concurrent Temodar and XRT treatments. She has been on maintenance Temodar. She now presents to the emergency department with balance and gait issues and left lower extremity weakness. 1. Recurrent/progressive glioblastoma multiforme. I have reviewed the MRI of the brain with contrast. She unfortunately has progressive disease. There is significant amount of edema and this is a fairly large sized mass which is in the right hemisphere. I had discussed this case with Dr. Osorio, Neurosurgery yesterday. Dr. Osorio was of the opinion that this mass is not resectable due to the large nature of the mass, surgery could cause significant morbidity in this patient. I have discussed this situation with the patient and her family at length. I also called her sister over the phone. Unfortunately the treatment options are limited. I discussed the option of palliative care and hospice with the patient. At this time she is unsure. I also discussed the option of treatment with additional drug such as anti___ agent Bevacizumab. However, I did explain to the patient that we may not be able to achieve disease control rapidly which may be required in this case as the mass is quite big and there is significant edema in the brain. The patient will have further discussion with the family and let me know about her decision. Will have neurosurgery evaluate this patient during this admission. I have also discussed this case with Dr. Vázquez palliative care. Case was also discussed with Dr. Hall. We will continue IV Decadron 4 mg q.8 hours, continue Keppra 500 p.o. b.i.d. for seizure prophylaxis. Thank you for allowing me to participate in the care of this patient. I will continue to follow this patient along. MD DAVID Hester/NICK /1:16 AM /10:05 AM
--- NOTE | 2017-02-01 12:00 | PD.ONC.PN ---
Subjective Subjective Remarks Afebrile overnight Left arm weakness Waiting to speak with neurosurgery Objective Data Date Time Temp Pulse Resp B/P (MAP) Pulse Ox O2 Delivery O2 Flow Rate FiO2 02/01/17 07:50 97.8 88 16 133/75 (94) 98 02/01/17 07:40 53 02/01/17 04:00 98.0 55 16 110/70 (83) 97 02/01/17 04:00 49 02/01/17 00:00 53 02/01/17 00:00 98.5 66 18 108/74 (85) 97 01/31/17 22:02 98.3 81 18 139/95 (110) 96 01/31/17 22:00 77 01/31/17 20:43 98.1 94 20 114/78 (90) 96 01/31/17 16:10 97.4 81 16 139/83 (101) 97 02/01/17 02/01/17 02/01/17 07:00 15:00 23:00 Intake Total 480 ml Balance 480 ml Result Diagram: 01/31/17 0859 02/01/17 0603 Laboratory Results Laboratory Tests Test 02/01/17 06:03 Blood Urea Nitrogen 11 MG/DL Creatinine 0.55 MG/DL Random Glucose 138 MG/DL Calcium Level 8.6 MG/DL Sodium Level 143 MEQ/L Potassium Level 4.5 MEQ/L Chloride Level 113 MEQ/L Carbon Dioxide Level 25.5 MEQ/L Anion Gap 5 MEQ/L Estimat Glomerular Filtration Rate 113 ML/MIN Administered Medications Medications (Trade) Dose Ordered Sig/Jason Route PRN Reason Start Time Stop Time Status Last Admin Dose Admin Sodium Chloride (NS Flush) 2 ml UNSCH PRN IV FLUSH FLUSH AFTER USING IV ACCESS 01/30/17 22:00 01/31/17 09:20 Sodium Chloride (NS Flush) 2 ml BID IV FLUSH 01/31/17 09:00 01/30/17 23:17 Acetaminophen (Tylenol) 650 mg Q4H PRN PO TEMP > 100.4 01/30/17 22:00 01/31/17 13:08 Magnesium Hydroxide (Milk Of Magnesia Liq) 30 ml Q12H PRN PO MILD - MODERATE CONSTIPATION 01/30/17 22:00 01/31/17 20:27 Amlodipine Besylate (Norvasc) 10 mg DAILY PO 01/31/17 09:00 02/01/17 09:15 Levetriacetam (Keppra) 500 mg BID PO 01/31/17 09:00 02/01/17 09:15 Levothyroxine Sodium (Synthroid) 50 mcg DAILY@0600 PO 01/31/17 09:00 02/01/17 05:23 Potassium Chloride/Sodium Chloride 1,000 ml @ 100 mls/hr Q10H IV 01/31/17 15:30 02/01/17 01:42 Dexamethasone Sodium Phosphate (Decadron Inj) 4 mg Q8HR IV PUSH 01/31/17 22:00 02/01/17 05:23 Pantoprazole Sodium (Protonix) 40 mg DAILY PO 02/01/17 09:00 02/01/17 09:15 Objective Remarks GENERAL: Chronically ill-appearing older female resting in bed in no distress SKIN: Warm and dry. HEAD: Normocephalic. Alopecia EYES: No injection or drainage. NECK: Supple, trachea midline. CARDIOVASCULAR: Regular rate and rhythm without murmurs. RESPIRATORY: Clear anteriorly. Breathing unlabored. GASTROINTESTINAL: Abdomen soft, non-tender, nondistended. EXTREMITIES: No cyanosis, or edema. NEUROLOGICAL: Left-sided hemiparesis, moreso upper extremity. Normal speech. Alert and oriented 3. Assessment/Plan Problem List: (1) glioblastoma multiforme, diagnosed August 2016, now with progressive disease in spite of treatment Status: Acute Plan: -- MRI of the brain showed vasogenic edema and mass effect with midline shift of 7-8 mm. There was an enhancing mass that has spread significantly measuring 5 cm x 3.3 cm. -- Neurosurgery consulted -- We may be able to offer additional treatment with bevacizumab; however this has little promise. Hx/Workup: Patient was diagnosed with glioblastoma multi form in August 2016. She underwent craniotomy with debulking of the disease and was subsequently treated with Temodar and 42 days of radiation. She has been on maintenance Temodar. She is presents to the emergency room with complaints of left-sided weakness and frequent falls at home. Assessment 61 y/o female with history of glioblastoma multiforme unfortunately with progression of disease, admitted with left-sided weakness and frequent falls at home Plan 1. Continue Decadron and Keppra. 2. Await neurosurgery to see patient 3. It was discussed with patient that we could add on bevacizumab, however this is likely to have very little benefit. 4. Palliative care following. The patient and her family are considering hospice. Attending Statement The exam, history, and the medical decision-making described in the above note were completed with the assistance of the mid-level provider. I reviewed and agree with the findings presented. I attest that I had a [id number] encounter with the patient on the same day, and personally performed and documented my assessment and findings in the medical record Jessica Plaza Feb 01, 2017 12:00 Iván Lugo MD Feb 01, 2017 23:03
--- NOTE | 2017-02-01 14:58 | HHI.NSPN ---
Note Status Status: Progress Note Interval History Diagnosis recurrent glioblastoma multiforme Interval History Ms. Carmen is a 61-year-old female who has a diagnosis of high-grade primary GBM. She has undergone craniotomy and debulking surgery followed by chemoradiation. She received Temodar. She completed a total of 42 days of radiation treatments. She originally presented with 1-2-month history of feeling unwell with neurological symptoms involving weakness in her left face, tingling and numbness in her hands. In early 2017, MRI of the brain revealed a 3.8 x 2.6 cm mass peripherally enhancing with vasogenic edema and hemorrhage in the area. She underwent debulking surgery as stated above. She is currently on maintenance Temodar. The patient recently developed unsteady gait and had right leg weakness. A MRI of the brain with contrast was obtained outpatient. She was found to have vasogenic edema and mass effect with midline shift of 7-8 mm. There was an enhancing mass that had spread significantly more anteriorly in aggregate measuring 5 cm x 3.3 cm. There was also area of necrosis extending around the mass. Neurosurgery has been consulted to make further recommendations. Labs, Micro, & Vital Signs Results Date Time Temp Pulse Resp B/P (MAP) Pulse Ox O2 Delivery O2 Flow Rate FiO2 02/01/17 12:00 90 02/01/17 11:20 98.2 84 17 120/72 (88) 96 02/01/17 07:50 97.8 88 16 133/75 (94) 98 02/01/17 07:40 53 02/01/17 04:00 98.0 55 16 110/70 (83) 97 02/01/17 04:00 49 02/01/17 00:00 53 02/01/17 00:00 98.5 66 18 108/74 (85) 97 01/31/17 22:02 98.3 81 18 139/95 (110) 96 01/31/17 22:00 77 01/31/17 20:43 98.1 94 20 114/78 (90) 96 01/31/17 16:10 97.4 81 16 139/83 (101) 97 Constitutional Vital Signs Date Time Temp Pulse Resp B/P (MAP) Pulse Ox O2 Delivery O2 Flow Rate FiO2 02/01/17 12:00 90 02/01/17 11:20 98.2 84 17 120/72 (88) 96 02/01/17 07:50 97.8 88 16 133/75 (94) 98 02/01/17 07:40 53 02/01/17 04:00 98.0 55 16 110/70 (83) 97 02/01/17 04:00 49 02/01/17 00:00 53 02/01/17 00:00 98.5 66 18 108/74 (85) 97 01/31/17 22:02 98.3 81 18 139/95 (110) 96 01/31/17 22:00 77 01/31/17 20:43 98.1 94 20 114/78 (90) 96 01/31/17 16:10 97.4 81 16 139/83 (101) 97 Review of Systems/Exam Exam The patient is alert, awake and oriented to time, place and person. Speech is fluent. Cranial nerve examination: pupils to be equal, round and reactive to light. Extra-ocular movements are intact. Facial motor and sensory function are normal and symmetrical. Gross hearing appears intact. Sternocleidomastoid and trapezius muscles are symmetrical. Other cranial nerves are intact. Neck is soft and supple with a good range of motion without pain. Muscle strength is normal in her right upper and lower extremities, with 4/5 in her left upper extremity and 3/5 in her left lower extremity. Sensory examination is intact to light touch and pin prick in right upper and lower extremities, decreased in the left side. Deep tendon reflexes are symmetrical in both upper and lower extremities. There is a bilateral plantar flexion response. Cerebellar examination is unremarkable, without deficits. Medications Current Medications Current Medications Ondansetron HCl (Zofran Inj) 4 mg ONCE ONCE IVP Last administered on 20:12; Start 01/30/17 at 19:45; Stop 01/30/17 at 19:46; Status DC Sodium Chloride 1,000 ml @ 1,000 mls/hr Q1H IV Last administered on 01/30/17 20:12; Start 01/30/17 at 19:39; Stop 01/30/17 at 20:38; Status DC Sodium Chloride (NS Flush) 2 ml UNSCH PRN IV FLUSH FLUSH AFTER USING IV ACCESS ; Start 01/30/17 at 19:45; Stop 01/30/17 at 21:51; Status DC Potassium Chloride (KCl) 30 meq ONCE ONCE PO Last administered on 01/30/17 21 :45; Start 01/30/17 at 21:45; Stop 01/30/17 at 21:46; Status DC Sodium Chloride (NS Flush) 2 ml UNSCH PRN IV FLUSH FLUSH AFTER USING IV ACCESS Last administered on 01/31/17 09:20; Start 01/30/17 at 22:00 Sodium Chloride (NS Flush) 2 ml BID IV FLUSH Last administered on 01/30/17 23: 17; Start 01/31/17 at 09:00 Acetaminophen (Tylenol) 650 mg Q4H PRN PO TEMP > 100.4 Last administered on 13:08; Start 01/30/17 at 22:00 Ondansetron HCl (Zofran Inj) 4 mg Q6H PRN IVP NAUSEA OR VOMITING; Start at 22:00 Naloxone HCl (Narcan Inj) 0.4 mg UNSCH PRN IV SEE LABEL COMMENTS; Start at 22:00 Magnesium Hydroxide (Milk Of Magnesia Liq) 30 ml Q12H PRN PO MILD - MODERATE CONSTIPATION Last administered on 01/31/17 20:27; Start 01/30/17 at 22:00 Alprazolam (Xanax) 0.5 mg Q8H PRN PO ANXIETY; Start 01/31/17 at 07:30 Amlodipine Besylate (Norvasc) 10 mg DAILY PO Last administered on 02/01/17 09: 15; Start 01/31/17 at 09:00 Dexamethasone (Decadron) 0.5 mg DAILY PO Last administered on 01/31/17 09:19; Start 01/31/17 at 09:00; Stop 02/01/17 at 08:37; Status DC Levetriacetam (Keppra) 500 mg BID PO Last administered on 02/01/17 09:15; Start 01/31/17 at 09:00 Levothyroxine Sodium (Synthroid) 50 mcg DAILY@0600 PO Last administered on 02/01 05:23; Start 01/31/17 at 09:00 Prochlorperazine Maleate (Compazine) 10 mg Q6H PRN PO NAUSEA OR VOMITING; Start 01/31/17 at 07:30 Potassium Chloride 100 ml @ 50 mls/hr BOLUS ONCE IV Last administered on 01/31 12:44; Start 01/31/17 at 11:00; Stop 01/31/17 at 12:59; Status DC Potassium Chloride (KCl) 30 meq ONCE ONCE PO Last administered on 01/31/17 12 :43; Start 01/31/17 at 11:00; Stop 01/31/17 at 11:32; Status DC Potassium Chloride/Sodium Chloride 1,000 ml @ 100 mls/hr Q10H IV Last administered on 02/01/17 12:14; Start 01/31/17 at 15:30 Dexamethasone Sodium Phosphate (Decadron Inj) 4 mg Q8HR IV PUSH Last administered on 02/01/17 12:15; Start 01/31/17 at 22:00 Dexamethasone Sodium Phosphate (Decadron Inj) 4 mg ONCE ONCE IV PUSH Last administered on 01/31/17 17:47; Start 01/31/17 at 17:00; Stop 01/31/17 at 17:01 ; Status DC Pantoprazole Sodium (Protonix) 40 mg DAILY PO Last administered on 02/01/17 09 :15; Start 02/01/17 at 09:00 Plan Plan Remarks This is a 61-year-old female who has a diagnosis of recurrent glioblastoma multiforme Attending Statement Recurrent/progressive glioblastoma multiforme. I reviewed her MRI of the brain with contrast. She has progressive disease. There is significant amount of edema and a large mass. In my opinion this mass is not resectable without significant morbidity, and her prognosis is extremely poor after the recurrency. Alternatives were discussed Her treatment options are limited. Palliative care may be appropriated Discussed with Dr shine Mullen with the patient Marlo Osorio MD Feb 01, 2017 14:58
--- NOTE | 2017-02-01 17:08 | HHI.HCPN ---
Reason for visit a. To assist with evaluation and management of symptoms including: Pain, falls b. To assist medical decision maker(s) with: better understanding of current medical conditions; weighing benefits/burdens of medical treatment options; making medical treatment decisions. . Subjective/Interval History INTERVAL NOTE: The patient is seen again, she is lying in her bed, alert, and no distress. The patient's oncologist discussed possibly trying another chemo drug but noted that it had little chance of having a positive effect. The neurosurgeon reports that there is no surgical option, and he recommends palliative care/ hospice. The patient denies pain at this time, but she says she did have some headache earlier. She remains on the dexamethasone, but has not received any opiates during this hospitalization. . Family/friend interactions spoke with pt's sister Erin -- she agrees with hospice consult, and is asking about help with long-term placement . Advance Directives Health Care Surrogate: Completed, but not made available Advance Directive Specifics Health Care Surrogate(s): The patient's sister Erin Ordonez . Significant change in goals: The patient reports that she would like to speak with hospice about their services, and she tells me that she definitely would not want to be resuscitated or placed on life support machines. . Objective Vital Signs Date Time Temp Pulse Resp B/P (MAP) Pulse Ox O2 Delivery O2 Flow Rate FiO2 02/01/17 15:00 98.1 74 17 114/67 (83) 98 02/01/17 12:00 90 02/01/17 11:20 98.2 84 17 120/72 (88) 96 02/01/17 07:50 97.8 88 16 133/75 (94) 98 02/01/17 07:40 53 02/01/17 04:00 98.0 55 16 110/70 (83) 97 02/01/17 04:00 49 02/01/17 00:00 53 02/01/17 00:00 98.5 66 18 108/74 (85) 97 01/31/17 22:02 98.3 81 18 139/95 (110) 96 01/31/17 22:00 77 01/31/17 20:43 98.1 94 20 114/78 (90) 96 Intake & Output 02/01/17 02/01/17 07:00 19:00 Intake Total 600 ml 420 ml Output Total 575 ml Balance 600 ml -155 ml Intake Oral 600 ml 420 ml Output Urine Total 575 ml # Bowel Movements 1 Physical Exam CONSTITUTIONAL/GENERAL: This is an adequately nourished patient, in no apparent distress. NECK: Trachea midline. Supple, nontender. No palpable thyroid enlargement or nodularity. CARDIOVASCULAR: Regular rate and rhythm without murmurs, gallops, or rubs. No JVD. Peripheral pulses symmetric. RESPIRATORY/CHEST: Symmetric, unlabored respirations. Clear to auscultation. Breath sounds equal bilaterally. No wheezes, rales, or rhonchi. MUSCULOSKELETAL: Extremities without clubbing, cyanosis, or edema. No joint tenderness or effusion noted. No calf tenderness. No mottling or clubbing. NEUROLOGICAL: Awake and alert. Weakness of the left leg and left arm/hand Follows commands. Cognitively sharp. PSYCHIATRIC: No obvious anxiety/depression. no apparent hallucinations or other psychotic thought process. . Diagnostic Tests Laboratory Laboratory Tests Test 01/30/17 20:10 01/31/17 08:59 01/31/17 10:38 02/01/17 06:03 White Blood Count 8.5 TH/MM3 (4.0-11.0) 6.4 TH/MM3 (4.0-11.0) Red Blood Count 4.88 MIL/MM3 (4.00-5.30) 4.47 MIL/MM3 (4.00-5.30) Hemoglobin 15.7 GM/DL (11.6-15.3) 14.4 GM/DL (11.6-15.3) Hematocrit 44.6 % (35.0-46.0) 41.0 % (35.0-46.0) Mean Corpuscular Volume 91.2 FL (80.0-100.0) 91.7 FL (80.0-100.0) Mean Corpuscular Hemoglobin 32.2 PG (27.0-34.0) 32.2 PG (27.0-34.0) Mean Corpuscular Hemoglobin Concent 35.3 % (32.0-36.0) 35.1 % (32.0-36.0) Red Cell Distribution Width 12.9 % (11.6-17.2) 13.0 % (11.6-17.2) Platelet Count 296 TH/MM3 (150-450) 270 TH/MM3 (150-450) Mean Platelet Volume 6.8 FL (7.0-11.0) 7.0 FL (7.0-11.0) Neutrophils (%) (Auto) 66.3 % (16.0-70.0) 70.9 % (16.0-70.0) Lymphocytes (%) (Auto) 22.6 % (9.0-44.0) 17.9 % (9.0-44.0) Monocytes (%) (Auto) 9.3 % (0.0-8.0) 9.1 % (0.0-8.0) Eosinophils (%) (Auto) 0.9 % (0.0-4.0) 1.3 % (0.0-4.0) Basophils (%) (Auto) 0.9 % (0.0-2.0) 0.8 % (0.0-2.0) Neutrophils # (Auto) 5.6 TH/MM3 (1.8-7.7) 4.5 TH/MM3 (1.8-7.7) Lymphocytes # (Auto) 1.9 TH/MM3 (1.0-4.8) 1.1 TH/MM3 (1.0-4.8) Monocytes # (Auto) 0.8 TH/MM3 (0-0.9) 0.6 TH/MM3 (0-0.9) Eosinophils # (Auto) 0.1 TH/MM3 (0-0.4) 0.1 TH/MM3 (0-0.4) Basophils # (Auto) 0.1 TH/MM3 (0-0.2) 0.0 TH/MM3 (0-0.2) CBC Comment DIFF FINAL DIFF FINAL Differential Comment Prothrombin Time 10.7 SEC (9.8-11.6) Prothromb Time International Ratio 1.0 RATIO Activated Partial Thromboplast Time 26.4 SEC (24.3-30.1) Blood Urea Nitrogen 10 MG/DL (7-18) 9 MG/DL (7-18) 11 MG/DL (7-18) Creatinine 0.74 MG/DL (0.50-1.00) 0.65 MG/DL (0.50-1.00) 0.55 MG/DL (0.50-1.00) Random Glucose 107 MG/DL (74-106) 105 MG/DL (74-106) 138 MG/DL (74-106) Calcium Level 9.8 MG/DL (8.5-10.1) 9.2 MG/DL (8.5-10.1) 8.6 MG/DL (8.5-10.1) Sodium Level 134 MEQ/L (136-145) 139 MEQ/L (136-145) 143 MEQ/L (136-145) Potassium Level 3.2 MEQ/L (3.5-5.1) 2.9 MEQ/L (3.5-5.1) 4.5 MEQ/L (3.5-5.1) Chloride Level 99 MEQ/L (98-107) 104 MEQ/L (98-107) 113 MEQ/L (98-107) Carbon Dioxide Level 25.0 MEQ/L (21.0-32.0) 25.8 MEQ/L (21.0-32.0) 25.5 MEQ/L (21.0-32.0) Anion Gap 10 MEQ/L (5-15) 9 MEQ/L (5-15) 5 MEQ/L (5-15) Estimat Glomerular Filtration Rate 80 ML/MIN (>89) 93 ML/MIN (>89) 113 ML/MIN (>89) Magnesium Level 2.1 MG/DL (1.5-2.5) Urine Color YELLOW (YELLW/STRAW) Urine Turbidity CLEAR (CLEAR) Urine pH 6.0 (5.0-8.5) Urine Specific [place] 1.019 (1.002-1.035) Urine Protein NEG mg/dL (NEG-TRACE) Urine Glucose (UA) NEG mg/dL (NEG) Urine Ketones 10 mg/dL (NEG) Urine Occult Blood NEG (NEG) Urine Nitrite NEG (NEG) Urine Bilirubin NEG (NEG) Urine Urobilinogen LESS THAN 2.0 MG/DL (LESS Urine Leukocyte Esterase SMALL (NEG) Urine RBC 1 /hpf (0-3) Urine WBC 1 /hpf (0-5) Urine Squamous Epithelial Cells <1 /hpf (0-5) Urine Mucus FEW /lpf (OCC) Microscopic Urinalysis Comment CULT NOT INDICATED Result Diagram: 01/31/17 0859 02/01/17 0603 Assessment and Plan Disease Oriented Problem List: (1) glioblastoma multiforme, diagnosed August 2016, now with progressive disease in spite of treatment (2) breast cancer, S/P surgery, chemotherapy, radiation, with no obvious recurrent or persistent disease (3) abnormalities on recent scans involving the rectosigmoid area of the colon and the right lung (4) hypertension (5) hypothyroidism (6) anxiety Symptom Scale: (1) pain 0-10 Scale: 2 (2) anxiety 0-10 Scale: 3 (chronic, has been on Xanax) (3) repeated falls Pertinent Non-Medical Issues Psychosocial: , 1 son, lives with sister, former employee of a [employer] company. Spiritual: The patient reports that she is spiritual and her own way, but has not been affiliated with any particular spiritism, denomination, or clergy. 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 Legal: The patient has opacity for decision-making, and she has designated her sister Erin as healthcare surrogate. Ethical issues impacting care: None . Important Contacts Sister: Erin Ordonez [phone] -- TEXT first; she is [employer] TEXT FIRST Son: Gopal Carmen [phone], . Prognosis The patient is terminal. She has progressive glioblastoma on scan and has worsening neurologic symptoms. She is appropriate for hospice services. . Code Status: No Code Plan * DO NOT RESUSCITATE, per request of patient 02/01/17 * DECISION-MAKING: The patient has opacity for decision-making, and she has designated her sister Erin as healthcare surrogate. * GOALS: The patient understands that her condition is terminal, and she knows now that she has no good chemotherapy option and no surgical option. She would like to speak with hospice regarding their services. I spoke with the patient' s sister also, and she is in agreement with talking with hospice. * Hospice consult placed. * SYMPTOMS: The patient's anxiety has been managed by Xanax at home, and her head pain thus far has not been severe. No new medication recommendations at this time. * Palliative Care will continue to follow the patient during this hospitalization. . Time Spent Total Floor Time (mins): 36 Face to Face Time (mins): 18 >50% Counseling/Coord of Care: Yes Attestation To help prompt me to consider important information that might be impacting today's encounter and assessment, information from prior notes written by myself or my colleagues may have been "brought forward" into today's note. My signature on this note, however, is an attestation that I personally performed the exam, history, and/or decision-making noted today, and, unless otherwise indicated, the interactions with patient, family, and staff as well as the review of records all occurred today. I also attest that the listed assessment and stated plan reflect my best clinical judgment today based on the combination of historical information, prior notes, and today's exam/ interactions. When time spent is documented, it refers only to time spent today by the signer, or if indicated, combined time spent today by collaborating physician/nurse practitioner. Vi Vázquez MD Feb 01, 2017 17:08
[2017-02-01] MEDS: ENOXAPARIN SODIUM 30 MG/0.3 ML SYRINGE SQ SCH (18:44)
[2017-02-02] VITALS (8 sets, daily range): BP systolic 116–141; BP diastolic 73–91; PULSE 46–85; RESP 16–20; TEMP 96.1–98.3; O2SAT 97–99
[2017-02-02] MEDS: LEVOTHYROXINE SODIUM 50 MCG TAB PO SCH (05:02)
[2017-02-02] MEDS: DEXAMETHASONE SOD PHOS 4 MG/ML VIAL IV PUSH SCH (05:02)
[2017-02-02] MEDS: NS + KCL 20 MEQ INJ 1,000 ML IV SCH ×2 (07:30→17:30)
[2017-02-02] MEDS: SODIUM CHLORIDE 0.9% FLUSH 10 ML FLUSH IV FLUSH SCH ×2 (09:00→20:41)
[2017-02-02] MEDS: PANTOPRAZOLE SOD 40 MG DELAYED RELEASE TAB PO SCH (10:15)
[2017-02-02] MEDS: levETIRAcetam 500 MG TAB PO SCH ×2 (10:16→20:40)
--- NOTE | 2017-02-02 13:40 | HHI.PR ---
Subjective Remarks patient is awake and alert, no headache complains, nausea or vomiting ff all commands Objective Vitals Vital Signs Date Time Temp Pulse Resp B/P (MAP) Pulse Ox O2 Delivery O2 Flow Rate FiO2 02/02/17 12:00 98.0 82 18 130/79 (96) 97 02/02/17 08:00 97.4 65 16 116/73 (87) 97 02/02/17 04:55 96.1 66 16 125/91 (102) 99 02/02/17 04:00 46 02/02/17 00:00 97.9 70 18 125/86 (99) 98 02/02/17 00:00 50 02/01/17 20:00 98.3 76 18 123/82 (96) 98 02/01/17 20:00 76 02/01/17 16:00 74 02/01/17 15:00 98.1 74 17 114/67 (83) 98 I/O 02/01/17 02/01/17 02/01/17 02/02/17 02/02/17 02/02/17 06:59 14:59 22:59 06:59 14:59 22:59 Intake Total 480 ml 420 ml 240 ml 240 ml Output Total 575 ml 1300 ml 900 ml Balance 480 ml -155 ml -1060 ml -660 ml Intake Oral 480 ml 420 ml 240 ml 240 ml Output Urine Total 575 ml 1300 ml 900 ml # Bowel Movements 1 Result Diagram: 01/31/17 0859 02/01/17 0603 Objective Remarks awake and alert, NAD anicteric, pupils equally, ROM full, grossly no sensory deficits no nuchal rigidity lungs no rales or wheezes regular rhythm abdomen soft, nontender extremities - 5/5 individually, moves all extremities spontaenously 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 Carmen is a 61-year-old female with a history of right-sided breast cancer, recent diagnosis of glioblastoma multiforme who presented to the emergency department today due to frequent falls. - Frequent falls - history of GBM on OP MRI with enlarging necrotic area with vasogenic edema with mass effect - with overall deconditioning, electrolyte imbalance. - Provide fall precautions -PT ff - Dr. Lugo of medical oncology ff - appreciate Palliative care ff seeing patient - OP MRI report (report was scanned, no images available). Per MRI report (), there is an enlarging necrotic area as well as vasogenic edema with mass effect. - on Decadron 4mg IV now and Q8hrs. DC home po Dexamethasone on DC - Dr. Osorio (Neurosurgery) evaluated patient- no surgery - Hypokalemia - potassium 2.9. - improved. K level 4.5 Patient received by mouth and IV potassium replacement. Magnesium 2.1. KCL supplements daily ff BMP - Hypertension continue Norvasc 10 mg daily. - Hypothyroidism - continue levothyroxine 50 g daily. TEDs PPI for GI prophylaxis DC to [facility] today [facility] ff Roberto Leigh MD Feb 02, 2017 13:40
[2017-02-02] MEDS ORDERED: PANT40TA3 PO (13:45)
[2017-02-02] MEDS ORDERED: DEXA4TAB PO (13:46)
[2017-02-02] MEDS: DEXAMETHASONE 4 MG TAB PO SCH ×2 (14:06→20:40)
--- NOTE | 2017-02-02 14:19 | HHI.DS ---
Discharge Summary Admission Date Jan 31, 2017 at 14:04 Discharge Date: Feb 02, 2017 Admitting Diagnosis Gait instablity, frequent falls (1) GBM (glioblastoma multiforme) ICD Code: C71.9 - Malignant neoplasm of brain, unspecified Diagnosis: Principal (2) Hypokalemia ICD Code: E87.6 - Hypokalemia Diagnosis: Secondary (3) Hypothyroidism ICD Code: E03.9 - Hypothyroidism, unspecified Diagnosis: Secondary (4) Hypertension ICD Code: I10 - Essential (primary) hypertension Diagnosis: Secondary Procedures none Brief History - From Admission Ms. Carmen is a pleasant 61-year-old female with history of glioblastoma multiforme (diagnosed in August 2016) and remote history of right breast cancer ( 2006) who presents to the emergency department due to frequent falls. For about 2 weeks patient reports falling frequently as she walks from room to room in her house. She reports no dizziness or lightheadedness. She reports no chest pain, shortness of breath or diaphoresis. She just looses her balance and falls. She feels that her symptoms are getting worse. Patient's sister is her caregiver but cannot take care of her at home all the time due to sister's work. Due to frequent falls it was felt that she is not safe at home and was subsequently advised to come to the emergency department. Patient denies any cough, fever or chills. Denies any dysuria or hematuria. She reports some constipation. She is normally able to eat and drink reasonably well. CBC/BMP: 01/31/17 0859 02/01/17 0603 Significant Findings Laboratory Tests Test 01/30/17 20:10 01/31/17 08:59 01/31/17 10:38 02/01/17 06:03 Hemoglobin 15.7 GM/DL (11.6-15.3) Mean Platelet Volume 6.8 FL (7.0-11.0) Monocytes (%) (Auto) 9.3 % (0.0-8.0) 9.1 % (0.0-8.0) Random Glucose 107 MG/DL (74-106) 138 MG/DL (74-106) Sodium Level 134 MEQ/L (136-145) Potassium Level 3.2 MEQ/L (3.5-5.1) 2.9 MEQ/L (3.5-5.1) Estimat Glomerular Filtration Rate 80 ML/MIN (>89) Neutrophils (%) (Auto) 70.9 % (16.0-70.0) Urine Ketones 10 mg/dL (NEG) Urine Leukocyte Esterase SMALL (NEG) Urine Mucus FEW /lpf (OCC) Chloride Level 113 MEQ/L (98-107) PE at Discharge awake and alert, NAD anicteric, pupils equally, ROM full, grossly no sensory deficits no nuchal rigidity lungs no rales or wheezes regular rhythm abdomen soft, nontender extremities - 5/5 individually, moves all extremities spontaenously 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 Carmen is a 61-year-old female with a history of right-sided breast cancer, recent diagnosis of glioblastoma multiforme who presented to the emergency department today due to frequent falls. - Frequent falls - history of GBM on OP MRI with enlarging necrotic area with vasogenic edema with mass effect - with overall deconditioning, electrolyte imbalance. - Provide fall precautions -PT ff - Dr. Lugo of medical oncology ff - appreciate Palliative care ff seeing patient - OP MRI report (report was scanned, no images available). Per MRI report (), there is an enlarging necrotic area as well as vasogenic edema with mass effect. - on Decadron 4mg IV now and Q8hrs. DC home po Dexamethasone on DC - Dr. Osorio (Neurosurgery) evaluated patient- no surgery - Hypokalemia - potassium 2.9. - improved. K level 4.5 Patient received by mouth and IV potassium replacement. Magnesium 2.1. KCL supplements daily ff BMP - Hypertension continue Norvasc 10 mg daily. - Hypothyroidism - continue levothyroxine 50 g daily. TEDs PPI for GI prophylaxis DC to [facility] today with [facility] ff Pt Condition on Discharge: Guarded Discharge Disposition: Discharge to SNF Discharge Time: <= 30 minutes Discharge Instructions DIET: Follow Instructions for: As Tolerated, No Restrictions Activities you can perform: Weight Bearing as Clay Activities to Avoid: Lifting/Bending, Prolonged Standing, Strenuous Activity Follow up Referrals: Oncology - 1 Week with shine New Medications: Dexamethasone (Dexamethasone) 4 Mg Tab 4 MG PO Q8HR for braimass/maira for 14 Days, #42 TAB 0 Refills Pantoprazole (Pantoprazole) 40 Mg Tab 40 MG PO DAILY for GI prop for 30 Days, #30 TAB Continued Medications: Amlodipine (Norvasc) 10 Mg Tab 10 MG PO DAILY for hypertension, #30 TAB 3 Refills Levetiracetam (Keppra) 500 Mg Tab 500 MG PO BID for Control Seizures, #60 TAB 3 Refills Levothyroxine (Levothyroxine) 50 Mcg Tab 50 MCG PO DAILY for Thyroid, #30 TAB 0 Refills Roberto Leigh MD Feb 02, 2017 14:19
--- NOTE | 2017-02-02 14:32 | HHI.HCPN ---
Reason for visit a. To assist with evaluation and management of symptoms including: Pain, falls b. To assist medical decision maker(s) with: better understanding of current medical conditions; weighing benefits/burdens of medical treatment options; making medical treatment decisions. . Subjective/Interval History INTERVAL NOTE: The patient is seen, lying in her bed, alert, and no distress. The patient denies any pain or dyspnea at this time, and has no nausea. She says she is eating "a little." The patient and her sister made the decision for hospice services yesterday, and [facility] hospice has been consulted. There is apparently a plan in place to transition the patient to the long term where her sister works. . Advance Directives Health Care Surrogate: Completed, but not made available Advance Directive Specifics Health Care Surrogate(s): The patient's sister Erin Ordonez . Significant change in goals: Transitioning to long term care with hospice services . Objective Vital Signs Date Time Temp Pulse Resp B/P (MAP) Pulse Ox O2 Delivery O2 Flow Rate FiO2 02/02/17 12:00 98.0 82 18 130/79 (96) 97 02/02/17 08:00 97.4 65 16 116/73 (87) 97 02/02/17 04:55 96.1 66 16 125/91 (102) 99 02/02/17 04:00 46 02/02/17 00:00 97.9 70 18 125/86 (99) 98 02/02/17 00:00 50 02/01/17 20:00 98.3 76 18 123/82 (96) 98 02/01/17 20:00 76 02/01/17 16:00 74 02/01/17 15:00 98.1 74 17 114/67 (83) 98 Intake & Output 02/02/17 02/02/17 06:59 18:59 Intake Total 480 ml Output Total 1800 ml Balance -1320 ml Intake Oral 480 ml Output Urine Total 1800 ml Physical Exam CONSTITUTIONAL/GENERAL: This is a weaker patient, in no apparent distress. NECK: Trachea midline. Supple, nontender. No palpable thyroid enlargement or nodularity. CARDIOVASCULAR: Regular rate and rhythm without murmurs, gallops, or rubs. No JVD. Peripheral pulses symmetric. RESPIRATORY/CHEST: Symmetric, unlabored respirations. Clear to auscultation. Breath sounds equal bilaterally. No wheezes, rales, or rhonchi. MUSCULOSKELETAL: Extremities without clubbing, cyanosis, or edema. No joint tenderness or effusion noted. No calf tenderness. No mottling or clubbing. NEUROLOGICAL: Awake and alert. Weakness of the left leg and left arm/hand. Follows commands. Cognitively sharp. PSYCHIATRIC: No obvious anxiety/depression. no apparent hallucinations or other psychotic thought process. . Diagnostic Tests Laboratory Laboratory Tests Test 01/30/17 20:10 01/31/17 08:59 01/31/17 10:38 02/01/17 06:03 White Blood Count 8.5 TH/MM3 (4.0-11.0) 6.4 TH/MM3 (4.0-11.0) Red Blood Count 4.88 MIL/MM3 (4.00-5.30) 4.47 MIL/MM3 (4.00-5.30) Hemoglobin 15.7 GM/DL (11.6-15.3) 14.4 GM/DL (11.6-15.3) Hematocrit 44.6 % (35.0-46.0) 41.0 % (35.0-46.0) Mean Corpuscular Volume 91.2 FL (80.0-100.0) 91.7 FL (80.0-100.0) Mean Corpuscular Hemoglobin 32.2 PG (27.0-34.0) 32.2 PG (27.0-34.0) Mean Corpuscular Hemoglobin Concent 35.3 % (32.0-36.0) 35.1 % (32.0-36.0) Red Cell Distribution Width 12.9 % (11.6-17.2) 13.0 % (11.6-17.2) Platelet Count 296 TH/MM3 (150-450) 270 TH/MM3 (150-450) Mean Platelet Volume 6.8 FL (7.0-11.0) 7.0 FL (7.0-11.0) Neutrophils (%) (Auto) 66.3 % (16.0-70.0) 70.9 % (16.0-70.0) Lymphocytes (%) (Auto) 22.6 % (9.0-44.0) 17.9 % (9.0-44.0) Monocytes (%) (Auto) 9.3 % (0.0-8.0) 9.1 % (0.0-8.0) Eosinophils (%) (Auto) 0.9 % (0.0-4.0) 1.3 % (0.0-4.0) Basophils (%) (Auto) 0.9 % (0.0-2.0) 0.8 % (0.0-2.0) Neutrophils # (Auto) 5.6 TH/MM3 (1.8-7.7) 4.5 TH/MM3 (1.8-7.7) Lymphocytes # (Auto) 1.9 TH/MM3 (1.0-4.8) 1.1 TH/MM3 (1.0-4.8) Monocytes # (Auto) 0.8 TH/MM3 (0-0.9) 0.6 TH/MM3 (0-0.9) Eosinophils # (Auto) 0.1 TH/MM3 (0-0.4) 0.1 TH/MM3 (0-0.4) Basophils # (Auto) 0.1 TH/MM3 (0-0.2) 0.0 TH/MM3 (0-0.2) CBC Comment DIFF FINAL DIFF FINAL Differential Comment Prothrombin Time 10.7 SEC (9.8-11.6) Prothromb Time International Ratio 1.0 RATIO Activated Partial Thromboplast Time 26.4 SEC (24.3-30.1) Blood Urea Nitrogen 10 MG/DL (7-18) 9 MG/DL (7-18) 11 MG/DL (7-18) Creatinine 0.74 MG/DL (0.50-1.00) 0.65 MG/DL (0.50-1.00) 0.55 MG/DL (0.50-1.00) Random Glucose 107 MG/DL (74-106) 105 MG/DL (74-106) 138 MG/DL (74-106) Calcium Level 9.8 MG/DL (8.5-10.1) 9.2 MG/DL (8.5-10.1) 8.6 MG/DL (8.5-10.1) Sodium Level 134 MEQ/L (136-145) 139 MEQ/L (136-145) 143 MEQ/L (136-145) Potassium Level 3.2 MEQ/L (3.5-5.1) 2.9 MEQ/L (3.5-5.1) 4.5 MEQ/L (3.5-5.1) Chloride Level 99 MEQ/L (98-107) 104 MEQ/L (98-107) 113 MEQ/L (98-107) Carbon Dioxide Level 25.0 MEQ/L (21.0-32.0) 25.8 MEQ/L (21.0-32.0) 25.5 MEQ/L (21.0-32.0) Anion Gap 10 MEQ/L (5-15) 9 MEQ/L (5-15) 5 MEQ/L (5-15) Estimat Glomerular Filtration Rate 80 ML/MIN (>89) 93 ML/MIN (>89) 113 ML/MIN (>89) Magnesium Level 2.1 MG/DL (1.5-2.5) Urine Color YELLOW (YELLW/STRAW) Urine Turbidity CLEAR (CLEAR) Urine pH 6.0 (5.0-8.5) Urine Specific [place] 1.019 (1.002-1.035) Urine Protein NEG mg/dL (NEG-TRACE) Urine Glucose (UA) NEG mg/dL (NEG) Urine Ketones 10 mg/dL (NEG) Urine Occult Blood NEG (NEG) Urine Nitrite NEG (NEG) Urine Bilirubin NEG (NEG) Urine Urobilinogen LESS THAN 2.0 MG/DL (LESS Urine Leukocyte Esterase SMALL (NEG) Urine RBC 1 /hpf (0-3) Urine WBC 1 /hpf (0-5) Urine Squamous Epithelial Cells <1 /hpf (0-5) Urine Mucus FEW /lpf (OCC) Microscopic Urinalysis Comment CULT NOT INDICATED Result Diagram: 01/31/17 0859 02/01/17 0603 Assessment and Plan Disease Oriented Problem List: (1) glioblastoma multiforme, diagnosed August 2016, now with progressive disease in spite of treatment (2) breast cancer, S/P surgery, chemotherapy, radiation, with no obvious recurrent or persistent disease (3) abnormalities on recent scans involving the rectosigmoid area of the colon and the right lung (4) hypertension (5) hypothyroidism (6) anxiety Symptom Scale: (1) pain 0-10 Scale: 2 (2) anxiety 0-10 Scale: 3 (chronic, has been on Xanax) (3) repeated falls Pertinent Non-Medical Issues Psychosocial: , 1 son, lives with sister, former employee of a [employer]. Spiritual: The patient reports that she is spiritual and her own way, but has not been affiliated with any particular jewish, denomination, or clergy. She is open to medical receptionist biller visits here at the hospital. Legal: The patient has opacity for decision-making, and she has designated her sister Erin as healthcare surrogate. Ethical issues impacting care: None . Important Contacts Sister: Erin Ordonez [phone] -- TEXT first; she is [employer] Son: Gopal Carmen [phone], . Prognosis The patient is terminal. She has progressive glioblastoma on scan and has worsening neurologic symptoms. She is appropriate for hospice services. . Code Status: No Code Plan * DO NOT RESUSCITATE, per request of patient 02/01/17 * DECISION-MAKING: The patient has capacity for decision-making, and she has designated her sister Erin as healthcare surrogate. * GOALS: The patient understands that her condition is terminal, and she has made the decision now for transitioning to hospice services, comfort care. * SYMPTOMS: The patient's anxiety has been managed by Xanax at home, and her head pain thus far has not been severe. No new medication recommendations at this time. * Palliative Care will continue to follow the patient during this hospitalization. . Time Spent Total Floor Time (mins): 28 Face to Face Time (mins): 11 >50% Counseling/Coord of Care: Yes Attestation To help prompt me to consider important information that might be impacting today's encounter and assessment, information from prior notes written by myself or my colleagues may have been "brought forward" into today's note. My signature on this note, however, is an attestation that I personally performed the exam, history, and/or decision-making noted today, and, unless otherwise indicated, the interactions with patient, family, and staff as well as the review of records all occurred today. I also attest that the listed assessment and stated plan reflect my best clinical judgment today based on the combination of historical information, prior notes, and today's exam/ interactions. When time spent is documented, it refers only to time spent today by the signer, or if indicated, combined time spent today by collaborating physician/nurse practitioner. Vi Vázquez MD Feb 02, 2017 14:32
[2017-02-02] MEDS: ENOXAPARIN SODIUM 30 MG/0.3 ML SYRINGE SQ SCH (19:08)
--- NOTE | 2017-02-02 21:50 | PD.ONC.PN ---
Subjective Subjective Remarks Poor prognosis with refractory /progressive GBM No viable treatment options available appropriate for palliative care/hospice ok to d/c from oncology standpoint when appropriate placement arranged Long discussion with patient and his sister Objective Data Date Time Temp Pulse Resp B/P (MAP) Pulse Ox O2 Delivery O2 Flow Rate FiO2 02/02/17 20:37 98.3 85 20 141/84 (103) 99 02/02/17 16:00 97.7 75 16 134/82 (99) 98 02/02/17 12:00 98.0 82 18 130/79 (96) 97 02/02/17 08:00 97.4 65 16 116/73 (87) 97 02/02/17 04:55 96.1 66 16 125/91 (102) 99 02/02/17 04:00 46 02/02/17 00:00 97.9 70 18 125/86 (99) 98 02/02/17 00:00 50 02/02/17 02/02/17 02/02/17 07:00 15:00 23:00 Intake Total 240 ml 240 ml Output Total 900 ml 925 ml Balance -660 ml -685 ml Result Diagram: 01/31/17 0859 02/01/17 0603 Administered Medications Medications (Trade) Dose Ordered Sig/Jason Route PRN Reason Start Time Stop Time Status Last Admin Dose Admin Sodium Chloride (NS Flush) 2 ml UNSCH PRN IV FLUSH FLUSH AFTER USING IV ACCESS 01/30/17 22:00 01/31/17 09:20 Sodium Chloride (NS Flush) 2 ml BID IV FLUSH 01/31/17 09:00 02/02/17 20:41 Acetaminophen (Tylenol) 650 mg Q4H PRN PO TEMP > 100.4 01/30/17 22:00 01/31/17 13:08 Magnesium Hydroxide (Milk Of Magnesia Liq) 30 ml Q12H PRN PO MILD - MODERATE CONSTIPATION 01/30/17 22:00 01/31/17 20:27 Amlodipine Besylate (Norvasc) 10 mg DAILY PO 01/31/17 09:00 02/02/17 10:15 Levetriacetam (Keppra) 500 mg BID PO 01/31/17 09:00 02/02/17 20:40 Levothyroxine Sodium (Synthroid) 50 mcg DAILY@0600 PO 01/31/17 09:00 02/02/17 05:02 Potassium Chloride/Sodium Chloride 1,000 ml @ 100 mls/hr Q10H IV 01/31/17 15:30 02/01/17 21:20 Pantoprazole Sodium (Protonix) 40 mg DAILY PO 02/01/17 09:00 02/02/17 10:15 Enoxaparin Sodium (Lovenox Inj) 30 mg Q24H SQ 02/01/17 18:00 02/02/17 19:08 Dexamethasone (Decadron) 4 mg Q8HR PO 02/02/17 14:00 02/02/17 20:40 Objective Remarks GENERAL: acutely ill SKIN: Warm and dry. CARDIOVASCULAR: Regular rate and rhythm without murmurs. RESPIRATORY: Breath sounds equal bilaterally. No accessory muscle use. GASTROINTESTINAL: Abdomen soft, non-tender, nondistended. EXTREMITIES: No cyanosis, or edema. l. Assessment/Plan Problem List: (1) glioblastoma multiforme, diagnosed August 2016, now with progressive disease in spite of treatment Status: Acute Plan: -- MRI of the brain showed vasogenic edema and mass effect with midline shift of 7-8 mm. There was an enhancing mass that has spread significantly measuring 5 cm x 3.3 cm. -- Neurosurgery consulted -- We may be able to offer additional treatment with bevacizumab; however this has little promise. Hx/Workup: Patient was diagnosed with glioblastoma multi form in August 2016. She underwent craniotomy with debulking of the disease and was subsequently treated with Temodar and 42 days of radiation. She has been on maintenance Temodar. She is presents to the emergency room with complaints of left-sided weakness and frequent falls at home. Assessment 61 y/o female with history of glioblastoma multiforme unfortunately with progression of disease, admitted with left-sided weakness and frequent falls at home Plan 1. Continue Decadron and Keppra. 2. Patient has opted for Hospice Iván Lugo MD Feb 02, 2017 21:50
[2017-02-03] VITALS (7 sets, daily range): BP systolic 116–148; BP diastolic 69–87; PULSE 47–80; RESP 16–20; TEMP 96–98.6; O2SAT 92–98
[2017-02-03] MEDS: NS + KCL 20 MEQ INJ 1,000 ML IV SCH ×2 (03:30→07:19)
[2017-02-03] MEDS: LEVOTHYROXINE SODIUM 50 MCG TAB PO SCH (05:12)
[2017-02-03] MEDS: DEXAMETHASONE 4 MG TAB PO SCH ×3 (05:12→21:37)
[2017-02-03] MEDS: SODIUM CHLORIDE 0.9% FLUSH 10 ML FLUSH IV FLUSH SCH ×2 (07:18→21:38)
[2017-02-03] MEDS: levETIRAcetam 500 MG TAB PO SCH ×2 (09:00→21:37)
[2017-02-03] MEDS: PANTOPRAZOLE SOD 40 MG DELAYED RELEASE TAB PO SCH (09:00)
--- NOTE | 2017-02-03 12:05 | HHI.PR ---
Subjective Remarks awake and alert, no complains of headaches, nausea or vomiting Objective Vitals Vital Signs Date Time Temp Pulse Resp B/P (MAP) Pulse Ox O2 Delivery O2 Flow Rate FiO2 02/03/17 07:50 96.0 72 20 135/82 (99) 98 02/03/17 04:00 96.0 67 16 142/83 (102) 97 02/03/17 00:08 47 02/03/17 00:00 96.8 52 16 116/69 (85) 92 02/02/17 20:37 98.3 85 20 141/84 (103) 99 02/02/17 20:00 49 02/02/17 16:00 97.7 75 16 134/82 (99) 98 I/O 02/02/17 02/02/17 02/02/17 02/03/17 02/03/17 02/03/17 07:00 15:00 23:00 07:00 15:00 23:00 Intake Total 240 ml 240 ml Output Total 900 ml 925 ml 400 ml Balance -660 ml -685 ml -400 ml Intake Oral 240 ml 240 ml Output Urine Total 900 ml 925 ml 400 ml # Voids 4 1 # Bowel Movements 1 Result Diagram: 01/31/17 0859 02/01/17 0603 Objective Remarks awake and alert, NAD, oriented x 3, speech clear anicteric, pupils equally, ROM full, grossly no sensory deficits no nuchal rigidity lungs no rales or wheezes regular rhythm abdomen soft, nontender extremities - moves all extremities spontaneously 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 Carmen is a 61-year-old female with a history of right-sided breast cancer, recent diagnosis of glioblastoma multiforme who presented to the emergency department today due to frequent falls. - Frequent falls - history of GBM on OP MRI with enlarging necrotic area with vasogenic edema with mass effect - Provide fall precautions -PT ff - Dr. Lugo of medical oncology ff - appreciate Palliative care ff seeing patient - OP MRI report (report was scanned, no images available). Per MRI report (), there is an enlarging necrotic area as well as vasogenic edema with mass effect. - on Decadron 4mg IV now and Q8hrs. DC home po Dexamethasone on DC - Dr. Osorio (Neurosurgery) evaluated patient- no surgery - Hypokalemia - potassium 2.9. - improved. K level 4.5 KCL supplements daily ff BMP - Hypertension continue Norvasc 10 mg daily. - Hypothyroidism - continue levothyroxine 50 g daily. TEDs PPI for GI prophylaxis DC to [facility] ff- [facility] still evaluating- wont accept her without agreement/paper works from hospice Roberto Leigh MD Feb 03, 2017 12:05
[2017-02-03] MEDS: ENOXAPARIN SODIUM 30 MG/0.3 ML SYRINGE SQ SCH (17:57)
[2017-02-04] VITALS: BP 147/92; PULSE 56; RESP 20; TEMP 97.6; O2SAT 94
[2017-02-04 04:00] VITALS: BP 138/81; PULSE 73; RESP 20; TEMP 97.6; O2SAT 99
[2017-02-04] MEDS: DEXAMETHASONE 4 MG TAB PO SCH ×3 (05:25→20:27)
[2017-02-04] MEDS: LEVOTHYROXINE SODIUM 50 MCG TAB PO SCH (05:25)
[2017-02-04 07:25] VITALS: BP 142/78; PULSE 51; RESP 18; TEMP 97.1; O2SAT 97
[2017-02-04] MEDS: PANTOPRAZOLE SOD 40 MG DELAYED RELEASE TAB PO SCH (07:54)
[2017-02-04] MEDS: POTASSIUM CHLORIDE 20 MEQ CONTROLLED RELEASE TAB PO SCH (07:54)
[2017-02-04] MEDS: levETIRAcetam 500 MG TAB PO SCH ×2 (07:54→20:27)
[2017-02-04] MEDS: SODIUM CHLORIDE 0.9% FLUSH 10 ML FLUSH IV FLUSH SCH ×2 (07:55→20:27)
[2017-02-04 08:07] LABS: BICARBONATE 24.2 MEQ/L (21.0-32.0)
[2017-02-04 11:05] VITALS: BP 122/72; PULSE 71; RESP 17; TEMP 97.9; O2SAT 97
--- NOTE | 2017-02-04 11:49 | HHI.PR ---
Subjective Remarks no complains denies any headaches, nausea or vomiting did well with physical therapy today Objective Vitals Vital Signs Date Time Temp Pulse Resp B/P (MAP) Pulse Ox O2 Delivery O2 Flow Rate FiO2 02/04/17 11:05 97.9 71 17 122/72 (89) 97 02/04/17 07:25 97.1 51 18 142/78 (99) 97 02/04/17 04:00 97.6 73 20 138/81 (100) 99 02/04/17 00:00 97.6 56 20 147/92 (110) 94 02/03/17 20:00 98.6 70 20 148/87 (107) 98 02/03/17 15:00 96.8 68 20 135/71 (92) 97 02/03/17 11:50 98.3 80 20 140/77 (98) 96 I/O 02/03/17 02/03/17 02/03/17 02/04/17 02/04/17 02/04/17 07:00 15:00 23:00 07:00 15:00 23:00 Intake Total 240 ml 240 ml 24 ml Output Total 400 ml 800 ml 400 ml Balance -400 ml -560 ml 240 ml -376 ml Intake Oral 240 ml 240 ml 24 ml Output Urine Total 400 ml 800 ml 400 ml # Voids 1 1 2 2 # Bowel Movements 0 Result Diagram: 01/31/17 0859 02/04/17 0650 Objective Remarks awake and alert, NAD, oriented x 3, speech clear anicteric, pupils equally, ROM full, grossly no sensory deficits no nuchal rigidity lungs no rales or wheezes regular rhythm abdomen soft, nontender extremities - moves all extremities spontaneously, no calf tenderness/swelling good 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 Carmen is a 61-year-old female with a history of right-sided breast cancer, recent diagnosis of glioblastoma multiforme who presented to the emergency department today due to frequent falls. - history of GBM on OP MRI with enlarging necrotic area with vasogenic edema with mass effect - Provide fall precautions -PT ff - Dr. Lugo of medical oncology ff - appreciate Palliative care ff seeing patient - OP MRI report (report was scanned, no images available). Per MRI report (), there is an enlarging necrotic area as well as vasogenic edema with mass effect. - changed to Dexamethasone 4 mg po q 8 - Dr. Osorio (Neurosurgery) evaluated patient- no surgery - Hypokalemia - Impproved KCL 20 meq po daily - Hypertension continue Norvasc 10 mg daily. - Hypothyroidism - continue levothyroxine 50 g daily. TEDs PPI for GI prophylaxis DC [facility]- [facility] still evaluating- wont accept her without agreement/paper works from hospice- Roberto Williamson MD Feb 04, 2017 11:49
[2017-02-04 15:00] VITALS: BP 136/84; PULSE 53; RESP 17; TEMP 96.8; O2SAT 97
[2017-02-04] MEDS: ENOXAPARIN SODIUM 30 MG/0.3 ML SYRINGE SQ SCH (16:10)
[2017-02-04 20:00] VITALS: BP 148/88; PULSE 62; RESP 19; TEMP 97.8; O2SAT 98
[2017-02-05] VITALS: BP 139/83; PULSE 68; RESP 16; TEMP 97.4; O2SAT 97
[2017-02-05 04:00] VITALS: BP 155/81; PULSE 74; RESP 16; TEMP 96; O2SAT 97
[2017-02-05] MEDS: DEXAMETHASONE 4 MG TAB PO SCH ×3 (05:35→21:08)
[2017-02-05] MEDS: LEVOTHYROXINE SODIUM 50 MCG TAB PO SCH (05:35)
[2017-02-05] MEDS: PANTOPRAZOLE SOD 40 MG DELAYED RELEASE TAB PO SCH (08:55)
[2017-02-05] MEDS: levETIRAcetam 500 MG TAB PO SCH ×2 (08:56→21:08)
[2017-02-05] MEDS: POTASSIUM CHLORIDE 20 MEQ CONTROLLED RELEASE TAB PO SCH (08:56)
[2017-02-05] MEDS: SODIUM CHLORIDE 0.9% FLUSH 10 ML FLUSH IV FLUSH SCH ×2 (09:00→21:00)
[2017-02-05 09:29] VITALS: BP 131/84; PULSE 64; RESP 16; TEMP 98.6; O2SAT 97
[2017-02-05] MEDS ORDERED: DEXA4TAB PO (10:02)
[2017-02-05] MEDS ORDERED: ALPR.5 PO (10:02)
[2017-02-05 11:30] VITALS: BP 136/70; PULSE 84; RESP 18; TEMP 96.3; O2SAT 96
[2017-02-05 16:00] VITALS: BP 167/82; PULSE 67; RESP 18; TEMP 97.1; O2SAT 97
--- NOTE | 2017-02-05 17:08 | HHI.PR ---
Subjective Remarks No new complaints from patient. Planning possible discharge to assisted facility under hospice. Arrangements in process. Objective Vital Signs Date Time Temp Pulse Resp B/P (MAP) Pulse Ox O2 Delivery O2 Flow Rate FiO2 02/05/17 16:00 97.1 67 18 167/82 (110) 97 02/05/17 11:30 96.3 84 18 136/70 (92) 96 02/05/17 09:29 98.6 64 16 131/84 (100) 97 02/05/17 04:00 96.0 74 16 155/81 (105) 97 02/05/17 00:00 97.4 68 16 139/83 (101) 97 02/04/17 20:00 97.8 62 19 148/88 (108) 98 I/O 02/04/17 02/04/17 02/04/17 02/05/17 02/05/17 02/05/17 07:00 15:00 23:00 07:00 15:00 23:00 Intake Total 24 ml 150 ml 120 ml 480 ml Output Total 400 ml 550 ml 100 ml 250 ml 400 ml Balance -376 ml -400 ml -100 ml -130 ml 80 ml Intake Oral 24 ml 150 ml 120 ml 480 ml Output Urine Total 400 ml 550 ml 100 ml 250 ml 400 ml # Voids 2 1 # Bowel Movements 2 Result Diagram: 02/04/17 0650 Objective Remarks GENERAL: NAD, A&Ox3 HEAD: Normocephalic. Scars at scalp NECK: Supple, trachea midline. No lymphadenopathy. EYES: No scleral icterus. No injection or drainage. CARDIOVASCULAR: Regular rate and rhythm without murmurs, gallops, or rubs. RESPIRATORY: Breath sounds equal bilaterally. No accessory muscle use. GASTROINTESTINAL: Abdomen soft, non-tender, nondistended. MUSCULOSKELETAL: No cyanosis, or edema. Scars at scalp SKIN: Warm and dry. NEURO: No focal neurological deficitis. A/P Problem List: (1) glioblastoma multiforme, diagnosed August 2016, now with progressive disease in spite of treatment Status: Acute (2) GBM (glioblastoma multiforme) ICD Code: C71.9 - Malignant neoplasm of brain, unspecified (3) repeated falls Assessment and Plan Assessment and Plan 61 year-old female admitted secondary to falls related to glioblastoma multiforme a Glioblastoma multiforme History of breast cancer Continue dexamethasone Plan to discharge to assisted facility Plan to discharge and hospice Neurosurgery following Patient is not a surgical candidate Medical oncology following Hypokalemia Potassium 20 mEq daily Follow potassium levels Extra supplementations as needed Hypertension Continue Norvasc Follow blood pressures Hypothyroidism Continue levothyroxin Follows in outpatient DVT prophylaxis SCDs Discharge planning Planning to discharge with hospice to assisted facility Jimbo Connolly MD Feb 05, 2017 17:08
[2017-02-05] MEDS: ENOXAPARIN SODIUM 30 MG/0.3 ML SYRINGE SQ SCH (18:10)
[2017-02-05 20:48] VITALS: BP 156/80; PULSE 52; RESP 16; TEMP 97.4; O2SAT 97
--- NOTE | 2017-02-05 21:56 | PD.ONC.PN ---
Subjective Subjective Remarks Progressive GBM Poor prognosis palliative measures and placement to SNF with hospice Objective Data Date Time Temp Pulse Resp B/P (MAP) Pulse Ox O2 Delivery O2 Flow Rate FiO2 02/05/17 20:48 97.4 52 16 156/80 (105) 97 02/05/17 16:00 97.1 67 18 167/82 (110) 97 02/05/17 11:30 96.3 84 18 136/70 (92) 96 02/05/17 09:29 98.6 64 16 131/84 (100) 97 02/05/17 04:00 96.0 74 16 155/81 (105) 97 02/05/17 00:00 97.4 68 16 139/83 (101) 97 02/05/17 02/05/17 02/05/17 07:00 15:00 23:00 Intake Total 120 ml 480 ml Output Total 250 ml 400 ml Balance -130 ml 80 ml Result Diagram: 02/04/17 0650 Administered Medications Medications (Trade) Dose Ordered Sig/Jason Route PRN Reason Start Time Stop Time Status Last Admin Dose Admin Sodium Chloride (NS Flush) 2 ml UNSCH PRN IV FLUSH FLUSH AFTER USING IV ACCESS 01/30/17 22:00 01/31/17 09:20 Sodium Chloride (NS Flush) 2 ml BID IV FLUSH 01/31/17 09:00 02/02/17 20:41 Acetaminophen (Tylenol) 650 mg Q4H PRN PO TEMP > 100.4 01/30/17 22:00 01/31/17 13:08 Magnesium Hydroxide (Milk Of Magnesia Liq) 30 ml Q12H PRN PO MILD - MODERATE CONSTIPATION 01/30/17 22:00 01/31/17 20:27 Amlodipine Besylate (Norvasc) 10 mg DAILY PO 01/31/17 09:00 02/05/17 08:58 Levetriacetam (Keppra) 500 mg BID PO 01/31/17 09:00 02/05/17 21:08 Levothyroxine Sodium (Synthroid) 50 mcg DAILY@0600 PO 01/31/17 09:00 02/05/17 05:35 Pantoprazole Sodium (Protonix) 40 mg DAILY PO 02/01/17 09:00 02/05/17 08:55 Enoxaparin Sodium (Lovenox Inj) 30 mg Q24H SQ 02/01/17 18:00 02/05/17 18:10 Dexamethasone (Decadron) 4 mg Q8HR PO 02/02/17 14:00 02/05/17 21:08 Potassium Chloride (KCl) 20 meq DAILY PO 02/04/17 09:00 02/05/17 08:56 Objective Remarks GENERAL: nad SKIN: Warm and dry CARDIOVASCULAR: Regular rate and rhythm without murmurs. RESPIRATORY: Breath sounds equal bilaterally. No accessory muscle use. GASTROINTESTINAL: Abdomen soft, non-tender, nondistended. EXTREMITIES: No cyanosis, or edema. Assessment/Plan Problem List: (1) glioblastoma multiforme, diagnosed August 2016, now with progressive disease in spite of treatment Status: Acute Plan: -- MRI of the brain showed vasogenic edema and mass effect with midline shift of 7-8 mm. There was an enhancing mass that has spread significantly measuring 5 cm x 3.3 cm. -- Neurosurgery consulted -- We may be able to offer additional treatment with bevacizumab; however this has little promise. Hx/Workup: Patient was diagnosed with glioblastoma multi form in August 2016. She underwent craniotomy with debulking of the disease and was subsequently treated with Temodar and 42 days of radiation. She has been on maintenance Temodar. She is presents to the emergency room with complaints of left-sided weakness and frequent falls at home. Assessment 61 y/o female with history of glioblastoma multiforme unfortunately with progression of disease, admitted with left-sided weakness and frequent falls at home Plan 1. Continue Decadron and Keppra. 2. Patient has opted for Hospice Iván Lugo MD Feb 05, 2017 21:56
[2017-02-06 00:01] VITALS: BP 133/85; PULSE 65; RESP 16; TEMP 96; O2SAT 98
[2017-02-06 04:09] VITALS: BP 153/86; PULSE 70; RESP 16; TEMP 96.6; O2SAT 97
[2017-02-06] MEDS: DEXAMETHASONE 4 MG TAB PO SCH (05:55)
[2017-02-06] MEDS: LEVOTHYROXINE SODIUM 50 MCG TAB PO SCH (05:55)
[2017-02-06 08:00] VITALS: BP 131/80; PULSE 50; RESP 20; TEMP 96.9; O2SAT 96
[2017-02-06] MEDS: POTASSIUM CHLORIDE 20 MEQ CONTROLLED RELEASE TAB PO SCH (08:58)
[2017-02-06] MEDS: SODIUM CHLORIDE 0.9% FLUSH 10 ML FLUSH IV FLUSH SCH (08:58)
[2017-02-06] MEDS: PANTOPRAZOLE SOD 40 MG DELAYED RELEASE TAB PO SCH (08:58)
[2017-02-06] MEDS: levETIRAcetam 500 MG TAB PO SCH (08:58)
--- NOTE | 2017-02-06 09:02 | HHI.PR ---
Subjective Remarks Patient is doing well and stable for discharge to [facility] with hospice. No new complaints from patient. Arrangements in process. Objective Vital Signs Date Time Temp Pulse Resp B/P (MAP) Pulse Ox O2 Delivery O2 Flow Rate FiO2 02/06/17 08:00 96.9 50 20 131/80 (97) 96 02/06/17 04:09 96.6 70 16 153/86 (108) 97 02/06/17 00:01 96.0 65 16 133/85 (101) 98 02/05/17 20:48 97.4 52 16 156/80 (105) 97 02/05/17 16:00 97.1 67 18 167/82 (110) 97 02/05/17 11:30 96.3 84 18 136/70 (92) 96 02/05/17 09:29 98.6 64 16 131/84 (100) 97 I/O 02/05/17 02/05/17 02/05/17 02/06/17 02/06/17 02/06/17 07:00 15:00 23:00 07:00 15:00 23:00 Intake Total 120 ml 480 ml Output Total 250 ml 400 ml 450 ml Balance -130 ml 80 ml -450 ml Intake Oral 120 ml 480 ml Output Urine Total 250 ml 400 ml 450 ml # Voids 1 Result Diagram: 02/04/17 0650 Objective Remarks GENERAL: NAD, A&Ox3 HEAD: Normocephalic. Scars at scalp NECK: Supple, trachea midline. No lymphadenopathy. EYES: No scleral icterus. No injection or drainage. CARDIOVASCULAR: Regular rate and rhythm without murmurs, gallops, or rubs. RESPIRATORY: Breath sounds equal bilaterally. No accessory muscle use. GASTROINTESTINAL: Abdomen soft, non-tender, nondistended. MUSCULOSKELETAL: No cyanosis, or edema. Scars at scalp SKIN: Warm and dry. NEURO: No focal neurological deficitis. A/P Problem List: (1) glioblastoma multiforme, diagnosed August 2016, now with progressive disease in spite of treatment Status: Acute (2) GBM (glioblastoma multiforme) ICD Code: C71.9 - Malignant neoplasm of brain, unspecified (3) repeated falls Assessment and Plan Assessment and Plan 61 year-old female admitted secondary to falls related to glioblastoma multiforme. No new complaints today. Discharge landing in process. Discharge today for arrangements made. Glioblastoma multiforme History of breast cancer Continue dexamethasone Plan to discharge to custodial facility Plan to discharge and hospice Neurosurgery following Patient is not a surgical candidate Medical oncology following Hypokalemia Potassium 20 mEq daily Follow potassium levels Extra supplementations as needed Hypertension Continue Norvasc Follow blood pressures Hypothyroidism Continue levothyroxin Follows in outpatient DVT prophylaxis SCDs Discharge planning Planning to discharge with hospice to custodial facility Jimbo Connolly MD Feb 06, 2017 09:02
== END 2017-02-06 12:28 | DRG 54 ==
LOC: NEPC 16:53 → NEDA 21:43 → NEPGCP 01-31 02:43 → OBSVTOIN 01-31 14:04 → HOCB 01-31 21:09
PROVIDERS: ADMIT Hospitalist; ATTEND Hospitalist
DX: C71.9 Malignant neoplasm of brain, unspecified (principal); G93.6 Cerebral edema; I10 Essential (primary) hypertension; E78.5 Hyperlipidemia, unspecified; K59.00 Constipation, unspecified; R29.6 Repeated falls; Z85.3 Personal history of malignant neoplasm of breast; E03.9 Hypothyroidism, unspecified; Z90.10 Acquired absence of unspecified breast and nipple; E87.6 Hypokalemia; Z51.5 Encounter for palliative care; F41.9 Anxiety disorder, unspecified; R91.8 Other nonspecific abnormal finding of lung field; Z87.891 Personal history of nicotine dependence; R53.1 Weakness; R26.81 Unsteadiness on feet; Z66 Do not resuscitate
CPT/HCPCS: 80048; 81001; 83735; 85025; 85610; 85730; 96361; 96374; G0378; G8987-GP; G8988-GP; J1100; J1650; J2405; J3480; J7030; J8540